=== PATIENT | male | born 1940 | race Caucasian/White ===

== ENCOUNTER → 2016-10-04 | Outpatient (REF) | payer MEDICARE ==
[~2016-10-04] MED LIST: /ADVA50050 IN; /LINE60TA OR; /PANT40TA OR; ADV250INH INH; ALBU83IN IN; ALDA25TA2 OR; ASPI1TAB PO; ASPI81TA45 OR; BUPR150T3 PO; CAPT12.5 OR; CAPTPOW PO; COLA100C PO; COLA100C2 OR; COMBAER6 INH; COMBVENT INH; DUONSOL IN; DUONSOL NEB; FERR325T3 PO; FOLI1TAB2 PO; HYDR-3713 PO; IPRASOL4 INH; LIPI20TA OR; LIPI20TA PO; LISI2.5T OR; LORT5TAB PO; MAGN500T2 OR; MIRA3350 PO; MOM30SS PO; MUCI600T34 PO; MULT1TAB18 PO; NICO14DI3 TD; NORCOTAB PO; OMEP20TA7 OR; PANT40TA2 PO; PERCOCET PO; PLAV75TA2 OR; PLAV75TA38 PO; POTA10CA PO; PRED10TA PO; PRED10TA2 OR; PRED20TA OR; PRED5TAB OR; RAMI5CA PO; SENO8.6T2 PO; TYLE325T5 PO; VICO5TAB OR; VITA100072 PO; VITA500055 PO; VITMTA PO; [UNRECOGNIZED DRUG - OTHER]; [UNRECOGNIZED DRUG - OTHER]; invanz IV; omnicef PO
[2016-10-04 16:07] LABS: VITAMIN B12 LEVEL 1254 PG/ML (247-911)
[2016-10-04 16:08] LABS: BASO # 0.2 K/mm3 (0.0-0.2); BASO % 1.5 % (0.0-1.0); EOS # 0.4 K/mm3 (0.0-0.50); EOS % 3.6 % (0.0-3.0); LARGE UNSTAINED CELL # 0.2 K/mm3 (0.0-0.4); LARGE UNSTAINED CELL % 1.8 % (0.0-4.0); LYMPH # 2.9 K/mm3 (1.5-4.5); MEAN CORPUSCULAR HEMOGLOBIN 27.1 pg (27.0-33.0); MEAN CORPUSCULAR HGB CONC 31.2 g/dl (32.0-36.5); MEAN CORPUSCULAR VOLUME 86.6 fl (80.0-96.0); MONO # 0.7 K/mm3 (0.0-0.8); MONO % 6.2 % (0.0-5.0); NEUTROPHILS # 7.1 K/mm3 (1.8-7.7); PLATELET COUNT, AUTOMATED 222 k/mm3 (150-450); RED CELL DISTRIBUTION WIDTH 16.2 % (11.5-14.5); WHITE BLOOD COUNT 11.2 K/mm3 (4.0-10.0)
[2016-10-04 16:16] LABS: ALBUMIN 3.5 GM/DL (3.2-5.2); ALBUMIN/GLOBULIN RATIO 0.78 (1.00-1.93); ALKALINE PHOSPHATASE 122 U/L (45-117); ALT/SGPT 21 U/L (12-78); ANION GAP 7 MEQ/L (8-16); AST/SGOT 9 U/L (15-37); BILIRUBIN,TOTAL 0.3 MG/DL (0.2-1.0); BLOOD UREA NITROGEN 20 MG/DL (7-18); CALCIUM LEVEL 9.5 MG/DL (8.8-10.2); CARBON DIOXIDE LEVEL 27 MEQ/L (21-32); CHLORIDE LEVEL 112 MEQ/L (98-107); FERRITIN 269 NG/ML (26-388); GLOMERULAR FILTRATION RATE > 60.0 (>42); GLUCOSE, FASTING 79 MG/DL (83-110); MAGNESIUM LEVEL 1.9 MG/DL (1.8-2.4); PERCENT SATURATION 23.4 % (19.7-37.4); POTASSIUM SERUM 4.6 MEQ/L (3.5-5.1); SODIUM LEVEL 146 MEQ/L (136-145); TOTAL IRON BINDING CAPACITY 252 UG/DL (250-450)
== END ==
LOC: M SFHCPLAZ 12:31
PROVIDERS: ATTEND Family Medicine
DX: D50.9 Iron deficiency anemia, unspecified (principal); N18.3 Chronic kidney disease, stage 3 (moderate); I12.9 Hypertensive chronic kidney disease with stage 1 through stage 4 chronic kidney disease, or unspecified chronic kidney disease; E55.9 Vitamin D deficiency, unspecified; E53.8 Deficiency of other specified B group vitamins
CPT/HCPCS: 36415; 80053; 82306; 82607; 82728; 83550; 83735; 83970; 85025; G0463

== ENCOUNTER → 2016-10-29 | Outpatient (REF) | payer MEDICARE ==
[2016-10-29 12:40] LABS: ALBUMIN 3.4 GM/DL (3.2-5.2); ALBUMIN/GLOBULIN RATIO 0.81 (1.00-1.93); ALKALINE PHOSPHATASE 144 U/L (45-117); ALT/SGPT 16 U/L (12-78); ANION GAP 10 MEQ/L (8-16); AST/SGOT 12 U/L (15-37); BILIRUBIN,TOTAL 0.2 MG/DL (0.2-1.0); BLOOD UREA NITROGEN 21 MG/DL (7-18); CALCIUM LEVEL 9.2 MG/DL (8.8-10.2); CARBON DIOXIDE LEVEL 29 MEQ/L (21-32); CHLORIDE LEVEL 104 MEQ/L (98-107); CHOLESTEROL LEVEL 144 MG/DL (<200); CREATININE FOR GFR 1.06 MG/DL (0.70-1.30); FERRITIN 188 NG/ML (26-388); FREE T4 0.81 NG/DL (0.76-1.46); GLOMERULAR FILTRATION RATE > 60.0 (>42); GLUCOSE, FASTING 72 MG/DL (83-110); MAGNESIUM LEVEL 1.9 MG/DL (1.8-2.4); PERCENT SATURATION 26.8 % (19.7-37.4); POTASSIUM SERUM 4.7 MEQ/L (3.5-5.1); SODIUM LEVEL 143 MEQ/L (136-145); TOTAL IRON BINDING CAPACITY 254 UG/DL (250-450); TOTAL PROTEIN 7.6 GM/DL (6.4-8.2); TRIGLYCERIDES LEVEL 258 MG/DL (<150)
[2016-10-29 13:11] LABS: BASO % 0.5 % (0.0-1.0); EOS # 0.4 K/mm3 (0.0-0.50); EOS % 4.1 % (0.0-3.0); LARGE UNSTAINED CELL # 0.2 K/mm3 (0.0-0.4); LARGE UNSTAINED CELL % 1.7 % (0.0-4.0); LYMPH # 3.1 K/mm3 (1.5-4.5); LYMPH % 30.2 % (24.0-44.0); MEAN CORPUSCULAR HEMOGLOBIN 27.2 pg (27.0-33.0); MEAN CORPUSCULAR HGB CONC 31.4 g/dl (32.0-36.5); MEAN CORPUSCULAR VOLUME 86.6 fl (80.0-96.0); MONO # 0.7 K/mm3 (0.0-0.8); MONO % 7.7 % (0.0-5.0); NEUTROPHILS # 5.4 K/mm3 (1.8-7.7); NEUTROPHILS % 55.8 % (36.0-66.0); PLATELET COUNT, AUTOMATED 192 k/mm3 (150-450); RED CELL DISTRIBUTION WIDTH 14.9 % (11.5-14.5); WHITE BLOOD COUNT 9.6 K/mm3 (4.0-10.0)
== END ==
LOC: M SFHCPLAZ 10:12
PROVIDERS: ATTEND Family Medicine
DX: D50.9 Iron deficiency anemia, unspecified (principal); N18.3 Chronic kidney disease, stage 3 (moderate); E78.2 Mixed hyperlipidemia
CPT/HCPCS: 36415; 80053; 80061; 82728; 83550; 83735; 84439; 84443; 85025; G0463

== ENCOUNTER → 2017-02-28 | Outpatient (REF) | payer MEDICARE ==
[~2017-02-28] MED LIST changes: +BREO1INH3 INH; +CEFD300CAP PO; -COLA100C PO; +COLA100C3 PO; +GUAI60TA PO; +IRON65TA PO; +MAGN1TAB25 PO; +POTA20TA6 PO; +PRED20TA PO; +STOO100C PO
[2017-02-28 16:46] LABS: BASO # 0.1 K/mm3 (0.0-0.2); BASO % 0.5 % (0.0-1.0); EOS # 0.2 K/mm3 (0.0-0.50); EOS % 2.1 % (0.0-3.0); LARGE UNSTAINED CELL # 0.1 K/mm3 (0.0-0.4); LARGE UNSTAINED CELL % 0.8 % (0.0-4.0); LYMPH # 1.3 K/mm3 (1.5-4.5); LYMPH % 9.9 % (24.0-44.0); MEAN CORPUSCULAR HEMOGLOBIN 29.1 pg (27.0-33.0); MEAN CORPUSCULAR HGB CONC 34.4 g/dl (32.0-36.5); MEAN CORPUSCULAR VOLUME 84.6 fl (80.0-96.0); MONO # 0.8 K/mm3 (0.0-0.8); MONO % 6.5 % (0.0-5.0); NEUTROPHILS # 9.9 K/mm3 (1.8-7.7); NEUTROPHILS % 80.2 % (36.0-66.0); PLATELET COUNT, AUTOMATED 239 k/mm3 (150-450); RED CELL DISTRIBUTION WIDTH 14.2 % (11.5-14.5); WHITE BLOOD COUNT 12.3 K/mm3 (4.0-10.0)
[2017-02-28 17:46] LABS: ALBUMIN 3.4 GM/DL (3.2-5.2); ALBUMIN/GLOBULIN RATIO 0.79 (1.00-1.93); ALKALINE PHOSPHATASE 127 U/L (45-117); ALT/SGPT 15 U/L (12-78); ANION GAP 11 MEQ/L (8-16); AST/SGOT 19 U/L (15-37); BILIRUBIN,TOTAL 0.5 MG/DL (0.2-1.0); BLOOD UREA NITROGEN 15 MG/DL (7-18); CALCIUM LEVEL 9.2 MG/DL (8.8-10.2); CARBON DIOXIDE LEVEL 26 MEQ/L (21-32); CHLORIDE LEVEL 86 MEQ/L (98-107); CREATININE FOR GFR 1.11 MG/DL (0.70-1.30); FERRITIN 348 NG/ML (26-388); GLOMERULAR FILTRATION RATE > 60.0 (>42); GLUCOSE, FASTING 83 MG/DL (83-110); MAGNESIUM LEVEL 1.8 MG/DL (1.8-2.4); PERCENT SATURATION 12.2 % (19.7-37.4); POTASSIUM SERUM 4.7 MEQ/L (3.5-5.1); SODIUM LEVEL 123 MEQ/L (136-145); TOTAL IRON BINDING CAPACITY 246 UG/DL (250-450); TOTAL PROTEIN 7.7 GM/DL (6.4-8.2)
== END ==
LOC: M SFHCPLAZ 13:10
PROVIDERS: ATTEND Family Medicine
DX: D50.9 Iron deficiency anemia, unspecified (principal); I50.20 Unspecified systolic (congestive) heart failure; E78.2 Mixed hyperlipidemia; Z79.82 Long term (current) use of aspirin; Z79.01 Long term (current) use of anticoagulants; Z79.899 Other long term (current) drug therapy

== ENCOUNTER 2017-03-01 15:08 | Inpatient (IN) | payer MEDICARE ==
[~2017-03-01] VITALS: Ht 165.1 cm; Wt 56.2 kg
[~2017-03-01 15:08] MED LIST changes: -BREO1INH3 INH; -CEFD300CAP PO; -GUAI60TA PO; -IRON65TA PO; -MAGN1TAB25 PO; -POTA20TA6 PO; -PRED20TA PO; -STOO100C PO
[2017-03-01 16:27] LABS: BASO % 0.5 % (0.0-1.0); EOS # 0.3 K/mm3 (0.0-0.50); EOS % 2.9 % (0.0-3.0); LARGE UNSTAINED CELL # 0.1 K/mm3 (0.0-0.4); LARGE UNSTAINED CELL % 1.1 % (0.0-4.0); LYMPH # 1.2 K/mm3 (1.5-4.5); LYMPH % 9.7 % (24.0-44.0); MEAN CORPUSCULAR HEMOGLOBIN 28.6 pg (27.0-33.0); MEAN CORPUSCULAR HGB CONC 34.7 g/dl (32.0-36.5); MEAN CORPUSCULAR VOLUME 82.6 fl (80.0-96.0); MONO # 0.7 K/mm3 (0.0-0.8); MONO % 6.4 % (0.0-5.0); NEUTROPHILS # 8.6 K/mm3 (1.8-7.7); NEUTROPHILS % 79.3 % (36.0-66.0); PLATELET COUNT, AUTOMATED 222 k/mm3 (150-450); WHITE BLOOD COUNT 10.9 K/mm3 (4.0-10.0)
[2017-03-01 16:51] LABS: ANION GAP 7 MEQ/L (8-16); BLOOD UREA NITROGEN 14 MG/DL (7-18); CALCIUM LEVEL 8.7 MG/DL (8.8-10.2); CARBON DIOXIDE LEVEL 25 MEQ/L (21-32); CHLORIDE LEVEL 87 MEQ/L (98-107); GLUCOSE, FASTING 93 MG/DL (83-110); POTASSIUM SERUM 4.7 MEQ/L (3.5-5.1); SODIUM LEVEL 119 MEQ/L (136-145)
[2017-03-01 17:13] LABS: CREATININE FOR GFR 0.88 MG/DL (0.70-1.30); GLOMERULAR FILTRATION RATE > 60.0 (>42)
[2017-03-01 17:44] LABS: FREE T4 1.46 NG/DL (0.76-1.46)
--- NOTE | 2017-03-01 18:18 | REP ---
Chest x-ray: Three views presented: History: Dyspnea and cough. Comparison chest x-ray 09/03/2016. Findings: EKG monitoring electrodes overlie the chest. There are patchy areas of bilateral interstitial and coarse fibrosis involving the left lower lobe, right lower lobe, right upper lobe. These are somewhat more prominent but not new when compared with the 09/03/2016 prior study. Findings are most compatible with a COPD and bilateral interstitial fibrosis. No definite new infiltrate. Impression: Interstitial fibrosis pattern bilaterally with patchy areas of slightly more prominent than on the prior study as noted above. No definite new infiltrate. COPD pattern. Signed by Sung Arteaga MD 03/04/2017 06:55 P
[2017-03-01] MEDS ORDERED: STOO100C PO (20:13)
[2017-03-01] MEDS ORDERED: BREO1INH3 INH (20:13)
[2017-03-01] MEDS ORDERED: IRON65TA PO (20:13)
[2017-03-01] MEDS ORDERED: MAGN1TAB25 PO (20:13)
[2017-03-01] MEDS ORDERED: POTA20TA6 PO (20:14)
--- NOTE | 2017-03-01 20:50 | REPUSA ---
CLINICAL HISTORY: COPD and hyponatremia. TECHNIQUE: Multiple axial CT images were obtained through the thorax without IV contrast material. COMPARISON: Comparison is made with a prior study dated 07/13/2016. COMMENTS: Severe upper lobe predominant centrilobular and paracentral emphysema is seen. There are increased i nterstitial lung markings with honeycombing at lung bases compatible with pulmonary fibrosis. Since the prior study, there is resolution of confluent markings in the superior segment of right lower lob e. There are some evidence confluent markings with areas of consolidation to the lingula. This is m ost compatible with pneumonia. However follow up is recommended to document resolution. There are no pleural effusions. There is no evidence of hilar or mediastinal lymphadenopathy. The h eart and great vessels are within normal limits. The visualized portions of the liver are of uniform attenuation without mass or defect. There is no intra or extrahepatic biliary ductal dilatation. The spleen is unremarkable. The visualized pancrea s is of normal contour and attenuation characteristics. There is no evidence of adrenal mass. The v isualized portions of the kidneys present no abnormalities. The bony structures are free of lytic or blastic lesions. Calcified gallstone is again seen. IMPRESSION: 1. Severe upper lobe predominant centrilobular and paracentral emphysema is seen. 2. There are increased interstitial lung markings with honeycombing at lung bases compatible with p ulmonary fibrosis. 3. Since the prior study, there is resolution of confluent markings in the superior segment of righ t lower lobe. 4. New confluent markings with areas of consolidation to the lingula. This is most compatible with pneumonia. However follow up is recommended to document resolution. 5. Calcified gallstone is again seen. Thank you for your kind referral of this patient. We appreciate the opportunity to participate in thi s patient's care.
[2017-03-01] MEDS ORDERED: AZITHROMYCIN INJ 500 MG, VIAL MATE ADAPTER 1 EACH in D5W 250 ML IV ONE (21:15)
[2017-03-01] MEDS ORDERED: cefTRIAXone SOD 2 GM in D5W MINI-BAG PLUS 50 ML IV ONE (21:15)
[2017-03-01 21:23] LABS: ALBUMIN 3.2 GM/DL (3.2-5.2); ALBUMIN/GLOBULIN RATIO 0.84 (1.00-1.93); ALKALINE PHOSPHATASE 118 U/L (45-117); ALT/SGPT 16 U/L (12-78); AST/SGOT 24 U/L (15-37); BILIRUBIN,DIRECT < 0.1 MG/DL (0.0-0.2); BILIRUBIN,TOTAL 0.5 MG/DL (0.2-1.0)
[2017-03-01] MEDS: ACETAMINOPHEN TAB 650MG DOSE (2X325MG) PO PRN (22:00)
[2017-03-01] MEDS: NS 1,000 ML IV SCH (22:00)
--- NOTE | 2017-03-01 22:10 | REPUSA ---
CT of the abdomen and pelvis without contrast Clinical statement: Pain. Technique: Multiple axial CT images were obtained from the base of the lungs to the floor of the pelv is utilizing 5 mm axial slices without administration of contrast. Coronal and sagittal reconstructio ns were also obtained. Comparison: 08/13/2016. Findings: Chest: The visualized lung bases demonstrate extensive chronic interstitial changes, most severe in t he left lung. Areas of bronchiectasis and honeycombing is noted in the left lower lung. No acute infi ltrates or effusions are seen. Abdomen: The kidneys are normal in size bilaterally. There is no evidence of hydronephrosis or nephro lithiasis. The liver, spleen, pancreas, and adrenal glands are unremarkable. The aorta demonstratesmo derate atherosclerosis, without evidence of aneurysm. There is a 1.8 cm stone within the gallbladder. No pericholecystic inflammatory changes are seen. There is no evidence of biliary ductal dilatation. There is no abdominal lymphadenopathy or ascites. Pelvis: The bowel is unremarkable, with no obstructive or inflammatory changes. The urinary bladder i s within normal limits. There is no pelvic lymphadenopathy or ascites. The other pelvic structures ap pear unremarkable. Bones: There are no suspicious osseous abnormalities seen. Moderate degenerative disc disease is note d at L5/S1, with a broad disc bulge. Impression: 1. No evidence of hydronephrosis or nephrolithiasis. 2. No obstructive or inflammatory bowel changes. 3. Severe chronic changes from pulmonary fibrosis seen in the lung bases bilaterally, worse on the le ft. No acute infiltrates. 4. Cholelithiasis without evidence of acute cholecystitis. 5. Moderate diffuse atherosclerosis of the abdominal aorta without evidence of aneurysm. 6. Moderate degenerative disc disease and disc bulge at L5/S1, causing moderate central canal stenosi s. This finding is stable.
[2017-03-01 22:56] LABS: ANION GAP 10 MEQ/L (8-16); BLOOD UREA NITROGEN 13 MG/DL (7-18); CALCIUM LEVEL 8.2 MG/DL (8.8-10.2); CARBON DIOXIDE LEVEL 24 MEQ/L (21-32); CHLORIDE LEVEL 86 MEQ/L (98-107); CREATININE FOR GFR 0.86 MG/DL (0.70-1.30); GLOMERULAR FILTRATION RATE > 60.0 (>42); GLUCOSE, FASTING 85 MG/DL (83-110); SODIUM LEVEL 120 MEQ/L (136-145)
[2017-03-01] MEDS: ATORVASTATIN 20 MG TAB PO SCH (23:49)
[2017-03-01] MEDS: POTASSIUM CHLORIDE 10 MEQ SR TABLET PO SCH (23:50)
[2017-03-02] VITALS (7 sets, daily range): BP systolic 127–165; BP diastolic 59–71
[2017-03-02] MEDS: methylPREDNISolone INJ 125 MG/2 ML VIAL (J2930) IV SCH ×4 (00:47→17:49)
--- NOTE | 2017-03-02 01:26 | HPEPDOC ---
General Date of Admission Mar 01, 2017 at 21:46 Primary Care Physician: Frederick Singh M.D. Attending Physician: Frederick Singh M.D. Chief Complaint The patient is a 76-year-old male admitted with a reason for visit of Abd Pain; Chronic Resp Failure W/Hypoxia. Source: Patient Exam Limitations: No limitations Timing/Duration: Day(s) Severity: Moderate Associated Symptoms: Shortness of breath, Other (abdominal pain) History of Present Illness 76-year-old male, history of COPD on home oxygen of 2 and half liters presented with shortness of breath and abdominal pain which is started since past 2 days. No nausea, vomiting, constipation, diarrhea, melena, hematemesis, hemoptysis, fever, chills Home Medications Scheduled (Iron) 325 Mg Tab, 325 MG PO BID, (Reported) Aspirin (Aspirin 81) 81 Mg Tab, 81 MG PO DAILY, (Reported) Atorvastatin Calcium (Lipitor) 20 Mg Tab, 20 MG PO QHS, (Reported) Clopidogrel Bisulfate (Plavix) 75 Mg Tab, 75 MG PO DAILY, (Reported) Docusate Sodium (Stool Softener) 100 Mg Cap, 100 MG PO BID, (Reported) Fluticasone/Vilanterol (Breo Ellipta 200-25 Mcg/INH) 1 Inh Inh, 1 PUFF INH DAILY , (Reported) Magnesium Oxide (Magnesium) 400 Mg Tab, 400 MG PO DAILY, (Reported) Pantoprazole Sodium (Pantoprazole Sodium) 40 Mg Tab, 40 MG PO DAILY, (Reported) Potassium Chloride (Potassium Chloride ER) 20 Meq Tab, 20 MEQ PO BID, (Reported) Scheduled PRN Albuterol/Ipratropium (Combivent Respimat 20-100 Mcg/Act) 1 Aer Aer, 2 PUFF INH QID PRN for SOB/WHEEZING, (Reported) Albuterol/Ipratropium (Ipratropium Vantage/Albut 0.5-2.5 (3) mg/3Ml) 1 Earnest Earnest, 1 EARNEST INH Q4H PRN for SOB/WHEEZING, (Reported) Allergies Coded Allergies: TAPE (Unverified Adverse Reaction, Unknown, PULLS SKIN OFF, 07/13/16) Past Medical History Medical History COPD Surgical History Hernia Family History Significant Family History: No pertinent family hx Social History * Smoker: less than 1 pack/day Alcohol: Denies Drugs: denies Recent Travel/Sick Contacts: Denies: Recent travel, Recent sick contacts Review of Symptoms Constitutional: Denies: Chills, Fever, Night Sweats Eyes: Denies: Pain, Vision change ENT: Denies: Head Aches, Ear Pain, Dysphagia Skin: Denies: Rash, Lesions, Breakdown Pulmonary: Reports: Dyspnea, Cough Cardiovascular: Denies: Chest Pain, Palpitations, Orthopnea, Paroxysmal Noc. Dyspnea, Lt Headedness Gastrointestinal: Reports: Abdominal Pain, Denies: Nausea, Vomiting, Diarrhea Genitourinary: Denies: Dysuria, Frequency, Incontinence, Retention Hematologic: Denies: Bruising, Bleeding Excessively Musculoskeletal: Denies: Neck Pain, Back Pain, Joint Pain, Muscle Pain, Spasms Neurological: Denies: Weakness, Numbness, Change in speech, Confusion Psych: Reports: Mood Normal, Denies: Depression, Memory Issues Physical Examination General Exam: Positive: Alert, No Acute Distress Eye Exam: Positive: PERRLA, Conjunctiva & lids normal, EOMI, Negative: Sclera icteric ENT Exam: Positive: Atraumatic, Mucous membr. moist/pink, Pharynx Normal Neck Exam: Positive: Supple, Negative: JVD, thyromegaly Chest Exam: Positive: Clear to auscultation, Normal air movement Heart Exam: Positive: Rate Normal, Regular Rhythm, Normal S1, Normal S2, Negative: Murmurs, Rubs Telemetry: Positive: No significant arrhythmia Abdomen Exam: Positive: Normal bowel sounds, Soft, Negative: Tenderness, Hepatospenomegaly Extremity Exam: Positive: Normal pulses, Negative: Clubbing, Cyanosis, Edema Skin Exam: Positive: Nl turgor and temperature, Negative: Breakdown, Lesion Neuro Exam: Positive: Normal Gait, Normal Speech, Cranial Nerves 3-12 NL, Reflexes 2+ Psych Exam: Positive: Mental status NL, Mood NL, Oriented x 3 Vital Signs Vital Signs Date Time Temp Pulse Resp B/P (MAP) Pulse Ox O2 Delivery O2 Flow Rate FiO2 03/02/17 00:01 57 20 126/61 (82) 96 Nasal Cannula 2.5 03/01/17 23:24 98.8 Laboratory Data Labs 24H Laboratory Tests 2 03/01/17 16:10: White Blood Count 10.9H, Red Blood Count 4.66, Hemoglobin 13.3L, Hematocrit 38.5L, Mean Corpuscular Volume 82.6, Mean Corpuscular Hemoglobin 28.6, Mean Corpuscular Hemoglobin Concent 34.7, Red Cell Distribution Width 14.0, Platelet Count 222, Neutrophils (%) (Auto) 79.3H, Lymphocytes (%) (Auto) 9.7L, Monocytes (%) (Auto) 6.4H, Eosinophils (%) (Auto) 2.9, Basophils (%) (Auto) 0.5, Neutrophils # (Auto) 8.6H, Lymphocytes # (Auto) 1.2L, Monocytes # (Auto) 0.7, Eosinophils # (Auto) 0.3, Basophils # (Auto) 0.0, Large Unclassified Cells % 1.1 , Large Unclassified Cells # 0.1, Anion Gap 7L, Glomerular Filtration Rate > 60.0, Blood Urea Nitrogen 14, Creatinine 0.88, Sodium Level 119*L, Potassium Level 4.7, Chloride Level 87L, Carbon Dioxide Level 25, Calcium Level 8.7L, Total Creatine Kinase 299, Aspartate Amino Transf (AST/SGOT) 24, Alanine Aminotransferase (ALT/SGPT) 16, Alkaline Phosphatase 118H, Total Bilirubin 0.5, Direct Bilirubin < 0.1, Creatine Kinase MB 5.6H, Creatine Kinase MB Relative Index 1.87, Troponin I < 0.02, Total Protein 7.0, Albumin 3.2, Albumin/Globulin Ratio 0.84L, Lipase 103, Thyroid Stimulating Hormone (TSH) 2.020, Free Thyroxine 1.46 03/01/17 17:41: Osmolality 245L 03/01/17 17:47: Urine Random Osmolality 677, Urine Random Creatinine 108.0, Urine Random Sodium 101 03/01/17 22:14: Anion Gap 10, Glomerular Filtration Rate > 60.0, Blood Urea Nitrogen 13, Creatinine 0.86, Sodium Level 120L, Potassium Level 4.0, Chloride Level 86L, Carbon Dioxide Level 24, Calcium Level 8.2L CBC/BMP Laboratory Tests 03/01/17 16:10 Red Blood Count 4.66, Mean Corpuscular Volume 82.6, Mean Corpuscular Hemoglobin 28.6, Mean Corpuscular Hemoglobin Concent 34.7, Red Cell Distribution Width 14.0 , Neutrophils (%) (Auto) 79.3 H, Lymphocytes (%) (Auto) 9.7 L, Monocytes (%) ( Auto) 6.4 H, Eosinophils (%) (Auto) 2.9, Basophils (%) (Auto) 0.5, Neutrophils # (Auto) 8.6 H, Lymphocytes # (Auto) 1.2 L, Monocytes # (Auto) 0.7, Eosinophils # (Auto) 0.3, Basophils # (Auto) 0.0, Calcium Level 8.7 L, Total Creatine Kinase 299 03/01/17 22:14 Calcium Level 8.2 L Microbiology Microbiology 03/01/17 Blood Culture, Received Pending 03/01/17 Blood Culture, Received Pending Assessment/Plan 76-year-old male, history of COPD on home oxygen of 2 and half liters presented with shortness of breath and abdominal pain Problems (1) COPD (chronic obstructive pulmonary disease) Status: Chronic Problem Text: They started oxygen, DuoNeb, Solu-Medrol IV. Patient has moderate pulmonary fibrosis (2) Abdominal pain Status: Acute Problem Text: Lipase is normal. LFT normal. CT scan of the abdomen showed cholelithiasis without any acute cholecystitis. Continue with pain control, IV fluids (3) Tobacco abuse Problem Text: Start a nicotine patch (4) Hyponatremia Status: Acute Problem Text: Check urine sodium, urine creatinine, sodium was 119. Start IV normal saline at 150 mL per hour. Check BMP every 12 hours Plan / VTE VTE Prophylaxis Ordered?: Yes Plan IVF: Initiate Diet: Continue Current Activity: Continue Current Anticipated Discharge: Home AVERY ELLIS MD Mar 02, 2017 01:26
[2017-03-02] MEDS: NS 1,000 ML IV SCH ×4 (05:32→20:37)
[2017-03-02 05:57] LABS: MEAN CORPUSCULAR HGB CONC 34.7 g/dl (32.0-36.5); MEAN CORPUSCULAR VOLUME 83.5 fl (80.0-96.0); RED CELL DISTRIBUTION WIDTH 14.1 % (11.5-14.5); WHITE BLOOD COUNT 11.9 K/mm3 (4.0-10.0)
[2017-03-02 06:12] LABS: ALBUMIN 2.9 GM/DL (3.2-5.2); ALBUMIN/GLOBULIN RATIO 0.64 (1.00-1.93); ALKALINE PHOSPHATASE 114 U/L (45-117); ALT/SGPT 16 U/L (12-78); ANION GAP 9 MEQ/L (8-16); AST/SGOT 21 U/L (15-37); BILIRUBIN,TOTAL 0.4 MG/DL (0.2-1.0); BLOOD UREA NITROGEN 12 MG/DL (7-18); CALCIUM LEVEL 8.2 MG/DL (8.8-10.2); CARBON DIOXIDE LEVEL 22 MEQ/L (21-32); CHLORIDE LEVEL 88 MEQ/L (98-107); CREATININE FOR GFR 0.87 MG/DL (0.70-1.30); GLOMERULAR FILTRATION RATE > 60.0 (>42); GLUCOSE, FASTING 90 MG/DL (83-110); POTASSIUM SERUM 4.6 MEQ/L (3.5-5.1); SODIUM LEVEL 119 MEQ/L (136-145); TOTAL PROTEIN 7.4 GM/DL (6.4-8.2)
[2017-03-02] MEDS: NICOTINE 14 MG/24 HR TRANSDERMAL TD SCH ×2 (08:46→08:55)
[2017-03-02] MEDS: PANTOPRAZOLE 40MG INJ (PROTONIX) (C9113) IV SCH (08:46)
[2017-03-02] MEDS: FERROUS SULFATE 325MG TAB PO SCH ×2 (08:47→20:39)
[2017-03-02] MEDS: POTASSIUM CHLORIDE 10 MEQ SR TABLET PO SCH (08:47)
[2017-03-02] MEDS: DOCUSATE SODIUM 100 MG CAP PO SCH ×2 (08:47→20:39)
[2017-03-02] MEDS: ASPIRIN 81 MG ENTERIC TAB PO SCH (08:47)
[2017-03-02] MEDS: CLOPIDOGREL 75 MG TAB PO SCH (08:47)
[2017-03-02 13:00] LABS: ANION GAP 7 MEQ/L (8-16); BLOOD UREA NITROGEN 13 MG/DL (7-18); CARBON DIOXIDE LEVEL 25 MEQ/L (21-32); CHLORIDE LEVEL 89 MEQ/L (98-107); CREATININE FOR GFR 0.96 MG/DL (0.70-1.30); GLOMERULAR FILTRATION RATE > 60.0 (>42); GLUCOSE, FASTING 107 MG/DL (83-110); SODIUM LEVEL 121 MEQ/L (136-145)
[2017-03-02 13:01] LABS: POTASSIUM SERUM 5.7 MEQ/L (3.5-5.1)
--- NOTE | 2017-03-02 15:32 | IPNPDOC ---
Subjective Date Seen The patient was seen on 03/02/17. Subjective Chief Complaint/HPI The patient is a 76-year-old male admitted with a reason for visit of Abd Pain; Chronic Resp Failure W/Hypoxia. Events since last encounter Patient states he came to the ED due to SOB. He reports LLQ abdominal pain that is mild; he is hungry and would like to try to eat. He denies any nausea or vomiting at home. Constitutional: Denies: Chills, Fever Pulmonary: Reports: Dyspnea (chronic and at baseline), Denies: Cough Cardiovascular: Denies: Chest Pain, Palpitations, Orthopnea Gastrointestinal: Reports: Abdominal Pain (LLQ pain), Constipation (last BM 2 days ago), Denies: Nausea, Vomiting, Diarrhea Genitourinary: Denies: Dysuria Musculoskeletal: Denies: Neck Pain, Back Pain Neurological: Denies: Weakness, Numbness, Confusion Psych: Reports: Mood Normal Objective Physical Examination General Exam: Positive: Alert, No Acute Distress Eye Exam: Positive: PERRLA, Conjunctiva & lids normal, EOMI, Negative: Sclera icteric ENT Exam: Positive: Atraumatic, Mucous membr. moist/pink, Pharynx Normal Neck Exam: Positive: Supple, Negative: JVD, thyromegaly Chest Exam: Positive: Clear to auscultation, Normal air movement, Negative: Rales, Rhonchi, Wheezing Heart Exam: Positive: Rate Normal, Regular Rhythm, Normal S1, Normal S2, Negative: Murmurs, Rubs Telemetry: Positive: No significant arrhythmia Abdomen Exam: Positive: Normal bowel sounds, Soft, Tenderness (mild tenderness to palpation in left lower quadrant), Negative: Hepatospenomegaly Extremity Exam: Positive: Normal pulses, Negative: Clubbing, Cyanosis, Edema Skin Exam: Positive: Nl turgor and temperature Neuro Exam: Positive: Normal Gait, Normal Speech, Cranial Nerves 3-12 NL, Reflexes 2+ Psych Exam: Positive: Mental status NL, Mood NL, Oriented x 3 Assessment /Plan Problems (1) Lingular pneumonia Problem Text: Patient has consolidation at lingula on chest CT that likely represents pneumonia; he states he presented to the ED with SOB. - He received ceftriaxone and azithromycin in the ED for CAP; continue these Q24H - WBCs were elevated upon admission and are increased today, likely due to solumedrol - Blood cultures are pending (2) COPD (chronic obstructive pulmonary disease) Status: Chronic Problem Text: Exacerbation is likely due to pneumonia. Baseline O2 is 2 L/min at home; he has an increased oxygen need here of 3 L/min - Continue oxygen, DuoNeb, Solu-Medrol IV. - Patient also has moderate pulmonary fibrosis (3) Hyponatremia Status: Acute Response to Treatment: Stable Problem Text: I am uncertain if is onset is acute or chronic; patient is not confused and is neurologically intact. Sodium was normal in 10/2016. 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 He does not appear to be on any medications that could cause SIADH. SIADH could occur with pneumonia. Thyroid tests were normal. Continue NS at 150 ml/hour. Check BMP Q4H. (4) Hyperkalemia Status: Acute Response to Treatment: Stable Problem Text: Potassium was high this afternoon at 5.7. He was receiving his home potassium supplement - this was discontinued and a repeat BMP was ordered for 16:00. He is currently being monitored on telemetry. (5) Abdominal pain Status: Acute Problem Text: Lipase and LFTs were normal upon admission. CT scan of the abdomen showed cholelithiasis without any acute cholecystitis. Patient has a history of recurrent SBOs, but abdominal CT is negative for obstruction. His pain is improved today and he is eager to eat - will trial clear liquid diet and advance as tolerated. (6) Tobacco abuse Problem Text: Continue nicotine patch (7) Atrial fibrillation Status: Chronic (8) CAD (coronary artery disease) Status: Chronic Response to Treatment: Stable (9) GERD (gastroesophageal reflux disease) Status: Chronic Response to Treatment: Stable (10) Dyslipidemia Status: Chronic Response to Treatment: Stable (11) Depression Status: Chronic Response to Treatment: Stable Plan/VTE VTE Prophylaxis Ordered?: Yes (SCD and Teds) Plan IVF: Initiate Diet: Advance Activity: Continue Current Anticipated Discharge: Home VS, I&O, 24H, Fishbone Vital Signs/I&O Vital Signs Date Time Temp Pulse Resp B/P (MAP) Pulse Ox O2 Delivery O2 Flow Rate FiO2 03/02/17 11:42 97.5 60 18 132/65 (87) 99 Nasal Cannula 3.0 I&O- Last 24 Hours up to 6 AM 03/02/17 06:00 Intake Total 365 ml Output Total 625 ml Balance -260 ml Laboratory Data 24H LABS Laboratory Tests 2 03/01/17 16:10: White Blood Count 10.9H, Red Blood Count 4.66, Hemoglobin 13.3L, Hematocrit 38.5L, Mean Corpuscular Volume 82.6, Mean Corpuscular Hemoglobin 28.6, Mean Corpuscular Hemoglobin Concent 34.7, Red Cell Distribution Width 14.0, Platelet Count 222, Neutrophils (%) (Auto) 79.3H, Lymphocytes (%) (Auto) 9.7L, Monocytes (%) (Auto) 6.4H, Eosinophils (%) (Auto) 2.9, Basophils (%) (Auto) 0.5, Neutrophils # (Auto) 8.6H, Lymphocytes # (Auto) 1.2L, Monocytes # (Auto) 0.7, Eosinophils # (Auto) 0.3, Basophils # (Auto) 0.0, Large Unclassified Cells % 1.1 , Large Unclassified Cells # 0.1, Anion Gap 7L, Glomerular Filtration Rate > 60.0, Blood Urea Nitrogen 14, Creatinine 0.88, Sodium Level 119*L, Potassium Level 4.7, Chloride Level 87L, Carbon Dioxide Level 25, Calcium Level 8.7L, Total Creatine Kinase 299, Aspartate Amino Transf (AST/SGOT) 24, Alanine Aminotransferase (ALT/SGPT) 16, Alkaline Phosphatase 118H, Total Bilirubin 0.5, Direct Bilirubin < 0.1, Creatine Kinase MB 5.6H, Creatine Kinase MB Relative Index 1.87, Troponin I < 0.02, Total Protein 7.0, Albumin 3.2, Albumin/Globulin Ratio 0.84L, Lipase 103, Thyroid Stimulating Hormone (TSH) 2.020, Free Thyroxine 1.46 03/01/17 17:41: Osmolality 245L 03/01/17 17:47: Urine Random Osmolality 677, Urine Random Creatinine 108.0, Urine Random Sodium 101 03/01/17 22:14: Anion Gap 10, Glomerular Filtration Rate > 60.0, Blood Urea Nitrogen 13, Creatinine 0.86, Sodium Level 120L, Potassium Level 4.0, Chloride Level 86L, Carbon Dioxide Level 24, Calcium Level 8.2L 03/02/17 05:29: Anion Gap 9, Glomerular Filtration Rate > 60.0, Blood Urea Nitrogen 12, Creatinine 0.87, Sodium Level 119*L, Potassium Level 4.6, Chloride Level 88L, Carbon Dioxide Level 22, Calcium Level 8.2L, Aspartate Amino Transf (AST/SGOT) 21, Alanine Aminotransferase (ALT/SGPT) 16, Alkaline Phosphatase 114, Total Bilirubin 0.4, Total Protein 7.4, Albumin 2.9L, Albumin/Globulin Ratio 0.64L 03/02/17 12:34: Anion Gap 7L, Glomerular Filtration Rate > 60.0, Blood Urea Nitrogen 13, Creatinine 0.96, Sodium Level 121L, Potassium Level 5.7H, Chloride Level 89L, Carbon Dioxide Level 25, Calcium Level 8.0L CBC/BMP Laboratory Tests 03/01/17 16:10 Red Blood Count 4.66, Mean Corpuscular Volume 82.6, Mean Corpuscular Hemoglobin 28.6, Mean Corpuscular Hemoglobin Concent 34.7, Red Cell Distribution Width 14.0 , Neutrophils (%) (Auto) 79.3 H, Lymphocytes (%) (Auto) 9.7 L, Monocytes (%) ( Auto) 6.4 H, Eosinophils (%) (Auto) 2.9, Basophils (%) (Auto) 0.5, Neutrophils # (Auto) 8.6 H, Lymphocytes # (Auto) 1.2 L, Monocytes # (Auto) 0.7, Eosinophils # (Auto) 0.3, Basophils # (Auto) 0.0, Calcium Level 8.7 L, Total Creatine Kinase 299 03/01/17 22:14 Calcium Level 8.2 L 03/02/17 05:29 Red Blood Count 4.65, Mean Corpuscular Volume 83.5, Mean Corpuscular Hemoglobin 29.0, Mean Corpuscular Hemoglobin Concent 34.7, Red Cell Distribution Width 14.1 , Calcium Level 8.2 L, Aspartate Amino Transf (AST/SGOT) 21, Alanine Aminotransferase (ALT/SGPT) 16, Alkaline Phosphatase 114, Total Bilirubin 0.4, Total Protein 7.4, Albumin 2.9 L 03/02/17 12:34 Calcium Level 8.0 L Microbiology Microbiology 03/01/17 Blood Culture, Received Pending 03/01/17 Blood Culture, Received Pending CATRACHITO CANO MD Mar 02, 2017 15:32
[2017-03-02 16:24] LABS: ANION GAP 9 MEQ/L (8-16); BLOOD UREA NITROGEN 14 MG/DL (7-18); CALCIUM LEVEL 7.6 MG/DL (8.8-10.2); CARBON DIOXIDE LEVEL 24 MEQ/L (21-32); CHLORIDE LEVEL 89 MEQ/L (98-107); CREATININE FOR GFR 0.89 MG/DL (0.70-1.30); GLOMERULAR FILTRATION RATE > 60.0 (>42); GLUCOSE, FASTING 150 MG/DL (83-110); POTASSIUM SERUM 4.5 MEQ/L (3.5-5.1); SODIUM LEVEL 122 MEQ/L (136-145)
[2017-03-02 20:32] LABS: ANION GAP 8 MEQ/L (8-16); BLOOD UREA NITROGEN 14 MG/DL (7-18); CALCIUM LEVEL 7.5 MG/DL (8.8-10.2); CARBON DIOXIDE LEVEL 24 MEQ/L (21-32); CHLORIDE LEVEL 91 MEQ/L (98-107); CREATININE FOR GFR 0.85 MG/DL (0.70-1.30); GLOMERULAR FILTRATION RATE > 60.0 (>42); GLUCOSE, FASTING 136 MG/DL (83-110); POTASSIUM SERUM 4.6 MEQ/L (3.5-5.1); SODIUM LEVEL 123 MEQ/L (136-145)
[2017-03-02] MEDS: AZITHROMYCIN INJ 500 MG, VIAL MATE ADAPTER 1 EACH in D5W 250 ML IV SCH (20:37)
[2017-03-02] MEDS: ATORVASTATIN 20 MG TAB PO SCH (20:39)
[2017-03-02] MEDS: cefTRIAXone SOD 2 GM in D5W MINI-BAG PLUS 50 ML IV SCH (23:19)
[2017-03-03] MEDS: methylPREDNISolone INJ 125 MG/2 ML VIAL (J2930) IV SCH ×3 (00:04→18:03)
--- NOTE | 2017-03-03 03:10 | REPUSA ---
CLINICAL HISTORY: Shortness of breath. COMMENTS: Comparison is made with a prior exam on 03/01/2017. Moderate emphysema. Moderate chronic bronchitis. Unchanged airspace opacities of the left mid lung zone adjacent to the hilum. Unchanged patchy bilateral basilar airspace infiltrates. The cardiac silhouette is within limits of normal. The mediastinum and pulmonary vessels appear anamaria l. The bony structures are unremarkable. IMPRESSION: Emphysema. Chronic bronchitis. Bilateral pulmonary infiltrates more prominent in the left midlung zone. Findings are unchanged.
[2017-03-03 05:02] VITALS: BP 138/66
[2017-03-03 05:51] LABS: MEAN CORPUSCULAR HEMOGLOBIN 29.1 pg (27.0-33.0); MEAN CORPUSCULAR HGB CONC 35.3 g/dl (32.0-36.5); MEAN CORPUSCULAR VOLUME 82.4 fl (80.0-96.0); RED CELL DISTRIBUTION WIDTH 13.9 % (11.5-14.5); WHITE BLOOD COUNT 11.8 K/mm3 (4.0-10.0)
[2017-03-03 06:07] LABS: ANION GAP 10 MEQ/L (8-16); BLOOD UREA NITROGEN 18 MG/DL (7-18); CALCIUM LEVEL 8.1 MG/DL (8.8-10.2); CARBON DIOXIDE LEVEL 23 MEQ/L (21-32); CHLORIDE LEVEL 91 MEQ/L (98-107); GLOMERULAR FILTRATION RATE > 60.0 (>42); GLUCOSE, FASTING 124 MG/DL (83-110); POTASSIUM SERUM 4.5 MEQ/L (3.5-5.1); SODIUM LEVEL 124 MEQ/L (136-145)
[2017-03-03 08:00] VITALS: BP 131/67
[2017-03-03] MEDS: NICOTINE 14 MG/24 HR TRANSDERMAL TD SCH (08:47)
[2017-03-03] MEDS: PANTOPRAZOLE 40MG INJ (PROTONIX) (C9113) IV SCH (08:52)
[2017-03-03] MEDS: DOCUSATE SODIUM 100 MG CAP PO SCH ×2 (08:52→21:35)
[2017-03-03] MEDS: FERROUS SULFATE 325MG TAB PO SCH ×2 (08:52→21:35)
[2017-03-03] MEDS: ASPIRIN 81 MG ENTERIC TAB PO SCH (08:52)
[2017-03-03] MEDS: CLOPIDOGREL 75 MG TAB PO SCH (08:52)
--- NOTE | 2017-03-03 09:01 | IPNPDOC ---
Subjective Date Seen The patient was seen on 03/03/17. Subjective Chief Complaint/HPI The patient is a 76-year-old male admitted with a reason for visit of Abd Pain; Chronic Resp Failure W/Hypoxia. Events since last encounter I received a call from patient's nurse overnight that he was having increased SOB. I stopped IVF and ordered a CXR, which was fairly unchanged from admission CXR. He states SOB is still present this morning - I noted that home breathing treatments were not ordered upon admission. Constitutional: Denies: Chills, Fever ENT: Denies: Head Aches Skin: Denies: Rash Pulmonary: Reports: Dyspnea, Cough (chronic) Cardiovascular: Denies: Chest Pain, Palpitations, Orthopnea Gastrointestinal: Reports: Abdominal Pain (mild LLQ), Denies: Nausea, Vomiting, Diarrhea, Constipation, Melena Genitourinary: Denies: Dysuria Neurological: Denies: Confusion Objective Physical Examination General Exam: Positive: Alert, No Acute Distress Eye Exam: Positive: Conjunctiva & lids normal, EOMI, Negative: Sclera icteric ENT Exam: Positive: Atraumatic, Mucous membr. moist/pink, Pharynx Normal Neck Exam: Positive: Supple, Negative: JVD, thyromegaly Chest Exam: Positive: Wheezing (Diffuse expiratory wheezing), Negative: Normal air movement (decreased air movement throughout), Rales, Rhonchi Heart Exam: Positive: Rate Normal, Regular Rhythm, Normal S1, Normal S2, Negative: Murmurs, Rubs Telemetry: Positive: No significant arrhythmia Abdomen Exam: Positive: Normal bowel sounds, Soft, Tenderness (mild tenderness to palpation in left lower quadrant), Negative: Hepatospenomegaly Extremity Exam: Positive: Normal pulses, Negative: Clubbing, Cyanosis, Edema Skin Exam: Positive: Nl turgor and temperature Neuro Exam: Positive: Normal Speech, Cranial Nerves 3-12 NL Psych Exam: Positive: Mental status NL, Mood NL, Oriented x 3 Assessment /Plan Problems (1) Lingular pneumonia Status: Acute Response to Treatment: Stable Problem Text: Patient has consolidation at lingula on chest CT that likely represents pneumonia - Continue ceftriaxone and azithromycin - D3 - WBCs were elevated upon admission and are increased today, likely due to solumedrol - Blood cultures show NGTD (2) COPD (chronic obstructive pulmonary disease) Status: Chronic Problem Text: Exacerbation is likely due to pneumonia. Baseline O2 is 2 L/min at home; he has an increased oxygen need here of 3 L/min - Continue oxygen - Duonebs Q6H, Q3H PRN - Solu-Medrol IV, 40 mg Q12H. - Patient also has moderate pulmonary fibrosis (3) Hyponatremia Status: Acute Response to Treatment: Stable Problem Text: Uncertain if is onset is acute or chronic; patient is not confused and is neurologically intact. Sodium was normal in 10/2016. 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 He does not appear to be on any medications that could cause SIADH. SIADH could occur with pneumonia. Thyroid tests were normal. - Fluid restriction of 1200 ml; monitor BMP Q6H today (4) Hyperkalemia Status: Resolved Response to Treatment: Stable Problem Text: Hold home potassium supplement; monitor BMP. (5) Abdominal pain Status: Acute Response to Treatment: Improving Problem Text: Lipase and LFTs were normal upon admission. CT scan of the abdomen showed cholelithiasis without any acute cholecystitis. - Patient has a history of recurrent SBOs, but abdominal CT is negative for obstruction, and he has been tolerating food without difficulty - Monitor clinically (6) Tobacco abuse Problem Text: Continue nicotine patch (7) Atrial fibrillation Status: Chronic Response to Treatment: Stable (8) CAD (coronary artery disease) Status: Chronic Response to Treatment: Stable (9) GERD (gastroesophageal reflux disease) Status: Chronic Response to Treatment: Stable (10) Dyslipidemia Status: Chronic Response to Treatment: Stable (11) Depression Status: Chronic Response to Treatment: Stable Plan/VTE VTE Prophylaxis Ordered?: Yes (SCD and Teds) Plan IVF: Initiate Diet: Advance Activity: Continue Current Anticipated Discharge: Home VS[facility] Vital Signs/I&O Vital Signs Date Time Temp Pulse Resp B/P (MAP) Pulse Ox O2 Delivery O2 Flow Rate FiO2 03/03/17 08:00 97.0 51 22 131/67 (88) 97 Nasal Cannula 3.0 I&O- Last 24 Hours up to 6 AM 03/03/17 05:59 Intake Total 3000 ml Output Total 1400 ml Balance 1600 ml Laboratory Data 24H LABS Laboratory Tests 2 03/02/17 12:34: Anion Gap 7L, Glomerular Filtration Rate > 60.0, Blood Urea Nitrogen 13, Creatinine 0.96, Sodium Level 121L, Potassium Level 5.7H, Chloride Level 89L, Carbon Dioxide Level 25, Calcium Level 8.0L 03/02/17 15:53: Anion Gap 9, Glomerular Filtration Rate > 60.0, Blood Urea Nitrogen 14, Creatinine 0.89, Sodium Level 122L, Potassium Level 4.5#, Chloride Level 89L, Carbon Dioxide Level 24, Calcium Level 7.6L 03/02/17 20:04: Anion Gap 8, Glomerular Filtration Rate > 60.0, Blood Urea Nitrogen 14, Creatinine 0.85, Sodium Level 123L, Potassium Level 4.6, Chloride Level 91L, Carbon Dioxide Level 24, Calcium Level 7.5L 03/03/17 05:21: Anion Gap 10, Glomerular Filtration Rate > 60.0, Blood Urea Nitrogen 18, Creatinine 0.70, Sodium Level 124L, Potassium Level 4.5, Chloride Level 91L, Carbon Dioxide Level 23, Calcium Level 8.1L CBC/BMP Laboratory Tests 03/02/17 12:34 Calcium Level 8.0 L 03/02/17 15:53 Calcium Level 7.6 L 03/02/17 20:04 Calcium Level 7.5 L 03/03/17 05:21 Calcium Level 8.1 L, Red Blood Count 3.84 L, Mean Corpuscular Volume 82.4, Mean Corpuscular Hemoglobin 29.1, Mean Corpuscular Hemoglobin Concent 35.3, Red Cell Distribution Width 13.9 Microbiology Microbiology 03/01/17 Blood Culture - Preliminary, Resulted No growth after 24 hours . All specim... 03/01/17 Blood Culture - Preliminary, Resulted No growth after 24 hours . All specim... CATRACHITO CANO MD Mar 03, 2017 09:01
[2017-03-03] MEDS: IPRATROPIUM 0.5MG/ALBUTEROL 2.5MG INH SOL UD 3ML (DUONEB)(J7620) NEB SCH ×3 (09:05→20:19)
[2017-03-03 12:00] VITALS: BP 120/56
[2017-03-03 12:27] LABS: ANION GAP 9 MEQ/L (8-16); BLOOD UREA NITROGEN 20 MG/DL (7-18); CARBON DIOXIDE LEVEL 24 MEQ/L (21-32); CHLORIDE LEVEL 89 MEQ/L (98-107); CREATININE FOR GFR 0.79 MG/DL (0.70-1.30); GLOMERULAR FILTRATION RATE > 60.0 (>42); GLUCOSE, FASTING 139 MG/DL (83-110); POTASSIUM SERUM 4.4 MEQ/L (3.5-5.1); SODIUM LEVEL 122 MEQ/L (136-145)
[2017-03-03 15:43] VITALS: BP 120/64
--- NOTE | 2017-03-03 19:13 | ECGEPIP ---
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
[2017-03-03 20:16] VITALS: BP 153/70
[2017-03-03] MEDS: ATORVASTATIN 20 MG TAB PO SCH (21:35)
[2017-03-03] MEDS: AZITHROMYCIN INJ 500 MG, VIAL MATE ADAPTER 1 EACH in D5W 250 ML IV SCH (21:36)
[2017-03-03] MEDS: cefTRIAXone SOD 2 GM in D5W MINI-BAG PLUS 50 ML IV SCH (22:55)
[2017-03-03 23:07] VITALS: BP 132/60
[2017-03-03] MEDS: IPRATROPIUM 0.5MG/ALBUTEROL 2.5MG INH SOL UD 3ML (DUONEB)(J7620) NEB PRN (23:40)
[2017-03-03] MEDS: ACETAMINOPHEN TAB 650MG DOSE (2X325MG) PO PRN (23:59)
[2017-03-04] MEDS: IPRATROPIUM 0.5MG/ALBUTEROL 2.5MG INH SOL UD 3ML (DUONEB)(J7620) NEB SCH ×4 (02:00→19:46)
[2017-03-04] MEDS: IPRATROPIUM 0.5MG/ALBUTEROL 2.5MG INH SOL UD 3ML (DUONEB)(J7620) NEB PRN ×3 (03:20→23:08)
[2017-03-04 04:55] VITALS: BP 139/67
[2017-03-04 05:33] LABS: MEAN CORPUSCULAR HEMOGLOBIN 28.7 pg (27.0-33.0); MEAN CORPUSCULAR HGB CONC 34.2 g/dl (32.0-36.5); MEAN CORPUSCULAR VOLUME 83.8 fl (80.0-96.0); RED CELL DISTRIBUTION WIDTH 13.8 % (11.5-14.5); WHITE BLOOD COUNT 17.8 K/mm3 (4.0-10.0)
[2017-03-04] MEDS: methylPREDNISolone INJ 125 MG/2 ML VIAL (J2930) IV SCH ×2 (05:45→17:26)
[2017-03-04 05:59] LABS: ANION GAP 9 MEQ/L (8-16); BLOOD UREA NITROGEN 24 MG/DL (7-18); CALCIUM LEVEL 8.2 MG/DL (8.8-10.2); CARBON DIOXIDE LEVEL 27 MEQ/L (21-32); CHLORIDE LEVEL 87 MEQ/L (98-107); CREATININE FOR GFR 0.83 MG/DL (0.70-1.30); GLOMERULAR FILTRATION RATE > 60.0 (>42); GLUCOSE, FASTING 129 MG/DL (83-110); POTASSIUM SERUM 4.1 MEQ/L (3.5-5.1); SODIUM LEVEL 123 MEQ/L (136-145)
[2017-03-04 08:00] VITALS: BP 157/72
[2017-03-04] MEDS: NICOTINE 14 MG/24 HR TRANSDERMAL TD SCH (09:00)
[2017-03-04] MEDS: FERROUS SULFATE 325MG TAB PO SCH ×2 (09:06→21:15)
[2017-03-04] MEDS: DOCUSATE SODIUM 100 MG CAP PO SCH ×2 (09:06→21:15)
[2017-03-04] MEDS: ASPIRIN 81 MG ENTERIC TAB PO SCH (09:06)
[2017-03-04] MEDS: CLOPIDOGREL 75 MG TAB PO SCH (09:06)
[2017-03-04] MEDS: PANTOPRAZOLE 40MG INJ (PROTONIX) (C9113) IV SCH (09:07)
--- NOTE | 2017-03-04 10:02 | IPNPDOC ---
Subjective Date Seen The patient was seen on 03/04/17. Subjective Chief Complaint/HPI The patient is a 76-year-old male admitted with a reason for visit of Abd Pain; Chronic Resp Failure W/Hypoxia. Events since last encounter States abdominal pain is near baseline. Tolerating po. Continues with cough and wheezing. Constitutional: Denies: Chills, Fever, Night Sweats Pulmonary: Denies: Dyspnea, Cough, Pleuritic Chest Pain, Other Symptoms Cardiovascular: Denies: Chest Pain, Palpitations, Orthopnea, Paroxysmal Noc. Dyspnea, Lt Headedness Gastrointestinal: Denies: Nausea, Vomiting, Abdominal Pain, Diarrhea, Constipation Genitourinary: Denies: Dysuria, Frequency, Incontinence, Retention Psych: Reports: Mood Normal, Denies: Depression, Memory Issues Objective Physical Examination General Exam: Positive: Alert, No Acute Distress Eye Exam: Positive: Conjunctiva & lids normal, EOMI, Negative: Sclera icteric ENT Exam: Positive: Atraumatic, Mucous membr. moist/pink, Pharynx Normal Neck Exam: Positive: Supple, Negative: JVD, thyromegaly Chest Exam: Positive: Wheezing (Diffuse expiratory wheezing), Negative: Normal air movement (decreased air movement throughout), Rales, Rhonchi Heart Exam: Positive: Rate Normal, Regular Rhythm, Normal S1, Normal S2, Negative: Murmurs, Rubs Telemetry: Positive: No significant arrhythmia Abdomen Exam: Positive: Normal bowel sounds, Soft, Negative: Tenderness, Hepatospenomegaly Extremity Exam: Positive: Normal pulses, Negative: Clubbing, Cyanosis, Edema Skin Exam: Positive: Nl turgor and temperature Neuro Exam: Positive: Normal Speech, Cranial Nerves 3-12 NL Psych Exam: Positive: Mental status NL, Mood NL, Oriented x 3 Assessment /Plan Problems (1) Lingular pneumonia Status: Acute Response to Treatment: Stable Problem Text: Contingency: if worsens, erta c vanco 03/04 WBC 17.8 (up from 03/03 11.8 despite total daily MP 160 to 80), + Mucinex/EZ -PAP (patient refusing chest PT) 03/04/17: Changed to po cefdinir/azithro 03/01/[address] lingular consolidation 07/2016 last SCX MRSA and K. pn (ESBL) 03/01/17 BCX - x 2 (2) COPD (chronic obstructive pulmonary disease) Status: Chronic Problem Text: Exacerbation is likely due to pneumonia. Baseline O2 is 2 L/min at home; he has an increased oxygen need here of 3 L/min (3) Hyponatremia Status: Acute Response to Treatment: Stable Problem Text: 03/04/2017: Today's level is 123 Patient Asymptomatic. Baseline 135-140s (10/2016 Na 143) Continue fluid restriction. 03/01/17 urine osm 677, urine Na 101-c/w SIADH-favor 2 COPD/PN (4) Hyperkalemia Status: Resolved Response to Treatment: Stable Problem Text: Hold home potassium supplement; monitor BMP. (5) Abdominal pain Status: Acute Response to Treatment: Improving Problem Text: Lipase and LFTs were normal upon admission. CT scan of the abdomen showed cholelithiasis without any acute cholecystitis. - Patient has a history of recurrent SBOs, but abdominal CT is negative for obstruction, and he has been tolerating food without difficulty - Monitor clinically (6) Tobacco abuse Problem Text: Continue nicotine patch (7) Atrial fibrillation Status: Chronic Response to Treatment: Stable (8) CAD (coronary artery disease) Status: Chronic Response to Treatment: Stable (9) GERD (gastroesophageal reflux disease) Status: Chronic Response to Treatment: Stable (10) Dyslipidemia Status: Chronic Response to Treatment: Stable (11) Depression Status: Chronic Response to Treatment: Stable Plan/VTE VTE Prophylaxis Ordered?: Yes (SCD and Teds) Plan IVF: Initiate Diet: Advance Activity: Continue Current Anticipated Discharge: Home VS, I&O, 24H, [facility] Vital Signs/I&O Vital Signs Date Time Temp Pulse Resp B/P (MAP) Pulse Ox O2 Delivery O2 Flow Rate FiO2 03/04/17 08:00 98.4 58 20 157/72 (100) 96 Nasal Cannula 3.0 I&O- Last 24 Hours up to 6 AM 03/04/17 06:00 Intake Total 240 ml Output Total 825 ml Balance -585 ml Laboratory Data 24H LABS Laboratory Tests 2 03/03/17 11:56: Anion Gap 9, Glomerular Filtration Rate > 60.0, Blood Urea Nitrogen 20H, Creatinine 0.79, Sodium Level 122L, Potassium Level 4.4, Chloride Level 89L, Carbon Dioxide Level 24, Calcium Level 8.0L 03/04/17 05:11: Anion Gap 9, Glomerular Filtration Rate > 60.0, Blood Urea Nitrogen 24H, Creatinine 0.83, Sodium Level 123L, Potassium Level 4.1, Chloride Level 87L, Carbon Dioxide Level 27, Calcium Level 8.2L CBC/BMP Laboratory Tests 03/03/17 11:56 Calcium Level 8.0 L 03/04/17 05:11 Calcium Level 8.2 L, Red Blood Count 3.94 L, Mean Corpuscular Volume 83.8, Mean Corpuscular Hemoglobin 28.7, Mean Corpuscular Hemoglobin Concent 34.2, Red Cell Distribution Width 13.8 Microbiology Microbiology 03/01/17 Blood Culture - Preliminary, Resulted No Growth after 48 hours. All Specime... 03/01/17 Blood Culture - Preliminary, Resulted No Growth after 48 hours. All Specime... Jannet Barrow Mar 04, 2017 10:02 Frederick Singh M.D. Mar 04, 2017 15:13
[2017-03-04] MEDS: CEFDINIR 300 MG CAP (OMNICEF) PO SCH ×2 (11:25→21:14)
[2017-03-04] MEDS: AZITHROMYCIN 250 MG TAB PO SCH (11:25)
[2017-03-04 12:00] VITALS: BP 151/66
[2017-03-04 16:00] VITALS: BP 147/67
[2017-03-04 20:00] VITALS: BP 176/71
[2017-03-04] MEDS: guaiFENesin ER 600 MG TAB PO SCH (21:15)
[2017-03-04] MEDS: ATORVASTATIN 20 MG TAB PO SCH (21:15)
[2017-03-04 23:59] VITALS: BP 159/71
[2017-03-05] MEDS: IPRATROPIUM 0.5MG/ALBUTEROL 2.5MG INH SOL UD 3ML (DUONEB)(J7620) NEB SCH ×4 (02:00→20:19)
[2017-03-05] MEDS: IPRATROPIUM 0.5MG/ALBUTEROL 2.5MG INH SOL UD 3ML (DUONEB)(J7620) NEB PRN ×3 (02:44→23:16)
[2017-03-05 03:43] LABS: MEAN CORPUSCULAR HEMOGLOBIN 28.6 pg (27.0-33.0); MEAN CORPUSCULAR HGB CONC 34.6 g/dl (32.0-36.5); MEAN CORPUSCULAR VOLUME 82.7 fl (80.0-96.0); RED CELL DISTRIBUTION WIDTH 13.8 % (11.5-14.5); WHITE BLOOD COUNT 13.5 K/mm3 (4.0-10.0)
[2017-03-05 04:00] VITALS: BP 120/59
[2017-03-05 04:19] LABS: ALBUMIN 2.7 GM/DL (3.2-5.2); ALBUMIN/GLOBULIN RATIO 0.77 (1.00-1.93); ALKALINE PHOSPHATASE 79 U/L (45-117); ALT/SGPT 16 U/L (12-78); ANION GAP 7 MEQ/L (8-16); AST/SGOT 15 U/L (15-37); BILIRUBIN,TOTAL 0.3 MG/DL (0.2-1.0); BLOOD UREA NITROGEN 24 MG/DL (7-18); CALCIUM LEVEL 8.2 MG/DL (8.8-10.2); CARBON DIOXIDE LEVEL 30 MEQ/L (21-32); CHLORIDE LEVEL 84 MEQ/L (98-107); CREATININE FOR GFR 0.84 MG/DL (0.70-1.30); GLOMERULAR FILTRATION RATE > 60.0 (>42); GLUCOSE, FASTING 127 MG/DL (83-110); POTASSIUM SERUM 4.5 MEQ/L (3.5-5.1); SODIUM LEVEL 121 MEQ/L (136-145); TOTAL PROTEIN 6.2 GM/DL (6.4-8.2)
[2017-03-05] MEDS: methylPREDNISolone INJ 125 MG/2 ML VIAL (J2930) IV SCH ×2 (05:32→17:51)
[2017-03-05 07:45] VITALS: BP 172/76
[2017-03-05] MEDS ORDERED: ISOVUE-370 76% 100ML VIAL (Q9967) As Ordered ONE (08:33)
[2017-03-05] MEDS: NICOTINE 14 MG/24 HR TRANSDERMAL TD SCH (09:00)
--- NOTE | 2017-03-05 09:14 | REP ---
CT Head without contrast HISTORY: SIADH COMPARISON: 08/15/2016 An area of decreased attenuation is present in the right thalamus. This represents an old lacunar infarction. Areas of decreased attenuation are present in the periventricular white matter. This represents small-vessel ischemic disease. There is no intraparenchymal hemorrhage, acute infarct, mass or midline shift. The ventricular system and cortical sulci are dilated consistent with mild volume loss. There is no extra cerebral collection. There is no fracture. Mucosal thickening is present in the left mastoid air cells. The visualized sinuses are clear. IMPRESSION: 1. 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 2. Small vessel ischemic disease. 3. Mild volume loss. Signed by Layton Bragg MD 03/05/2017 09:06 A
[2017-03-05] MEDS: PANTOPRAZOLE 40MG INJ (PROTONIX) (C9113) IV SCH (09:48)
[2017-03-05] MEDS: CLOPIDOGREL 75 MG TAB PO SCH (09:49)
[2017-03-05] MEDS: AZITHROMYCIN 250 MG TAB PO SCH (09:49)
[2017-03-05] MEDS: CEFDINIR 300 MG CAP (OMNICEF) PO SCH ×2 (09:49→20:23)
[2017-03-05] MEDS: guaiFENesin ER 600 MG TAB PO SCH ×2 (09:49→20:23)
[2017-03-05] MEDS: ASPIRIN 81 MG ENTERIC TAB PO SCH (09:49)
[2017-03-05] MEDS: FERROUS SULFATE 325MG TAB PO SCH ×2 (09:49→20:23)
[2017-03-05] MEDS: DOCUSATE SODIUM 100 MG CAP PO SCH ×2 (09:49→20:23)
--- NOTE | 2017-03-05 09:52 | REP ---
CT NECK WITH CONTRAST: HISTORY: SIADH. CONTRAST: Isovue 370, 75 mL. COMPARISON: 10/26/2005 The naso-, sushila-, and hypopharynx, larynx, and subglottic trachea are normal in appearance. The salivary and thyroid glands are normal. Small lymph nodes less than 1 cm in size are present in the internal jugular chains, posterior triangles, submandibular, and submental areas. Atherosclerotic calcification is present at the carotid bifurcations. Minimal degenerative change is present in the cervical spine. Bulla are present in the lung apices. The visualized sinuses are clear. IMPRESSION: There is no neck mass or adenopathy. Signed by Layton Bragg MD 03/05/2017 09:53 A
--- NOTE | 2017-03-05 09:52 | IPNPDOC ---
Subjective Date Seen The patient was seen on 03/05/17. Subjective Chief Complaint/HPI The patient is a 76-year-old male admitted with a reason for visit of Abd Pain; Chronic Resp Failure W/Hypoxia. Events since last encounter s/p CT head and neck this am: results pending. Patient denies c/o. refusing chest PT. Constitutional: Denies: Chills, Fever, Night Sweats Pulmonary: Reports: Dyspnea, Cough Cardiovascular: Denies: Chest Pain, Palpitations, Orthopnea, Paroxysmal Noc. Dyspnea, Lt Headedness Gastrointestinal: Denies: Nausea, Vomiting, Abdominal Pain, Diarrhea, Constipation Genitourinary: Denies: Dysuria, Frequency, Incontinence, Retention Neurological: Denies: Weakness, Numbness, Incoordination, Change in speech, Confusion, Seizures Psych: Reports: Mood Normal, Denies: Depression, Memory Issues Objective Physical Examination General Exam: Positive: Alert, No Acute Distress Eye Exam: Positive: Conjunctiva & lids normal, EOMI, Negative: Sclera icteric ENT Exam: Positive: Atraumatic, Mucous membr. moist/pink, Pharynx Normal Neck Exam: Positive: Supple, Negative: JVD, thyromegaly Chest Exam: Positive: Wheezing (Diffuse expiratory wheezing), Negative: Normal air movement (decreased air movement throughout), Rales, Rhonchi Heart Exam: Positive: Rate Normal, Regular Rhythm, Normal S1, Normal S2, Negative: Murmurs, Rubs Telemetry: Positive: No significant arrhythmia Abdomen Exam: Positive: Normal bowel sounds, Soft, Negative: Tenderness, Hepatospenomegaly Extremity Exam: Positive: Normal pulses, Negative: Clubbing, Cyanosis, Edema Skin Exam: Positive: Nl turgor and temperature Neuro Exam: Positive: Normal Speech, Cranial Nerves 3-12 NL Psych Exam: Positive: Mental status NL, Mood NL, Oriented x 3 Assessment /Plan Problems (1) Lingular pneumonia Status: Acute Response to Treatment: Stable Problem Text: cefdinir D2 Contingency: if worsens, oumar gonzalez 03/05/2017: encouraged to utilize chest PT. WBC improved at 13,000. 03/04 WBC 17.8 (up from 03/03 11.8 despite total daily MP 160 to 80), + Mucinex/EZ -PAP (patient refusing chest PT) 03/04/17: Changed to po cefdinir 03/01/[address] lingular consolidation 07/2016 last SCX MRSA and K. pn (ESBL) 03/01/17 BCX - x 2 03/05/17 SCX few G + cocci (2) COPD (chronic obstructive pulmonary disease) Status: Chronic Problem Text: Exacerbation is likely due to pneumonia. Baseline O2 is 2 L/min at home; he has an increased oxygen need here of 3 L/min (3) Hyponatremia Status: Acute Response to Treatment: Stable Problem Text: 03/05/17: Na+ level of 121 today. + tolvaptan 7.5 mg po q 24 hours c excellent diuresis, CT head/neck NAD (no SIADH source) 03/04/2017: Today's level is 123 Patient Asymptomatic. Baseline 135-140s (10/2016 Na 143) Continue fluid restriction. 03/01/17 urine osm 677, urine Na 101-c/w SIADH-favor 2 COPD/PN vs occult lung Ca ( obscured by PN) (4) Abdominal pain Status: Resolved Response to Treatment: Improving Problem Text: Lipase and LFTs were normal upon admission. CT scan of the abdomen showed cholelithiasis without any acute cholecystitis. - Patient has a history of recurrent SBOs, but abdominal CT is negative for obstruction, and he has been tolerating food without difficulty - Monitor clinically (5) Tobacco abuse Problem Text: Continue nicotine patch (6) Atrial fibrillation Status: Chronic Response to Treatment: Stable (7) CAD (coronary artery disease) Status: Chronic Response to Treatment: Stable Plan/VTE VTE Prophylaxis Ordered?: Yes (SCD and Teds) Plan IVF: Initiate Diet: Advance Activity: Continue Current Anticipated Discharge: Home VS, I&O, 24H, [facility] Vital Signs/I&O Vital Signs Date Time Temp Pulse Resp B/P (MAP) Pulse Ox O2 Delivery O2 Flow Rate FiO2 03/05/17 07:58 Nasal Cannula 3.0 03/05/17 07:45 98.2 62 22 172/76 (108) 98 I&O- Last 24 Hours up to 6 AM 03/05/17 06:00 Intake Total 800 ml Output Total 825 ml Balance -25 ml Laboratory Data 24H LABS Laboratory Tests 2 03/05/17 03:29: Anion Gap 7L, Glomerular Filtration Rate > 60.0, Blood Urea Nitrogen 24H, Creatinine 0.84, Sodium Level 121L, Potassium Level 4.5, Chloride Level 84L, Carbon Dioxide Level 30, Calcium Level 8.2L, Aspartate Amino Transf (AST/SGOT) 15, Alanine Aminotransferase (ALT/SGPT) 16, Alkaline Phosphatase 79, Total Bilirubin 0.3, Total Protein 6.2L, Albumin 2.7L, Albumin/Globulin Ratio 0.77L CBC/BMP Laboratory Tests 03/05/17 03:29 Red Blood Count 4.12 L, Mean Corpuscular Volume 82.7, Mean Corpuscular Hemoglobin 28.6, Mean Corpuscular Hemoglobin Concent 34.6, Red Cell Distribution Width 13.8, Calcium Level 8.2 L, Aspartate Amino Transf (AST/SGOT) 15, Alanine Aminotransferase (ALT/SGPT) 16, Alkaline Phosphatase 79, Total Bilirubin 0.3, Total Protein 6.2 L, Albumin 2.7 L Microbiology Microbiology 03/01/17 Blood Culture - Preliminary, Resulted No Growth after 72 hours. All specime... 03/01/17 Blood Culture - Preliminary, Resulted No Growth after 72 hours. All specime... Jannet Barrow Mar 05, 2017 09:52 Frederick Singh M.D. Mar 05, 2017 16:09
[2017-03-05 12:15] VITALS: BP 161/76
[2017-03-05] MEDS: TOLVAPTAN 7.5 MG HALF-TAB PO SCH (12:28)
[2017-03-05 14:01] LABS: OSMOLALITY URINE 667 MOSM/KG (500-800)
[2017-03-05 15:30] VITALS: BP 149/68
[2017-03-05 17:06] LABS: BLOOD UREA NITROGEN 22 MG/DL (7-18); CALCIUM LEVEL 8.8 MG/DL (8.8-10.2); CARBON DIOXIDE LEVEL 29 MEQ/L (21-32); CHLORIDE LEVEL 82 MEQ/L (98-107); CREATININE FOR GFR 0.85 MG/DL (0.70-1.30); GLOMERULAR FILTRATION RATE > 60.0 (>42); GLUCOSE, FASTING 131 MG/DL (83-110); PHOSPHORUS LEVEL 1.9 MG/DL (2.5-4.9)
[2017-03-05] MEDS ORDERED: SLF 3 ML SYR IV PRN (17:15)
[2017-03-05 17:16] LABS: ANION GAP 13 MEQ/L (8-16); POTASSIUM SERUM 4.4 MEQ/L (3.5-5.1); SODIUM LEVEL 124 MEQ/L (136-145)
[2017-03-05 20:00] VITALS: BP 188/80
[2017-03-05] MEDS: ATORVASTATIN 20 MG TAB PO SCH (20:23)
[2017-03-05] MEDS: SLF 3 ML SYR IV SCH (20:24)
[2017-03-05 23:59] VITALS: BP 141/66
[2017-03-06] MEDS: IPRATROPIUM 0.5MG/ALBUTEROL 2.5MG INH SOL UD 3ML (DUONEB)(J7620) NEB SCH ×4 (02:45→19:38)
[2017-03-06 04:00] VITALS: BP 172/73
[2017-03-06 05:23] LABS: MEAN CORPUSCULAR HEMOGLOBIN 29.3 pg (27.0-33.0); MEAN CORPUSCULAR HGB CONC 34.6 g/dl (32.0-36.5); MEAN CORPUSCULAR VOLUME 84.7 fl (80.0-96.0); WHITE BLOOD COUNT 15.9 K/mm3 (4.0-10.0)
[2017-03-06] MEDS: SLF 3 ML SYR IV SCH ×3 (05:34→21:26)
[2017-03-06] MEDS: methylPREDNISolone INJ 125 MG/2 ML VIAL (J2930) IV SCH (05:34)
[2017-03-06 05:40] LABS: ALBUMIN/GLOBULIN RATIO 0.77 (1.00-1.93); ALKALINE PHOSPHATASE 88 U/L (45-117); ALT/SGPT 20 U/L (12-78); ANION GAP 5 MEQ/L (8-16); AST/SGOT 17 U/L (15-37); BILIRUBIN,TOTAL 0.3 MG/DL (0.2-1.0); BLOOD UREA NITROGEN 19 MG/DL (7-18); CARBON DIOXIDE LEVEL 33 MEQ/L (21-32); CHLORIDE LEVEL 91 MEQ/L (98-107); CREATININE FOR GFR 0.81 MG/DL (0.70-1.30); GLOMERULAR FILTRATION RATE > 60.0 (>42); GLUCOSE, FASTING 125 MG/DL (83-110); POTASSIUM SERUM 4.3 MEQ/L (3.5-5.1); SODIUM LEVEL 129 MEQ/L (136-145); TOTAL PROTEIN 6.9 GM/DL (6.4-8.2)
[2017-03-06 08:00] VITALS: BP 144/73
--- NOTE | 2017-03-06 08:45 | IPNPDOC ---
Subjective Date Seen The patient was seen on 03/06/17. Subjective Chief Complaint/HPI The patient is a 76-year-old male admitted with a reason for visit of Abd Pain; Chronic Resp Failure W/Hypoxia. Events since last encounter Noting improvement in clearing mucous secretions with chest PT. Tolerating Tolvatan. Sodium improved to 129. Continues with 800 ml fluid restriction. Constitutional: Denies: Chills, Fever, Night Sweats Skin: Denies: Rash, Lesions, Breakdown Pulmonary: Reports: Dyspnea, Cough Cardiovascular: Denies: Chest Pain, Palpitations, Orthopnea, Paroxysmal Noc. Dyspnea, Edema, Lt Headedness, Other Symptoms Gastrointestinal: Denies: Nausea, Vomiting, Abdominal Pain, Diarrhea, Constipation, Melena, Hematochezia, Other Symptoms Psych: Reports: Mood Normal, Denies: Depression, Memory Issues Objective Physical Examination General Exam: Positive: Alert, No Acute Distress Eye Exam: Positive: Conjunctiva & lids normal, EOMI, Negative: Sclera icteric ENT Exam: Positive: Atraumatic, Mucous membr. moist/pink, Pharynx Normal Neck Exam: Positive: Supple, Negative: JVD, thyromegaly Chest Exam: Positive: Wheezing (Diffuse expiratory wheezing), Negative: Normal air movement (decreased air movement throughout), Rales, Rhonchi Heart Exam: Positive: Rate Normal, Regular Rhythm, Normal S1, Normal S2, Negative: Murmurs, Rubs Telemetry: Positive: No significant arrhythmia Abdomen Exam: Positive: Normal bowel sounds, Soft, Negative: Tenderness, Hepatospenomegaly Extremity Exam: Positive: Normal pulses, Negative: Clubbing, Cyanosis, Edema Skin Exam: Positive: Nl turgor and temperature Neuro Exam: Positive: Normal Speech, Cranial Nerves 3-12 NL Psych Exam: Positive: Mental status NL, Mood NL, Oriented x 3 Assessment /Plan Problems (1) Lingular pneumonia Status: Acute Response to Treatment: Stable Problem Text: cefdinir D3 Contingency: if worsens, erta c vanco 03/06/2017: Doing, well improvement in respiratory function. Change to po prednisone. 03/05/2017: encouraged to utilize chest PT. WBC improved at 13,000. 03/04 WBC 17.8 (up from 03/03 11.8 despite total daily MP 160 to 80), + Mucinex/EZ -PAP (patient refusing chest PT) 03/04/17: Changed to po cefdinir 03/01/[address] lingular consolidation 07/2016 last SCX MRSA and K. pn (ESBL) 03/01/17 BCX - x 2 03/05/17 SCX few G + cocci (2) COPD (chronic obstructive pulmonary disease) Status: Chronic Problem Text: Exacerbation is likely due to pneumonia. Baseline O2 is 2 L/min at home; he has an increased oxygen need here of 3 L/min (3) Hyponatremia Status: Acute Response to Treatment: Stable Problem Text: 03/05/2017: Na+ 129. Continue Tolvatan. Monitor levels. Continue 800 ml FR until pneumonia and SIADH clears. 03/05/17: Na+ level of 121 today. + tolvaptan 7.5 mg po q 24 hours c excellent diuresis, CT head/neck NAD (no SIADH source) 03/04/2017: Today's level is 123 Patient Asymptomatic. Baseline 135-140s (10/2016 Na 143) Continue fluid restriction. 03/01/17 urine osm 677, urine Na 101-c/w SIADH-favor 2 COPD/PN vs occult lung Ca ( obscured by PN) (4) Abdominal pain Status: Resolved Response to Treatment: Improving Problem Text: Lipase and LFTs were normal upon admission. CT scan of the abdomen showed cholelithiasis without any acute cholecystitis. - Patient has a history of recurrent SBOs, but abdominal CT is negative for obstruction, and he has been tolerating food without difficulty - Monitor clinically (5) Tobacco abuse Problem Text: Continue nicotine patch (6) Atrial fibrillation Status: Chronic Response to Treatment: Stable (7) CAD (coronary artery disease) Status: Chronic Response to Treatment: Stable Plan/VTE VTE Prophylaxis Ordered?: Yes (SCD and Teds) Plan IVF: Initiate Diet: Advance Activity: Continue Current Anticipated Discharge: Home VS, I&O, 24H, [facility] Vital Signs/I&O Vital Signs Date Time Temp Pulse Resp B/P (MAP) Pulse Ox O2 Delivery O2 Flow Rate FiO2 03/06/17 07:55 Nasal Cannula 3.0 03/06/17 04:00 98.4 69 18 172/73 (106) 97 I&O- Last 24 Hours up to 6 AM 03/06/17 06:00 Intake Total 320 ml Output Total 2575 ml Balance -2255 ml Laboratory Data 24H LABS Laboratory Tests 2 03/05/17 13:31: Urine Random Osmolality 667, Urine Random Sodium 126 03/05/17 16:09: Blood Urea Nitrogen 22H, Creatinine 0.85, Sodium Level 124L, Potassium Level 4.4 , Chloride Level 82L, Carbon Dioxide Level 29, Anion Gap 13, Glomerular Filtration Rate > 60.0, Calcium Level 8.8, Phosphorus Level 1.9L, Albumin 3.0L 03/06/17 04:58: Blood Urea Nitrogen 19H, Creatinine 0.81, Sodium Level 129L, Potassium Level 4.3 , Chloride Level 91L, Carbon Dioxide Level 33H, Anion Gap 5L, Glomerular Filtration Rate > 60.0, Calcium Level 9.0, Albumin 3.0L, Aspartate Amino Transf (AST/SGOT) 17, Alanine Aminotransferase (ALT/SGPT) 20, Alkaline Phosphatase 88, Total Bilirubin 0.3, Total Protein 6.9, Albumin/Globulin Ratio 0.77L CBC/BMP Laboratory Tests 03/05/17 16:09 Anion Gap 13 03/06/17 04:58 Red Blood Count 4.87, Mean Corpuscular Volume 84.7, Mean Corpuscular Hemoglobin 29.3, Mean Corpuscular Hemoglobin Concent 34.6, Red Cell Distribution Width 14.0 , Calcium Level 9.0, Aspartate Amino Transf (AST/SGOT) 17, Alanine Aminotransferase (ALT/SGPT) 20, Alkaline Phosphatase 88, Total Bilirubin 0.3, Total Protein 6.9, Albumin 3.0 L Microbiology Microbiology 03/01/17 Blood Culture - Preliminary, Resulted No Growth after 72 hours. All specime... 03/01/17 Blood Culture - Preliminary, Resulted No Growth after 72 hours. All specime... 03/05/17 Gram Stain - Final, Resulted 03/05/17 Sputum Culture, Resulted Pending Jannet Barrow [facility] Mar 06, 2017 08:45
[2017-03-06] MEDS: NICOTINE 14 MG/24 HR TRANSDERMAL TD SCH (09:00)
[2017-03-06] MEDS: PANTOPRAZOLE 40MG INJ (PROTONIX) (C9113) IV SCH (09:12)
[2017-03-06] MEDS: guaiFENesin ER 600 MG TAB PO SCH ×2 (09:12→21:26)
[2017-03-06] MEDS: DOCUSATE SODIUM 100 MG CAP PO SCH ×2 (09:12→21:26)
[2017-03-06] MEDS: CLOPIDOGREL 75 MG TAB PO SCH (09:13)
[2017-03-06] MEDS: CEFDINIR 300 MG CAP (OMNICEF) PO SCH ×2 (09:13→21:26)
[2017-03-06] MEDS: ASPIRIN 81 MG ENTERIC TAB PO SCH (09:13)
[2017-03-06] MEDS: FERROUS SULFATE 325MG TAB PO SCH ×2 (09:13→21:26)
[2017-03-06] MEDS: TOLVAPTAN 7.5 MG HALF-TAB PO SCH (09:13)
[2017-03-06] MEDS: predniSONE 20 MG TAB PO SCH (09:15)
[2017-03-06 12:00] VITALS: BP 135/63
[2017-03-06 16:00] VITALS: BP 152/64
[2017-03-06 16:41] LABS: CALCIUM LEVEL 9.5 MG/DL (8.8-10.2); CREATININE FOR GFR 1.27 MG/DL (0.70-1.30); POTASSIUM SERUM 4.4 MEQ/L (3.5-5.1)
[2017-03-06 19:59] VITALS: BP 135/76
[2017-03-06] MEDS: ATORVASTATIN 20 MG TAB PO SCH (21:26)
[2017-03-06 23:59] VITALS: BP 136/70
[2017-03-07] MEDS: IPRATROPIUM 0.5MG/ALBUTEROL 2.5MG INH SOL UD 3ML (DUONEB)(J7620) NEB SCH ×4 (01:57→19:58)
[2017-03-07 04:54] VITALS: BP 137/77
[2017-03-07] MEDS: SLF 3 ML SYR IV SCH ×3 (04:57→20:05)
[2017-03-07 04:59] LABS: MEAN CORPUSCULAR HEMOGLOBIN 29.5 pg (27.0-33.0); MEAN CORPUSCULAR HGB CONC 34.5 g/dl (32.0-36.5); MEAN CORPUSCULAR VOLUME 85.4 fl (80.0-96.0); RED CELL DISTRIBUTION WIDTH 14.1 % (11.5-14.5)
[2017-03-07 05:17] LABS: ALBUMIN 2.6 GM/DL (3.2-5.2); ALBUMIN/GLOBULIN RATIO 0.62 (1.00-1.93); ALKALINE PHOSPHATASE 82 U/L (45-117); ALT/SGPT 19 U/L (12-78); ANION GAP 6 MEQ/L (8-16); AST/SGOT 10 U/L (15-37); BILIRUBIN,TOTAL 0.3 MG/DL (0.2-1.0); BLOOD UREA NITROGEN 38 MG/DL (7-18); CARBON DIOXIDE LEVEL 32 MEQ/L (21-32); CHLORIDE LEVEL 99 MEQ/L (98-107); CREATININE FOR GFR 0.97 MG/DL (0.70-1.30); GLOMERULAR FILTRATION RATE > 60.0 (>42); GLUCOSE, FASTING 98 MG/DL (83-110); POTASSIUM SERUM 3.9 MEQ/L (3.5-5.1); SODIUM LEVEL 137 MEQ/L (136-145); TOTAL PROTEIN 6.8 GM/DL (6.4-8.2)
[2017-03-07 07:30] VITALS: BP 130/73
[2017-03-07] MEDS: TOLVAPTAN 7.5 MG HALF-TAB PO SCH (07:39)
[2017-03-07] MEDS: PANTOPRAZOLE 40MG INJ (PROTONIX) (C9113) IV SCH (08:04)
[2017-03-07] MEDS: predniSONE 20 MG TAB PO SCH (08:05)
[2017-03-07] MEDS: ASPIRIN 81 MG ENTERIC TAB PO SCH (08:05)
[2017-03-07] MEDS: guaiFENesin ER 600 MG TAB PO SCH ×2 (08:05→20:04)
[2017-03-07] MEDS: CEFDINIR 300 MG CAP (OMNICEF) PO SCH ×2 (08:05→20:03)
[2017-03-07] MEDS: NICOTINE 14 MG/24 HR TRANSDERMAL TD SCH (08:05)
[2017-03-07] MEDS: DOCUSATE SODIUM 100 MG CAP PO SCH ×2 (08:05→20:03)
[2017-03-07] MEDS: FERROUS SULFATE 325MG TAB PO SCH ×2 (08:05→20:04)
[2017-03-07] MEDS: CLOPIDOGREL 75 MG TAB PO SCH (08:05)
[2017-03-07 08:33] VITALS: O2SAT 94
--- NOTE | 2017-03-07 10:55 | IPNPDOC ---
Subjective Date Seen The patient was seen on 03/07/17. Subjective Chief Complaint/HPI The patient is a 76-year-old male admitted with a reason for visit of Abd Pain; Chronic Resp Failure W/Hypoxia. Events since last encounter Patient continues state improving in respiratory status. WBC elevated at 20,000 today. Afebrile. Participating in PT. Using chest PT. Tolerating po well. continues with 800 cc fluids restriction. Sodium improved at 137 Constitutional: Denies: Chills, Fever, Night Sweats ENT: Denies: Head Aches, Ear Pain, Dysphagia Skin: Denies: Rash, Lesions, Breakdown Pulmonary: Reports: Dyspnea, Cough Cardiovascular: Denies: Chest Pain, Palpitations, Orthopnea, Paroxysmal Noc. Dyspnea, Lt Headedness Genitourinary: Denies: Dysuria, Frequency, Incontinence, Retention Objective Physical Examination General Exam: Positive: Alert, No Acute Distress Eye Exam: Positive: Conjunctiva & lids normal, EOMI, Negative: Sclera icteric ENT Exam: Positive: Atraumatic, Mucous membr. moist/pink, Pharynx Normal Neck Exam: Positive: Supple, Negative: JVD, thyromegaly Chest Exam: Positive: Wheezing (Diffuse expiratory wheezing), Negative: Normal air movement (decreased air movement throughout), Rales, Rhonchi Heart Exam: Positive: Rate Normal, Regular Rhythm, Normal S1, Normal S2, Negative: Murmurs, Rubs Telemetry: Positive: No significant arrhythmia Abdomen Exam: Positive: Normal bowel sounds, Soft, Negative: Tenderness, Hepatospenomegaly Extremity Exam: Positive: Normal pulses, Negative: Clubbing, Cyanosis, Edema Skin Exam: Positive: Nl turgor and temperature Neuro Exam: Positive: Normal Speech, Cranial Nerves 3-12 NL Psych Exam: Positive: Mental status NL, Mood NL, Oriented x 3 Assessment /Plan Problems (1) Lingular pneumonia Status: Acute Response to Treatment: Stable Problem Text: cefdinir D4 Contingency: if worsens, t/c erta c vanco 03/07/2017: repeat CXR NAD, WBC elevated at 20,000-but improved CARMONA, afebrile 03/06/2017: Doing, well improvement in respiratory function. Change to po prednisone. 03/05/2017: encouraged to utilize chest PT. WBC improved at 13,000. 03/04 WBC 17.8 (up from 03/03 11.8 despite total daily MP 160 to 80), + Mucinex/EZ -PAP (patient refusing chest PT) 03/04/17: Changed to po cefdinir 03/01/[address] lingular consolidation 07/2016 last SCX MRSA and K. pn (ESBL) 03/01/17 BCX - x 2 03/05/17 SCX yeast (2) COPD (chronic obstructive pulmonary disease) Status: Chronic Problem Text: Exacerbation is likely due to pneumonia. Baseline O2 is 2 L/min at home; he has an increased oxygen need here of 3 L/min (3) Hyponatremia Status: Acute Response to Treatment: Stable Problem Text: 03/07/2017: 137 today. DC Tolvaptan. Continue 800 cc fluid restriction. 03/05/2017: Na+ 129. Continue Tolvaptan. Monitor levels. Continue 800 ml FR until pneumonia and SIADH clears. 03/05/17: Na+ level of 121 today. + tolvaptan 7.5 mg po q 24 hours c excellent diuresis, CT head/neck NAD (no SIADH source) 03/04/2017: Today's level is 123 Patient Asymptomatic. Baseline 135-140s (10/2016 Na 143) Continue fluid restriction. 03/01/17 urine osm 677, urine Na 101-c/w SIADH-favor 2 COPD/PN vs occult lung Ca ( obscured by PN) (4) Abdominal pain Status: Resolved Response to Treatment: Improving Problem Text: Lipase and LFTs were normal upon admission. CT scan of the abdomen showed cholelithiasis without any acute cholecystitis. - Patient has a history of recurrent SBOs, but abdominal CT is negative for obstruction, and he has been tolerating food without difficulty - Monitor clinically (5) Tobacco abuse Problem Text: Continue nicotine patch (6) Atrial fibrillation Status: Chronic Response to Treatment: Stable (7) CAD (coronary artery disease) Status: Chronic Response to Treatment: Stable Plan/VTE VTE Prophylaxis Ordered?: Yes (SCD and Teds) Plan IVF: Initiate Diet: Advance Activity: Continue Current Anticipated Discharge: Home Disposition 03/07/17 safe per PT-d/c 03/08 if WBC down and stable NA/dyspnea VS, I&O, 24H, Fishbone Vital Signs/I&O Vital Signs Date Time Temp Pulse Resp B/P (MAP) Pulse Ox O2 Delivery O2 Flow Rate FiO2 03/07/17 08:33 94 Nasal Cannula 3.0 03/07/17 08:33 85 03/07/17 07:30 98.6 24 130/73 (92) I&O- Last 24 Hours up to 6 AM 03/07/17 06:00 Intake Total 720 ml Output Total 1525 ml Balance -805 ml Laboratory Data 24H LABS Laboratory Tests 2 03/06/17 16:06: Anion Gap 7L, Glomerular Filtration Rate 59.0, Blood Urea Nitrogen 27H, Creatinine 1.27#, Sodium Level 134L, Potassium Level 4.4, Chloride Level 96L, Carbon Dioxide Level 31, Calcium Level 9.5 03/07/17 04:47: Anion Gap 6L, Glomerular Filtration Rate > 60.0, Blood Urea Nitrogen 38H, Creatinine 0.97, Sodium Level 137, Potassium Level 3.9, Chloride Level 99, Carbon Dioxide Level 32, Calcium Level 9.0, Aspartate Amino Transf (AST/SGOT) 10L, Alanine Aminotransferase (ALT/SGPT) 19, Alkaline Phosphatase 82, Total Bilirubin 0.3, Total Protein 6.8, Albumin 2.6L, Albumin/Globulin Ratio 0.62L CBC/BMP Laboratory Tests 03/06/17 16:06 Calcium Level 9.5 03/07/17 04:47 Calcium Level 9.0, Red Blood Count 5.18, Mean Corpuscular Volume 85.4, Mean Corpuscular Hemoglobin 29.5, Mean Corpuscular Hemoglobin Concent 34.5, Red Cell Distribution Width 14.1, Aspartate Amino Transf (AST/SGOT) 10 L, Alanine Aminotransferase (ALT/SGPT) 19, Alkaline Phosphatase 82, Total Bilirubin 0.3, Total Protein 6.8, Albumin 2.6 L Microbiology Microbiology 03/01/17 Blood Culture - Final, Complete NO GROWTH AFTER 5 DAYS 03/01/17 Blood Culture - Final, Complete NO GROWTH AFTER 5 DAYS 03/05/17 Gram Stain - Final, Resulted 03/05/17 Sputum Culture - Preliminary, Resulted Yeast Like Organism Jannet Barrow Mar 07, 2017 10:55 Frederick Singh M.D. Mar 07, 2017 17:12
--- NOTE | 2017-03-07 12:00 | REP ---
PA and lateral chest: Comparisons are 03/03/2016, 03/01/2017 and 09/03/2016. There is chronic diffuse interstitial coarsening compatible with chronic lung disease. There are focal zones of chronic parenchymal scarring in the right upper lobe and left lower lobe. These findings are all stable and unchanged. There are no acute infiltrates or effusions. There are no masses. The anna, mediastinum, and bony thorax are unchanged. Impression: There are no new or acute cardiopulmonary findings. There is chronic interstitial coarsening and chronic focal zones of parenchymal scarring as described. Signed by Evan Alas MD 03/07/2017 11:52 A
[2017-03-07 14:00] VITALS: BP 135/73
[2017-03-07 14:35] VITALS: O2SAT 94
[2017-03-07] MEDS: ATORVASTATIN 20 MG TAB PO SCH (20:04)
[2017-03-07 22:00] VITALS: BP 125/65
[2017-03-08] MEDS: IPRATROPIUM 0.5MG/ALBUTEROL 2.5MG INH SOL UD 3ML (DUONEB)(J7620) NEB SCH ×2 (01:53→08:54)
[2017-03-08] MEDS: SLF 3 ML SYR IV SCH (05:50)
[2017-03-08 06:00] VITALS: BP 127/66
[2017-03-08 06:53] LABS: MEAN CORPUSCULAR HEMOGLOBIN 29.1 pg (27.0-33.0); MEAN CORPUSCULAR HGB CONC 33.6 g/dl (32.0-36.5); MEAN CORPUSCULAR VOLUME 86.5 fl (80.0-96.0); RED CELL DISTRIBUTION WIDTH 13.9 % (11.5-14.5); WHITE BLOOD COUNT 22.2 K/mm3 (4.0-10.0)
[2017-03-08 07:12] LABS: ALBUMIN 2.5 GM/DL (3.2-5.2); ALBUMIN/GLOBULIN RATIO 0.63 (1.00-1.93); ALKALINE PHOSPHATASE 76 U/L (45-117); ALT/SGPT 18 U/L (12-78); ANION GAP 7 MEQ/L (8-16); AST/SGOT 15 U/L (15-37); BILIRUBIN,TOTAL 0.3 MG/DL (0.2-1.0); BLOOD UREA NITROGEN 36 MG/DL (7-18); CALCIUM LEVEL 8.4 MG/DL (8.8-10.2); CARBON DIOXIDE LEVEL 31 MEQ/L (21-32); CHLORIDE LEVEL 98 MEQ/L (98-107); CREATININE FOR GFR 0.92 MG/DL (0.70-1.30); GLOMERULAR FILTRATION RATE > 60.0 (>42); GLUCOSE, FASTING 91 MG/DL (83-110); POTASSIUM SERUM 3.9 MEQ/L (3.5-5.1); SODIUM LEVEL 136 MEQ/L (136-145); TOTAL PROTEIN 6.5 GM/DL (6.4-8.2)
[2017-03-08] MEDS: predniSONE 20 MG TAB PO SCH (07:54)
[2017-03-08] MEDS: FERROUS SULFATE 325MG TAB PO SCH (07:54)
[2017-03-08] MEDS: CEFDINIR 300 MG CAP (OMNICEF) PO SCH (07:54)
[2017-03-08] MEDS: CLOPIDOGREL 75 MG TAB PO SCH (07:54)
[2017-03-08] MEDS: guaiFENesin ER 600 MG TAB PO SCH (07:54)
[2017-03-08] MEDS: PANTOPRAZOLE 40MG INJ (PROTONIX) (C9113) IV SCH (07:54)
[2017-03-08] MEDS: DOCUSATE SODIUM 100 MG CAP PO SCH (07:54)
[2017-03-08] MEDS: NICOTINE 14 MG/24 HR TRANSDERMAL TD SCH (07:54)
[2017-03-08] MEDS: ASPIRIN 81 MG ENTERIC TAB PO SCH (07:54)
[2017-03-08] MEDS ORDERED: CEFD300CAP PO (09:44)
[2017-03-08] MEDS ORDERED: GUAI60TA PO (09:44)
[2017-03-08] MEDS ORDERED: PRED20TA PO (09:44)
--- NOTE | 2017-03-09 08:51 | DSES ---
DATE OF ADMISSION: 03/01/2017 DATE OF DISCHARGE: 03/08/2017 ATTENDING PHYSICIAN: Dr. Frederick Singh PRIMARY CARE PHYSICIAN: Dr. Frederick Singh HISTORY OF PRESENT ILLNESS (HPI): 76-year-old male who presented to the emergency room with complaints of shortness of breath, abdominal pain, which had started 2 days prior to presentation. Workup in the emergency department (ED) included chest x-ray, chest CT, which appears to be upper lobe, centrilobar, paracentral emphysema. Interstitial lung markings with honeycombing at lung bases compatible with pulmonary fibrosis. No markings of areas of consolidation in the lingula. Most compatible with pneumonia and calcified gallstone. CT of the pelvis proved gallstones without cholecystitis, and moderate diffuse atherosclerosis of the abdominal aorta without evidence of aneurysm. Patient was subsequently admitted to the family medicine service. HOSPITAL COURSE: Patient was placed on ceftriaxone and azithromycin for community-acquired pneumonia. White blood cell count was elevated upon admission and continued to increase. However, it did improve after weaning down on Solu-Medrol. Over the last 2 days, patient's white blood cell count did climb up to 20,000 and again today, 22,000 despite being on prednisone 40 mg which is a decrease from previous dosing. Patient did have some significant issues with hyponatremia on admission. Most likely secondary to his pneumonia. Initial sodium level on admission was 119. Patient subsequently improved over several days, but did need to have assistance of tolvaptan with significant improvement. He does remain on an 800 mL fluid restriction, which he will keep over the weekend until he follows up with his primary care physician. Repeat chest x-ray yesterday showed no change in his pneumonia. Patient had a bowel movement yesterday and denies any significant abdominal pain. On physical exam today, sodium level is 136. CBC shows a white blood cell count of 22,000 with a mild shift. Hemoglobin and hematocrit are stable at 14 and 42. REVIEW OF SYSTEMS: Patient states he feels that he is at baseline, is anticipating going home, and states he is agreeable to close followup. Denies chest pain, headache, blurry vision or dizziness. Does admit to chronic dyspnea and cough. Uses oxygen 2 liters nasal cannula continuously at home. HEENT: Neck is supple without lymphadenopathy or jugular venous distention (JVD). Cardiovascular: Heart rate and rhythm are regular. Pulmonary: Lungs are with occasional wheeze and a mild amount of rhonchi on the left. Abdomen is soft, positive bowel sounds times all four quadrants and no tenderness is appreciated. Bilateral lower extremities are without edema. Neurologic: Patient is alert and oriented. Psych: He is anxious to return home. Otherwise, conversation is appropriate and congruent. Patient maintains eye contact well. ASSESSMENT/DISCHARGE DIAGNOSES: 1. Lingular pneumonia. 2. Chronic obstructive pulmonary disease (COPD) exacerbation. 3. Abdominal pain. 4. Hyponatremia. Secondary diagnoses include: 1. Tobacco abuse. 2. Atrial fibrillation. 3. CAD. 4. Gastroesophageal reflux disease (GERD). 5. Dyslipidemia. 6. Depression. PLAN: Patient will be discharged home. Medications are as follows: - cefdinir 300 mg by mouth twice a day for five more days - Mucinex 600 mg tablets, two by mouth twice a day - prednisone 20 mg by mouth daily for 5 days - albuterol with ipratropium two puffs four times a day as needed, shortness of breath or wheezing - albuterol with ipratropium via nebulizer every 4 hours as needed for shortness of breath or wheezing - aspirin 81 mg daily - atorvastatin 20 mg by mouth nightly - Plavix 75 mg daily - Colace 100 mg by mouth twice a day - Breo Ellipta one puff daily - iron 325 mg by mouth twice a day - magnesium oxide 400 mg by mouth daily - pantoprazole sodium 40 mg by mouth daily - potassium chloride 20 mEq by mouth daily It was discussed with patient that if over the next 2 days prior to his followup if he develops chest pain, headache, blurred vision, dizziness, worsening shortness of breath, fever, abdominal pain or difficulty having bowel movement he is to return to the emergency department immediately. Patient and the two females at his bedside did express understanding and agreement with plan. Patient is discharged in stable and satisfactory condition with no further questions at time of discharge. LYNN
[2017-03-09] MEDS ORDERED: predniSONE 20 MG TAB PO SCH (09:00)
== END 2017-03-08 10:46 | disposition home or self-care (01) | DRG 190 ==
LOC: EDBD 15:08 → M ED 17:22 → M ED INP 21:46 → M PCU 03-02 00:13 → M MSPAV 03-07 13:34
PROVIDERS: ADMIT Internal Medicine; ATTEND Family Medicine
DX: J44.1 Chronic obstructive pulmonary disease with (acute) exacerbation (principal); J18.9 Pneumonia, unspecified organism; E22.2 Syndrome of inappropriate secretion of antidiuretic hormone; J96.11 Chronic respiratory failure with hypoxia; R10.9 Unspecified abdominal pain; I48.91 Unspecified atrial fibrillation; J44.0 Chronic obstructive pulmonary disease with (acute) lower respiratory infection; I25.10 Atherosclerotic heart disease of native coronary artery without angina pectoris; K21.9 Gastro-esophageal reflux disease without esophagitis; E78.5 Hyperlipidemia, unspecified; F32.9 Major depressive disorder, single episode, unspecified; Z79.82 Long term (current) use of aspirin; Z79.02 Long term (current) use of antithrombotics/antiplatelets; Z79.899 Other long term (current) drug therapy; Z99.81 Dependence on supplemental oxygen; Z91.048 Other nonmedicinal substance allergy status; F17.210 Nicotine dependence, cigarettes, uncomplicated

== ENCOUNTER → 2017-03-11 | Outpatient (REF) | payer MEDICARE ==
[~2017-03-11] MED LIST changes: +ASPI81TAEC PO; +BREO1INH3 INH; +CEFD300CAP PO; -COLA100C3 PO; +COLA100C5 PO; -FOLI1TAB2 PO; +FOLI1TAB4 PO; +GABA-279 PO; +HYOS125TA PO; +IRON65TA PO; +LORA1TAB12 PO; +MAGN1TAB25 PO; +MAPA325T3 PO; +METO1TAB87 PO; +MUCI600T31 PO; -MUCI600T34 PO; +MUCI600T37 PO; +PLAV1TAB2 PO; -PLAV75TA38 PO; +POTA20TA6 PO; -PRED10TA PO; +PRED10TA2 PO; +PRED20TA PO; -SENO8.6T2 PO; +SENO8.6T5 PO; +STOO100C PO; +TYLETAB14 PO
[2017-03-11 17:42] LABS: ANION GAP 8 MEQ/L (8-16); BLOOD UREA NITROGEN 34 MG/DL (7-18); CALCIUM LEVEL 8.8 MG/DL (8.8-10.2); CARBON DIOXIDE LEVEL 24 MEQ/L (21-32); CHLORIDE LEVEL 105 MEQ/L (98-107); CREATININE FOR GFR 1.23 MG/DL (0.70-1.30); GLOMERULAR FILTRATION RATE > 60.0 (>42); GLUCOSE, FASTING 99 MG/DL (83-110); POTASSIUM SERUM 4.7 MEQ/L (3.5-5.1); SODIUM LEVEL 137 MEQ/L (136-145)
[2017-03-11 18:44] LABS: ADD MANUAL DIFFER YES; MEAN CORPUSCULAR HEMOGLOBIN 28.9 pg (27.0-33.0); MEAN CORPUSCULAR VOLUME 87.7 fl (80.0-96.0); PLATELET COUNT, AUTOMATED 333 k/mm3 (150-450); RED CELL DISTRIBUTION WIDTH 14.2 % (11.5-14.5)
[2017-03-11 19:21] LABS: BANDS 3 % (< 11); BASOPHILS 1 % (0-4); EOSINOPHILS 5 % (0-5)
== END ==
LOC: M SFHCPLAZ 16:27
PROVIDERS: ATTEND Physician Assistant Medical
DX: J18.9 Pneumonia, unspecified organism (principal); E22.2 Syndrome of inappropriate secretion of antidiuretic hormone
CPT/HCPCS: 80048; 85025; G0463

== ENCOUNTER 2017-04-09 12:34 | Emergency (ER) | payer MEDICARE ==
[~2017-04-09] VITALS: Ht 162.6 cm; Wt 53.2 kg
[~2017-04-09 12:34] MED LIST changes: -ASPI81TAEC PO; -GABA-279 PO; -HYOS125TA PO; -LORA1TAB12 PO; -MAPA325T3 PO; -METO1TAB87 PO; -TYLETAB14 PO
[2017-04-09] MEDS ORDERED: ACETAMINOPH W/CODEINE #3 TAB UD PO ONE (14:15)
--- NOTE | 2017-04-09 15:17 | REP ---
LUMBAR SPINE, FIVE VIEWS: HISTORY: Bone tenderness. There is no acute fracture. There is an old compression fracture of the L1 vertebral body with minimal height loss. The intervertebral discs are decreased in height consistent with disc degeneration. Osteophytes are present on L 3-5. There is narrowing of the left L4-5 and L5-S1 facet joints. There are 2 mm of retrolisthesis of L5 on S1. IMPRESSION: Degenerative change, as described above. Signed by Layton Bragg MD 04/09/2017 03:21 P
--- NOTE | 2017-04-09 15:20 | REP ---
LEFT SHOULDER, THREE VIEWS: HISTORY: Bone tenderness. There is no acute fracture or dislocation. There is narrowing of the joint spaces. An osteophyte is present at the acromioclavicular joint. IMPRESSION: Degenerative change, as described above. Signed by Layton Bragg MD 04/09/2017 03:21 P
[2017-04-09] MEDS ORDERED: TYLETAB14 PO (15:47)
[2017-04-09 16:09] VITALS: BP 137/68
== END 2017-04-09 16:22 | disposition home or self-care (01) ==
LOC: EDBD 12:34 → M ED 12:34
DX: M54.5 Low back pain (principal); M19.012 Primary osteoarthritis, left shoulder; Z91.048 Other nonmedicinal substance allergy status; Z79.82 Long term (current) use of aspirin; Z79.899 Other long term (current) drug therapy

== ENCOUNTER 2017-04-24 02:37 | Inpatient (IN) | payer MEDICARE, MEDICAID ==
[~2017-04-24] VITALS: Ht 162.6 cm; Wt 50.6 kg
[~2017-04-24 02:37] MED LIST changes: +TYLETAB14 PO
[2017-04-24] MEDS ORDERED: dexameTHASONE 20 MG/5 ML VIAL (J1100) IV ONE (04:15)
[2017-04-24] MEDS: IPRATROPIUM 0.5MG/ALBUTEROL 2.5MG INH SOL UD 3ML (DUONEB)(J7620) NEB SCH ×6 (04:26→19:50)
[2017-04-24 04:27] VITALS: O2SAT 89
[2017-04-24 04:34] LABS: VENOUS BASE EXCESS -3.2 (-2.0-2.0); VENOUS O2 SATURATION 93.5 % (60.0-80.0); VENOUS PARTIAL PRESSURE CO2 37.5 mmHg (38.0-50.0); VENOUS PARTIAL PRESSURE O2 71.7 mmHg (30.0-50.0); VENOUS STANDARD HCO3 21.7 MEQ/L; VENOUS TOTAL CO2 22.6 MEQ/L (24.0-28.0)
[2017-04-24 04:42] LABS: BASO # 0.1 K/mm3 (0.0-0.2); BASO % 1.3 % (0.0-1.0); EOS # 0.4 K/mm3 (0.0-0.50); EOS % 4.5 % (0.0-3.0); LARGE UNSTAINED CELL # 0.2 K/mm3 (0.0-0.4); LARGE UNSTAINED CELL % 1.9 % (0.0-4.0); LYMPH # 2.1 K/mm3 (1.5-4.5); LYMPH % 19.6 % (24.0-44.0); MEAN CORPUSCULAR HGB CONC 32.5 g/dl (32.0-36.5); MEAN CORPUSCULAR VOLUME 86.1 fl (80.0-96.0); MONO # 0.7 K/mm3 (0.0-0.8); MONO % 6.9 % (0.0-5.0); NEUTROPHILS # 6.6 K/mm3 (1.8-7.7); NEUTROPHILS % 65.9 % (36.0-66.0); PLATELET COUNT, AUTOMATED 313 k/mm3 (150-450); RED CELL DISTRIBUTION WIDTH 13.6 % (11.5-14.5); WHITE BLOOD COUNT 9.9 K/mm3 (4.0-10.0)
[2017-04-24 04:51] LABS: CALCIUM LEVEL 9.3 MG/DL (8.8-10.2); CREATININE FOR GFR 1.38 MG/DL (0.70-1.30); GLOMERULAR FILTRATION RATE 53.6 (>42); POTASSIUM SERUM 4.5 MEQ/L (3.5-5.1)
[2017-04-24] MEDS ORDERED: VANCOMYCIN HCL 1,000 MG, VIAL MATE ADAPTER 1 EACH in D5W 250 ML IV ONE (05:00)
[2017-04-24] MEDS ORDERED: IMIPENEM/CILASTATIN 500 MG in D5W MINI-BAG PLUS 100 ML IV ONE (05:00)
[2017-04-24] MEDS ORDERED: ONDANSETRON 4MG/2ML VIAL (J2405) IV PRN (05:15)
--- NOTE | 2017-04-24 05:35 | PHACANCOPD ---
PHARMACY VANCOMYCIN DOSING Pt Demographics Demographics Patient Age:76 , Weight:49.000 , Gender: male Adjusted Body Weight Date: 04/24/17, Adjusted Body Weight: [49] Kg Events Past 24 Hours Events Past 24 Hours: NO: Dialysis, Diuretic Therapy, Change in CrCl, Fever, Elevation in WBC, Pending Diagnostics, Pending Procedures, Other Vancomycin Vancomycin Target Ranges: 15-20 mcg/ml Vancomycin Load Y/N: Yes Load Dose Date Time Vancomycin Load Dose: 1000MG Date: 04-24 Time: 0600 Vancomycin Dose Date: 04/24/17. Current Vancomycin Dose: [750MG Q24H] Intermittent Dosing?: No Labs Labs Item Value Date Time White Blood Count 9.9 K/mm3 04/24/17 0415 Creatinine 1.38 MG/DL H 04/24/17 0415 Vital Signs Label Value Date Time Patient Temperature 98.0 degrees F 04/24/17 0246 Temperature Source Temporal 04/24/17 0246 Micro Microbiology 04/24/17 Blood Culture, Received Pending Creatinine Clearance Date:04/24/17. Creatinine Clearance: [40]. Pending Labs Trough 08-04 @0800 Assessment and Plan Maintaining Current Dose?: Yes Reason for dose change: No Dose Change Pharmacist Note Pharmacist Note Date: 04/24/17. Pharmacist note:Dosed at 750mg q24h with a trough ordered for 08- 04 @0600. Will continue to monitor and make adjustments as needed. KAYLYNN CHAVIRA PHARMACY Apr 24, 2017 05:35
[2017-04-24] MEDS ORDERED: POTA10CA PO (05:40)
[2017-04-24] MEDS ORDERED: ASPI81TAEC PO (05:40)
[2017-04-24] MEDS ORDERED: ATORVASTATIN 20 MG TAB PO STA (05:43)
[2017-04-24 06:10] VITALS: BP 129/74
--- NOTE | 2017-04-24 06:21 | HPE ---
DATE OF ADMISSION: 04/24/2017 PRIMARY CARE PROVIDER: Dr. Singh CODE STATUS: Full code. CHIEF COMPLAINT: Increased shortness of breath. HISTORY OF PRESENT ILLNESS: 76-year-old gentleman who presented to the emergency department. He had been treated and released for similar symptoms in March. He stated that he has had increasing shortness of breath for the last few days with increasing productive sputum which he describes as yellow. No hemoptysis. He has had subjective fevers and chills, but no rigors and decreased appetite. He has had to increase his oxygen use at home. He does have a history of chronic obstructive pulmonary disease (COPD) with being oxygen dependent and typically uses 2 liters at home, but has noticed that he has required upwards of 3 liters. He presented to the emergency department. He was evaluated by the emergency room (ER) physician this evening and found to have a new left upper lobe infiltrate compared to his previous x-ray during his hospitalization last month and likely healthcare associated pneumonia associated with his acute on chronic hypoxia this evening. He has already received a dose of Decadron as well as DuoNeb and has begun imipenem/cilastatin along with IV vancomycin. Blood cultures are pending at this time. The hospitalist was called for further hospitalization. He does have a previous sputum culture from 04/04/2017 that was positive for Pseudomonas. PAST MEDICAL HISTORY: 1. COPD with oxygen dependence. 2. Hyperlipidemia. 3. Iron deficiency anemia. 4. Chronic kidney disease (CKD) stage III. 5. Anxiety 6. Hypertension. 7. History of systolic congestive heart failure. 8. Tobacco use, which he states he is trying to decrease. 9. Prior history of atrial fibrillation. 10. Gastroesophageal reflux disease (GERD). 11. Chronic constipation 12. Vitamin D deficiency. PAST SURGICAL HISTORY: Hernia repair. FAMILY HISTORY: Noncontributory. SOCIAL HISTORY: He smokes less than a pack a day. States he is actually down to six cigarettes a day and is trying to discontinue (DC) tobacco use. Denies alcohol use. No drug use. No recent travel. No sick contacts. ALLERGIES: TAPE. CURRENT MEDICATION LIST (includes): - home oxygen at 2 liters per minute - Combivent one inhalation four times daily - DuoNebs as needed six times daily as needed - budesonide 0.5 mg inhaled twice a day - BROVANA 15 mcg inhaler twice a day - Vitamin B12 1000 mcg orally daily - Lipitor 20 mg daily - vitamin D3 5000 units daily - aspirin 81 mg daily - Plavix 75 mg daily - Colace 100 mg twice a day - ferrous sulfate 325 mg twice a day - pantoprazole 40 mg daily - potassium chloride 20 mEq daily - magnesium oxide 400 mg daily REVIEW OF SYSTEMS: Constitutional: He has had subjective fevers, chills. No rigors. His appetite has been about the same. HEENT: Denies headache, lightheaded, dizziness, blurry vision, double vision or tinnitus. Pulmonary: He has had increasing shortness of breath, dyspnea on exertion, productive sputum, cough with increased wheeze and tightness in his chest. Cardiovascular: Positive history of congestive heart failure, but he denies any chest pain or palpitations. No lower extremity edema. No orthopnea. Gastrointestinal (GI): No nausea, vomiting, diarrhea. Bowel movements are regular. He denies any hematochezia or melena. Genitourinary (): No dysuria, frequency or hematuria. Musculoskeletal: Generalized weakness, but no focal issues. No bone loss or joint pain, swelling or erythema. Neurologic: He denies any paresthesias or paralysis. Endocrine: Negative for diabetes. Negative for thyroid disorder. Lymphatics: No lumps, bumps, swelling in the neck, axilla or groin. Denies any weight loss. Hematology: Negative for bleeding or bruising disorder. Oncology: No history of cancer. Psychiatric: Positive for anxiety disorder. Denies depression. No suicidal ideation. No audiovisual hallucinations. 10-point review of systems completed, pertinent positives are listed. PHYSICAL EXAMINATION: Temperature is 98, pulse 76 and regular, respiratory rate is 20, blood pressure (BP) 146/79, SPO2 is 89% on 3 liters. General: The patient appears to be in no acute distress. He is alert and oriented, pleasant talk to. HEENT: Head is traumatic, normocephalic. Eyes: Pupils equal and reactive to light and accommodation (PEGGY). Throat clear. Lungs: He does have wheeze throughout all lung [place], notably with some occasional rhonchi noted on the left lung field. Heart: Regular rate and rhythm. Abdomen: Soft. Extremities: No edema. No calf tenderness. LABORATORY DATA: White count is 9.9, hemoglobin 14.5 and platelets 313,000. Sodium 144, potassium 4.5, chloride 108, bicarb 24, anion gap 12, BUN 39, creatinine 1.38 up from 0.92, glucose is 68, lactic acid 1.3. Blood cultures pending at this time as well as sputum culture. Chest x-ray with scarring noted of the right upper lobe with left upper lobe infiltrate noted with no specific consolidation. This is a change from his previous chest x-ray done on 03/07/2017. IMPRESSION: Mr. Greenberg is a pleasant 76-year-old gentleman who unfortunately has what appears to be oxygen dependent COPD and presents with acute on chronic hypoxia and infiltrate noted on chest x-ray and will need to be admitted overnight. Started on IV antibiotics as well as DuoNebs. Will start him on some steroids as well. Tomorrow morning, he will be evaluated by his primary team. PROBLEM LIST: 1. Acute on chronic respiratory failure with hypoxia, likely secondary to healthcare associated pneumonia. 2. Oxygen dependent obstructive lung disease. 3. Hyperlipidemia. 4. History of iron-deficiency anemia. 5. Chronic constipation. 6. CKD stage III with elevated creatinine. I will reevaluate this in the morning. 7. Anxiety disorder. 8. Hypertension. 9. History of congestive heart failure with systolic dysfunction. He appears to be compensated currently. 10. Tobacco use for which we will encourage smoking cessation and counseling provided. 11. B12 deficiency. 12. Vitamin D deficiency. 13. Prior history of coronary artery disease, no complaint of chest pain. 14. 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 15. Prior history of atrial fibrillation. He currently appears to be sinus. 16. Gastroesophageal reflux disease. PLAN: The patient will be admitted to med-surgical. Will continue with IV antibiotics to cover for healthcare associated pneumonia, Solu-Medrol, DuoNebs. Sputum and blood cultures are pending at this time. Will continue on his other home medications as well. Deep vein thrombosis (DVT) prophylaxis. He will be encouraged to ambulate. He currently is on aspirin 81 mg daily as well Plavix 75 mg daily as well. Physical therapy will be ordered for an evaluation. Will need to see if he ambulates well to be safe for home discharge within the next 24-48 hours. DISPOSITION: As outlined above. Anticipate home discharge between 24-48 hours.
[2017-04-24] MEDS: HEPARIN SOD (PORCINE) 5000 UNITS/ML VIAL SC SCH ×3 (07:06→20:53)
[2017-04-24] MEDS: BUDESONIDE 0.5 MG/2 ML INHALATION SUSPENSION INH SCH ×2 (07:46→19:50)
--- NOTE | 2017-04-24 09:10 | REP ---
CHEST, TWO VIEWS: HISTORY: Dyspnea. COMPARISON: 03/07/2017. The lungs are hyperinflated. An increase in interstitial markings is present in the lungs consistent with chronic interstitial fibrosis. Increased density is present in the left upper lobe and lingula consistent with an infiltrate. The heart is normal in size. The pulmonary vasculature is normal in appearance. The bony structure is intact. IMPRESSION: 1. Chronic interstitial fibrosis. 2. Left upper lobe and lingular infiltrates. Signed by Layton Bragg MD 04/24/2017 09:21 A
[2017-04-24] MEDS: methylPREDNISolone INJ 125 MG/2 ML VIAL (J2930) IV SCH ×2 (09:36→20:52)
[2017-04-24] MEDS: POTASSIUM CHLORIDE 10 MEQ SR TABLET PO SCH (09:38)
[2017-04-24] MEDS: ASPIRIN 81 MG ENTERIC TAB PO SCH (09:38)
[2017-04-24] MEDS: CYANOCOBALAMIN 500 MCG TAB PO SCH (09:38)
[2017-04-24] MEDS: DOCUSATE SODIUM 100 MG CAP PO SCH ×2 (09:38→20:53)
[2017-04-24] MEDS: CLOPIDOGREL 75 MG TAB PO SCH (09:38)
[2017-04-24] MEDS: ACETAMINOPHEN TAB 650MG DOSE (2X325MG) PO PRN (09:40)
[2017-04-24] MEDS: PANTOPRAZOLE 40MG TAB (PROTONIX) PO SCH (09:40)
[2017-04-24] MEDS: FERROUS SULFATE 325MG TAB PO SCH ×2 (09:40→20:53)
[2017-04-24] MEDS: MAGNESIUM OXIDE 400 MG TAB (MAG-OX) PO SCH (09:43)
[2017-04-24] MEDS ORDERED: IMIPENEM/CILASTATIN 250 MG in D5W MINI-BAG PLUS 100 ML IV SCH (12:00)
[2017-04-24 14:00] VITALS: BP 126/64
[2017-04-24] MEDS ORDERED: LevoFLOXacin IV 750 MG in APPROPRIATE DILUENT 1 EA IV SCH (15:00)
--- NOTE | 2017-04-24 15:16 | IPNPDOC ---
Subjective Date Seen The patient was seen on 04/24/17. Subjective Chief Complaint/HPI The patient is a 76-year-old male admitted with a reason for visit of Acute On Chronic Respiratory Failure With Hypoxia. Events since last encounter Patient seen this morning; he states he still feels SOB and is not at his baseline. Constitutional: Denies: Chills, Fever ENT: Denies: Head Aches Skin: Denies: Rash Pulmonary: Reports: Dyspnea, Cough (dry) Cardiovascular: Denies: Chest Pain, Palpitations Gastrointestinal: Denies: Nausea, Vomiting, Abdominal Pain Genitourinary: Denies: Dysuria Neurological: Denies: Weakness, Numbness Objective Physical Examination General Exam: Positive: Alert, Cooperative, No Acute Distress ENT Exam: Positive: Atraumatic, Mucous membr. moist/pink Chest Exam: Positive: Rhonchi (diffuse), Diminished (throughout) Heart Exam: Positive: Rate Normal, Regular Rhythm, Normal S1, Normal S2 Abdomen Exam: Positive: Soft, Negative: Tenderness Skin Exam: Positive: Nl turgor and temperature, Negative: Rash Neuro Exam: Positive: Normal Speech, Cranial Nerves 3-12 NL Psych Exam: Positive: Mental status NL, Mood NL, Oriented x 3 Assessment /Plan Problems (1) Left upper lobe pneumonia Status: Acute Response to Treatment: Stable Problem Text: HCAP with recent hospitalization in February for similar symptoms. Sputum culture in February was positive for pseudomonas. - Stop imipenem; start cefepime and levaquin (both renally dosed) for HCAP coverage; continue vancomycin for now. If he does well overnight, I suspect antibiotics can be rapidly de-escalated. - Continue solumedrol and duonebs. (2) Acute on chronic respiratory failure with hypoxia Problem Text: Increased O2 need upon admission, likely due to HCAP - see above (3) COPD (chronic obstructive pulmonary disease) Status: Chronic (4) Oxygen dependent Status: Chronic Problem Text: On 2 L/min at home (5) CKD (chronic kidney disease) stage 3, GFR 30-59 ml/min Status: Chronic Response to Treatment: Worse Problem Text: Kidney function slightly worse today; will encourage good PO hydration. I am hesitant to start IVF given his history of systolic CHF - recheck BMP in the morning and he may need gentle hydration if kidney function continues to worsen. (6) Systolic CHF Status: Chronic Response to Treatment: Stable Problem Text: No evidence of volume overload at present. Plan/VTE VTE Prophylaxis Ordered?: No (encourage ambulation) [facility]O Vital Signs Date Time Temp Pulse Resp B/P (MAP) Pulse Ox O2 Delivery O2 Flow Rate FiO2 04/24/17 06:20 Nasal Cannula 3.0 04/24/17 06:10 98.3 77 22 129/74 (92) 93 04/24/17 03:01 92 Laboratory Data 24H LABS Laboratory Tests 2 04/24/17 04:15: White Blood Count 9.9, Red Blood Count 5.20, Hemoglobin 14.5, Hematocrit 44.8, Mean Corpuscular Volume 86.1, Mean Corpuscular Hemoglobin 28.0, Mean Corpuscular Hemoglobin Concent 32.5, Red Cell Distribution Width 13.6, Platelet Count 313, Neutrophils (%) (Auto) 65.9, Lymphocytes (%) (Auto) 19.6L, Monocytes (%) (Auto) 6.9H, Eosinophils (%) (Auto) 4.5H, Basophils (%) (Auto) 1.3H, Neutrophils # (Auto) 6.6, Lymphocytes # (Auto) 2.1, Monocytes # (Auto) 0.7, Eosinophils # (Auto) 0.4, Basophils # (Auto) 0.1, Large Unclassified Cells % 1.9 , Large Unclassified Cells # 0.2, Blood Gas Bicarbonate Standard 21.7, Venous Blood pH 7.375, Venous Blood Partial Pressure CO2 37.5L, Venous Blood Partial Pressure O2 71.7H, Venous Blood Total Carbon Dioxide 22.6L, Venous Blood HCO3 21.4L, Venous Blood Oxygen Saturation 93.5H, Venous Blood Base Excess -3.2L, Anion Gap 12, Glomerular Filtration Rate 53.6, Lactic Acid Level 1.3, Blood Urea Nitrogen 39H, Creatinine 1.38H, Sodium Level 144, Potassium Level 4.5, Chloride Level 108H, Carbon Dioxide Level 24, Calcium Level 9.3 CBC/BMP Laboratory Tests 04/24/17 04:15 Red Blood Count 5.20, Mean Corpuscular Volume 86.1, Mean Corpuscular Hemoglobin 28.0, Mean Corpuscular Hemoglobin Concent 32.5, Red Cell Distribution Width 13.6 , Neutrophils (%) (Auto) 65.9, Lymphocytes (%) (Auto) 19.6 L, Monocytes (%) ( Auto) 6.9 H, Eosinophils (%) (Auto) 4.5 H, Basophils (%) (Auto) 1.3 H, Neutrophils # (Auto) 6.6, Lymphocytes # (Auto) 2.1, Monocytes # (Auto) 0.7, Eosinophils # (Auto) 0.4, Basophils # (Auto) 0.1, Calcium Level 9.3 Microbiology Microbiology 04/24/17 Blood Culture, Received Pending CATRACHITO CANO MD Apr 24, 2017 15:16
[2017-04-24] MEDS ORDERED: CEFEPIME HCL 2 GM in D5W MINI-BAG PLUS 50 ML IV SCH (17:00)
[2017-04-24] MEDS: diphenhydrAMINE 50 MG CAP PO PRN (18:48)
[2017-04-24 22:00] VITALS: BP 108/60
[2017-04-25 01:34] VITALS: BP 121/63
[2017-04-25 06:00] VITALS: BP 123/63
[2017-04-25] MEDS: HEPARIN SOD (PORCINE) 5000 UNITS/ML VIAL SC SCH ×3 (06:14→20:51)
[2017-04-25 06:39] LABS: MEAN CORPUSCULAR HEMOGLOBIN 28.2 pg (27.0-33.0); MEAN CORPUSCULAR HGB CONC 33.7 g/dl (32.0-36.5); MEAN CORPUSCULAR VOLUME 83.7 fl (80.0-96.0); RED CELL DISTRIBUTION WIDTH 13.4 % (11.5-14.5); WHITE BLOOD COUNT 10.8 K/mm3 (4.0-10.0)
[2017-04-25 06:50] LABS: ANION GAP 9 MEQ/L (8-16); BLOOD UREA NITROGEN 34 MG/DL (7-18); CALCIUM LEVEL 9.4 MG/DL (8.8-10.2); CARBON DIOXIDE LEVEL 25 MEQ/L (21-32); CHLORIDE LEVEL 107 MEQ/L (98-107); CREATININE FOR GFR 1.19 MG/DL (0.70-1.30); GLOMERULAR FILTRATION RATE > 60.0 (>42); GLUCOSE, FASTING 126 MG/DL (83-110); POTASSIUM SERUM 4.1 MEQ/L (3.5-5.1); SODIUM LEVEL 141 MEQ/L (136-145)
[2017-04-25] MEDS: IPRATROPIUM 0.5MG/ALBUTEROL 2.5MG INH SOL UD 3ML (DUONEB)(J7620) NEB SCH ×2 (08:01→15:08)
[2017-04-25] MEDS: BUDESONIDE 0.5 MG/2 ML INHALATION SUSPENSION INH SCH ×2 (08:01→20:26)
[2017-04-25] MEDS: CLOPIDOGREL 75 MG TAB PO SCH (10:04)
[2017-04-25] MEDS: POTASSIUM CHLORIDE 10 MEQ SR TABLET PO SCH (10:04)
[2017-04-25] MEDS: MAGNESIUM OXIDE 400 MG TAB (MAG-OX) PO SCH (10:04)
[2017-04-25] MEDS: FERROUS SULFATE 325MG TAB PO SCH ×2 (10:05→20:51)
[2017-04-25] MEDS: ASPIRIN 81 MG ENTERIC TAB PO SCH (10:05)
[2017-04-25] MEDS: DOCUSATE SODIUM 100 MG CAP PO SCH ×3 (10:05→21:00)
[2017-04-25] MEDS: CYANOCOBALAMIN 500 MCG TAB PO SCH (10:05)
[2017-04-25] MEDS: VANCOMYCIN HCL 750 MG, VIAL MATE ADAPTER 1 EACH in D5W 250 ML IV SCH (10:06)
[2017-04-25] MEDS: methylPREDNISolone INJ 125 MG/2 ML VIAL (J2930) IV SCH ×2 (10:06→20:50)
[2017-04-25] MEDS: PANTOPRAZOLE 40MG TAB (PROTONIX) PO SCH (10:06)
--- NOTE | 2017-04-25 11:54 | IPNPDOC ---
Subjective Date Seen The patient was seen on 04/25/17. Subjective Chief Complaint/HPI The patient is a 76-year-old male admitted with a reason for visit of Acute On Chronic Respiratory Failure With Hypoxia. Events since last encounter Pt states that his breathing is slightly better this morning. He is coughing a lot. He is getting up and out of bed, although he fell to his knees yesterday coming back from the bathroom, and isn't really sure why. Nursing reported that he was not wearing his O2 when he got up. General: Denies: Fatigue Constitutional: Denies: Chills, Fever Eyes: Denies: Pain, Vision change Pulmonary: Reports: Dyspnea, Cough Cardiovascular: Denies: Chest Pain, Palpitations Gastrointestinal: Denies: Nausea, Vomiting, Diarrhea Neurological: Reports: Weakness Psych: Reports: Mood Normal Objective Physical Examination General Exam: Positive: Alert, Cooperative, No Acute Distress ENT Exam: Positive: Atraumatic, Mucous membr. moist/pink Chest Exam: Positive: Rhonchi (diffuse), Diminished (throughout) Heart Exam: Positive: Rate Normal, Regular Rhythm, Normal S1, Normal S2 Abdomen Exam: Positive: Soft, Negative: Tenderness Skin Exam: Positive: Nl turgor and temperature, Negative: Rash Neuro Exam: Positive: Normal Speech, Cranial Nerves 3-12 NL Psych Exam: Positive: Mental status NL, Mood NL, Oriented x 3 Assessment /Plan Problems (1) Left upper lobe pneumonia Status: Acute Response to Treatment: Stable Problem Text: D2 vanco 04/25 He was started on Cefepine and Levaquin these were administered back to back yesterday and he developed a slight rash and itching which resolved with benadryl. He has been on Vanco only since then, as there were held. Given SCX results, CCR, recheck CT chest 04/24 HCAP with recent hospitalization in February for similar symptoms. Sputum culture in February was positive for pseudomonas. - Stop imipenem; start cefepime and levaquin (both renally dosed) for HCAP coverage; continue vancomycin for now. If he does well overnight, I suspect antibiotics can be rapidly de-escalated. - Continue solumedrol and duonebs. 04/24 SCX moderate S. aureus 03/05/17 SCX few P. aeruginosa 03/01/17 CT chest: Severe upper lobe predominant centrilobular and paracentral emphysema is seen. 2. There are increased interstitial lung markings with honeycombing at lung bases compatible with pulmonary fibrosis. 3. Since the prior study, there is resolution of confluent markings in the superior segment of right lower lobe. 4. New confluent markings with areas of consolidation to the lingula. This is most compatible with pneumonia. However follow up is recommended to document resolution. 5. Calcified gallstone is again seen. (2) Acute on chronic respiratory failure with hypoxia Problem Text: Increased O2 need upon admission, likely due to HCAP - see above (3) COPD (chronic obstructive pulmonary disease) Status: Chronic (4) Oxygen dependent Status: Chronic Problem Text: On 2 L/min at home (5) CKD (chronic kidney disease) stage 3, GFR 30-59 ml/min Status: Chronic Response to Treatment: Worse Problem Text: 04/25 improved to 1.2 (1.4) baseline cr 0.9 (6) Systolic CHF Status: Chronic Response to Treatment: Stable Problem Text: No evidence of volume overload at present. not not diuretic rx baseline Plan/VTE VTE Prophylaxis Ordered?: No (encourage ambulation) VS, I&O, 24H, Fishbone Vital Signs/I&O Vital Signs Date Time Temp Pulse Resp B/P (MAP) Pulse Ox O2 Delivery O2 Flow Rate FiO2 04/25/17 06:00 97.6 72 18 123/63 (83) 95 Nasal Cannula 2.0 04/24/17 03:01 92 I&O- Last 24 Hours up to 6 AM 04/25/17 06:00 Intake Total 1320 ml Output Total 450 ml Balance 870 ml Laboratory Data 24H LABS Laboratory Tests 2 04/25/17 06:06: Anion Gap 9, Glomerular Filtration Rate > 60.0, Blood Urea Nitrogen 34H, Creatinine 1.19, Sodium Level 141, Potassium Level 4.1, Chloride Level 107, Carbon Dioxide Level 25, Calcium Level 9.4 CBC/BMP Laboratory Tests 04/25/17 06:06 Calcium Level 9.4 04/25/17 06:07 Red Blood Count 4.59, Mean Corpuscular Volume 83.7, Mean Corpuscular Hemoglobin 28.2, Mean Corpuscular Hemoglobin Concent 33.7, Red Cell Distribution Width 13.4 Microbiology Microbiology 04/24/17 Blood Culture - Preliminary, Resulted No growth after 24 hours . All specim... 04/24/17 Gram Stain - Final, Resulted 04/24/17 Sputum Culture - Preliminary, Resulted Staphylococcus Aureus ALCON BARTON PA-C Apr 25, 2017 11:53 Frederick Singh M.D. Apr 25, 2017 16:09
[2017-04-25 14:00] VITALS: BP 109/57
[2017-04-25] MEDS: IPRATROPIUM 0.5MG/ALBUTEROL 2.5MG INH SOL UD 3ML (DUONEB)(J7620) NEB PRN (20:27)
[2017-04-25 22:00] VITALS: BP 118/80
[2017-04-26] MEDS: IPRATROPIUM 0.5MG/ALBUTEROL 2.5MG INH SOL UD 3ML (DUONEB)(J7620) NEB PRN (05:25)
[2017-04-26] MEDS: HEPARIN SOD (PORCINE) 5000 UNITS/ML VIAL SC SCH ×3 (05:47→21:55)
[2017-04-26 06:00] VITALS: BP 121/58
[2017-04-26] MEDS: IPRATROPIUM 0.5MG/ALBUTEROL 2.5MG INH SOL UD 3ML (DUONEB)(J7620) NEB SCH ×4 (07:11→23:40)
[2017-04-26] MEDS: BUDESONIDE 0.5 MG/2 ML INHALATION SUSPENSION INH SCH ×2 (07:11→19:35)
[2017-04-26] MEDS ORDERED: ISOVUE-370 76% 100ML VIAL (Q9967) As Ordered ONE (08:04)
[2017-04-26 08:30] LABS: MEAN CORPUSCULAR VOLUME 84.9 fl (80.0-96.0); RED CELL DISTRIBUTION WIDTH 13.7 % (11.5-14.5); WHITE BLOOD COUNT 13.6 K/mm3 (4.0-10.0)
[2017-04-26 09:00] LABS: ANION GAP 10 MEQ/L (8-16); BLOOD UREA NITROGEN 30 MG/DL (7-18); CALCIUM LEVEL 9.6 MG/DL (8.8-10.2); CARBON DIOXIDE LEVEL 26 MEQ/L (21-32); CHLORIDE LEVEL 107 MEQ/L (98-107); CREATININE FOR GFR 1.13 MG/DL (0.70-1.30); GLOMERULAR FILTRATION RATE > 60.0 (>42); GLUCOSE, FASTING 113 MG/DL (83-110); POTASSIUM SERUM 4.3 MEQ/L (3.5-5.1); SODIUM LEVEL 143 MEQ/L (136-145)
[2017-04-26] MEDS: DOCUSATE SODIUM 100 MG CAP PO SCH ×3 (09:00→21:55)
[2017-04-26] MEDS: FERROUS SULFATE 325MG TAB PO SCH ×2 (09:38→21:55)
[2017-04-26] MEDS: CLOPIDOGREL 75 MG TAB PO SCH (09:38)
[2017-04-26] MEDS: POTASSIUM CHLORIDE 10 MEQ SR TABLET PO SCH (09:38)
[2017-04-26] MEDS: VANCOMYCIN HCL 750 MG, VIAL MATE ADAPTER 1 EACH in D5W 250 ML IV SCH (09:38)
[2017-04-26] MEDS: CYANOCOBALAMIN 500 MCG TAB PO SCH (09:39)
[2017-04-26] MEDS: MAGNESIUM OXIDE 400 MG TAB (MAG-OX) PO SCH (09:39)
[2017-04-26] MEDS: methylPREDNISolone INJ 125 MG/2 ML VIAL (J2930) IV SCH ×2 (09:39→21:55)
[2017-04-26] MEDS: PANTOPRAZOLE 40MG TAB (PROTONIX) PO SCH (09:39)
[2017-04-26] MEDS: ASPIRIN 81 MG ENTERIC TAB PO SCH (09:39)
--- NOTE | 2017-04-26 09:46 | REP ---
CT CHEST WITH CONTRAST: 04/26/2017 COMPARISON: Noncontrast CT 03/01/2017, chest x-ray 04/24/2017. CLINICAL HISTORY: Known lingular and left upper lobe pneumonia. FINDINGS: Helical scanning through the chest after bolus of 75 mL Isovue 370 with coronal and sagittal reconstructions provided. Lung [place] are hyperinflated. There is underlying interstitial fibrosis and emphysematous change. Honeycombing of the right upper lobe posteriorly and bullous emphysematous changes in the right apex and upper lobe are noted. Since previous CT, extensive consolidation in the right upper lobe and lingula are noted. There is also evidence for confluent adenopathy in the mediastinum with large nodes now measuring 2.1 cm, precarinal 1.8 cm AP window, prevascular space nodes up to 1.7 cm. Circumferential adenopathy extending around the left hilum and occluding the left upper lobe bronchus making this a postobstructive pneumonia. Pulmonary arteries are opacified, however. There is subcarinal adenopathy up to 2.1 cm. Right paratracheal nodes up to 1.5 cm with no axillary or supraclavicular nodes. Heart not enlarged. No pericardial thickening or effusion. The aorta is without aneurysm or dissection. The central pulmonary arteries are without filling defects. Lobar arteries are without filling defects. There is underlying fibrotic change and new nodular infiltrates or multiple lower lobe deep sulcal parenchymal nodules and pleural nodules in the left lower lobe with small left effusion also new. The underlying fibrosis is again seen. Superior endplate compression deformity of L1, inferior endplate deformity of L2 is noted; unchanged at L1, new at L2 compared to the previous CT. In the upper abdomen, there is a densely calcified laminated gallstone as before. Spleen is without mass or enlargement. Some hypodense lesion peripherally in the right lobe of the liver about 16 mm on image 119. There are other subtle hypodensities in the liver that do not appear to be vascular and not suspicious for metastatic disease in the liver. Adrenal glands are normal. Upper poles kidneys intact. Pancreas unremarkable. Stomach and visible bowel loops intact. IMPRESSION: 1. Extensive hilar adenopathy with large nodes up to 2.1 cm subcarinal and precarinal region with 18 mm AP window nodes. Other large nodes prevascular space, right paratracheal region and all of these suspicious for malignancy. Some nodes surround the left upper lobe bronchus have occluded since the previous study. Extensive consolidation in the left upper lobe and lingula are related to post obstructive pneumonia. Small effusion and new multiple pleural based and parenchymal nodular densities or nodular infiltrates in the left lower lobe, suspicious for malignancy. 2. Chronic fibrotic changes and honeycombing in the posterior right upper lobe and anterior right upper lobe paramediastinal region stable. 3. No cardiomegaly, pericardial thickening or effusion. 4. Suspected liver metastatic lesions inferiorly in the right hepatic lobe. Signed by Rebel Newton MD 04/26/2017 10:13 P
--- NOTE | 2017-04-26 10:18 | IPNPDOC ---
Subjective Date Seen The patient was seen on 04/26/17. Subjective Chief Complaint/HPI The patient is a 76-year-old male admitted with a reason for visit of Acute On Chronic Respiratory Failure With Hypoxia. Events since last encounter Pt reports some improvement in his resp status this morning. Less cough. Just returned from CT. General: Denies: Fatigue Constitutional: Denies: Chills, Fever ENT: Denies: Head Aches Pulmonary: Reports: Dyspnea, Cough Cardiovascular: Denies: Chest Pain, Palpitations Gastrointestinal: Denies: Nausea, Vomiting Neurological: Reports: Weakness Psych: Reports: Mood Normal Objective Physical Examination General Exam: Positive: Alert, Cooperative, No Acute Distress ENT Exam: Positive: Atraumatic, Mucous membr. moist/pink Chest Exam: Positive: Rhonchi (diffuse), Diminished (throughout) Heart Exam: Positive: Rate Normal, Regular Rhythm, Normal S1, Normal S2 Abdomen Exam: Positive: Soft, Negative: Tenderness Skin Exam: Positive: Nl turgor and temperature, Negative: Rash Neuro Exam: Positive: Normal Speech, Cranial Nerves 3-12 NL Psych Exam: Positive: Mental status NL, Mood NL, Oriented x 3 Assessment /Plan Problems (1) Left upper lobe pneumonia Status: Acute Response to Treatment: Stable Problem Text: D3 vanco 04/26 given ? liver mets-check liver US, WBC 13.6 (10.8), add levofloxacin given h /o Pseudomonas and 04/24 SCX c K. pneumonia (if develops rash, change to meropenem ) 04/25 He was started on Cefepine and Levaquin these were administered back to back yesterday and he developed a slight rash and itching which resolved with benadryl. He has been on Vanco only since then, as there were held. Given SCX results, CCR, recheck CT chest 04/24 HCAP with recent hospitalization in February for similar symptoms. Sputum culture in February was positive for pseudomonas. - Stop imipenem; start cefepime and levaquin (both renally dosed) for HCAP coverage; continue vancomycin for now. If he does well overnight, I suspect antibiotics can be rapidly de-escalated. - Continue solumedrol and duonebs. 04/24 SCX moderate MRSA/few K. pneumoniae 03/05/17 SCX few P. aeruginosa 04/25 CT chest: 1. Extensive hilar adenopathy with large nodes up to 2.1 cm subcarinal and precarinal region with 18 mm AP window nodes. Other large nodes prevascular space, right paratracheal region and all of these suspicious for malignancy. Some nodes surround the left upper lobe bronchus have occluded since the previous study. Extensive consolidation in the left upper lobe and lingula are related to post obstructive pneumonia. Small effusion and new multiple pleural based and parenchymal nodular densities or nodular infiltrates in the left lower lobe, suspicious for malignancy. 2. Chronic fibrotic changes and honeycombing in the posterior right upper lobe and anterior right upper lobe paramediastinal region stable. 3. No cardiomegaly, pericardial thickening or effusion. 4. Suspected liver metastatic lesions inferiorly in the right hepatic lobe. Unreviewed 03/01/17 CT chest: Severe upper lobe predominant centrilobular and paracentral emphysema is seen. 2. There are increased interstitial lung markings with honeycombing at lung bases compatible with pulmonary fibrosis. 3. Since the prior study, there is resolution of confluent markings in the superior segment of right lower lobe. 4. New confluent markings with areas of consolidation to the lingula. This is most compatible with pneumonia. However follow up is recommended to document resolution. 5. Calcified gallstone is again seen. (2) Acute on chronic respiratory failure with hypoxia Problem Text: Increased O2 need upon admission, likely due to HCAP - see above (3) COPD (chronic obstructive pulmonary disease) Status: Chronic (4) Oxygen dependent Status: Chronic Problem Text: On 2 L/min at home (5) CKD (chronic kidney disease) stage 3, GFR 30-59 ml/min Status: Chronic Response to Treatment: Worse Problem Text: 04/25 improved to 1.2 (1.4) baseline cr 0.9 (6) Systolic CHF Status: Chronic Response to Treatment: Stable Problem Text: No evidence of volume overload at present. not not diuretic rx baseline Plan/VTE VTE Prophylaxis Ordered?: No (encourage ambulation) VS, I&O, 24H, Fishbone Vital Signs/I&O Vital Signs Date Time Temp Pulse Resp B/P (MAP) Pulse Ox O2 Delivery O2 Flow Rate FiO2 04/26/17 06:00 97.7 68 20 121/58 (79) 94 Nasal Cannula 3.0 04/24/17 03:01 92 I&O- Last 24 Hours up to 6 AM 04/26/17 06:00 Intake Total 1380 ml Output Total 750 ml Balance 630 ml Laboratory Data 24H LABS Laboratory Tests 2 04/26/17 08:06: Anion Gap 10, Glomerular Filtration Rate > 60.0, Blood Urea Nitrogen 30H, Creatinine 1.13, Sodium Level 143, Potassium Level 4.3, Chloride Level 107, Carbon Dioxide Level 26, Calcium Level 9.6, Vancomycin Level Trough 7.0L CBC/BMP Laboratory Tests 04/26/17 08:06 Red Blood Count 4.70, Mean Corpuscular Volume 84.9, Mean Corpuscular Hemoglobin 28.0, Mean Corpuscular Hemoglobin Concent 33.0, Red Cell Distribution Width 13.7 , Calcium Level 9.6 Microbiology Microbiology 04/24/17 Blood Culture - Preliminary, Resulted No Growth after 48 hours. All Specime... 04/24/17 Gram Stain - Final, Complete 04/24/17 Sputum Culture - Final, Complete Staph.aureus Methicillin Resis Klebsiella Pneumoniae ALCON BARTON PA-C Apr 26, 2017 10:18 Frederick Singh M.D. Apr 26, 2017 15:51
--- NOTE | 2017-04-26 13:55 | PHACANCOPD ---
PHARMACY VANCOMYCIN DOSING Pt Demographics Demographics Patient Age:76 , Weight:50.700 , Gender: male Adjusted Body Weight Date: 04/24/17, Adjusted Body Weight: [49] Kg Events Past 24 Hours Events Past 24 Hours: NO: Dialysis, Diuretic Therapy, Change in CrCl, Fever, Elevation in WBC, Pending Diagnostics, Pending Procedures, Other Vancomycin Vancomycin Target Ranges: 15-20 mcg/ml Vancomycin Load Y/N: Yes Load Dose Date Time Vancomycin Load Dose: 1000MG Date: 04-24 Time: 0600 Vancomycin Dose Date: 04/26/17. Current Vancomycin Dose: [CHG TO VANCO 1GM IV Q24H@19] Date: 04/24/17. Current Vancomycin Dose: [750MG Q24H] Intermittent Dosing?: No Labs Labs Vital Signs Label Value Date Time Patient Temperature 97.7 degrees F 04/26/17 0600 Temperature Source Temporal 04/26/17 0600 Item Value Date Time White Blood Count 10.8 K/mm3 H 04/25/17 0607 White Blood Count 13.6 K/mm3 H 04/26/17 0806 Vancomycin Level Trough 7.0 UG/ML L 04/26/17 0806 Creatinine 1.13 MG/DL 04/26/17 0806 Micro Microbiology 04/24/17 Blood Culture - Preliminary, Resulted No Growth after 48 hours. All Specime... 04/24/17 Gram Stain - Final, Complete 04/24/17 Sputum Culture - Final, Complete Staph.aureus Methicillin Resis Klebsiella Pneumoniae Creatinine Clearance Date:04/24/17. Creatinine Clearance: [40]. Pending Labs Trough 08-04 @0800 Assessment and Plan Maintaining Current Dose?: No Reason for dose change: Trough too low Pharmacist Note Pharmacist Note 04/26: Patient's trough came back at 7 today. His goal trough his between 15 and 20 therefore he was increased to 1 gram of Vancomycin Q24H starting at 1900 tonight, 10 hours after his morning dose. He is clinically improving per his doctor. His sputum did grow MRSA. We will continue to monitor and make adjustments as necessary. Date: 04/24/17. Pharmacist note:Dosed at 750mg q24h with a trough ordered for 08- 04 @0600. Will continue to monitor and make adjustments as needed. [facility] Apr 26, 2017 13:55
[2017-04-26 14:00] VITALS: BP 128/63
[2017-04-26] MEDS ORDERED: LevoFLOXacin IV 750 MG in APPROPRIATE DILUENT 1 EA IV SCH (17:00)
[2017-04-26] MEDS: VANCOMYCIN HCL 1,000 MG, VIAL MATE ADAPTER 1 EACH in D5W 250 ML IV SCH (19:05)
[2017-04-26 22:00] VITALS: BP 118/60
[2017-04-27] MEDS: HEPARIN SOD (PORCINE) 5000 UNITS/ML VIAL SC SCH ×3 (05:16→21:43)
[2017-04-27 06:00] VITALS: BP 142/71
[2017-04-27 06:23] LABS: MEAN CORPUSCULAR HEMOGLOBIN 28.5 pg (27.0-33.0); MEAN CORPUSCULAR HGB CONC 33.2 g/dl (32.0-36.5); MEAN CORPUSCULAR VOLUME 85.7 fl (80.0-96.0); RED CELL DISTRIBUTION WIDTH 13.7 % (11.5-14.5); WHITE BLOOD COUNT 11.6 K/mm3 (4.0-10.0)
[2017-04-27 06:37] LABS: ANION GAP 13 MEQ/L (8-16); BLOOD UREA NITROGEN 27 MG/DL (7-18); CARBON DIOXIDE LEVEL 23 MEQ/L (21-32); CHLORIDE LEVEL 104 MEQ/L (98-107); CREATININE FOR GFR 0.96 MG/DL (0.70-1.30); GLOMERULAR FILTRATION RATE > 60.0 (>42); GLUCOSE, FASTING 132 MG/DL (83-110); POTASSIUM SERUM 4.5 MEQ/L (3.5-5.1); SODIUM LEVEL 140 MEQ/L (136-145)
[2017-04-27] MEDS: BUDESONIDE 0.5 MG/2 ML INHALATION SUSPENSION INH SCH ×2 (07:23→19:39)
[2017-04-27] MEDS: IPRATROPIUM 0.5MG/ALBUTEROL 2.5MG INH SOL UD 3ML (DUONEB)(J7620) NEB SCH ×3 (07:23→19:42)
--- NOTE | 2017-04-27 09:37 | REP ---
RIGHT UPPER QUADRANT ULTRASOUND: 04/26/2017. Comparison CT chest 04/26/2017, CT abdomen and pelvis 03/01/2017. Clinical history: Today's chest CT suggested metastatic lesions in the liver. Findings: Sonographic evaluation of the right upper quadrant shows the liver heterogeneous in echotexture. There are multiple hypoechoic nodules. In the left lobe 1.2 x 1.2 x 1.1 cm and at least two in the right lobe, the largest 2.4 x 1.7 x 1.7 cm and the smaller 9 mm hypoechoic nodule. These are solid appearing and highly suspicious for metastatic disease. There is no adjacent ascites. The gallbladder is partially contracted with an appearance of multiple stones, the largest 18.8 mm with shadowing. Gallbladder wall is slightly thickened. Common duct is 1.8 mm without dilatation. There is no intrahepatic biliary dilatation. Pancreas is limited to visualization of the portion of the head. Remainder of the pancreas is not seen due to extensive gas shadowing. That portion of the head of the pancreas and right kidney were without acute finding. Impression: 1. Multiple hypoechoic lesions in the liver with the largest 2.4 x 1.7 cm in the right lobe and one in the left lobe 1.2 cm. Another in the right lobe is 9 mm. The background echogenicity is heterogeneous throughout the liver. Findings most suspicious for hepatic metastases. 2. Large calcified gallstone and a partially contracted gallbladder. 3. No intrahepatic biliary dilatation in the common duct 1.8 mm and grossly normal. Signed by Rebel Newton MD 04/27/2017 07:47 P
[2017-04-27] MEDS: DOCUSATE SODIUM 100 MG CAP PO SCH ×2 (10:15→21:43)
[2017-04-27] MEDS: methylPREDNISolone INJ 125 MG/2 ML VIAL (J2930) IV SCH ×2 (10:15→21:42)
[2017-04-27] MEDS: CLOPIDOGREL 75 MG TAB PO SCH (10:15)
[2017-04-27] MEDS: POTASSIUM CHLORIDE 10 MEQ SR TABLET PO SCH (10:16)
[2017-04-27] MEDS: CYANOCOBALAMIN 500 MCG TAB PO SCH (10:16)
[2017-04-27] MEDS: PANTOPRAZOLE 40MG TAB (PROTONIX) PO SCH (10:16)
[2017-04-27] MEDS: FERROUS SULFATE 325MG TAB PO SCH ×2 (10:17→21:43)
[2017-04-27] MEDS: ASPIRIN 81 MG ENTERIC TAB PO SCH (10:17)
[2017-04-27] MEDS: MAGNESIUM OXIDE 400 MG TAB (MAG-OX) PO SCH (10:17)
[2017-04-27 14:00] VITALS: BP 161/64
[2017-04-27] MEDS: VANCOMYCIN HCL 1,000 MG, VIAL MATE ADAPTER 1 EACH in D5W 250 ML IV SCH (19:03)
--- NOTE | 2017-04-27 20:30 | IPNPDOC ---
Subjective Date Seen The patient was seen on 04/27/17. Subjective Chief Complaint/HPI The patient is a 76-year-old male admitted with a reason for visit of Acute On Chronic Respiratory Failure With Hypoxia. Events since last encounter Patient states breathing is better today Constitutional: Denies: Chills, Fever ENT: Denies: Head Aches Skin: Denies: Rash Pulmonary: Reports: Cough, Denies: Dyspnea Cardiovascular: Denies: Chest Pain, Palpitations, Orthopnea, Lt Headedness Gastrointestinal: Denies: Nausea, Vomiting, Abdominal Pain, Diarrhea Genitourinary: Denies: Dysuria Psych: Reports: Mood Normal Objective Physical Examination General Exam: Positive: Alert, Cooperative, No Acute Distress ENT Exam: Positive: Atraumatic, Mucous membr. moist/pink Chest Exam: Positive: Rhonchi (diffuse expiratory), Diminished (throughout) Heart Exam: Positive: Rate Normal, Regular Rhythm, Normal S1, Normal S2 Abdomen Exam: Positive: Soft, Negative: Tenderness Skin Exam: Positive: Nl turgor and temperature, Negative: Rash Neuro Exam: Positive: Normal Speech, Cranial Nerves 3-12 NL Psych Exam: Positive: Mental status NL, Mood NL, Oriented x 3 Assessment /Plan Problems (1) Left upper lobe pneumonia Status: Acute Response to Treatment: Stable Problem Text: D4 vanco, D2 levofloxacin 04/26 given ? liver mets-check liver US, WBC 13.6 (10.8), add levofloxacin given h /o Pseudomonas and / SCX c K. pneumonia (if develops rash, change to meropenem ) 04/24 HCAP with recent hospitalization in February for similar symptoms. Sputum culture in February was positive for pseudomonas. 8/2 SCX moderate MRSA/few K. pneumoniae 03/05/17 SCX few P. aeruginosa 04/25 CT chest: 1. Extensive hilar adenopathy with large nodes up to 2.1 cm subcarinal and precarinal region with 18 mm AP window nodes. Other large nodes prevascular space, right paratracheal region and all of these suspicious for malignancy. Some nodes surround the left upper lobe bronchus have occluded since the previous study. Extensive consolidation in the left upper lobe and lingula are related to post obstructive pneumonia. Small effusion and new multiple pleural based and parenchymal nodular densities or nodular infiltrates in the left lower lobe, suspicious for malignancy. 2. Chronic fibrotic changes and honeycombing in the posterior right upper lobe and anterior right upper lobe paramediastinal region stable. 3. No cardiomegaly, pericardial thickening or effusion. 4. Suspected liver metastatic lesions inferiorly in the right hepatic lobe. Unreviewed 03/01/17 CT chest: Severe upper lobe predominant centrilobular and paracentral emphysema is seen. 2. There are increased interstitial lung markings with honeycombing at lung bases compatible with pulmonary fibrosis. 3. Since the prior study, there is resolution of confluent markings in the superior segment of right lower lobe. 4. New confluent markings with areas of consolidation to the lingula. This is most compatible with pneumonia. However follow up is recommended to document resolution. 5. Calcified gallstone is again seen. (2) Acute on chronic respiratory failure with hypoxia Problem Text: Increased O2 need upon admission, likely due to HCAP - see above (3) COPD (chronic obstructive pulmonary disease) Status: Chronic Problem Text: Solumedrol titrated to 60 mg Q12H; will continue to titrate - Continue Duonebs (4) Liver metastases Status: Acute Problem Text: Liver ultrasound c/w metastases; lung is the most likely primary. Consider liver biopsy prior to discharge. (5) Oxygen dependent Status: Chronic Problem Text: On 2 L/min at home (6) CKD (chronic kidney disease) stage 3, GFR 30-59 ml/min Status: Chronic Response to Treatment: Worse Problem Text: 04/25 improved to 1.2 (1.4) baseline cr 0.9 (7) Systolic CHF Status: Chronic Response to Treatment: Stable Problem Text: No evidence of volume overload at present. not not diuretic rx baseline Plan/VTE VTE Prophylaxis Ordered?: No (encourage ambulation, SCDs and Teds) VS, I&O, 24H, Fishbone Vital Signs/I&O Vital Signs Date Time Temp Pulse Resp B/P (MAP) Pulse Ox O2 Delivery O2 Flow Rate FiO2 04/27/17 14:00 98.4 68 20 161/64 (96) 98 Nasal Cannula 2.0 04/24/17 03:01 92 I&O- Last 24 Hours up to 6 AM 04/27/17 05:59 Intake Total 600 ml Output Total 1250 ml Balance -650 ml Laboratory Data 24H LABS Laboratory Tests 2 04/27/17 05:59: Anion Gap 13, Glomerular Filtration Rate > 60.0, Blood Urea Nitrogen 27H, Creatinine 0.96, Sodium Level 140, Potassium Level 4.5, Chloride Level 104, Carbon Dioxide Level 23, Calcium Level 9.0 CBC/BMP Laboratory Tests 04/27/17 05:59 Red Blood Count 4.66, Mean Corpuscular Volume 85.7, Mean Corpuscular Hemoglobin 28.5, Mean Corpuscular Hemoglobin Concent 33.2, Red Cell Distribution Width 13.7 , Calcium Level 9.0 Microbiology Microbiology 04/24/17 Blood Culture - Preliminary, Resulted No Growth after 72 hours. All specime... 04/24/17 Gram Stain - Final, Complete 04/24/17 Sputum Culture - Final, Complete Staph.aureus Methicillin Resis Klebsiella Pneumoniae CATRACHITO CANO MD Apr 27, 2017 20:30
[2017-04-27 22:00] VITALS: BP 124/67
[2017-04-28] MEDS: HEPARIN SOD (PORCINE) 5000 UNITS/ML VIAL SC SCH ×3 (05:44→21:15)
[2017-04-28 06:00] VITALS: BP 119/62
[2017-04-28 06:14] LABS: MEAN CORPUSCULAR HEMOGLOBIN 28.2 pg (27.0-33.0); MEAN CORPUSCULAR HGB CONC 32.9 g/dl (32.0-36.5); MEAN CORPUSCULAR VOLUME 85.8 fl (80.0-96.0); RED CELL DISTRIBUTION WIDTH 13.8 % (11.5-14.5)
[2017-04-28 06:32] LABS: ANION GAP 8 MEQ/L (8-16); BLOOD UREA NITROGEN 28 MG/DL (7-18); CALCIUM LEVEL 9.1 MG/DL (8.8-10.2); CARBON DIOXIDE LEVEL 27 MEQ/L (21-32); CHLORIDE LEVEL 104 MEQ/L (98-107); CREATININE FOR GFR 0.92 MG/DL (0.70-1.30); GLOMERULAR FILTRATION RATE > 60.0 (>42); GLUCOSE, FASTING 124 MG/DL (83-110); POTASSIUM SERUM 4.6 MEQ/L (3.5-5.1); SODIUM LEVEL 139 MEQ/L (136-145)
[2017-04-28] MEDS: BUDESONIDE 0.5 MG/2 ML INHALATION SUSPENSION INH SCH ×2 (07:10→19:48)
[2017-04-28] MEDS: IPRATROPIUM 0.5MG/ALBUTEROL 2.5MG INH SOL UD 3ML (DUONEB)(J7620) NEB SCH ×3 (07:10→19:48)
[2017-04-28] MEDS: FERROUS SULFATE 325MG TAB PO SCH ×2 (09:17→21:13)
[2017-04-28] MEDS: ASPIRIN 81 MG ENTERIC TAB PO SCH (09:17)
[2017-04-28] MEDS: PANTOPRAZOLE 40MG TAB (PROTONIX) PO SCH (09:17)
[2017-04-28] MEDS: CYANOCOBALAMIN 500 MCG TAB PO SCH (09:17)
[2017-04-28] MEDS: POTASSIUM CHLORIDE 10 MEQ SR TABLET PO SCH (09:17)
[2017-04-28] MEDS: CLOPIDOGREL 75 MG TAB PO SCH (09:17)
[2017-04-28] MEDS: MAGNESIUM OXIDE 400 MG TAB (MAG-OX) PO SCH (09:17)
[2017-04-28] MEDS: DOCUSATE SODIUM 100 MG CAP PO SCH ×2 (09:17→21:13)
[2017-04-28] MEDS: methylPREDNISolone INJ 125 MG/2 ML VIAL (J2930) IV SCH ×2 (09:18→21:14)
[2017-04-28] MEDS: LevoFLOXacin 750 MG TABLET PO SCH (13:54)
[2017-04-28 14:00] VITALS: BP 128/72
--- NOTE | 2017-04-28 16:11 | IPNPDOC ---
Subjective Date Seen The patient was seen on 04/28/17. Subjective Chief Complaint/HPI The patient is a 76-year-old male admitted with a reason for visit of Acute On Chronic Respiratory Failure With Hypoxia. Events since last encounter Patient states breathing is better today but cough is a bit worse Constitutional: Denies: Chills, Fever Skin: Denies: Rash Pulmonary: Reports: Cough, Denies: Dyspnea Cardiovascular: Denies: Chest Pain, Palpitations Gastrointestinal: Denies: Nausea, Vomiting, Abdominal Pain, Diarrhea, Constipation Objective Physical Examination General Exam: Positive: Alert, Cooperative, No Acute Distress ENT Exam: Positive: Atraumatic, Mucous membr. moist/pink Chest Exam: Positive: Rhonchi (diffuse expiratory), Diminished (throughout) Heart Exam: Positive: Rate Normal, Regular Rhythm, Normal S1, Normal S2 Abdomen Exam: Positive: Soft, Negative: Tenderness Skin Exam: Positive: Nl turgor and temperature, Negative: Rash Neuro Exam: Positive: Normal Speech, Cranial Nerves 3-12 NL Psych Exam: Positive: Mental status NL, Mood NL, Oriented x 3 Assessment /Plan Problems (1) Left upper lobe pneumonia Status: Acute Response to Treatment: Stable Problem Text: D5 vanco, D2 levofloxacin 04/26 given ? liver mets-check liver US, WBC 13.6 (10.8), add levofloxacin given h /o Pseudomonas and 04/24 SCX c K. pneumonia (if develops rash, change to meropenem ) 04/24 HCAP with recent hospitalization in February for similar symptoms. Sputum culture in February was positive for pseudomonas. 8/2 SCX moderate MRSA/few K. pneumoniae 03/05/17 SCX few P. aeruginosa 04/25 CT chest: 1. Extensive hilar adenopathy with large nodes up to 2.1 cm subcarinal and precarinal region with 18 mm AP window nodes. Other large nodes prevascular space, right paratracheal region and all of these suspicious for malignancy. Some nodes surround the left upper lobe bronchus have occluded since the previous study. Extensive consolidation in the left upper lobe and lingula are related to post obstructive pneumonia. Small effusion and new multiple pleural based and parenchymal nodular densities or nodular infiltrates in the left lower lobe, suspicious for malignancy. 2. Chronic fibrotic changes and honeycombing in the posterior right upper lobe and anterior right upper lobe paramediastinal region stable. 3. No cardiomegaly, pericardial thickening or effusion. 4. Suspected liver metastatic lesions inferiorly in the right hepatic lobe. Unreviewed 03/01/17 CT chest: Severe upper lobe predominant centrilobular and paracentral emphysema is seen. 2. There are increased interstitial lung markings with honeycombing at lung bases compatible with pulmonary fibrosis. 3. Since the prior study, there is resolution of confluent markings in the superior segment of right lower lobe. 4. New confluent markings with areas of consolidation to the lingula. This is most compatible with pneumonia. However follow up is recommended to document resolution. 5. Calcified gallstone is again seen. (2) Acute on chronic respiratory failure with hypoxia Problem Text: Increased O2 need upon admission, likely due to HCAP - see above (3) COPD (chronic obstructive pulmonary disease) Status: Chronic Problem Text: Solumedrol titrated to 60 mg Q12H on 04/27; will continue at this dose due to worsened cough - Continue Duonebs (4) Liver metastases Status: Acute Problem Text: Liver ultrasound c/w metastases; lung is the most likely primary. Consider liver biopsy prior to discharge. (5) Oxygen dependent Status: Chronic Problem Text: On 2 L/min at home (6) CKD (chronic kidney disease) stage 3, GFR 30-59 ml/min Status: Chronic Response to Treatment: Worse Problem Text: 04/25 improved to 1.2 (1.4) baseline cr 0.9 (7) Systolic CHF Status: Chronic Response to Treatment: Stable Problem Text: No evidence of volume overload at present. not not diuretic rx baseline Plan/VTE VTE Prophylaxis Ordered?: No (encourage ambulation, SCDs and Teds) VS, I&O, 24H, Fishbone Vital Signs/I&O Vital Signs Date Time Temp Pulse Resp B/P (MAP) Pulse Ox O2 Delivery O2 Flow Rate FiO2 04/28/17 06:00 97.4 70 20 119/62 (81) 93 Nasal Cannula 2.0 04/24/17 03:01 92 I&O- Last 24 Hours up to 6 AM 04/28/17 06:00 Intake Total 1930 ml Output Total 1601 ml Balance 329 ml Laboratory Data 24H LABS Laboratory Tests 2 04/28/17 05:47: Anion Gap 8, Glomerular Filtration Rate > 60.0, Blood Urea Nitrogen 28H, Creatinine 0.92, Sodium Level 139, Potassium Level 4.6, Chloride Level 104, Carbon Dioxide Level 27, Calcium Level 9.1 CBC/BMP Laboratory Tests 04/28/17 05:47 Red Blood Count 4.72, Mean Corpuscular Volume 85.8, Mean Corpuscular Hemoglobin 28.2, Mean Corpuscular Hemoglobin Concent 32.9, Red Cell Distribution Width 13.8 , Calcium Level 9.1 Microbiology Microbiology 04/24/17 Blood Culture - Preliminary, Resulted 04/24/17 Gram Stain - Final, Complete 04/24/17 Sputum Culture - Final, Complete Staph.aureus Methicillin Resis Klebsiella Pneumoniae CATRACHITO CANO MD Apr 28, 2017 16:11
--- NOTE | 2017-04-28 19:06 | PHACANCOPD ---
PHARMACY VANCOMYCIN DOSING Pt Demographics Demographics Patient Age:76 , Weight:51.600 , Gender: male Adjusted Body Weight Date: 04/24/17, Adjusted Body Weight: [49] Kg Events Past 24 Hours Events Past 24 Hours: NO: Dialysis, Diuretic Therapy, Change in CrCl, Fever, Elevation in WBC, Pending Diagnostics, Pending Procedures, Other Vancomycin Vancomycin Target Ranges: 15-20 mcg/ml Vancomycin Load Y/N: Yes Load Dose Date Time Vancomycin Load Dose: 1000MG Date: 04-24 Time: 0600 Vancomycin Dose Date: 04/28/17. Current Vancomycin Dose: 1000MG Q18H Intermittent Dosing?: No Labs Labs Item Value Date Time White Blood Count 11.0 K/mm3 H 04/28/17 0547 Creatinine 0.92 MG/DL 04/28/17 0547 Blood Urea Nitrogen 28 MG/DL H 04/28/17 0547 Vancomycin Level Trough 10.6 UG/ML 04/28/17 1811 Vital Signs Label Value Date Time Patient Temperature 98.0 degrees F 04/28/17 1400 Temperature Source Temporal 04/28/17 1400 Micro Microbiology 04/24/17 Blood Culture - Preliminary, Resulted 04/24/17 Gram Stain - Final, Complete 04/24/17 Sputum Culture - Final, Complete Staph.aureus Methicillin Resis Klebsiella Pneumoniae Creatinine Clearance Date:04/28/17. Creatinine Clearance: [59]. Pending Labs Trough 08-04 @0800 Assessment and Plan Maintaining Current Dose?: No Reason for dose change: Trough too low Pharmacist Note Pharmacist Note Date: 04/24/17. Pharmacist note:Trough of 10.6 is below target range. Dose increased to 1000mg q18h with a trough ordered for 08- @0700. Will continue to monitor and make adjustments as needed. KAYLYNN CHAVIRA PHARMACY Apr 28, 2017 19:06
[2017-04-28] MEDS: VANCOMYCIN HCL 1,000 MG, VIAL MATE ADAPTER 1 EACH in D5W 250 ML IV SCH (21:13)
[2017-04-28 22:00] VITALS: BP 128/87
[2017-04-28] MEDS: IPRATROPIUM 0.5MG/ALBUTEROL 2.5MG INH SOL UD 3ML (DUONEB)(J7620) NEB PRN (23:42)
[2017-04-29] MEDS: IPRATROPIUM 0.5MG/ALBUTEROL 2.5MG INH SOL UD 3ML (DUONEB)(J7620) NEB PRN ×3 (01:24→19:53)
[2017-04-29 06:00] VITALS: BP 135/78
[2017-04-29] MEDS: HEPARIN SOD (PORCINE) 5000 UNITS/ML VIAL SC SCH ×3 (06:00→21:01)
[2017-04-29 06:15] LABS: ANION GAP 9 MEQ/L (8-16); BLOOD UREA NITROGEN 30 MG/DL (7-18); CALCIUM LEVEL 8.8 MG/DL (8.8-10.2); CARBON DIOXIDE LEVEL 26 MEQ/L (21-32); CHLORIDE LEVEL 103 MEQ/L (98-107); CREATININE FOR GFR 0.85 MG/DL (0.70-1.30); GLOMERULAR FILTRATION RATE > 60.0 (>42); GLUCOSE, FASTING 108 MG/DL (83-110); POTASSIUM SERUM 4.8 MEQ/L (3.5-5.1); SODIUM LEVEL 138 MEQ/L (136-145)
[2017-04-29 06:16] LABS: MEAN CORPUSCULAR HEMOGLOBIN 28.6 pg (27.0-33.0); MEAN CORPUSCULAR HGB CONC 33.5 g/dl (32.0-36.5); MEAN CORPUSCULAR VOLUME 85.2 fl (80.0-96.0); RED CELL DISTRIBUTION WIDTH 13.8 % (11.5-14.5); WHITE BLOOD COUNT 13.9 K/mm3 (4.0-10.0)
[2017-04-29] MEDS: IPRATROPIUM 0.5MG/ALBUTEROL 2.5MG INH SOL UD 3ML (DUONEB)(J7620) NEB SCH ×3 (07:12→23:22)
[2017-04-29] MEDS: BUDESONIDE 0.5 MG/2 ML INHALATION SUSPENSION INH SCH ×2 (07:12→19:53)
[2017-04-29] MEDS: ASPIRIN 81 MG ENTERIC TAB PO SCH (09:50)
[2017-04-29] MEDS: CLOPIDOGREL 75 MG TAB PO SCH (09:50)
[2017-04-29] MEDS: CYANOCOBALAMIN 500 MCG TAB PO SCH (09:58)
[2017-04-29] MEDS: PANTOPRAZOLE 40MG TAB (PROTONIX) PO SCH (09:58)
[2017-04-29] MEDS: DOCUSATE SODIUM 100 MG CAP PO SCH ×2 (09:58→21:00)
[2017-04-29] MEDS: MAGNESIUM OXIDE 400 MG TAB (MAG-OX) PO SCH (09:58)
[2017-04-29] MEDS: FERROUS SULFATE 325MG TAB PO SCH ×2 (09:58→21:02)
[2017-04-29] MEDS: POTASSIUM CHLORIDE 10 MEQ SR TABLET PO SCH (09:58)
[2017-04-29] MEDS: methylPREDNISolone INJ 125 MG/2 ML VIAL (J2930) IV SCH ×2 (09:58→21:02)
--- NOTE | 2017-04-29 11:14 | IPNPDOC ---
Subjective Date Seen The patient was seen on 04/29/17. Subjective Chief Complaint/HPI The patient is a 76-year-old male admitted with a reason for visit of Acute On Chronic Respiratory Failure With Hypoxia. Events since last encounter Pt still with SOB. Denies CP, Abd pain. Constitutional: Denies: Chills, Fever Pulmonary: Reports: Dyspnea Cardiovascular: Denies: Chest Pain Gastrointestinal: Denies: Abdominal Pain Objective Physical Examination General Exam: Positive: Alert, Cooperative, No Acute Distress ENT Exam: Positive: Atraumatic, Mucous membr. moist/pink Chest Exam: Positive: Rhonchi (diffuse expiratory), Diminished (throughout) Heart Exam: Positive: Rate Normal, Regular Rhythm, Normal S1, Normal S2 Abdomen Exam: Positive: Soft, Negative: Tenderness Skin Exam: Positive: Nl turgor and temperature, Negative: Rash Neuro Exam: Positive: Normal Speech, Cranial Nerves 3-12 NL Psych Exam: Positive: Mental status NL, Mood NL, Oriented x 3 Assessment /Plan Problems (1) Left upper lobe pneumonia Status: Acute Response to Treatment: Stable Problem Text: 04/29 - Vanco D6, Levaquin D3. WBC up today to 13.9. Pt is on Solumedrol. D5 vanco, D2 levofloxacin / given ? liver mets-check liver US, WBC 13.6 (10.8), add levofloxacin given h /o Pseudomonas and /2 SCX c K. pneumonia (if develops rash, change to meropenem ) 8/2 HCAP with recent hospitalization in February for similar symptoms. Sputum culture in February was positive for pseudomonas. 8/2 SCX moderate MRSA/few K. pneumoniae 03/05/17 SCX few P. aeruginosa / CT chest: 1. Extensive hilar adenopathy with large nodes up to 2.1 cm subcarinal and precarinal region with 18 mm AP window nodes. Other large nodes prevascular space, right paratracheal region and all of these suspicious for malignancy. Some nodes surround the left upper lobe bronchus have occluded since the previous study. Extensive consolidation in the left upper lobe and lingula are related to post obstructive pneumonia. Small effusion and new multiple pleural based and parenchymal nodular densities or nodular infiltrates in the left lower lobe, suspicious for malignancy. 2. Chronic fibrotic changes and honeycombing in the posterior right upper lobe and anterior right upper lobe paramediastinal region stable. 3. No cardiomegaly, pericardial thickening or effusion. 4. Suspected liver metastatic lesions inferiorly in the right hepatic lobe. Unreviewed 03/01/17 CT chest: Severe upper lobe predominant centrilobular and paracentral emphysema is seen. 2. There are increased interstitial lung markings with honeycombing at lung bases compatible with pulmonary fibrosis. 3. Since the prior study, there is resolution of confluent markings in the superior segment of right lower lobe. 4. New confluent markings with areas of consolidation to the lingula. This is most compatible with pneumonia. However follow up is recommended to document resolution. 5. Calcified gallstone is again seen. (2) Liver metastases Status: Acute Problem Text: 04/29 - Will order liver bx Liver ultrasound c/w metastases; lung is the most likely primary. Consider liver biopsy prior to discharge. (3) Acute on chronic respiratory failure with hypoxia Problem Text: Increased O2 need upon admission, likely due to HCAP - see above (4) COPD (chronic obstructive pulmonary disease) Status: Chronic Problem Text: Solumedrol titrated to 60 mg Q12H on 04/27; will continue at this dose due to worsened cough - Continue Duonebs (5) Oxygen dependent Status: Chronic Problem Text: On 2 L/min at home (6) CKD (chronic kidney disease) stage 3, GFR 30-59 ml/min Status: Chronic Response to Treatment: Worse Problem Text: 04/25 improved to 1.2 (1.4) baseline cr 0.9 (7) Systolic CHF Status: Chronic Response to Treatment: Stable Problem Text: No evidence of volume overload at present. not not diuretic rx baseline Plan/VTE VTE Prophylaxis Ordered?: No (encourage ambulation, SCDs and Teds) VS, I&O, 24H, Fishbone Vital Signs/I&O Vital Signs Date Time Temp Pulse Resp B/P (MAP) Pulse Ox O2 Delivery O2 Flow Rate FiO2 04/29/17 06:00 97.8 88 20 135/78 (97) 97 Nasal Cannula 2.0 04/24/17 03:01 92 I&O- Last 24 Hours up to 6 AM 04/29/17 06:00 Intake Total 2130 ml Output Total 1650 ml Balance 480 ml Laboratory Data 24H LABS Laboratory Tests 2 04/28/17 18:11: Vancomycin Level Trough 10.6 04/29/17 05:38: Anion Gap 9, Glomerular Filtration Rate > 60.0, Blood Urea Nitrogen 30H, Creatinine 0.85, Sodium Level 138, Potassium Level 4.8, Chloride Level 103, Carbon Dioxide Level 26, Calcium Level 8.8 CBC/BMP Laboratory Tests 04/29/17 05:38 Red Blood Count 4.80, Mean Corpuscular Volume 85.2, Mean Corpuscular Hemoglobin 28.6, Mean Corpuscular Hemoglobin Concent 33.5, Red Cell Distribution Width 13.8 , Calcium Level 8.8 Microbiology Microbiology 04/24/17 Blood Culture - Preliminary, Resulted 04/24/17 Gram Stain - Final, Complete 04/24/17 Sputum Culture - Final, Complete Staph.aureus Methicillin Resis Klebsiella Pneumoniae Pelon Winters RPA-C Apr 29, 2017 11:14
[2017-04-29 12:36] LABS: INR 0.94
[2017-04-29 14:00] VITALS: BP 148/70
[2017-04-29] MEDS: VANCOMYCIN HCL 1,000 MG, VIAL MATE ADAPTER 1 EACH in D5W 250 ML IV SCH (14:37)
[2017-04-29 22:00] VITALS: BP 133/72
[2017-04-30] MEDS: IPRATROPIUM 0.5MG/ALBUTEROL 2.5MG INH SOL UD 3ML (DUONEB)(J7620) NEB PRN ×2 (02:01→20:19)
[2017-04-30] MEDS: HEPARIN SOD (PORCINE) 5000 UNITS/ML VIAL SC SCH ×3 (05:14→21:02)
[2017-04-30] MEDS: LevoFLOXacin 750 MG TABLET PO SCH (05:14)
[2017-04-30 06:00] VITALS: BP 135/78
[2017-04-30] MEDS ORDERED: CALCIUM CARBONATE 500 MG CHEW U/D PO ONE (06:30)
[2017-04-30 06:34] LABS: MEAN CORPUSCULAR HEMOGLOBIN 28.4 pg (27.0-33.0); MEAN CORPUSCULAR HGB CONC 33.2 g/dl (32.0-36.5); MEAN CORPUSCULAR VOLUME 85.7 fl (80.0-96.0); RED CELL DISTRIBUTION WIDTH 13.7 % (11.5-14.5); WHITE BLOOD COUNT 15.8 K/mm3 (4.0-10.0)
[2017-04-30 06:47] LABS: ANION GAP 8 MEQ/L (8-16); BLOOD UREA NITROGEN 29 MG/DL (7-18); CARBON DIOXIDE LEVEL 28 MEQ/L (21-32); CHLORIDE LEVEL 98 MEQ/L (98-107); GLOMERULAR FILTRATION RATE > 60.0 (>42); GLUCOSE, FASTING 122 MG/DL (83-110); POTASSIUM SERUM 4.2 MEQ/L (3.5-5.1); SODIUM LEVEL 134 MEQ/L (136-145)
[2017-04-30] MEDS: BUDESONIDE 0.5 MG/2 ML INHALATION SUSPENSION INH SCH ×2 (07:39→20:18)
[2017-04-30] MEDS: IPRATROPIUM 0.5MG/ALBUTEROL 2.5MG INH SOL UD 3ML (DUONEB)(J7620) NEB SCH ×3 (07:39→23:45)
[2017-04-30] MEDS: VANCOMYCIN HCL 1,000 MG, VIAL MATE ADAPTER 1 EACH in D5W 250 ML IV SCH (08:34)
[2017-04-30] MEDS: CYANOCOBALAMIN 500 MCG TAB PO SCH (08:35)
[2017-04-30] MEDS: methylPREDNISolone INJ 125 MG/2 ML VIAL (J2930) IV SCH ×2 (08:35→21:01)
[2017-04-30] MEDS: DOCUSATE SODIUM 100 MG CAP PO SCH ×2 (08:35→21:00)
[2017-04-30] MEDS: POTASSIUM CHLORIDE 10 MEQ SR TABLET PO SCH (08:35)
[2017-04-30] MEDS: FERROUS SULFATE 325MG TAB PO SCH ×2 (08:35→21:00)
[2017-04-30] MEDS: PANTOPRAZOLE 40MG TAB (PROTONIX) PO SCH (08:35)
[2017-04-30] MEDS: ASPIRIN 81 MG ENTERIC TAB PO SCH (08:35)
[2017-04-30] MEDS: MAGNESIUM OXIDE 400 MG TAB (MAG-OX) PO SCH (08:36)
--- NOTE | 2017-04-30 13:54 | REP ---
CHEST, TWO VIEWS: HISTORY: Wheezing. The right lung is hyperinflated. An increase in interstitial markings is present in the lungs consistent with chronic interstitial fibrosis. Increased density is present in the left upper lobe and lingula consistent with an infiltrate that is decreased compared to the previous study. The heart is normal in size. The pulmonary vasculature is normal in appearance. The bony structure is intact. IMPRESSION: 1. Chronic interstitial fibrosis. 2. Left upper lobe and lingular infiltrates decreased compared to the previous study. Signed by Layton Bragg MD 04/30/2017 02:08 P
[2017-04-30 14:00] VITALS: BP 135/77
--- NOTE | 2017-04-30 14:52 | PHACANCOPD ---
PHARMACY VANCOMYCIN DOSING Pt Demographics Demographics Patient Age:76 , Weight:51.200 , Gender: male Adjusted Body Weight Date: 04/24/17, Adjusted Body Weight: [49] Kg Vancomycin Vancomycin Target Ranges: 15-20 mcg/ml Vancomycin Load Y/N: Yes Load Dose Date Time Vancomycin Load Dose: 1000MG Date: 04-24 Time: 0600 Vancomycin Dose Date: 04/28/17. Current Vancomycin Dose: 1000MG Q18H Intermittent Dosing?: No Labs Labs Item Value Date Time White Blood Count 11.0 K/mm3 H 04/28/17 0547 White Blood Count 13.9 K/mm3 H 04/29/17 0538 White Blood Count 15.8 K/mm3 H 04/30/17 0600 Creatinine 0.92 MG/DL 04/28/17 0547 Creatinine 0.85 MG/DL 04/29/17 0538 Creatinine 0.90 MG/DL 04/30/17 0600 Vancomycin Level Trough 10.6 UG/ML 04/28/17 1811 Vancomycin Level Trough 13.9 UG/ML 04/30/17 0731 Micro Microbiology 04/24/17 Blood Culture - Preliminary, Resulted 04/24/17 Gram Stain - Final, Complete 04/24/17 Sputum Culture - Final, Complete Staph.aureus Methicillin Resis Klebsiella Pneumoniae Creatinine Clearance Date:04/28/17. Creatinine Clearance: [59]. Pending Labs Trough 08-04 @0800 Assessment and Plan Maintaining Current Dose?: No Reason for dose change: No Dose Change Pharmacist Note Pharmacist Note Date: 04/30/17. Pharmacist note:trough returned @ 13.9. Continue current therapy and monitor renal function. Date: 04/24/17. Pharmacist note:Trough of 10.6 is below target range. Dose increased to 1000mg q18h with a trough ordered for 08-08 @0700. Will continue to monitor and make adjustments as needed. SHANNEN AVALOS PHARMACY Apr 30, 2017 14:52
[2017-04-30] MEDS ORDERED: CALCIUM CARBONATE 500 MG CHEW U/D PO PRN (21:00)
[2017-04-30] MEDS: ACETAMINOPHEN TAB 650MG DOSE (2X325MG) PO PRN (21:01)
[2017-04-30 22:00] VITALS: BP 143/71
--- NOTE | 2017-05-01 00:24 | IPNPDOC ---
Subjective Date Seen The patient was seen on 04/30/17. Subjective Chief Complaint/HPI The patient is a 76-year-old male admitted with a reason for visit of Acute On Chronic Respiratory Failure With Hypoxia. Events since last encounter States feeling well today, but overall poorly last night He has trouble explaining what wasn't feeling well, though. General: Reports: Fatigue, Denies: Chills, Night Sweats ENT: Denies: Head Aches Pulmonary: Reports: Cough, Denies: Dyspnea Cardiovascular: Reports: Chest Pain Gastrointestinal: Reports: Abdominal Pain, Denies: Nausea, Vomiting Hematologic: Reports: Bruising Objective Physical Examination General Exam: Positive: Alert, Cooperative, No Acute Distress ENT Exam: Positive: Atraumatic, Mucous membr. moist/pink Chest Exam: Positive: Diminished (throughout) Heart Exam: Positive: Rate Normal, Regular Rhythm, Normal S1, Normal S2 Abdomen Exam: Positive: Soft, Negative: Tenderness Skin Exam: Positive: Nl turgor and temperature, Negative: Rash Neuro Exam: Positive: Normal Speech, Cranial Nerves 3-12 NL Psych Exam: Positive: Mental status NL, Mood NL, Oriented x 3 Assessment /Plan Problems (1) Left upper lobe pneumonia Status: Acute Response to Treatment: Stable Problem Text: 04/29 - Vanco D6, Levaquin D3. WBC up today to 13.9. Pt is on Solumedrol. D5 vanco, D2 levofloxacin 04/26 given ? liver mets-check liver US, WBC 13.6 (10.8), add levofloxacin given h /o Pseudomonas and 04/24 SCX c K. pneumonia (if develops rash, change to meropenem ) / HCAP with recent hospitalization in February for similar symptoms. Sputum culture in February was positive for pseudomonas. 8/2 SCX moderate MRSA/few K. pneumoniae 03/05/17 SCX few P. aeruginosa 04/25 CT chest: 1. Extensive hilar adenopathy with large nodes up to 2.1 cm subcarinal and precarinal region with 18 mm AP window nodes. Other large nodes prevascular space, right paratracheal region and all of these suspicious for malignancy. Some nodes surround the left upper lobe bronchus have occluded since the previous study. Extensive consolidation in the left upper lobe and lingula are related to post obstructive pneumonia. Small effusion and new multiple pleural based and parenchymal nodular densities or nodular infiltrates in the left lower lobe, suspicious for malignancy. 2. Chronic fibrotic changes and honeycombing in the posterior right upper lobe and anterior right upper lobe paramediastinal region stable. 3. No cardiomegaly, pericardial thickening or effusion. 4. Suspected liver metastatic lesions inferiorly in the right hepatic lobe. Unreviewed 03/01/17 CT chest: Severe upper lobe predominant centrilobular and paracentral emphysema is seen. 2. There are increased interstitial lung markings with honeycombing at lung bases compatible with pulmonary fibrosis. 3. Since the prior study, there is resolution of confluent markings in the superior segment of right lower lobe. 4. New confluent markings with areas of consolidation to the lingula. This is most compatible with pneumonia. However follow up is recommended to document resolution. 5. Calcified gallstone is again seen. (2) Liver metastases Status: Acute Problem Text: 04/30 -- We are trying to get a liver biopsy scheduled prior to discharge. He wished to discuss cancer treatment and I was clear with him that although imaging is very suggestive of cancer, we needed at least biopsy and perhaps other procedures to determine the diagnosis of stage. She will follow up with Dr. Singh, and perhaps Hem/Onc, as an outpatient. 04/29 - Will order liver bx Liver ultrasound c/w metastases; lung is the most likely primary. Consider liver biopsy prior to discharge.I was (3) Acute on chronic respiratory failure with hypoxia Problem Text: Increased O2 need upon admission, likely due to HCAP - see above (4) COPD (chronic obstructive pulmonary disease) Status: Chronic Problem Text: Solumedrol titrated to 60 mg Q12H on 04/27; will continue at this dose due to worsened cough - Continue Duonebs (5) Oxygen dependent Status: Chronic Problem Text: On 2 L/min at home (6) CKD (chronic kidney disease) stage 3, GFR 30-59 ml/min Status: Chronic Response to Treatment: Worse Problem Text: 04/25 improved to 1.2 (1.4) baseline cr 0.9 (7) Systolic CHF Status: Chronic Response to Treatment: Stable Problem Text: No evidence of volume overload at present. not not diuretic rx baseline Plan/VTE VTE Prophylaxis Ordered?: No (encourage ambulation, SCDs and Teds) VS, I&O, 24H, Fishbone Vital Signs/I&O Vital Signs Date Time Temp Pulse Resp B/P (MAP) Pulse Ox O2 Delivery O2 Flow Rate FiO2 04/30/17 14:00 97.6 91 20 135/77 (96) 93 Nasal Cannula 2.0 I&O- Last 24 Hours up to 6 AM 05/01/17 06:00 Intake Total 340 ml Output Total 825 ml Balance -485 ml Laboratory Data 24H LABS Laboratory Tests 2 04/30/17 06:00: Anion Gap 8, Glomerular Filtration Rate > 60.0, Blood Urea Nitrogen 29H, Creatinine 0.90, Sodium Level 134L, Potassium Level 4.2, Chloride Level 98, Carbon Dioxide Level 28, Calcium Level 9.0 04/30/17 07:31: Vancomycin Level Trough 13.9 CBC/BMP Laboratory Tests 04/30/17 06:00 Red Blood Count 5.00, Mean Corpuscular Volume 85.7, Mean Corpuscular Hemoglobin 28.4, Mean Corpuscular Hemoglobin Concent 33.2, Red Cell Distribution Width 13.7 , Calcium Level 9.0 Microbiology Microbiology 04/24/17 Blood Culture - Preliminary, Resulted 04/24/17 Gram Stain - Final, Complete 04/24/17 Sputum Culture - Final, Complete Staph.aureus Methicillin Resis Klebsiella Pneumoniae JET ZALDIVAR DO May 01, 2017 00:23
[2017-05-01] MEDS: IPRATROPIUM 0.5MG/ALBUTEROL 2.5MG INH SOL UD 3ML (DUONEB)(J7620) NEB PRN ×3 (01:06→19:41)
[2017-05-01] MEDS: ACETAMINOPHEN TAB 650MG DOSE (2X325MG) PO PRN (01:35)
[2017-05-01] MEDS: VANCOMYCIN HCL 1,000 MG, VIAL MATE ADAPTER 1 EACH in D5W 250 ML IV SCH ×2 (01:48→20:11)
[2017-05-01] MEDS: HEPARIN SOD (PORCINE) 5000 UNITS/ML VIAL SC SCH ×3 (05:40→22:26)
[2017-05-01 06:47] LABS: MEAN CORPUSCULAR HEMOGLOBIN 28.6 pg (27.0-33.0); MEAN CORPUSCULAR HGB CONC 33.4 g/dl (32.0-36.5); MEAN CORPUSCULAR VOLUME 85.6 fl (80.0-96.0); RED CELL DISTRIBUTION WIDTH 13.7 % (11.5-14.5); WHITE BLOOD COUNT 18.9 K/mm3 (4.0-10.0)
[2017-05-01 07:04] LABS: ANION GAP 10 MEQ/L (8-16); BLOOD UREA NITROGEN 30 MG/DL (7-18); CALCIUM LEVEL 8.8 MG/DL (8.8-10.2); CARBON DIOXIDE LEVEL 26 MEQ/L (21-32); CHLORIDE LEVEL 97 MEQ/L (98-107); CREATININE FOR GFR 0.81 MG/DL (0.70-1.30); GLOMERULAR FILTRATION RATE > 60.0 (>42); GLUCOSE, FASTING 103 MG/DL (83-110); POTASSIUM SERUM 4.7 MEQ/L (3.5-5.1); SODIUM LEVEL 133 MEQ/L (136-145)
[2017-05-01] MEDS: IPRATROPIUM 0.5MG/ALBUTEROL 2.5MG INH SOL UD 3ML (DUONEB)(J7620) NEB SCH ×3 (07:32→23:12)
[2017-05-01] MEDS: BUDESONIDE 0.5 MG/2 ML INHALATION SUSPENSION INH SCH ×2 (07:32→19:41)
[2017-05-01] MEDS: POTASSIUM CHLORIDE 10 MEQ SR TABLET PO SCH (09:07)
[2017-05-01] MEDS: methylPREDNISolone INJ 125 MG/2 ML VIAL (J2930) IV SCH (09:07)
[2017-05-01] MEDS: CYANOCOBALAMIN 500 MCG TAB PO SCH (09:07)
[2017-05-01] MEDS: DOCUSATE SODIUM 100 MG CAP PO SCH ×2 (09:07→20:12)
[2017-05-01] MEDS: MAGNESIUM OXIDE 400 MG TAB (MAG-OX) PO SCH (09:08)
[2017-05-01] MEDS: PANTOPRAZOLE 40MG TAB (PROTONIX) PO SCH (09:08)
[2017-05-01] MEDS: ASPIRIN 81 MG ENTERIC TAB PO SCH (09:08)
[2017-05-01] MEDS: FERROUS SULFATE 325MG TAB PO SCH ×2 (09:08→20:12)
[2017-05-01 14:00] VITALS: BP 127/68
[2017-05-01 22:00] VITALS: BP 139/67
--- NOTE | 2017-05-01 22:10 | ECGEPIP ---
Stationary ECG Study [facility] Test Date: 2017-04-30 Pat Name: CAMILO SEN Department: 4Pav Room: [place] [address] Gender: M Svp Marketing: LIONEL : 1940 Requested By: Sal Najera Order Number: [id number] Reading MD: Mark Joya Measurements Intervals [place] Rate: 97 P: 72 MS: 115 QRS: 68 QRSD: 114 T: -1 QT: 318 QTc: 405 Interpretive Statements SINUS RHYTHM WITH SHORT MS INTERVAL WITH OCCASIONAL SUPRAVENTRICULAR PREMATURE COMPLEXES PROBABLE INFERIOR MYOCARDIAL INFARCTION, PROBABLY OLD COMPARED TO THE LAST TRACING ON 03/01/2017 AT 16:24:57, HEART RATE IS NOW SLOWER OTHERWISE NO SIGNIFICANT CHANGES Electronically Signed On 05-01-2017 22:10:21 EDT by Mark Joya
--- NOTE | 2017-05-01 23:55 | IPNPDOC ---
Subjective Date Seen The patient was seen on 05/01/17. Subjective Chief Complaint/HPI The patient is a 76-year-old male admitted with a reason for visit of Acute On Chronic Respiratory Failure With Hypoxia. Events since last encounter Patient was wheezing today, and stated that his breathing was bad, but stated that he wasn't going to have a breathing treatment for another 3 hours. He was resistant to the idea of having another breathing treatment before then. Constitutional: Denies: Chills, Fever Skin: Denies: Rash Pulmonary: Reports: Dyspnea, Cough Cardiovascular: Denies: Chest Pain Gastrointestinal: Denies: Nausea, Vomiting, Diarrhea, Constipation Objective Physical Examination General Exam: Positive: Alert, Cooperative, No Acute Distress ENT Exam: Positive: Atraumatic, Mucous membr. moist/pink Chest Exam: Positive: Wheezing, Diminished Heart Exam: Positive: Rate Normal, Regular Rhythm, Normal S1, Normal S2 Abdomen Exam: Positive: Soft Skin Exam: Positive: Nl turgor and temperature Neuro Exam: Positive: Normal Speech, Cranial Nerves 3-12 NL Psych Exam: Positive: Mental status NL, Mood NL, Oriented x 3 Assessment /Plan Problems (1) Left upper lobe pneumonia Status: Acute Response to Treatment: Stable Problem Text: 05/01 -- finished a week of levaquin and vancomycin. DCed antibiotics. WBCs increasing, though patient is on Solumedrol. Decreased steroids. No change in oxygen needs, and CXR yesterday improved. 04/26 given ? liver mets-check liver US, WBC 13.6 (10.8), add levofloxacin given h /o Pseudomonas and 04/24 SCX c K. pneumonia (if develops rash, change to meropenem ) 8 HCAP with recent hospitalization in February for similar symptoms. Sputum culture in February was positive for pseudomonas. 8/2 SCX moderate MRSA/few K. pneumoniae 03/05/17 SCX few P. aeruginosa 04/25 CT chest: 1. Extensive hilar adenopathy with large nodes up to 2.1 cm subcarinal and precarinal region with 18 mm AP window nodes. Other large nodes prevascular space, right paratracheal region and all of these suspicious for malignancy. Some nodes surround the left upper lobe bronchus have occluded since the previous study. Extensive consolidation in the left upper lobe and lingula are related to post obstructive pneumonia. Small effusion and new multiple pleural based and parenchymal nodular densities or nodular infiltrates in the left lower lobe, suspicious for malignancy. 2. Chronic fibrotic changes and honeycombing in the posterior right upper lobe and anterior right upper lobe paramediastinal region stable. 3. No cardiomegaly, pericardial thickening or effusion. 4. Suspected liver metastatic lesions inferiorly in the right hepatic lobe. Unreviewed 03/01/17 CT chest: Severe upper lobe predominant centrilobular and paracentral emphysema is seen. 2. There are increased interstitial lung markings with honeycombing at lung bases compatible with pulmonary fibrosis. 3. Since the prior study, there is resolution of confluent markings in the superior segment of right lower lobe. 4. New confluent markings with areas of consolidation to the lingula. This is most compatible with pneumonia. However follow up is recommended to document resolution. 5. Calcified gallstone is again seen. (2) Liver metastases Status: Acute Problem Text: 04/30 -- We are trying to get a liver biopsy scheduled prior to discharge. He wished to discuss cancer treatment and I was clear with him that although imaging is very suggestive of cancer, we needed at least biopsy and perhaps other procedures to determine the diagnosis and stage. He will follow up with Dr. Singh, and perhaps Heme/Onc, as an outpatient. 04/29 - Will order liver bx Liver ultrasound c/w metastases; lung is the most likely primary. Consider liver biopsy prior to discharge. (3) Acute on chronic respiratory failure with hypoxia Problem Text: Increased O2 need upon admission, likely due to HCAP - see above (4) COPD (chronic obstructive pulmonary disease) Status: Chronic Problem Text: 05/01 -- decreased steroids today. Discussed at length the importance of taking a breathing treatment on a prn basis. I am still not sure that he understood. Discussed with nursing. Solumedrol titrated to 60 mg Q12H on 04/27; will continue at this dose due to worsened cough - Continue Duonebs (5) Oxygen dependent Status: Chronic Problem Text: On 2 L/min at home (6) CKD (chronic kidney disease) stage 3, GFR 30-59 ml/min Status: Chronic Response to Treatment: Improving Problem Text: 05/01 will continue to monitor 04/25 improved to 1.2 (1.4) baseline cr 0.9 (7) Systolic CHF Status: Chronic Response to Treatment: Stable Problem Text: No evidence of volume overload at present. not not diuretic rx baseline Plan/VTE VTE Prophylaxis Ordered?: No (encourage ambulation, SCDs and Teds) VS, I&O, 24H, Fishbone Vital Signs/I&O Vital Signs Date Time Temp Pulse Resp B/P (MAP) Pulse Ox O2 Delivery O2 Flow Rate FiO2 05/01/17 14:00 97.7 76 18 127/68 (87) 91 Nasal Cannula 2.0 I&O- Last 24 Hours up to 6 AM 05/01/17 05:59 Intake Total 680 ml Output Total 1225 ml Balance -545 ml Laboratory Data 24H LABS Laboratory Tests 2 05/01/17 06:21: Anion Gap 10, Glomerular Filtration Rate > 60.0, Blood Urea Nitrogen 30H, Creatinine 0.81, Sodium Level 133L, Potassium Level 4.7, Chloride Level 97L, Carbon Dioxide Level 26, Calcium Level 8.8 CBC/BMP Laboratory Tests 05/01/17 06:21 Red Blood Count 4.98, Mean Corpuscular Volume 85.6, Mean Corpuscular Hemoglobin 28.6, Mean Corpuscular Hemoglobin Concent 33.4, Red Cell Distribution Width 13.7 , Calcium Level 8.8 Microbiology Microbiology 04/24/17 Blood Culture - Final, Complete Propionibacterium Acnes 04/24/17 Gram Stain - Final, Complete 04/24/17 Sputum Culture - Final, Complete Staph.aureus Methicillin Resis Klebsiella Pneumoniae JET ZALDIVAR DO May 01, 2017 23:54
[2017-05-02] MEDS: HEPARIN SOD (PORCINE) 5000 UNITS/ML VIAL SC SCH ×4 (05:24→21:47)
[2017-05-02 06:00] VITALS: BP 125/63
[2017-05-02] MEDS: IPRATROPIUM 0.5MG/ALBUTEROL 2.5MG INH SOL UD 3ML (DUONEB)(J7620) NEB SCH ×3 (08:00→20:00)
[2017-05-02] MEDS: BUDESONIDE 0.5 MG/2 ML INHALATION SUSPENSION INH SCH ×2 (09:00→21:05)
[2017-05-02] MEDS: predniSONE 20 MG TAB PO SCH (11:04)
[2017-05-02] MEDS: FERROUS SULFATE 325MG TAB PO SCH ×2 (11:04→20:24)
[2017-05-02] MEDS: MAGNESIUM OXIDE 400 MG TAB (MAG-OX) PO SCH (11:04)
[2017-05-02] MEDS: CYANOCOBALAMIN 500 MCG TAB PO SCH (11:04)
[2017-05-02] MEDS: DOCUSATE SODIUM 100 MG CAP PO SCH ×2 (11:04→20:24)
[2017-05-02] MEDS: PANTOPRAZOLE 40MG TAB (PROTONIX) PO SCH (11:04)
[2017-05-02] MEDS: POTASSIUM CHLORIDE 10 MEQ SR TABLET PO SCH (11:05)
[2017-05-02] MEDS: ASPIRIN 81 MG ENTERIC TAB PO SCH (11:05)
[2017-05-02] MEDS: LevoFLOXacin 750 MG TABLET PO SCH (13:32)
[2017-05-02] MEDS: VANCOMYCIN HCL 1,000 MG, VIAL MATE ADAPTER 1 EACH in D5W 250 ML IV SCH (13:32)
[2017-05-02 14:00] VITALS: BP 122/72
[2017-05-02 22:00] VITALS: BP 102/68
[2017-05-02] MEDS: SYMBICORT 160/4.5MCG INHALER 6GM INH SCH (23:55)
[2017-05-03] VITALS (7 sets, daily range): BP systolic 109–129; BP diastolic 60–71
[2017-05-03] MEDS: ACETAMINOPHEN TAB 650MG DOSE (2X325MG) PO PRN (01:02)
--- NOTE | 2017-05-03 01:25 | IPNPDOC ---
Subjective Date Seen The patient was seen on 05/02/17. Subjective Chief Complaint/HPI The patient is a 76-year-old male admitted with a reason for visit of Acute On Chronic Respiratory Failure With Hypoxia. Events since last encounter Feels poorly today, very fatigued. States he has been using his breathing treatments, but still SOB. Nursing will follow up on whether radiology can do his liver biopsy tomorrow, or if it will wait until Saturday. Constitutional: Reports: Malaise, Fatigue, Denies: Chills, Fever Skin: Denies: Rash Pulmonary: Reports: Dyspnea, Cough (nonproductive) Cardiovascular: Denies: Chest Pain, Palpitations Gastrointestinal: Denies: Nausea, Vomiting, Diarrhea, Constipation Hematologic: Denies: Bruising, Bleeding Excessively Objective Physical Examination General Exam: Positive: Alert, Cooperative, No Acute Distress ENT Exam: Positive: Atraumatic, Mucous membr. moist/pink Chest Exam: Positive: Wheezing, Diminished Heart Exam: Positive: Rate Normal, Regular Rhythm, Normal S1, Normal S2 Abdomen Exam: Positive: Normal bowel sounds, Soft Extremity Exam: Negative: Edema Skin Exam: Positive: Nl turgor and temperature Neuro Exam: Positive: Normal Speech, Cranial Nerves 3-12 NL Psych Exam: Positive: Mental status NL, Mood NL, Oriented x 3 Assessment /Plan Problems (1) Left upper lobe pneumonia Status: Acute Response to Treatment: Stable Problem Text: 05/02 -- restarted antibiotics, and discussed with pulm. (Pulm consult placed.) Maintaining current prednisone dosing, after discussion with Dr. Jon. Worsening leukocytosis secondary to infection or steroids. 05/01 -- finished a week of levaquin and vancomycin. DCed antibiotics. WBCs increasing, though patient is on Solumedrol. Decreased steroids. No change in oxygen needs, and CXR yesterday improved. 04/26 given ? liver mets-check liver US, WBC 13.6 (10.8), add levofloxacin given h /o Pseudomonas and /2 SCX c K. pneumonia (if develops rash, change to meropenem ) 8/2 HCAP with recent hospitalization in February for similar symptoms. Sputum culture in February was positive for pseudomonas. 8/2 SCX moderate MRSA/few K. pneumoniae 03/05/17 SCX few P. aeruginosa 04/25 CT chest: 1. Extensive hilar adenopathy with large nodes up to 2.1 cm subcarinal and precarinal region with 18 mm AP window nodes. Other large nodes prevascular space, right paratracheal region and all of these suspicious for malignancy. Some nodes surround the left upper lobe bronchus have occluded since the previous study. Extensive consolidation in the left upper lobe and lingula are related to post obstructive pneumonia. Small effusion and new multiple pleural based and parenchymal nodular densities or nodular infiltrates in the left lower lobe, suspicious for malignancy. 2. Chronic fibrotic changes and honeycombing in the posterior right upper lobe and anterior right upper lobe paramediastinal region stable. 3. No cardiomegaly, pericardial thickening or effusion. 4. Suspected liver metastatic lesions inferiorly in the right hepatic lobe. Unreviewed 03/01/17 CT chest: Severe upper lobe predominant centrilobular and paracentral emphysema is seen. 2. There are increased interstitial lung markings with honeycombing at lung bases compatible with pulmonary fibrosis. 3. Since the prior study, there is resolution of confluent markings in the superior segment of right lower lobe. 4. New confluent markings with areas of consolidation to the lingula. This is most compatible with pneumonia. However follow up is recommended to document resolution. 5. Calcified gallstone is again seen. (2) Liver metastases Status: Acute Problem Text: 05/02 -- plan liver biopsy tomorrow (5 days off of Plavix.) 04/30 -- We are trying to get a liver biopsy scheduled prior to discharge. He wished to discuss cancer treatment and I was clear with him that although imaging is very suggestive of cancer, we needed at least biopsy and perhaps other procedures to determine the diagnosis and stage. He will follow up with Dr. Singh, and perhaps Heme/Onc, as an outpatient. 04/29 - Will order liver bx Liver ultrasound c/w metastases; lung is the most likely primary. Consider liver biopsy prior to discharge. (3) Acute on chronic respiratory failure with hypoxia Problem Text: Increased O2 need upon admission, likely due to HCAP - see above (4) COPD (chronic obstructive pulmonary disease) Status: Chronic Problem Text: 05/01 -- decreased steroids today. Discussed at length the importance of taking a breathing treatment on a prn basis. I am still not sure that he understood. Discussed with nursing. Solumedrol titrated to 60 mg Q12H on 8/5; will continue at this dose due to worsened cough - Continue Duonebs (5) Oxygen dependent Status: Chronic Problem Text: On 2 L/min at home (6) CKD (chronic kidney disease) stage 3, GFR 30-59 ml/min Status: Chronic Response to Treatment: Improving Problem Text: 05/01 will continue to monitor 04/25 improved to 1.2 (1.4) baseline cr 0.9 (7) Systolic CHF Status: Chronic Response to Treatment: Stable Problem Text: No evidence of volume overload at present. not not diuretic rx baseline Plan/VTE VTE Prophylaxis Ordered?: No (encourage ambulation, SCDs and Teds) VS, I&O, 24H, Fishbone Vital Signs/I&O Vital Signs Date Time Temp Pulse Resp B/P (MAP) Pulse Ox O2 Delivery O2 Flow Rate FiO2 05/02/17 17:27 Nasal Cannula 2.0 05/02/17 14:00 96.6 85 24 122/72 (89) 96 I&O- Last 24 Hours up to 6 AM 05/03/17 06:00 Intake Total 480 ml Output Total 700 ml Balance -220 ml Laboratory Data Microbiology Microbiology 05/02/17 Blood Culture, Received Pending 05/02/17 Blood Culture - Preliminary, Resulted No growth after 24 hours . All specim... 04/24/17 Blood Culture - Final, Complete Propionibacterium Acnes 04/24/17 Gram Stain - Final, Complete 04/24/17 Sputum Culture - Final, Complete Staph.aureus Methicillin Resis Klebsiella Pneumoniae JET ZALDIVAR DO May 03, 2017 01:25
--- NOTE | 2017-05-03 02:45 | CR ---
DATE OF CONSULTATION: 05/02/2017 Mr. Baker is a 76-year-old gentleman who presented to the emergency department (ED) for increased shortness of breath for the past few days with increased cough productive of sputum of yellow color. Denies hemoptysis. Had subjective fevers and chills without rigors. He is on 2 liters of oxygen at home. He has a history of chronic obstructive pulmonary disease (COPD), but noticed that he has been "needing" more oxygen recently. In the ED, he was found to have a new left upper lobe infiltrate on x-ray. Patient was found to have findings suggestive of lung cancer with metastases ( METS) to the liver and he is awaiting a liver biopsy Saturday or Saturday. He states that overall he is feeling slightly improved, but he is still not at his baseline. Admits to chronic dry cough. Denies current fever, chills, nausea, vomiting, chest pain, shortness of breath, palpitations, wheezing, edema, paresthesia, hemoptysis. Good appetite. Sputum cultures positive for MRSA (moderate) and Klebsiella (few). PAST MEDICAL HISTORY: 1. COPD with oxygen dependence. 2. Hyperlipidemia. 3. Iron deficiency anemia. 4. Chronic kidney disease (CKD) stage III. 5. Anxiety. 6. Hypertension. 7. History of systolic congestive heart failure (CHF). 8. Tobacco use. 9. History of atrial fibrillation. 10. Gastroesophageal reflux disease (GERD). 11. Vitamin D deficiency. PAST SURGICAL HISTORY: Hernia repair. FAMILY HISTORY: Noncontributory to current symptoms. SOCIAL HISTORY: Denies drinking and illicit drugs. Admits to smoking about 10 cigarettes a day for the past 60 years. No recent travel. No sick contact. ALLERGIES: No known drug allergies. HOME MEDICATIONS: Include: - oxygen 2 liters - Combivent - DuoNebs - budesonide - Brovana - vitamin B12 - Lipitor 20 mg - vitamin D3 5000 units daily - aspirin 81 mg daily - Plavix 75 mg daily - Colace 100 mg twice a day - ferrous sulfate 325 mg twice a day - pantoprazole 40 mg daily - potassium chloride 20 daily - magnesium oxide 400 mg daily REVIEW OF SYSTEMS: Per HPI. Remainder of ROS negative. PHYSICAL EXAMINATION: VITAL SIGNS: Temperature 96.9, heart rate 88, respiratory rate 30, blood pressure 125/63, pulse oximetry 96% on 2 liters nasal cannula. GENERAL: Alert and oriented times three in no acute distress resting comfortably in bed. HEENT: Atraumatic, normocephalic. Pupils equal and reactive to light and accommodation. Trachea midline. Nasal septum midline. No conjunctivitis, rhinorrhea or oral exudates. LUNGS: Symmetric excursion. Bilateral wheezing diffusely, more audible on right than left. Rhonchi in right lower lobe. No crackles. Increased AP diameter. Normal percussion. Expiratory phase longer than inspiratory. Not using accessory muscles. HEART: Normal S1, S2 with regular rate and rhythm. No murmurs appreciated. No clubbing, cyanosis, edema. ABDOMEN: Soft, nontender, nondistended. Positive bowel sounds. No hepatosplenomegaly or masses EXTREMITIES: No edema. No calf tenderness. Negative Homans sign. +2 bilateral pulses. NEUROLOGICAL: No tremor. Cranial nerves II-XII intact. PSYCHIATRIC: Normal affect. Normal tone. LYMPHATICS: No lymphadenopathy. SKIN: Warm, pink, dry. LABORATORY DATA: No labs drawn today. Previous labs indicate an increasing white count from 13.9 on 04/29/2017 to 15.8 on 04/30/2017 to 18.9 on 05/01/2017. Sputum samples were positive for methicillin-resistant Staphylococcus aureus (MRSA) (moderate) and Klebsiella pneumoniae (few) on 04/24. Current blood cultures are pending. Chest x-ray depicted chronic interstitial fibrosis and left upper lobe infiltrates on 04/24. Chest CT with contrast on 04/26 showed bilateral hilar adenopathy, mediastinal lymphadenopathy and left upper lobe consolidation. There are multiple nodular densities in the left lower lobe. There are chronic fibrotic changes and honeycombing in the posterior right upper lobe and anterior right upper lobe paramediastinal region. There is a suspected liver metastatic lesion inferiorly in the right hepatic lobe. Liver ultrasound on 04/26 was also suspicious for hepatic metastases. Chest x-ray on 04/30 showed interstitial fibrosis and infiltrate decreased compared to previous studies. ASSESSMENT AND PLAN: 1. Abnormal chest x-ray with multiple abnormalities. The differential for the left upper lobe findings suggest a postobstructive process; pneumonia versus atelectasis. Agree with Vancomycin and Levaquin for the immediate future but consider switch to oral if possible, such as Bactrim for possible methicillin-resistant Staphylococcus aureus (MRSA). As to the other abnormalities, they suggest a metastatic lung cancer; await liver biopsy results. 2. COPD. Recommend weaning off prednisone over the next couple of days. Start long-acting LAMA and start inhaled corticosteroid / LABA combination medication. 3. Cough likely secondary to postobstructive process+/- chronic obstructive pulmonary disease (COPD); however, patient had recently been forced to quit smoking upon admission to hospital and due to abrupt cessation of smoking, bronchorrhea is also contributory. 4. Acute on chronic respiratory failure with hypoxia. 5. Gastrointestinal (GI) prophylaxis. Continue Protonix 40 mg. 6. Deep venous thrombosis (DVT) prophylaxis. Continue heparin 5000 units. ADDENDUM: I, Dr. Roe Lei, independently performed a history and physical examination and agree with the above documentation. I discussed the assessment and recommendations with the resident and agree with the documentation. LYNN
--- NOTE | 2017-05-03 07:49 | IPNPDOC ---
Subjective Date Seen The patient was seen on 05/03/17. Subjective Chief Complaint/HPI The patient is a 76-year-old male admitted with a reason for visit of Acute On Chronic Respiratory Failure With Hypoxia. Events since last encounter Denies c/o. Plan is for liver bx with IR today. States breathing much improved. Constitutional: Denies: Chills, Fever, Night Sweats Skin: Denies: Rash, Lesions, Breakdown Pulmonary: Reports: Dyspnea, Cough Cardiovascular: Denies: Chest Pain, Palpitations, Orthopnea, Paroxysmal Noc. Dyspnea, Lt Headedness Gastrointestinal: Denies: Nausea, Vomiting, Abdominal Pain, Diarrhea, Constipation Genitourinary: Denies: Dysuria, Frequency, Incontinence, Retention Psych: Reports: Mood Normal, Denies: Depression, Memory Issues Objective Physical Examination General Exam: Positive: Alert, Cooperative, No Acute Distress ENT Exam: Positive: Atraumatic, Mucous membr. moist/pink Chest Exam: Positive: Wheezing, Diminished Heart Exam: Positive: Rate Normal, Regular Rhythm, Normal S1, Normal S2 Abdomen Exam: Positive: Normal bowel sounds, Soft Extremity Exam: Negative: Edema Skin Exam: Positive: Nl turgor and temperature Neuro Exam: Positive: Normal Speech, Cranial Nerves 3-12 NL Psych Exam: Positive: Mental status NL, Mood NL, Oriented x 3 Assessment /Plan Problems (1) Left upper lobe pneumonia Status: Acute Response to Treatment: Stable Problem Text: 05/03/17: Levaquin 750 mg po q 48 hrs. s/p Pulm consult. 05/02 -- restarted antibiotics, and discussed with pulm. (Pulm consult placed.) Maintaining current prednisone dosing, after discussion with Dr. Jon. Worsening leukocytosis secondary to infection or steroids. 05/01 -- finished a week of levaquin and vancomycin. DCed antibiotics. WBCs increasing, though patient is on Solumedrol. Decreased steroids. No change in oxygen needs, and CXR yesterday improved. 04/26 given ? liver mets-check liver US, WBC 13.6 (10.8), add levofloxacin given h /o Pseudomonas and 04/24 SCX c K. pneumonia (if develops rash, change to meropenem ) 04/24 HCAP with recent hospitalization in February for similar symptoms. Sputum culture in February was positive for pseudomonas. / SCX moderate MRSA/few K. pneumoniae 03/05/17 SCX few P. aeruginosa 04/25 CT chest: 1. Extensive hilar adenopathy with large nodes up to 2.1 cm subcarinal and precarinal region with 18 mm AP window nodes. Other large nodes prevascular space, right paratracheal region and all of these suspicious for malignancy. Some nodes surround the left upper lobe bronchus have occluded since the previous study. Extensive consolidation in the left upper lobe and lingula are related to post obstructive pneumonia. Small effusion and new multiple pleural based and parenchymal nodular densities or nodular infiltrates in the left lower lobe, suspicious for malignancy. 2. Chronic fibrotic changes and honeycombing in the posterior right upper lobe and anterior right upper lobe paramediastinal region stable. 3. No cardiomegaly, pericardial thickening or effusion. 4. Suspected liver metastatic lesions inferiorly in the right hepatic lobe. Unreviewed 03/01/17 CT chest: Severe upper lobe predominant centrilobular and paracentral emphysema is seen. 2. There are increased interstitial lung markings with honeycombing at lung bases compatible with pulmonary fibrosis. 3. Since the prior study, there is resolution of confluent markings in the superior segment of right lower lobe. 4. New confluent markings with areas of consolidation to the lingula. This is most compatible with pneumonia. However follow up is recommended to document resolution. 5. Calcified gallstone is again seen. (2) Liver metastases Status: Acute Problem Text: 05/03/17: liver bx today in IR. 05/02 -- plan liver biopsy tomorrow (5 days off of Plavix.) 04/30 -- We are trying to get a liver biopsy scheduled prior to discharge. He wished to discuss cancer treatment and I was clear with him that although imaging is very suggestive of cancer, we needed at least biopsy and perhaps other procedures to determine the diagnosis and stage. He will follow up with Dr. Singh, and perhaps Heme/Onc, as an outpatient. 04/29 - Will order liver bx Liver ultrasound c/w metastases; lung is the most likely primary. Consider liver biopsy prior to discharge. (3) Acute on chronic respiratory failure with hypoxia Problem Text: 05/03/17: patient feels breathing is back to baseline. Increased O2 need upon admission, likely due to HCAP - see above (4) COPD (chronic obstructive pulmonary disease) Status: Chronic Problem Text: 05/01 -- decreased steroids today. Discussed at length the importance of taking a breathing treatment on a prn basis. I am still not sure that he understood. Discussed with nursing. Solumedrol titrated to 60 mg Q12H on 04/27; will continue at this dose due to worsened cough - Continue Duonebs (5) Oxygen dependent Status: Chronic Problem Text: On 2 L/min at home (6) CKD (chronic kidney disease) stage 3, GFR 30-59 ml/min Status: Chronic Response to Treatment: Improving Problem Text: 05/01 will continue to monitor 04/25 improved to 1.2 (1.4) baseline cr 0.9 (7) Systolic CHF Status: Chronic Response to Treatment: Stable Problem Text: No evidence of volume overload at present. not not diuretic rx baseline Plan/VTE VTE Prophylaxis Ordered?: No (encourage ambulation, SCDs and Teds) VS, I&O, 24H, Fishbone Vital Signs/I&O Vital Signs Date Time Temp Pulse Resp B/P (MAP) Pulse Ox O2 Delivery O2 Flow Rate FiO2 05/03/17 01:00 98.7 89 26 121/69 (86) 95 Nasal Cannula 2.0 I&O- Last 24 Hours up to 6 AM 05/03/17 06:00 Intake Total 720 ml Output Total 900 ml Balance -180 ml Laboratory Data Microbiology Microbiology 05/02/17 Blood Culture - Preliminary, Resulted No growth after 24 hours . All specim... 05/02/17 Blood Culture - Preliminary, Resulted No growth after 24 hours . All specim... 04/24/17 Blood Culture - Final, Complete Propionibacterium Acnes 04/24/17 Gram Stain - Final, Complete 04/24/17 Sputum Culture - Final, Complete Staph.aureus Methicillin Resis Klebsiella Pneumoniae Jannet Barrow [employer] May 03, 2017 07:49
[2017-05-03] MEDS: BUDESONIDE 0.5 MG/2 ML INHALATION SUSPENSION INH SCH ×2 (08:00→19:45)
[2017-05-03] MEDS: predniSONE 20 MG TAB PO SCH (08:30)
[2017-05-03] MEDS: PANTOPRAZOLE 40MG TAB (PROTONIX) PO SCH (08:30)
[2017-05-03] MEDS: POTASSIUM CHLORIDE 10 MEQ SR TABLET PO SCH (08:30)
[2017-05-03] MEDS: VANCOMYCIN HCL 1,000 MG, VIAL MATE ADAPTER 1 EACH in D5W 250 ML IV SCH (08:36)
[2017-05-03] MEDS: SYMBICORT 160/4.5MCG INHALER 6GM INH SCH ×2 (08:53→19:44)
[2017-05-03] MEDS: IPRATROPIUM 0.5MG/ALBUTEROL 2.5MG INH SOL UD 3ML (DUONEB)(J7620) NEB SCH ×4 (08:54→19:45)
[2017-05-03] MEDS: MAGNESIUM OXIDE 400 MG TAB (MAG-OX) PO SCH (09:00)
[2017-05-03] MEDS: FERROUS SULFATE 325MG TAB PO SCH ×2 (09:00→21:18)
[2017-05-03] MEDS: CYANOCOBALAMIN 500 MCG TAB PO SCH (09:00)
[2017-05-03] MEDS: DOCUSATE SODIUM 100 MG CAP PO SCH ×2 (09:00→21:18)
[2017-05-03] MEDS: ASPIRIN 81 MG ENTERIC TAB PO SCH (09:00)
--- NOTE | 2017-05-03 10:19 | PHACANCOPD ---
PHARMACY VANCOMYCIN DOSING Pt Demographics Demographics Patient Age:76 , Weight:50.300 , Gender: male Adjusted Body Weight Date: 04/24/17, Adjusted Body Weight: [49] Kg Vancomycin Vancomycin Target Ranges: 15-20 mcg/ml Vancomycin Load Y/N: Yes Load Dose Date Time Vancomycin Load Dose: 1000MG Date: 04-24 Time: 0600 Vancomycin Dose Date: 04/28/17. Current Vancomycin Dose: 1000MG Q18H Intermittent Dosing?: No Labs Micro Microbiology 05/02/17 Blood Culture - Preliminary, Resulted No growth after 24 hours . All specim... 05/02/17 Blood Culture - Preliminary, Resulted No growth after 24 hours . All specim... 04/24/17 Blood Culture - Final, Complete Propionibacterium Acnes 04/24/17 Gram Stain - Final, Complete 04/24/17 Sputum Culture - Final, Complete Staph.aureus Methicillin Resis Klebsiella Pneumoniae Creatinine Clearance Date:04/28/17. Creatinine Clearance: [59]. Pending Labs Trough 08-04 @0800 Assessment and Plan Maintaining Current Dose?: Yes Reason for dose change: No Dose Change Pharmacist Note Pharmacist Note 05/03/17: Vancomycin restarted due to worsening leukocytosis. I will schedule a follow-up vancomycin trough to be drawn tomorrow, 05/04/17 @1999. Plan is for the patient to continue on IV vancomycin for another 7 days per pulmonary. We will continue to monitor and adjust dose if needed. Date: 04/30/17. Pharmacist note:trough returned @ 13.9. Continue current therapy and monitor renal function. Date: 04/24/17. Pharmacist note:Trough of 10.6 is below target range. Dose increased to 1000mg q18h with a trough ordered for 08-08 @0700. Will continue to monitor and make adjustments as needed. MARTHA WU PHARMACY May 03, 2017 10:19
[2017-05-03] MEDS ORDERED: LIDOCAINE 1% MDV 20ML VIAL As Ordered ONE (10:44)
[2017-05-03 13:20] LABS: MEAN CORPUSCULAR HEMOGLOBIN 28.7 pg (27.0-33.0); MEAN CORPUSCULAR VOLUME 84.5 fl (80.0-96.0); WHITE BLOOD COUNT 20.7 K/mm3 (4.0-10.0)
[2017-05-03] MEDS: TIOTROPIUM INHALER/CAPSULE (SPIRIVA) INH SCH (13:22)
[2017-05-03] MEDS: HEPARIN SOD (PORCINE) 5000 UNITS/ML VIAL SC SCH ×2 (14:00→21:19)
[2017-05-03 14:01] LABS: ALBUMIN 2.5 GM/DL (3.2-5.2); ALBUMIN/GLOBULIN RATIO 0.74 (1.00-1.93); ALKALINE PHOSPHATASE 102 U/L (45-117); ALT/SGPT 73 U/L (12-78); ANION GAP 10 MEQ/L (8-16); AST/SGOT 49 U/L (15-37); BILIRUBIN,TOTAL 0.4 MG/DL (0.2-1.0); BLOOD UREA NITROGEN 24 MG/DL (7-18); CALCIUM LEVEL 8.8 MG/DL (8.8-10.2); CARBON DIOXIDE LEVEL 25 MEQ/L (21-32); CHLORIDE LEVEL 91 MEQ/L (98-107); CREATININE FOR GFR 0.71 MG/DL (0.70-1.30); GLOMERULAR FILTRATION RATE > 60.0 (>42); GLUCOSE, FASTING 101 MG/DL (83-110); SODIUM LEVEL 126 MEQ/L (136-145); TOTAL PROTEIN 5.9 GM/DL (6.4-8.2)
--- NOTE | 2017-05-03 17:28 | REP ---
Ultrasound guided liver biopsy The procedure was performed under the direct supervision of Dr. Newman. The graft the patient has a history of multiple hypoechoic lesions in the liver seen on a previous ultrasound dated 04/26/2017. The risks and benefits of the procedure were explained to the patient and informed consent was obtained. The lesion in the left lobe of the liver was localized using ultrasound guidance. The skin was prepped and draped in a sterile fashion. 1% lidocaine was used as a local anesthetic. Using ultrasound guidance a 19/20 gauge coaxial needle biopsy system was inserted and advanced into the lesion. In five core biopsy samples were obtained and sent to lab. The patient tolerated the procedure well and there were no immediate complications. Reviewed by MERCEDEZ Delgado 05/03/2017 05:00 PSigned by Evan Newman MD 05/03/2017 05:18 P
[2017-05-03 19:38] LABS: ANION GAP 8 MEQ/L (8-16); BLOOD UREA NITROGEN 31 MG/DL (7-18); CALCIUM LEVEL 8.8 MG/DL (8.8-10.2); CARBON DIOXIDE LEVEL 27 MEQ/L (21-32); CHLORIDE LEVEL 90 MEQ/L (98-107); GLOMERULAR FILTRATION RATE > 60.0 (>42); GLUCOSE, FASTING 158 MG/DL (83-110); POTASSIUM SERUM 4.6 MEQ/L (3.5-5.1); SODIUM LEVEL 125 MEQ/L (136-145)
[2017-05-03] MEDS: ALBUTEROL SULFATE 2.5 MG/0.5 ML INH NEB SOLN NEB PRN (23:26)
[2017-05-04] MEDS: VANCOMYCIN HCL 1,000 MG, VIAL MATE ADAPTER 1 EACH in D5W 250 ML IV SCH ×2 (02:01→20:04)
[2017-05-04] MEDS: ALBUTEROL SULFATE 2.5 MG/0.5 ML INH NEB SOLN NEB PRN ×2 (03:07→23:59)
[2017-05-04 03:11] LABS: OSMOLALITY URINE 754 MOSM/KG (500-800)
[2017-05-04] MEDS: HEPARIN SOD (PORCINE) 5000 UNITS/ML VIAL SC SCH ×3 (05:10→21:00)
[2017-05-04 05:45] LABS: MEAN CORPUSCULAR HEMOGLOBIN 28.4 pg (27.0-33.0); MEAN CORPUSCULAR HGB CONC 33.9 g/dl (32.0-36.5); MEAN CORPUSCULAR VOLUME 83.8 fl (80.0-96.0); WHITE BLOOD COUNT 21.4 K/mm3 (4.0-10.0)
[2017-05-04 06:00] VITALS: BP 143/67
[2017-05-04 06:11] LABS: ALBUMIN 2.3 GM/DL (3.2-5.2); ALBUMIN/GLOBULIN RATIO 0.59 (1.00-1.93); ALKALINE PHOSPHATASE 97 U/L (45-117); ALT/SGPT 65 U/L (12-78); ANION GAP 10 MEQ/L (8-16); AST/SGOT 45 U/L (15-37); BILIRUBIN,TOTAL 0.3 MG/DL (0.2-1.0); BLOOD UREA NITROGEN 30 MG/DL (7-18); CALCIUM LEVEL 8.7 MG/DL (8.8-10.2); CARBON DIOXIDE LEVEL 25 MEQ/L (21-32); CHLORIDE LEVEL 90 MEQ/L (98-107); CREATININE FOR GFR 0.76 MG/DL (0.70-1.30); GLOMERULAR FILTRATION RATE > 60.0 (>42); GLUCOSE, FASTING 82 MG/DL (83-110); POTASSIUM SERUM 4.9 MEQ/L (3.5-5.1); SODIUM LEVEL 125 MEQ/L (136-145); TOTAL PROTEIN 6.2 GM/DL (6.4-8.2)
[2017-05-04] MEDS: TIOTROPIUM INHALER/CAPSULE (SPIRIVA) INH SCH (07:30)
[2017-05-04] MEDS: IPRATROPIUM 0.5MG/ALBUTEROL 2.5MG INH SOL UD 3ML (DUONEB)(J7620) NEB SCH ×4 (07:30→19:16)
[2017-05-04] MEDS: SYMBICORT 160/4.5MCG INHALER 6GM INH SCH ×2 (07:30→19:15)
[2017-05-04] MEDS: BUDESONIDE 0.5 MG/2 ML INHALATION SUSPENSION INH SCH ×2 (07:31→19:16)
[2017-05-04 09:12] VITALS: BP 110/60
[2017-05-04] MEDS: LevoFLOXacin 750 MG TABLET PO SCH (09:35)
[2017-05-04] MEDS: ASPIRIN 81 MG ENTERIC TAB PO SCH (09:35)
[2017-05-04] MEDS: DOCUSATE SODIUM 100 MG CAP PO SCH ×2 (09:36→20:55)
[2017-05-04] MEDS: predniSONE 20 MG TAB PO SCH (09:37)
[2017-05-04] MEDS: FERROUS SULFATE 325MG TAB PO SCH ×2 (09:38→20:55)
[2017-05-04] MEDS: MAGNESIUM OXIDE 400 MG TAB (MAG-OX) PO SCH (09:38)
[2017-05-04] MEDS: PANTOPRAZOLE 40MG TAB (PROTONIX) PO SCH (09:38)
[2017-05-04] MEDS: CYANOCOBALAMIN 500 MCG TAB PO SCH (09:40)
[2017-05-04] MEDS: POTASSIUM CHLORIDE 10 MEQ SR TABLET PO SCH (09:41)
--- NOTE | 2017-05-04 13:11 | IPNPDOC ---
Subjective Date Seen The patient was seen on 05/04/17. Subjective Chief Complaint/HPI The patient is a 76-year-old male admitted with a reason for visit of Acute On Chronic Respiratory Failure With Hypoxia. Events since last encounter Patient continues to have shortness of breath. Coughing up sputum. Denies fevers or chills. He is concerned about his upcoming pathology results. However , states that if he has confirmed lung cancer, he wishes to pursue full treatment. Constitutional: Denies: Chills, Fever Skin: Denies: Rash Pulmonary: Reports: Cough, Denies: Dyspnea Cardiovascular: Denies: Chest Pain Gastrointestinal: Denies: Nausea Other systems 10 pt ROS otherwise negative Objective Physical Examination General Exam: Positive: Alert, Cooperative, No Acute Distress ENT Exam: Positive: Atraumatic, Mucous membr. moist/pink Chest Exam: Positive: Wheezing, Diminished Heart Exam: Positive: Rate Normal, Regular Rhythm, Normal S1, Normal S2 Abdomen Exam: Positive: Normal bowel sounds, Soft Extremity Exam: Negative: Edema Skin Exam: Positive: Nl turgor and temperature Neuro Exam: Positive: Normal Speech Psych Exam: Positive: Mental status NL, Mood NL, Oriented x 3 Assessment /Plan Problems (1) Left upper lobe pneumonia Status: Acute Response to Treatment: Stable Problem Text: 05/04/17: Levaquin 750 mg po q 48 hrs. s/p Pulm consult and bx. Added Q4H duonebs and acapella 05/03/17: Levaquin 750 mg po q 48 hrs. s/p Pulm consult. 05/02 -- restarted antibiotics, and discussed with pulm. (Pulm consult placed.) Maintaining current prednisone dosing, after discussion with Dr. Jon. Worsening leukocytosis secondary to infection or steroids. 05/01 -- finished a week of levaquin and vancomycin. DCed antibiotics. WBCs increasing, though patient is on Solumedrol. Decreased steroids. No change in oxygen needs, and CXR yesterday improved. 04/26 given ? liver mets-check liver US, WBC 13.6 (10.8), add levofloxacin given h /o Pseudomonas and 04/24 SCX c K. pneumonia (if develops rash, change to meropenem ) 04/24 HCAP with recent hospitalization in February for similar symptoms. Sputum culture in February was positive for pseudomonas. 04/24 SCX moderate MRSA/few K. pneumoniae 03/05/17 SCX few P. aeruginosa 04/25 CT chest: 1. Extensive hilar adenopathy with large nodes up to 2.1 cm subcarinal and precarinal region with 18 mm AP window nodes. Other large nodes prevascular space, right paratracheal region and all of these suspicious for malignancy. Some nodes surround the left upper lobe bronchus have occluded since the previous study. Extensive consolidation in the left upper lobe and lingula are related to post obstructive pneumonia. Small effusion and new multiple pleural based and parenchymal nodular densities or nodular infiltrates in the left lower lobe, suspicious for malignancy. 2. Chronic fibrotic changes and honeycombing in the posterior right upper lobe and anterior right upper lobe paramediastinal region stable. 3. No cardiomegaly, pericardial thickening or effusion. 4. Suspected liver metastatic lesions inferiorly in the right hepatic lobe. Unreviewed 03/01/17 CT chest: Severe upper lobe predominant centrilobular and paracentral emphysema is seen. 2. There are increased interstitial lung markings with honeycombing at lung bases compatible with pulmonary fibrosis. 3. Since the prior study, there is resolution of confluent markings in the superior segment of right lower lobe. 4. New confluent markings with areas of consolidation to the lingula. This is most compatible with pneumonia. However follow up is recommended to document resolution. 5. Calcified gallstone is again seen. (2) Liver metastases Status: Acute Problem Text: 05/04/17: s/p liver bx. Discussed that he likely has metastatic lung CA. Pt indicates he wishes to pursue all available options if this is confirmed. 05/03/17: liver bx today in IR. 05/02 -- plan liver biopsy tomorrow (5 days off of Plavix.) 04/30 -- We are trying to get a liver biopsy scheduled prior to discharge. He wished to discuss cancer treatment and I was clear with him that although imaging is very suggestive of cancer, we needed at least biopsy and perhaps other procedures to determine the diagnosis and stage. He will follow up with Dr. Singh, and perhaps Heme/Onc, as an outpatient. 04/29 - Will order liver bx Liver ultrasound c/w metastases; lung is the most likely primary. Consider liver biopsy prior to discharge. (3) Acute on chronic respiratory failure with hypoxia Problem Text: 05/04/17: patient feels breathing is back to baseline. Increased O2 need upon admission, likely due to HCAP - see above (4) COPD (chronic obstructive pulmonary disease) Status: Chronic Problem Text: 05/04: now on pred 40 mg daily. Cont to have SOB. Q4H nebs ordered (5) Oxygen dependent Status: Chronic Problem Text: On 2 L/min at home (6) CKD (chronic kidney disease) stage 3, GFR 30-59 ml/min Status: Chronic Response to Treatment: Improving Problem Text: Stable (7) Systolic CHF Status: Chronic Response to Treatment: Stable Problem Text: No evidence of volume overload at present. not not diuretic rx baseline Plan/VTE VTE Prophylaxis Ordered?: Yes (Heparin) VS, I&O, 24H, Fishbone Vital Signs/I&O Vital Signs Date Time Temp Pulse Resp B/P (MAP) Pulse Ox O2 Delivery O2 Flow Rate FiO2 05/04/17 11:30 Nasal Cannula 2.0 05/04/17 10:55 95 05/04/17 09:12 97.9 66 26 110/60 (77) I&O- Last 24 Hours up to 6 AM 05/04/17 05:59 Intake Total 660 ml Output Total 900 ml Balance -240 ml Laboratory Data 24H LABS Laboratory Tests 2 05/03/17 19:02: Anion Gap 8, Glomerular Filtration Rate > 60.0, Blood Urea Nitrogen 31H, Creatinine 0.90, Sodium Level 125L, Potassium Level 4.6, Chloride Level 90L, Carbon Dioxide Level 27, Calcium Level 8.8 05/04/17 02:41: Urine Random Osmolality 754, Urine Random Sodium 95, Urine Random Chloride 110 05/04/17 05:36: Anion Gap 10, Glomerular Filtration Rate > 60.0, Blood Urea Nitrogen 30H, Creatinine 0.76, Sodium Level 125L, Potassium Level 4.9, Chloride Level 90L, Carbon Dioxide Level 25, Calcium Level 8.7L, Aspartate Amino Transf (AST/SGOT) 45H, Alanine Aminotransferase (ALT/SGPT) 65, Alkaline Phosphatase 97, Total Bilirubin 0.3, Total Protein 6.2L, Albumin 2.3L, Albumin/Globulin Ratio 0.59L CBC/BMP Laboratory Tests 05/03/17 19:02 Calcium Level 8.8 05/04/17 05:36 Calcium Level 8.7 L, Red Blood Count 5.04, Mean Corpuscular Volume 83.8, Mean Corpuscular Hemoglobin 28.4, Mean Corpuscular Hemoglobin Concent 33.9, Red Cell Distribution Width 14.0, Aspartate Amino Transf (AST/SGOT) 45 H, Alanine Aminotransferase (ALT/SGPT) 65, Alkaline Phosphatase 97, Total Bilirubin 0.3, Total Protein 6.2 L, Albumin 2.3 L Microbiology Microbiology 05/02/17 Blood Culture - Preliminary, Resulted No Growth after 48 hours. All Specime... 05/02/17 Blood Culture - Preliminary, Resulted No Growth after 48 hours. All Specime... 04/24/17 Blood Culture - Final, Complete Propionibacterium Acnes 04/24/17 Gram Stain - Final, Complete 04/24/17 Sputum Culture - Final, Complete Staph.aureus Methicillin Resis Klebsiella Pneumoniae LULU HI MD May 04, 2017 13:11
[2017-05-04 14:00] VITALS: BP 129/62
[2017-05-04 14:30] VITALS: BP 109/65
[2017-05-04] MEDS: GABAPENTIN 100 MG CAP PO SCH ×2 (16:42→20:55)
[2017-05-04 22:00] VITALS: BP 140/82
[2017-05-05] MEDS: ACETAMINOPHEN TAB 650MG DOSE (2X325MG) PO PRN (03:53)
[2017-05-05] MEDS: HEPARIN SOD (PORCINE) 5000 UNITS/ML VIAL SC SCH ×3 (05:29→21:05)
[2017-05-05 05:56] LABS: MEAN CORPUSCULAR HEMOGLOBIN 28.7 pg (27.0-33.0); MEAN CORPUSCULAR HGB CONC 34.8 g/dl (32.0-36.5); MEAN CORPUSCULAR VOLUME 82.3 fl (80.0-96.0); RED CELL DISTRIBUTION WIDTH 13.6 % (11.5-14.5); WHITE BLOOD COUNT 18.8 K/mm3 (4.0-10.0)
[2017-05-05 06:00] VITALS: BP 109/68
[2017-05-05 06:11] LABS: ALBUMIN 2.2 GM/DL (3.2-5.2); ALBUMIN/GLOBULIN RATIO 0.61 (1.00-1.93); ALKALINE PHOSPHATASE 86 U/L (45-117); ALT/SGPT 48 U/L (12-78); ANION GAP 10 MEQ/L (8-16); AST/SGOT 37 U/L (15-37); BILIRUBIN,TOTAL 0.4 MG/DL (0.2-1.0); BLOOD UREA NITROGEN 27 MG/DL (7-18); CALCIUM LEVEL 8.9 MG/DL (8.8-10.2); CARBON DIOXIDE LEVEL 25 MEQ/L (21-32); CHLORIDE LEVEL 89 MEQ/L (98-107); GLOMERULAR FILTRATION RATE > 60.0 (>42); GLUCOSE, FASTING 92 MG/DL (83-110); POTASSIUM SERUM 4.6 MEQ/L (3.5-5.1); SODIUM LEVEL 124 MEQ/L (136-145); TOTAL PROTEIN 5.8 GM/DL (6.4-8.2)
[2017-05-05] MEDS: IPRATROPIUM 0.5MG/ALBUTEROL 2.5MG INH SOL UD 3ML (DUONEB)(J7620) NEB SCH ×4 (07:21→20:00)
[2017-05-05] MEDS: TIOTROPIUM INHALER/CAPSULE (SPIRIVA) INH SCH (07:22)
[2017-05-05] MEDS: SYMBICORT 160/4.5MCG INHALER 6GM INH SCH ×2 (07:22→19:37)
[2017-05-05] MEDS: BUDESONIDE 0.5 MG/2 ML INHALATION SUSPENSION INH SCH ×2 (07:27→20:00)
[2017-05-05] MEDS: POTASSIUM CHLORIDE 10 MEQ SR TABLET PO SCH (08:39)
[2017-05-05] MEDS: FERROUS SULFATE 325MG TAB PO SCH ×2 (08:40→20:51)
[2017-05-05] MEDS: ASPIRIN 81 MG ENTERIC TAB PO SCH (08:40)
[2017-05-05] MEDS: PANTOPRAZOLE 40MG TAB (PROTONIX) PO SCH (08:40)
[2017-05-05] MEDS: MAGNESIUM OXIDE 400 MG TAB (MAG-OX) PO SCH (08:40)
[2017-05-05] MEDS: DOCUSATE SODIUM 100 MG CAP PO SCH ×2 (08:40→20:51)
[2017-05-05] MEDS: predniSONE 20 MG TAB PO SCH (08:40)
[2017-05-05] MEDS: GABAPENTIN 100 MG CAP PO SCH ×3 (08:40→20:52)
[2017-05-05] MEDS: CYANOCOBALAMIN 500 MCG TAB PO SCH (08:40)
--- NOTE | 2017-05-05 11:57 | IPNPDOC ---
Subjective Date Seen The patient was seen on 05/05/17. Subjective Chief Complaint/HPI The patient is a 76-year-old male admitted with a reason for visit of Acute On Chronic Respiratory Failure With Hypoxia. Events since last encounter Pt states that he is breathing better today. Not feeling as short of breath. Denies any fever, chills, or sweats. Constitutional: Denies: Chills, Fever, Malaise Pulmonary: Reports: Cough, Denies: Dyspnea, Pleuritic Chest Pain Cardiovascular: Denies: Chest Pain, Palpitations Gastrointestinal: Denies: Nausea, Vomiting Other systems 10-pt ROS otherwise negative Objective Physical Examination General Exam: Positive: Alert, Cooperative, No Acute Distress ENT Exam: Positive: Atraumatic, Mucous membr. moist/pink Chest Exam: Positive: Wheezing, Diminished Heart Exam: Positive: Rate Normal, Regular Rhythm, Normal S1, Normal S2 Abdomen Exam: Positive: Normal bowel sounds, Soft Extremity Exam: Negative: Edema Skin Exam: Positive: Nl turgor and temperature Neuro Exam: Positive: Normal Speech Psych Exam: Positive: Mental status NL, Mood NL, Oriented x 3 Assessment /Plan Problems (1) Left upper lobe pneumonia Status: Acute Response to Treatment: Stable Problem Text: 05/06: vanc/levaquin day 5. MRSA and Klebsiella PNA on cx. Cont to have elevated white count, which may be secondary to neoplastic syndrome. - consider d/c with home health abx 05/05/17: Levaquin 750 mg po q 48 hrs and vancomycin for tx of kleb PNA and MRSA on sputum cx. s/p Pulm consult and bx. Cont to have elevated white count despite tx, which may be secondary to neoplastic syndrome. Cx and sensitivities indicate current regiment should be effective. Prev Bcx with propionibacteria acnes likely skin contaminate and repeat cx negative. - cont vanc/levaquin 05/04/17: Levaquin 750 mg po q 48 hrs and vancomycin for tx of kleb PNA and MRSA on sputum cx. s/p Pulm consult and bx. -Added Q4H duonebs and acapella 05/03/17: Levaquin 750 mg po q 48 hrs. s/p Pulm consult. 05/02 -- restarted antibiotics, and discussed with pulm. (Pulm consult placed.) Maintaining current prednisone dosing, after discussion with Dr. Jon. Worsening leukocytosis secondary to infection or steroids. 05/01 -- finished a week of levaquin and vancomycin. DCed antibiotics. WBCs increasing, though patient is on Solumedrol. Decreased steroids. No change in oxygen needs, and CXR yesterday improved. 04/26 given ? liver mets-check liver US, WBC 13.6 (10.8), add levofloxacin given h /o Pseudomonas and 04/24 SCX c K. pneumonia (if develops rash, change to meropenem ) 04/24 HCAP with recent hospitalization in February for similar symptoms. Sputum culture in February was positive for pseudomonas. 04/24 SCX moderate MRSA/few K. pneumoniae 03/05/17 SCX few P. aeruginosa 04/25 CT chest: 1. Extensive hilar adenopathy with large nodes up to 2.1 cm subcarinal and precarinal region with 18 mm AP window nodes. Other large nodes prevascular space, right paratracheal region and all of these suspicious for malignancy. Some nodes surround the left upper lobe bronchus have occluded since the previous study. Extensive consolidation in the left upper lobe and lingula are related to post obstructive pneumonia. Small effusion and new multiple pleural based and parenchymal nodular densities or nodular infiltrates in the left lower lobe, suspicious for malignancy. 2. Chronic fibrotic changes and honeycombing in the posterior right upper lobe and anterior right upper lobe paramediastinal region stable. 3. No cardiomegaly, pericardial thickening or effusion. 4. Suspected liver metastatic lesions inferiorly in the right hepatic lobe. Unreviewed 03/01/17 CT chest: Severe upper lobe predominant centrilobular and paracentral emphysema is seen. 2. There are increased interstitial lung markings with honeycombing at lung bases compatible with pulmonary fibrosis. 3. Since the prior study, there is resolution of confluent markings in the superior segment of right lower lobe. 4. New confluent markings with areas of consolidation to the lingula. This is most compatible with pneumonia. However follow up is recommended to document resolution. 5. Calcified gallstone is again seen. 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 Sodium prev stable, now dropping. - start NS at 50 mls/hr (3) Liver metastases Status: Acute Problem Text: 05/04/17: s/p liver bx. Discussed that he likely has metastatic lung CA. Pt indicates he wishes to pursue all available options if this is confirmed. Path still pending. 05/04/17: s/p liver bx. Discussed that he likely has metastatic lung CA. Pt indicates he wishes to pursue all available options if this is confirmed. 05/03/17: liver bx today in IR. 05/02 -- plan liver biopsy tomorrow (5 days off of Plavix.) 04/30 -- We are trying to get a liver biopsy scheduled prior to discharge. He wished to discuss cancer treatment and I was clear with him that although imaging is very suggestive of cancer, we needed at least biopsy and perhaps other procedures to determine the diagnosis and stage. He will follow up with Dr. Singh, and perhaps Heme/Onc, as an outpatient. 04/29 - Will order liver bx Liver ultrasound c/w metastases; lung is the most likely primary. Consider liver biopsy prior to discharge. (4) Acute on chronic respiratory failure with hypoxia Problem Text: 05/05/17: Stable, chronic SOB, likely metastatic lung CA 05/04/17: patient feels breathing is back to baseline. Increased O2 need upon admission, likely due to HCAP - see above (5) COPD (chronic obstructive pulmonary disease) Status: Chronic Problem Text: 05/04: now on pred 40 mg daily. Cont to have SOB. Q4H nebs ordered (6) Oxygen dependent Status: Chronic Problem Text: On 2 L/min at home (7) CKD (chronic kidney disease) stage 3, GFR 30-59 ml/min Status: Chronic Response to Treatment: Improving Problem Text: Stable (8) Systolic CHF Status: Chronic Response to Treatment: Stable Problem Text: No evidence of volume overload at present. not not diuretic rx baseline Plan/VTE VTE Prophylaxis Ordered?: Yes (Heparin) Disposition Cont IV abx for MRSA PNA VS, I&O, 24H, Fishbone Vital Signs/I&O Vital Signs Date Time Temp Pulse Resp B/P (MAP) Pulse Ox O2 Delivery O2 Flow Rate FiO2 05/05/17 11:11 Nasal Cannula 2.0 05/05/17 06:00 97.2 74 20 109/68 (82) 95 I&O- Last 24 Hours up to 6 AM 05/05/17 06:00 Intake Total 600 ml Output Total 1090 ml Balance -490 ml Laboratory Data 24H LABS Laboratory Tests 2 05/04/17 19:07: Vancomycin Level Trough 14.4 05/05/17 05:26: Anion Gap 10, Glomerular Filtration Rate > 60.0, Blood Urea Nitrogen 27H, Creatinine 0.70, Sodium Level 124L, Potassium Level 4.6, Chloride Level 89L, Carbon Dioxide Level 25, Calcium Level 8.9, Aspartate Amino Transf (AST/SGOT) 37 , Alanine Aminotransferase (ALT/SGPT) 48, Alkaline Phosphatase 86, Total Bilirubin 0.4, Total Protein 5.8L, Albumin 2.2L, Albumin/Globulin Ratio 0.61L CBC/BMP Laboratory Tests 05/05/17 05:26 Red Blood Count 4.74, Mean Corpuscular Volume 82.3, Mean Corpuscular Hemoglobin 28.7, Mean Corpuscular Hemoglobin Concent 34.8, Red Cell Distribution Width 13.6 , Calcium Level 8.9, Aspartate Amino Transf (AST/SGOT) 37, Alanine Aminotransferase (ALT/SGPT) 48, Alkaline Phosphatase 86, Total Bilirubin 0.4, Total Protein 5.8 L, Albumin 2.2 L Microbiology Microbiology 05/02/17 Blood Culture - Preliminary, Resulted No Growth after 72 hours. All specime... 05/02/17 Blood Culture - Preliminary, Resulted No Growth after 72 hours. All specime... LULU HI MD May 05, 2017 11:57
[2017-05-05] MEDS: NS 1,000 ML IV SCH (12:00)
[2017-05-05 14:00] VITALS: BP 134/64
[2017-05-05] MEDS: VANCOMYCIN HCL 1,000 MG, VIAL MATE ADAPTER 1 EACH in D5W 250 ML IV SCH (14:21)
[2017-05-05 22:00] VITALS: BP 123/64
[2017-05-06] MEDS: ALBUTEROL SULFATE 2.5 MG/0.5 ML INH NEB SOLN NEB PRN ×2 (01:21→18:14)
[2017-05-06] MEDS: diphenhydrAMINE 50 MG CAP PO PRN (03:59)
[2017-05-06] MEDS: HEPARIN SOD (PORCINE) 5000 UNITS/ML VIAL SC SCH ×3 (05:27→22:26)
[2017-05-06 06:00] VITALS: BP 131/73
[2017-05-06 06:37] LABS: MEAN CORPUSCULAR HEMOGLOBIN 28.7 pg (27.0-33.0); MEAN CORPUSCULAR HGB CONC 34.4 g/dl (32.0-36.5); MEAN CORPUSCULAR VOLUME 83.3 fl (80.0-96.0); RED CELL DISTRIBUTION WIDTH 13.7 % (11.5-14.5); WHITE BLOOD COUNT 21.2 K/mm3 (4.0-10.0)
[2017-05-06 06:54] LABS: ALBUMIN 2.1 GM/DL (3.2-5.2); ALBUMIN/GLOBULIN RATIO 0.55 (1.00-1.93); ALKALINE PHOSPHATASE 81 U/L (45-117); ALT/SGPT 37 U/L (12-78); ANION GAP 9 MEQ/L (8-16); AST/SGOT 36 U/L (15-37); BILIRUBIN,TOTAL 0.3 MG/DL (0.2-1.0); BLOOD UREA NITROGEN 21 MG/DL (7-18); CALCIUM LEVEL 8.3 MG/DL (8.8-10.2); CARBON DIOXIDE LEVEL 26 MEQ/L (21-32); CHLORIDE LEVEL 91 MEQ/L (98-107); CREATININE FOR GFR 0.75 MG/DL (0.70-1.30); GLOMERULAR FILTRATION RATE > 60.0 (>42); GLUCOSE, FASTING 75 MG/DL (83-110); POTASSIUM SERUM 4.6 MEQ/L (3.5-5.1); SODIUM LEVEL 126 MEQ/L (136-145); TOTAL PROTEIN 5.9 GM/DL (6.4-8.2)
--- NOTE | 2017-05-06 07:24 | IPNPDOC ---
Subjective Date Seen The patient was seen on 05/06/17. Subjective Chief Complaint/HPI The patient is a 76-year-old male admitted with a reason for visit of Acute On Chronic Respiratory Failure With Hypoxia. Events since last encounter Denies c/o. Not safe for DC home per PT. S/p bx of liver mets 3 days ago. pathology pending. Constitutional: Denies: Chills, Fever, Night Sweats Pulmonary: Reports: Dyspnea, Cough Cardiovascular: Denies: Chest Pain, Palpitations, Orthopnea, Paroxysmal Noc. Dyspnea, Lt Headedness Gastrointestinal: Denies: Nausea, Vomiting, Abdominal Pain, Diarrhea, Constipation Genitourinary: Denies: Dysuria, Frequency, Incontinence, Retention Objective Physical Examination General Exam: Positive: Alert, Cooperative, No Acute Distress ENT Exam: Positive: Atraumatic, Mucous membr. moist/pink Chest Exam: Positive: Rhonchi, Wheezing, Diminished Heart Exam: Positive: Rate Normal, Regular Rhythm, Normal S1, Normal S2 Abdomen Exam: Positive: Normal bowel sounds, Soft Extremity Exam: Negative: Edema Skin Exam: Positive: Nl turgor and temperature Neuro Exam: Positive: Normal Speech Psych Exam: Positive: Mental status NL, Mood NL, Oriented x 3 Assessment /Plan Problems (1) Left upper lobe pneumonia Status: Acute Response to Treatment: Stable Problem Text: 05/07/17: will ad don CPT today to assist clearing secretions. WBC remains elevated at 21,000. 05/06: vanc/levaquin day 5. MRSA and Klebsiella PNA on cx. Cont to have elevated white count, which may be secondary to neoplastic syndrome. - consider d/c with home health abx 05/05/17: Levaquin 750 mg po q 48 hrs and vancomycin for tx of kleb PNA and MRSA on sputum cx. s/p Pulm consult and bx. Cont to have elevated white count despite tx, which may be secondary to neoplastic syndrome. Cx and sensitivities indicate current regiment should be effective. Prev Bcx with propionibacteria acnes likely skin contaminate and repeat cx negative. - cont vanc/levaquin 05/04/17: Levaquin 750 mg po q 48 hrs and vancomycin for tx of kleb PNA and MRSA on sputum cx. s/p Pulm consult and bx. -Added Q4H duonebs and acapella 05/03/17: Levaquin 750 mg po q 48 hrs. s/p Pulm consult. 05/02 -- restarted antibiotics, and discussed with pulm. (Pulm consult placed.) Maintaining current prednisone dosing, after discussion with Dr. Jon. Worsening leukocytosis secondary to infection or steroids. 05/01 -- finished a week of levaquin and vancomycin. DCed antibiotics. WBCs increasing, though patient is on Solumedrol. Decreased steroids. No change in oxygen needs, and CXR yesterday improved. 04/26 given ? liver mets-check liver US, WBC 13.6 (10.8), add levofloxacin given h /o Pseudomonas and 04/24 SCX c K. pneumonia (if develops rash, change to meropenem ) 04/24 HCAP with recent hospitalization in February for similar symptoms. Sputum culture in February was positive for pseudomonas. 04/24 SCX moderate MRSA/few K. pneumoniae 03/05/17 SCX few P. aeruginosa 04/25 CT chest: 1. Extensive hilar adenopathy with large nodes up to 2.1 cm subcarinal and precarinal region with 18 mm AP window nodes. Other large nodes prevascular space, right paratracheal region and all of these suspicious for malignancy. Some nodes surround the left upper lobe bronchus have occluded since the previous study. Extensive consolidation in the left upper lobe and lingula are related to post obstructive pneumonia. Small effusion and new multiple pleural based and parenchymal nodular densities or nodular infiltrates in the left lower lobe, suspicious for malignancy. 2. Chronic fibrotic changes and honeycombing in the posterior right upper lobe and anterior right upper lobe paramediastinal region stable. 3. No cardiomegaly, pericardial thickening or effusion. 4. Suspected liver metastatic lesions inferiorly in the right hepatic lobe. Unreviewed 03/01/17 CT chest: Severe upper lobe predominant centrilobular and paracentral emphysema is seen. 2. There are increased interstitial lung markings with honeycombing at lung bases compatible with pulmonary fibrosis. 3. Since the prior study, there is resolution of confluent markings in the superior segment of right lower lobe. 4. New confluent markings with areas of consolidation to the lingula. This is most compatible with pneumonia. However follow up is recommended to document resolution. 5. Calcified gallstone is again seen. (2) Hyponatremia syndrome Status: Acute Problem Text: 05/06/17: 126 today. 1200 ml fluid restriction. NS @ 50 ml per hour started yesterday. monitor. 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 Sodium prev stable, now dropping. - start NS at 50 mls/hr (3) Liver metastases Status: Acute Problem Text: 05/04/17: s/p liver bx. Discussed that he likely has metastatic lung CA. Pt indicates he wishes to pursue all available options if this is confirmed. Path still pending. 05/04/17: s/p liver bx. Discussed that he likely has metastatic lung CA. Pt indicates he wishes to pursue all available options if this is confirmed. 05/03/17: liver bx today in IR. 05/02 -- plan liver biopsy tomorrow (5 days off of Plavix.) 04/30 -- We are trying to get a liver biopsy scheduled prior to discharge. He wished to discuss cancer treatment and I was clear with him that although imaging is very suggestive of cancer, we needed at least biopsy and perhaps other procedures to determine the diagnosis and stage. He will follow up with Dr. Singh, and perhaps Heme/Onc, as an outpatient. 04/29 - Will order liver bx Liver ultrasound c/w metastases; lung is the most likely primary. Consider liver biopsy prior to discharge. (4) Acute on chronic respiratory failure with hypoxia Problem Text: 05/05/17: Stable, chronic SOB, likely metastatic lung CA 05/04/17: patient feels breathing is back to baseline. Increased O2 need upon admission, likely due to HCAP - see above (5) COPD (chronic obstructive pulmonary disease) Status: Chronic Problem Text: 05/04: now on pred 40 mg daily. Cont to have SOB. Q4H nebs ordered (6) Oxygen dependent Status: Chronic Problem Text: On 2 L/min at home (7) CKD (chronic kidney disease) stage 3, GFR 30-59 ml/min Status: Chronic Response to Treatment: Improving Problem Text: Stable (8) Systolic CHF Status: Chronic Response to Treatment: Stable Problem Text: No evidence of volume overload at present. not not diuretic rx baseline Plan/VTE VTE Prophylaxis Ordered?: Yes (Heparin) VS, I&O, 24H, Fishbone Vital Signs/I&O Vital Signs Date Time Temp Pulse Resp B/P (MAP) Pulse Ox O2 Delivery O2 Flow Rate FiO2 8/14/17 06:00 97.1 68 20 131/73 (92) 95 Nasal Cannula 2.0 I&O- Last 24 Hours up to 6 AM 05/06/17 06:00 Intake Total 1975 ml Output Total 1100 ml Balance 875 ml Laboratory Data 24H LABS Laboratory Tests 2 05/06/17 05:50: Anion Gap 9, Glomerular Filtration Rate > 60.0, Blood Urea Nitrogen 21H, Creatinine 0.75, Sodium Level 126L, Potassium Level 4.6, Chloride Level 91L, Carbon Dioxide Level 26, Calcium Level 8.3L, Aspartate Amino Transf (AST/SGOT) 36, Alanine Aminotransferase (ALT/SGPT) 37, Alkaline Phosphatase 81, Total Bilirubin 0.3, Total Protein 5.9L, Albumin 2.1L, Albumin/Globulin Ratio 0.55L CBC/BMP Laboratory Tests 05/06/17 05:50 Red Blood Count 4.58, Mean Corpuscular Volume 83.3, Mean Corpuscular Hemoglobin 28.7, Mean Corpuscular Hemoglobin Concent 34.4, Red Cell Distribution Width 13.7 , Calcium Level 8.3 L, Aspartate Amino Transf (AST/SGOT) 36, Alanine Aminotransferase (ALT/SGPT) 37, Alkaline Phosphatase 81, Total Bilirubin 0.3, Total Protein 5.9 L, Albumin 2.1 L Microbiology Microbiology 05/02/17 Blood Culture - Preliminary, Resulted No Growth after 72 hours. All specime... 05/02/17 Blood Culture - Preliminary, Resulted No Growth after 72 hours. All specime... Attending Note Attending Note FNA negative pathology. Will need to re-attempt liver biopsy if patient is willing. Jannet Barrow May 06, 2017 07:24 Shan Gonzalez MD May 06, 2017 15:43
[2017-05-06] MEDS: IPRATROPIUM 0.5MG/ALBUTEROL 2.5MG INH SOL UD 3ML (DUONEB)(J7620) NEB SCH ×4 (08:00→20:58)
[2017-05-06] MEDS: NS 1,000 ML IV SCH (08:00)
[2017-05-06] MEDS: ASPIRIN 81 MG ENTERIC TAB PO SCH (08:25)
[2017-05-06] MEDS: VANCOMYCIN HCL 1,000 MG, VIAL MATE ADAPTER 1 EACH in D5W 250 ML IV SCH (08:25)
[2017-05-06] MEDS: LevoFLOXacin 750 MG TABLET PO SCH (08:26)
[2017-05-06] MEDS: CYANOCOBALAMIN 500 MCG TAB PO SCH (08:26)
[2017-05-06] MEDS: MAGNESIUM OXIDE 400 MG TAB (MAG-OX) PO SCH (08:26)
[2017-05-06] MEDS: PANTOPRAZOLE 40MG TAB (PROTONIX) PO SCH (08:26)
[2017-05-06] MEDS: predniSONE 20 MG TAB PO SCH (08:26)
[2017-05-06] MEDS: FERROUS SULFATE 325MG TAB PO SCH ×2 (08:26→20:06)
[2017-05-06] MEDS: POTASSIUM CHLORIDE 10 MEQ SR TABLET PO SCH (08:26)
[2017-05-06] MEDS: DOCUSATE SODIUM 100 MG CAP PO SCH ×2 (08:26→20:07)
[2017-05-06] MEDS: GABAPENTIN 100 MG CAP PO SCH ×3 (08:26→20:07)
[2017-05-06] MEDS: TIOTROPIUM INHALER/CAPSULE (SPIRIVA) INH SCH (08:35)
[2017-05-06] MEDS: BUDESONIDE 0.5 MG/2 ML INHALATION SUSPENSION INH SCH ×2 (08:35→20:56)
[2017-05-06] MEDS: SYMBICORT 160/4.5MCG INHALER 6GM INH SCH ×2 (08:35→20:56)
[2017-05-06 14:00] VITALS: BP 115/56
[2017-05-06 22:00] VITALS: BP 126/80
[2017-05-07] MEDS: SYMBICORT 160/4.5MCG INHALER 6GM INH SCH ×2 (00:45→07:41)
[2017-05-07] MEDS: VANCOMYCIN HCL 1,000 MG, VIAL MATE ADAPTER 1 EACH in D5W 250 ML IV SCH (01:57)
[2017-05-07] MEDS: HEPARIN SOD (PORCINE) 5000 UNITS/ML VIAL SC SCH ×3 (05:08→20:34)
[2017-05-07 05:09] VITALS: BP 125/68
[2017-05-07] MEDS: ALBUTEROL SULFATE 2.5 MG/0.5 ML INH NEB SOLN NEB PRN ×3 (05:20→15:02)
[2017-05-07 06:00] VITALS: BP 116/64
[2017-05-07] MEDS: NS 1,000 ML IV SCH (06:17)
[2017-05-07 06:38] LABS: MEAN CORPUSCULAR HEMOGLOBIN 28.7 pg (27.0-33.0); MEAN CORPUSCULAR HGB CONC 33.9 g/dl (32.0-36.5); MEAN CORPUSCULAR VOLUME 84.7 fl (80.0-96.0); PLATELET COUNT, AUTOMATED 250 k/mm3 (150-450); RED CELL DISTRIBUTION WIDTH 14.1 % (11.5-14.5)
[2017-05-07 07:05] LABS: ALBUMIN/GLOBULIN RATIO 0.51 (1.00-1.93); ALKALINE PHOSPHATASE 73 U/L (45-117); ALT/SGPT 29 U/L (12-78); ANION GAP 10 MEQ/L (8-16); AST/SGOT 38 U/L (15-37); BILIRUBIN,TOTAL 0.5 MG/DL (0.2-1.0); BLOOD UREA NITROGEN 16 MG/DL (7-18); CARBON DIOXIDE LEVEL 25 MEQ/L (21-32); CHLORIDE LEVEL 88 MEQ/L (98-107); CREATININE FOR GFR 0.61 MG/DL (0.70-1.30); GLOMERULAR FILTRATION RATE > 60.0 (>42); GLUCOSE, FASTING 79 MG/DL (83-110); POTASSIUM SERUM 4.4 MEQ/L (3.5-5.1); SODIUM LEVEL 123 MEQ/L (136-145); TOTAL PROTEIN 5.9 GM/DL (6.4-8.2)
[2017-05-07] MEDS: TIOTROPIUM INHALER/CAPSULE (SPIRIVA) INH SCH (07:41)
[2017-05-07] MEDS: BUDESONIDE 0.5 MG/2 ML INHALATION SUSPENSION INH SCH ×2 (07:41→20:25)
[2017-05-07] MEDS: IPRATROPIUM 0.5MG/ALBUTEROL 2.5MG INH SOL UD 3ML (DUONEB)(J7620) NEB SCH ×4 (07:43→20:25)
[2017-05-07] MEDS ORDERED: methylPREDNISolone INJ 125 MG/2 ML VIAL (J2930) IV ONE (09:00)
[2017-05-07] MEDS ORDERED: FUROSEMIDE 40 MG/4 ML VIAL (J1940) IV ONE (09:00)
[2017-05-07 09:04] LABS: BANDS 3 % (< 11); EOSINOPHILS 1 % (0-5)
--- NOTE | 2017-05-07 09:05 | IPNPDOC ---
Subjective Date Seen The patient was seen on 05/07/17. Subjective Chief Complaint/HPI The patient is a 76-year-old male admitted with a reason for visit of Acute On Chronic Respiratory Failure With Hypoxia. Events since last encounter Worsening SOB with rhonchi this am. Afebrile. Constitutional: Denies: Fever Pulmonary: Reports: Dyspnea, Cough Cardiovascular: Denies: Chest Pain, Palpitations, Orthopnea, Paroxysmal Noc. Dyspnea, Lt Headedness Gastrointestinal: Denies: Nausea, Vomiting, Abdominal Pain, Diarrhea, Constipation Genitourinary: Denies: Dysuria, Frequency, Incontinence, Retention Psych: Reports: Mood Normal, Denies: Depression, Memory Issues Objective Physical Examination General Exam: Positive: Alert, Cooperative, Moderate Distress ENT Exam: Positive: Atraumatic, Mucous membr. moist/pink Chest Exam: Positive: Rhonchi, Wheezing, Diminished Heart Exam: Positive: Rate Normal, Regular Rhythm, Normal S1, Normal S2 Abdomen Exam: Positive: Normal bowel sounds, Soft Extremity Exam: Negative: Edema Skin Exam: Positive: Nl turgor and temperature Neuro Exam: Positive: Normal Speech Psych Exam: Positive: Mental status NL, Mood NL, Oriented x 3 Assessment /Plan Problems (1) Left upper lobe pneumonia Status: Acute Response to Treatment: Stable Problem Text: 05/07/17: STAT portable CXR, ABG, suction for secretions. Solumedrol 125 mg IV x 1. Patient verbalizes he does not wish to be intubated. Agreeable to CPR. Will notify Pulmonology. Diuretic 40mg IV lasix also ordered. Also has completed 2 weeks of Levaquin and Vanco. will stop. 05/06: vanc/levaquin day 5. MRSA and Klebsiella PNA on cx. Cont to have elevated white count, which may be secondary to neoplastic syndrome. - consider d/c with home health abx 05/05/17: Levaquin 750 mg po q 48 hrs and vancomycin for tx of kleb PNA and MRSA on sputum cx. s/p Pulm consult and bx. Cont to have elevated white count despite tx, which may be secondary to neoplastic syndrome. Cx and sensitivities indicate current regiment should be effective. Prev Bcx with propionibacteria acnes likely skin contaminate and repeat cx negative. - cont vanc/levaquin 05/04/17: Levaquin 750 mg po q 48 hrs and vancomycin for tx of kleb PNA and MRSA on sputum cx. s/p Pulm consult and bx. -Added Q4H duonebs and acapella 05/03/17: Levaquin 750 mg po q 48 hrs. s/p Pulm consult. 05/02 -- restarted antibiotics, and discussed with pulm. (Pulm consult placed.) Maintaining current prednisone dosing, after discussion with Dr. Jon. Worsening leukocytosis secondary to infection or steroids. 05/01 -- finished a week of levaquin and vancomycin. DCed antibiotics. WBCs increasing, though patient is on Solumedrol. Decreased steroids. No change in oxygen needs, and CXR yesterday improved. 04/26 given ? liver mets-check liver US, WBC 13.6 (10.8), add levofloxacin given h /o Pseudomonas and 04/24 SCX c K. pneumonia (if develops rash, change to meropenem ) 04/24 HCAP with recent hospitalization in February for similar symptoms. Sputum culture in February was positive for pseudomonas. 04/24 SCX moderate MRSA/few K. pneumoniae 03/05/17 SCX few P. aeruginosa 04/25 CT chest: 1. Extensive hilar adenopathy with large nodes up to 2.1 cm subcarinal and precarinal region with 18 mm AP window nodes. Other large nodes prevascular space, right paratracheal region and all of these suspicious for malignancy. Some nodes surround the left upper lobe bronchus have occluded since the previous study. Extensive consolidation in the left upper lobe and lingula are related to post obstructive pneumonia. Small effusion and new multiple pleural based and parenchymal nodular densities or nodular infiltrates in the left lower lobe, suspicious for malignancy. 2. Chronic fibrotic changes and honeycombing in the posterior right upper lobe and anterior right upper lobe paramediastinal region stable. 3. No cardiomegaly, pericardial thickening or effusion. 4. Suspected liver metastatic lesions inferiorly in the right hepatic lobe. Unreviewed 03/01/17 CT chest: Severe upper lobe predominant centrilobular and paracentral emphysema is seen. 2. There are increased interstitial lung markings with honeycombing at lung bases compatible with pulmonary fibrosis. 3. Since the prior study, there is resolution of confluent markings in the superior segment of right lower lobe. 4. New confluent markings with areas of consolidation to the lingula. This is most compatible with pneumonia. However follow up is recommended to document resolution. 5. Calcified gallstone is again seen. (2) Hyponatremia syndrome Status: Acute Problem Text: 05/07/17 Na down to 123. suspect fluid expansion associated with CHF will stop IV fluids start diuretic Rx. 05/06/17: 126 today. 1200 ml fluid restriction. NS @ 50 ml per hour started yesterday. monitor. 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 Sodium prev stable, now dropping. - start NS at 50 mls/hr (3) Liver metastases Status: Acute Problem Text: 05/07/17: will need repeat attempt since 1st Bx only returned normal liver parenchyma. Will need to wait until tomorrow due to today's respiratory crisis. 05/04/17: s/p liver bx. Discussed that he likely has metastatic lung CA. Pt indicates he wishes to pursue all available options if this is confirmed. Path still pending. 05/04/17: s/p liver bx. Discussed that he likely has metastatic lung CA. Pt indicates he wishes to pursue all available options if this is confirmed. 05/03/17: liver bx today in IR. 05/02 -- plan liver biopsy tomorrow (5 days off of Plavix.) 04/30 -- We are trying to get a liver biopsy scheduled prior to discharge. He wished to discuss cancer treatment and I was clear with him that although imaging is very suggestive of cancer, we needed at least biopsy and perhaps other procedures to determine the diagnosis and stage. He will follow up with Dr. Singh, and perhaps Heme/Onc, as an outpatient. 04/29 - Will order liver bx Liver ultrasound c/w metastases; lung is the most likely primary. Consider liver biopsy prior to discharge. (4) Acute on chronic respiratory failure with hypoxia Problem Text: 05/05/17: Stable, chronic SOB, likely metastatic lung CA 05/04/17: patient feels breathing is back to baseline. Increased O2 need upon admission, likely due to HCAP - see above (5) COPD (chronic obstructive pulmonary disease) Status: Chronic Problem Text: 05/04: now on pred 40 mg daily. Cont to have SOB. Q4H nebs ordered (6) Oxygen dependent Status: Chronic Problem Text: On 2 L/min at home (7) CKD (chronic kidney disease) stage 3, GFR 30-59 ml/min Status: Chronic Response to Treatment: Improving Problem Text: Stable (8) Systolic CHF Status: Chronic Response to Treatment: Stable Problem Text: Fluid overload suspected today. Iv diuretic ordered and he has improved this afternoon compared to status late morning. not not diuretic rx baseline Plan/VTE VTE Prophylaxis Ordered?: Yes (Heparin) VS, I&O, 24H, Fishbone Vital Signs/I&O Vital Signs Date Time Temp Pulse Resp B/P (MAP) Pulse Ox O2 Delivery O2 Flow Rate FiO2 05/07/17 06:00 97.8 71 22 116/64 (81) 93 Nasal Cannula 3.0 I&O- Last 24 Hours up to 6 AM 05/07/17 06:00 Intake Total 2455 ml Output Total 1100 ml Balance 1355 ml Laboratory Data 24H LABS Laboratory Tests 2 05/07/17 06:15: Anion Gap 10, Glomerular Filtration Rate > 60.0, Blood Urea Nitrogen 16, Creatinine 0.61L, Sodium Level 123L, Potassium Level 4.4, Chloride Level 88L, Carbon Dioxide Level 25, Calcium Level 8.0L, Aspartate Amino Transf (AST/SGOT) 38H, Alanine Aminotransferase (ALT/SGPT) 29, Alkaline Phosphatase 73, Total Bilirubin 0.5#, Total Protein 5.9L, Albumin 2.0L, Albumin/Globulin Ratio 0.51L CBC/BMP Laboratory Tests 05/07/17 06:15 Red Blood Count 4.63, Mean Corpuscular Volume 84.7, Mean Corpuscular Hemoglobin 28.7, Mean Corpuscular Hemoglobin Concent 33.9, Red Cell Distribution Width 14.1 , Calcium Level 8.0 L, Aspartate Amino Transf (AST/SGOT) 38 H, Alanine Aminotransferase (ALT/SGPT) 29, Alkaline Phosphatase 73, Total Bilirubin 0.5 #, Total Protein 5.9 L, Albumin 2.0 L Microbiology Microbiology 05/02/17 Blood Culture - Final, Complete NO GROWTH AFTER 5 DAYS 05/02/17 Blood Culture - Final, Complete NO GROWTH AFTER 5 DAYS 05/06/17 Gram Stain, Received Pending 05/06/17 Sputum Culture, Received Pending Attending Note Attending Note compared to morning he is significantly improved. moved to pcu for closer monitoring of respiratory/fluid status. Jannet BarrowP May 07, 2017 09:05 Shan Gonzalez MD May 07, 2017 14:24
[2017-05-07 09:28] LABS: ABG BASE EXCESS 2.5 (-2.0-2.0); ABG HCO3 25.9 MEQ/L (22.0-26.0); ABG PARTIAL PRESSURE CO2 36.3 mmHg (35.0-45.0); ABG PARTIAL PRESSURE O2 60.9 mmHg (75.0-100.0); ABG STANDARD HCO3 26.6 MEQ/L (22.0-26.0); ABG TOTAL CO2 27.1 MEQ/L (23.0-31.0); ABG pH (ARTERIAL) 7.472 UNITS (7.350-7.450)
[2017-05-07] MEDS: DOCUSATE SODIUM 100 MG CAP PO SCH ×2 (09:34→20:34)
[2017-05-07] MEDS: MAGNESIUM OXIDE 400 MG TAB (MAG-OX) PO SCH (09:34)
[2017-05-07] MEDS: POTASSIUM CHLORIDE 10 MEQ SR TABLET PO SCH (09:34)
[2017-05-07] MEDS: CYANOCOBALAMIN 500 MCG TAB PO SCH (09:34)
[2017-05-07] MEDS: PANTOPRAZOLE 40MG TAB (PROTONIX) PO SCH (09:34)
[2017-05-07] MEDS: ASPIRIN 81 MG ENTERIC TAB PO SCH (09:35)
[2017-05-07] MEDS: FERROUS SULFATE 325MG TAB PO SCH ×2 (09:35→20:34)
[2017-05-07] MEDS: GABAPENTIN 100 MG CAP PO SCH ×3 (09:35→20:34)
--- NOTE | 2017-05-07 09:50 | REP ---
PORTABLE CHEST: AP portable view of the chest is performed and compared to prior study of 04/30/2017. There is diffuse left lung infiltrate which has worsened since the prior study. There are underlying chronic interstitial changes in the right lung with some new mild patchy infiltrate in the right lung base. The heart size was not well evaluated. Left heart border is obscured. There is calcification of the thoracic aorta. IMPRESSION: Increased infiltrate diffusely in the left lung. Mild right basilar infiltrate. Signed by Evan Newman MD 05/07/2017 12:38 P
[2017-05-07] MEDS: predniSONE 20 MG TAB PO SCH (10:02)
[2017-05-07 12:45] VITALS: BP 119/94
[2017-05-07 13:41] LABS: DIFF SLIDE NUMBER 29
[2017-05-07 14:09] LABS: ANION GAP 11 MEQ/L (8-16); BLOOD UREA NITROGEN 16 MG/DL (7-18); CALCIUM LEVEL 9.1 MG/DL (8.8-10.2); CARBON DIOXIDE LEVEL 26 MEQ/L (21-32); CHLORIDE LEVEL 86 MEQ/L (98-107); CREATININE FOR GFR 0.74 MG/DL (0.70-1.30); GLOMERULAR FILTRATION RATE > 60.0 (>42); GLUCOSE, FASTING 111 MG/DL (83-110); POTASSIUM SERUM 4.5 MEQ/L (3.5-5.1); SODIUM LEVEL 123 MEQ/L (136-145)
[2017-05-07 16:00] VITALS: BP 100/55
[2017-05-07] MEDS: FUROSEMIDE 40 MG/4 ML VIAL (J1940) IV SCH (16:21)
[2017-05-07 18:14] LABS: ANION GAP 9 MEQ/L (8-16); BLOOD UREA NITROGEN 19 MG/DL (7-18); CALCIUM LEVEL 8.9 MG/DL (8.8-10.2); CARBON DIOXIDE LEVEL 29 MEQ/L (21-32); CHLORIDE LEVEL 86 MEQ/L (98-107); CREATININE FOR GFR 1.05 MG/DL (0.70-1.30); GLOMERULAR FILTRATION RATE > 60.0 (>42); GLUCOSE, FASTING 158 MG/DL (83-110); POTASSIUM SERUM 4.4 MEQ/L (3.5-5.1); SODIUM LEVEL 124 MEQ/L (136-145)
[2017-05-07 20:08] VITALS: BP 106/63
[2017-05-08] VITALS (10 sets, daily range): BP systolic 106–119; BP diastolic 55–70
[2017-05-08 00:50] LABS: ANION GAP 8 MEQ/L (8-16); BLOOD UREA NITROGEN 27 MG/DL (7-18); CARBON DIOXIDE LEVEL 29 MEQ/L (21-32); CHLORIDE LEVEL 88 MEQ/L (98-107); CREATININE FOR GFR 0.92 MG/DL (0.70-1.30); GLOMERULAR FILTRATION RATE > 60.0 (>42); GLUCOSE, FASTING 133 MG/DL (83-110); POTASSIUM SERUM 4.1 MEQ/L (3.5-5.1); SODIUM LEVEL 125 MEQ/L (136-145)
[2017-05-08] MEDS: ACETAMINOPHEN TAB 650MG DOSE (2X325MG) PO PRN ×2 (02:48→21:59)
[2017-05-08 05:51] LABS: MEAN CORPUSCULAR HEMOGLOBIN 28.6 pg (27.0-33.0); MEAN CORPUSCULAR HGB CONC 34.7 g/dl (32.0-36.5); MEAN CORPUSCULAR VOLUME 82.4 fl (80.0-96.0); RED CELL DISTRIBUTION WIDTH 13.7 % (11.5-14.5); WHITE BLOOD COUNT 24.3 K/mm3 (4.0-10.0)
[2017-05-08 06:13] LABS: ALBUMIN 1.8 GM/DL (3.2-5.2); ALBUMIN/GLOBULIN RATIO 0.43 (1.00-1.93); ALKALINE PHOSPHATASE 76 U/L (45-117); ALT/SGPT 26 U/L (12-78); ANION GAP 11 MEQ/L (8-16); AST/SGOT 31 U/L (15-37); BILIRUBIN,TOTAL 0.4 MG/DL (0.2-1.0); BLOOD UREA NITROGEN 29 MG/DL (7-18); CALCIUM LEVEL 8.6 MG/DL (8.8-10.2); CARBON DIOXIDE LEVEL 26 MEQ/L (21-32); CHLORIDE LEVEL 90 MEQ/L (98-107); CREATININE FOR GFR 0.79 MG/DL (0.70-1.30); GLOMERULAR FILTRATION RATE > 60.0 (>42); GLUCOSE, FASTING 103 MG/DL (83-110); POTASSIUM SERUM 4.2 MEQ/L (3.5-5.1); SODIUM LEVEL 127 MEQ/L (136-145)
[2017-05-08] MEDS: IPRATROPIUM 0.5MG/ALBUTEROL 2.5MG INH SOL UD 3ML (DUONEB)(J7620) NEB SCH ×4 (07:15→19:54)
[2017-05-08] MEDS: TIOTROPIUM INHALER/CAPSULE (SPIRIVA) INH SCH (07:15)
[2017-05-08] MEDS: BUDESONIDE 0.5 MG/2 ML INHALATION SUSPENSION INH SCH (07:16)
[2017-05-08] MEDS: SYMBICORT 160/4.5MCG INHALER 6GM INH SCH ×2 (07:16→22:22)
[2017-05-08] MEDS ORDERED: SLF 3 ML SYR IV PRN (09:30)
[2017-05-08] MEDS: DOCUSATE SODIUM 100 MG CAP PO SCH ×2 (09:50→21:58)
[2017-05-08] MEDS: MAGNESIUM OXIDE 400 MG TAB (MAG-OX) PO SCH (09:51)
[2017-05-08] MEDS: predniSONE 20 MG TAB PO SCH (09:51)
[2017-05-08] MEDS: FERROUS SULFATE 325MG TAB PO SCH ×2 (09:51→21:58)
[2017-05-08] MEDS: POTASSIUM CHLORIDE 10 MEQ SR TABLET PO SCH (09:53)
[2017-05-08] MEDS: GABAPENTIN 100 MG CAP PO SCH ×3 (09:54→21:58)
[2017-05-08] MEDS: PANTOPRAZOLE 40MG TAB (PROTONIX) PO SCH (09:55)
[2017-05-08] MEDS: FUROSEMIDE 40 MG/4 ML VIAL (J1940) IV SCH (09:55)
[2017-05-08] MEDS: CYANOCOBALAMIN 500 MCG TAB PO SCH (09:55)
--- NOTE | 2017-05-08 11:14 | IPNPDOC ---
Subjective Date Seen The patient was seen on 05/08/17. Subjective Chief Complaint/HPI The patient is a 76-year-old male admitted with a reason for visit of Acute On Chronic Respiratory Failure With Hypoxia. Events since last encounter Improvement in respiratory symptoms since yesterday. Plan is for repeat liver bx today. General: Reports: Fatigue Constitutional: Reports: Weakness, Fatigue, Denies: Chills, Fever, Night Sweats ENT: Denies: Head Aches, Ear Pain, Dysphagia Pulmonary: Reports: Dyspnea, Denies: Cough Cardiovascular: Denies: Chest Pain, Palpitations, Orthopnea, Paroxysmal Noc. Dyspnea, Lt Headedness Gastrointestinal: Denies: Nausea, Vomiting, Abdominal Pain, Diarrhea, Constipation Neurological: Reports: Weakness Psych: Reports: Mood Normal, Denies: Depression, Memory Issues Objective Physical Examination General Exam: Positive: Alert, Cooperative, Moderate Distress ENT Exam: Positive: Atraumatic, Mucous membr. moist/pink Chest Exam: Positive: Rhonchi (LEFT lung), Wheezing, Diminished Heart Exam: Positive: Rate Normal, Regular Rhythm, Normal S1, Normal S2 Abdomen Exam: Positive: Normal bowel sounds, Soft Extremity Exam: Negative: Edema Skin Exam: Positive: Nl turgor and temperature Neuro Exam: Positive: Normal Speech Psych Exam: Positive: Mental status NL, Mood NL, Oriented x 3 Assessment /Plan Problems (1) Left upper lobe pneumonia Status: Acute Response to Treatment: Stable Problem Text: 05/08/17: progressing pneumonia. breathing treatments adjusted by pulmonology, Dr. Morrissey. Augmentin started by Dr. Morrissey. BNP was normal. Will reduce diuretics. Sodium better. 05/07/17: STAT portable CXR, ABG, suction for secretions. Solumedrol 125 mg IV x 1. Patient verbalizes he does not wish to be intubated. Agreeable to CPR. Will notify Pulmonology. Diuretic 40mg IV lasix also ordered. Also has completed 2 weeks of Levaquin and Vanco. will stop. 05/06: vanc/levaquin day 5. MRSA and Klebsiella PNA on cx. Cont to have elevated white count, which may be secondary to neoplastic syndrome. - consider d/c with home health abx 05/05/17: Levaquin 750 mg po q 48 hrs and vancomycin for tx of kleb PNA and MRSA on sputum cx. s/p Pulm consult and bx. Cont to have elevated white count despite tx, which may be secondary to neoplastic syndrome. Cx and sensitivities indicate current regiment should be effective. Prev Bcx with propionibacteria acnes likely skin contaminate and repeat cx negative. - cont vanc/levaquin 05/04/17: Levaquin 750 mg po q 48 hrs and vancomycin for tx of kleb PNA and MRSA on sputum cx. s/p Pulm consult and bx. -Added Q4H duonebs and acapella 05/03/17: Levaquin 750 mg po q 48 hrs. s/p Pulm consult. 05/02 -- restarted antibiotics, and discussed with pulm. (Pulm consult placed.) Maintaining current prednisone dosing, after discussion with Dr. Jon. Worsening leukocytosis secondary to infection or steroids. 05/01 -- finished a week of levaquin and vancomycin. DCed antibiotics. WBCs increasing, though patient is on Solumedrol. Decreased steroids. No change in oxygen needs, and CXR yesterday improved. 04/26 given ? liver mets-check liver US, WBC 13.6 (10.8), add levofloxacin given h /o Pseudomonas and 04/24 SCX c K. pneumonia (if develops rash, change to meropenem ) 04/24 HCAP with recent hospitalization in February for similar symptoms. Sputum culture in February was positive for pseudomonas. 04/24 SCX moderate MRSA/few K. pneumoniae 03/05/17 SCX few P. aeruginosa 04/25 CT chest: 1. Extensive hilar adenopathy with large nodes up to 2.1 cm subcarinal and precarinal region with 18 mm AP window nodes. Other large nodes prevascular space, right paratracheal region and all of these suspicious for malignancy. Some nodes surround the left upper lobe bronchus have occluded since the previous study. Extensive consolidation in the left upper lobe and lingula are related to post obstructive pneumonia. Small effusion and new multiple pleural based and parenchymal nodular densities or nodular infiltrates in the left lower lobe, suspicious for malignancy. 2. Chronic fibrotic changes and honeycombing in the posterior right upper lobe and anterior right upper lobe paramediastinal region stable. 3. No cardiomegaly, pericardial thickening or effusion. 4. Suspected liver metastatic lesions inferiorly in the right hepatic lobe. Unreviewed 03/01/17 CT chest: Severe upper lobe predominant centrilobular and paracentral emphysema is seen. 2. There are increased interstitial lung markings with honeycombing at lung bases compatible with pulmonary fibrosis. 3. Since the prior study, there is resolution of confluent markings in the superior segment of right lower lobe. 4. New confluent markings with areas of consolidation to the lingula. This is most compatible with pneumonia. However follow up is recommended to document resolution. 5. Calcified gallstone is again seen. (2) Hyponatremia syndrome Status: Acute Problem Text: 05/08/17: improved at 127 today. Monitor. 05/07/17 Na down to 123. suspect fluid expansion associated with CHF will stop IV fluids start diuretic Rx. 05/06/17: 126 today. 1200 ml fluid restriction. NS @ 50 ml per hour started yesterday. monitor. 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 Sodium prev stable, now dropping. - start NS at 50 mls/hr (3) Liver metastases Status: Acute Problem Text: 05/08/17: repeat bx today 05/07/17: will need repeat attempt since 1st Bx only returned normal liver parenchyma. Will need to wait until tomorrow due to today's respiratory crisis. 05/04/17: s/p liver bx. Discussed that he likely has metastatic lung CA. Pt indicates he wishes to pursue all available options if this is confirmed. Path still pending. 05/04/17: s/p liver bx. Discussed that he likely has metastatic lung CA. Pt indicates he wishes to pursue all available options if this is confirmed. 05/03/17: liver bx today in IR. 05/02 -- plan liver biopsy tomorrow (5 days off of Plavix.) 04/30 -- We are trying to get a liver biopsy scheduled prior to discharge. He wished to discuss cancer treatment and I was clear with him that although imaging is very suggestive of cancer, we needed at least biopsy and perhaps other procedures to determine the diagnosis and stage. He will follow up with Dr. Singh, and perhaps Heme/Onc, as an outpatient. 04/29 - Will order liver bx Liver ultrasound c/w metastases; lung is the most likely primary. Consider liver biopsy prior to discharge. (4) Acute on chronic respiratory failure with hypoxia Problem Text: 05/05/17: Stable, chronic SOB, likely metastatic lung CA 8/12/17: patient feels breathing is back to baseline. Increased O2 need upon admission, likely due to HCAP - see above (5) COPD (chronic obstructive pulmonary disease) Status: Chronic Problem Text: 05/04: now on pred 40 mg daily. Cont to have SOB. Q4H nebs ordered (6) Oxygen dependent Status: Chronic Problem Text: On 2 L/min at home (7) CKD (chronic kidney disease) stage 3, GFR 30-59 ml/min Status: Chronic Response to Treatment: Improving Problem Text: Stable (8) Systolic CHF Status: Chronic Response to Treatment: Stable Problem Text: 05/08/17. BNP negative, so will reduce diuretic intensity. 05/07/17: Fluid overload suspected today. Iv diuretic ordered and he has improved this afternoon compared to status late morning. not not diuretic rx baseline Plan/VTE VTE Prophylaxis Ordered?: Yes (Heparin) VS, I&O, 24H, Fishbone Vital Signs/I&O Vital Signs Date Time Temp Pulse Resp B/P (MAP) Pulse Ox O2 Delivery O2 Flow Rate FiO2 05/08/17 08:16 89 Nasal Cannula 6.0 05/08/17 08:00 97.5 84 19 107/59 (75) I&O- Last 24 Hours up to 6 AM 05/08/17 06:00 Intake Total 330 ml Output Total 1475 ml Balance -1145 ml Laboratory Data 24H LABS Laboratory Tests 2 05/07/17 12:18: Anion Gap 11, Glomerular Filtration Rate > 60.0, Blood Urea Nitrogen 16, Creatinine 0.74, Sodium Level 123L, Potassium Level 4.5, Chloride Level 86L, Carbon Dioxide Level 26, Calcium Level 9.1 05/07/17 14:22: B-Type Natriuretic Peptide 89.6 05/07/17 17:42: Anion Gap 9, Glomerular Filtration Rate > 60.0, Blood Urea Nitrogen 19H, Creatinine 1.05, Sodium Level 124L, Potassium Level 4.4, Chloride Level 86L, Carbon Dioxide Level 29, Calcium Level 8.9 05/08/17 00:24: Anion Gap 8, Glomerular Filtration Rate > 60.0, Blood Urea Nitrogen 27H, Creatinine 0.92, Sodium Level 125L, Potassium Level 4.1, Chloride Level 88L, Carbon Dioxide Level 29, Calcium Level 9.0 05/08/17 05:28: Anion Gap 11, Glomerular Filtration Rate > 60.0, Blood Urea Nitrogen 29H, Creatinine 0.79, Sodium Level 127L, Potassium Level 4.2, Chloride Level 90L, Carbon Dioxide Level 26, Calcium Level 8.6L, Aspartate Amino Transf (AST/SGOT) 31, Alanine Aminotransferase (ALT/SGPT) 26, Alkaline Phosphatase 76, Total Bilirubin 0.4, Total Protein 6.0L, Albumin 1.8L, Albumin/Globulin Ratio 0.43L CBC/BMP Laboratory Tests 05/07/17 12:18 Calcium Level 9.1 05/07/17 17:42 Calcium Level 8.9 05/08/17 00:24 Calcium Level 9.0 05/08/17 05:28 Calcium Level 8.6 L, Red Blood Count 4.58, Mean Corpuscular Volume 82.4, Mean Corpuscular Hemoglobin 28.6, Mean Corpuscular Hemoglobin Concent 34.7, Red Cell Distribution Width 13.7, Aspartate Amino Transf (AST/SGOT) 31, Alanine Aminotransferase (ALT/SGPT) 26, Alkaline Phosphatase 76, Total Bilirubin 0.4, Total Protein 6.0 L, Albumin 1.8 L Microbiology Microbiology 05/02/17 Blood Culture - Final, Complete NO GROWTH AFTER 5 DAYS 05/02/17 Blood Culture - Final, Complete NO GROWTH AFTER 5 DAYS 05/06/17 Gram Stain - Final, Resulted 05/06/17 Sputum Culture, Resulted Pending Jannet Barrow May 08, 2017 11:14 Shan Gonzalez MD May 08, 2017 14:20
[2017-05-08] MEDS ORDERED: LIDOCAINE 1% MDV 20ML VIAL As Ordered ONE (13:01)
[2017-05-08 13:13] LABS: ANION GAP 11 MEQ/L (8-16); BLOOD UREA NITROGEN 28 MG/DL (7-18); CALCIUM LEVEL 9.2 MG/DL (8.8-10.2); CARBON DIOXIDE LEVEL 27 MEQ/L (21-32); CHLORIDE LEVEL 90 MEQ/L (98-107); CREATININE FOR GFR 0.76 MG/DL (0.70-1.30); GLOMERULAR FILTRATION RATE > 60.0 (>42); GLUCOSE, FASTING 99 MG/DL (83-110); POTASSIUM SERUM 4.5 MEQ/L (3.5-5.1); SODIUM LEVEL 128 MEQ/L (136-145)
[2017-05-08] MEDS: SLF 3 ML SYR IV SCH ×2 (14:00→21:58)
[2017-05-08] MEDS: HEPARIN SOD (PORCINE) 5000 UNITS/ML VIAL SC SCH ×2 (14:20→21:58)
[2017-05-08] MEDS: AUGMENTIN 875 MG TAB PO SCH ×2 (14:20→21:57)
[2017-05-08] MEDS: ASPIRIN 81 MG ENTERIC TAB PO SCH (14:20)
--- NOTE | 2017-05-08 15:40 | REP ---
ULTRASOUND GUIDED LIVER BIOPSY: The procedure was performed by MERCEDEZ Willard under the direct supervision of Dr. Newman. The procedure along with its risks, benefits, and complications were discussed with the patient prior to the procedure. Informed consent was obtained both verbally and written. This was a repeat liver biopsy. The patient was identified in the ultrasound suite and placed in a supine position. Using real-time sonography, the lesion of interest was identified. An appropriate site was chosen. The area was marked, prepped and draped in the usual sterile fashion. A procedural "time-out" was performed to ensure that the correct patient, site and procedure were being performed. 13 mL of 1% Xylocaine were used for local anesthesia. A 20-gauge Temno biopsy device was advanced to the target area. A total of four biopsy specimens were obtained. Ultrasound imaging was obtained during the procedure to document needle placement for each pass. Specimens were placed in formalin and sent to the lab for evaluation. Results pending. Following the procedure the wound was cleansed and compressed. Followup ultrasonography showed no active hemorrhage or bleeding. The patient tolerated the procedure well and was discharged back to the floor. Reviewed by MERCEDEZ Serna 05/08/2017 03:47 PEdited and Signed by Evan Newman MD 05/08/2017 05:03 P
[2017-05-08 19:09] LABS: ANION GAP 13 MEQ/L (8-16); BLOOD UREA NITROGEN 32 MG/DL (7-18); CALCIUM LEVEL 8.9 MG/DL (8.8-10.2); CARBON DIOXIDE LEVEL 25 MEQ/L (21-32); CHLORIDE LEVEL 93 MEQ/L (98-107); CREATININE FOR GFR 1.19 MG/DL (0.70-1.30); GLUCOSE, FASTING 200 MG/DL (83-110); POTASSIUM SERUM 4.6 MEQ/L (3.5-5.1); SODIUM LEVEL 131 MEQ/L (136-145)
[2017-05-08 19:11] LABS: GLOMERULAR FILTRATION RATE > 60.0 (>42)
[2017-05-09] VITALS (7 sets, daily range): BP systolic 107–137; BP diastolic 55–74
[2017-05-09] MEDS: ALBUTEROL SULFATE 2.5 MG/0.5 ML INH NEB SOLN NEB PRN (00:02)
[2017-05-09] MEDS: ACETAMINOPHEN TAB 650MG DOSE (2X325MG) PO PRN (04:24)
[2017-05-09] MEDS: HEPARIN SOD (PORCINE) 5000 UNITS/ML VIAL SC SCH ×3 (05:59→22:20)
[2017-05-09] MEDS: SLF 3 ML SYR IV SCH ×3 (05:59→22:20)
[2017-05-09 06:11] LABS: MEAN CORPUSCULAR HEMOGLOBIN 28.8 pg (27.0-33.0); MEAN CORPUSCULAR HGB CONC 34.6 g/dl (32.0-36.5); MEAN CORPUSCULAR VOLUME 83.2 fl (80.0-96.0); RED CELL DISTRIBUTION WIDTH 14.1 % (11.5-14.5); WHITE BLOOD COUNT 20.7 K/mm3 (4.0-10.0)
[2017-05-09 06:19] LABS: ALBUMIN 1.7 GM/DL (3.2-5.2); ALBUMIN/GLOBULIN RATIO 0.38 (1.00-1.93); ALKALINE PHOSPHATASE 76 U/L (45-117); ALT/SGPT 31 U/L (12-78); ANION GAP 9 MEQ/L (8-16); AST/SGOT 37 U/L (15-37); BILIRUBIN,TOTAL 0.4 MG/DL (0.2-1.0); BLOOD UREA NITROGEN 28 MG/DL (7-18); CALCIUM LEVEL 8.8 MG/DL (8.8-10.2); CARBON DIOXIDE LEVEL 27 MEQ/L (21-32); CHLORIDE LEVEL 95 MEQ/L (98-107); CREATININE FOR GFR 0.79 MG/DL (0.70-1.30); GLOMERULAR FILTRATION RATE > 60.0 (>42); GLUCOSE, FASTING 111 MG/DL (83-110); POTASSIUM SERUM 4.4 MEQ/L (3.5-5.1); SODIUM LEVEL 131 MEQ/L (136-145); TOTAL PROTEIN 6.2 GM/DL (6.4-8.2)
[2017-05-09] MEDS: NORCO, ANEXSIA 5/325MG TABLET (HYDROcodone/ACETAMINOPHEN) PO PRN ×2 (06:52→15:38)
[2017-05-09] MEDS: SYMBICORT 160/4.5MCG INHALER 6GM INH SCH ×2 (07:35→21:00)
[2017-05-09] MEDS: IPRATROPIUM 0.5MG/ALBUTEROL 2.5MG INH SOL UD 3ML (DUONEB)(J7620) NEB SCH ×4 (07:35→20:01)
[2017-05-09] MEDS: TIOTROPIUM INHALER/CAPSULE (SPIRIVA) INH SCH (07:35)
[2017-05-09] MEDS: BUDESONIDE 0.5 MG/2 ML INHALATION SUSPENSION INH SCH ×2 (07:36→20:01)
[2017-05-09] MEDS: FUROSEMIDE 40 MG TAB PO SCH (08:17)
[2017-05-09] MEDS: PANTOPRAZOLE 40MG TAB (PROTONIX) PO SCH (08:17)
[2017-05-09] MEDS: GABAPENTIN 100 MG CAP PO SCH ×3 (08:17→22:20)
[2017-05-09] MEDS: MAGNESIUM OXIDE 400 MG TAB (MAG-OX) PO SCH (08:17)
[2017-05-09] MEDS: AUGMENTIN 875 MG TAB PO SCH ×2 (08:17→22:20)
[2017-05-09] MEDS: FERROUS SULFATE 325MG TAB PO SCH ×2 (08:18→22:20)
[2017-05-09] MEDS: DOCUSATE SODIUM 100 MG CAP PO SCH ×2 (08:18→22:20)
[2017-05-09] MEDS: POTASSIUM CHLORIDE 10 MEQ SR TABLET PO SCH (08:18)
[2017-05-09] MEDS: ASPIRIN 81 MG ENTERIC TAB PO SCH (08:18)
[2017-05-09] MEDS: predniSONE 20 MG TAB PO SCH (08:18)
[2017-05-09] MEDS: CYANOCOBALAMIN 500 MCG TAB PO SCH (08:18)
--- NOTE | 2017-05-09 11:30 | IPNPDOC ---
Subjective Date Seen The patient was seen on 05/09/17. Subjective Chief Complaint/HPI The patient is a 76-year-old male admitted with a reason for visit of Acute On Chronic Respiratory Failure With Hypoxia. Events since last encounter Continues to improve in breathing symptoms. Repeat liver lesion bx completed yesterday 05/08/17 Constitutional: Denies: Chills, Fever, Night Sweats ENT: Denies: Head Aches, Ear Pain, Dysphagia Skin: Denies: Rash, Lesions, Breakdown Pulmonary: Reports: Dyspnea, Cough Cardiovascular: Denies: Chest Pain, Palpitations Objective Physical Examination General Exam: Positive: Alert, Cooperative, Moderate Distress ENT Exam: Positive: Atraumatic, Mucous membr. moist/pink Chest Exam: Positive: Rhonchi (Left lung), Wheezing, Diminished Heart Exam: Positive: Rate Normal, Regular Rhythm, Normal S1, Normal S2 Abdomen Exam: Positive: Normal bowel sounds, Soft Extremity Exam: Negative: Edema Skin Exam: Positive: Nl turgor and temperature Neuro Exam: Positive: Normal Speech Psych Exam: Positive: Mental status NL, Mood NL, Oriented x 3 Assessment /Plan Problems (1) Left upper lobe pneumonia Status: Acute Response to Treatment: Stable Problem Text: 05/09/17 : no change 05/08/17: progressing pneumonia. breathing treatments adjusted by pulmonology, Dr. Morrissey. Augmentin started by Dr. Morrissey. BNP was normal. Will reduce diuretics. Sodium better. 05/07/17: STAT portable CXR, ABG, suction for secretions. Solumedrol 125 mg IV x 1. Patient verbalizes he does not wish to be intubated. Agreeable to CPR. Will notify Pulmonology. Diuretic 40mg IV lasix also ordered. Also has completed 2 weeks of Levaquin and Vanco. will stop. 05/06: vanc/levaquin day 5. MRSA and Klebsiella PNA on cx. Cont to have elevated white count, which may be secondary to neoplastic syndrome. - consider d/c with home health abx 05/05/17: Levaquin 750 mg po q 48 hrs and vancomycin for tx of kleb PNA and MRSA on sputum cx. s/p Pulm consult and bx. Cont to have elevated white count despite tx, which may be secondary to neoplastic syndrome. Cx and sensitivities indicate current regiment should be effective. Prev Bcx with propionibacteria acnes likely skin contaminate and repeat cx negative. - cont vanc/levaquin 05/04/17: Levaquin 750 mg po q 48 hrs and vancomycin for tx of kleb PNA and MRSA on sputum cx. s/p Pulm consult and bx. -Added Q4H duonebs and acapella 05/03/17: Levaquin 750 mg po q 48 hrs. s/p Pulm consult. 05/02 -- restarted antibiotics, and discussed with pulm. (Pulm consult placed.) Maintaining current prednisone dosing, after discussion with Dr. Jon. Worsening leukocytosis secondary to infection or steroids. 05/01 -- finished a week of levaquin and vancomycin. DCed antibiotics. WBCs increasing, though patient is on Solumedrol. Decreased steroids. No change in oxygen needs, and CXR yesterday improved. 04/26 given ? liver mets-check liver US, WBC 13.6 (10.8), add levofloxacin given h /o Pseudomonas and 04/24 SCX c K. pneumonia (if develops rash, change to meropenem ) 04/24 HCAP with recent hospitalization in February for similar symptoms. Sputum culture in February was positive for pseudomonas. 04/24 SCX moderate MRSA/few K. pneumoniae 03/05/17 SCX few P. aeruginosa 04/25 CT chest: 1. Extensive hilar adenopathy with large nodes up to 2.1 cm subcarinal and precarinal region with 18 mm AP window nodes. Other large nodes prevascular space, right paratracheal region and all of these suspicious for malignancy. Some nodes surround the left upper lobe bronchus have occluded since the previous study. Extensive consolidation in the left upper lobe and lingula are related to post obstructive pneumonia. Small effusion and new multiple pleural based and parenchymal nodular densities or nodular infiltrates in the left lower lobe, suspicious for malignancy. 2. Chronic fibrotic changes and honeycombing in the posterior right upper lobe and anterior right upper lobe paramediastinal region stable. 3. No cardiomegaly, pericardial thickening or effusion. 4. Suspected liver metastatic lesions inferiorly in the right hepatic lobe. Unreviewed 03/01/17 CT chest: Severe upper lobe predominant centrilobular and paracentral emphysema is seen. 2. There are increased interstitial lung markings with honeycombing at lung bases compatible with pulmonary fibrosis. 3. Since the prior study, there is resolution of confluent markings in the superior segment of right lower lobe. 4. New confluent markings with areas of consolidation to the lingula. This is most compatible with pneumonia. However follow up is recommended to document resolution. 5. Calcified gallstone is again seen. (2) Hyponatremia syndrome Status: Acute Problem Text: : NA 131 05/08/17: improved at 127 today. Monitor. 05/07/17 Na down to 123. suspect fluid expansion associated with CHF will stop IV fluids start diuretic Rx. 05/06/17: 126 today. 1200 ml fluid restriction. NS @ 50 ml per hour started yesterday. monitor. 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 Sodium prev stable, now dropping. - start NS at 50 mls/hr (3) Liver metastases Status: Acute Problem Text: 05/08/17: repeat bx today 05/07/17: will need repeat attempt since 1st Bx only returned normal liver parenchyma. Will need to wait until tomorrow due to today's respiratory crisis. 05/04/17: s/p liver bx. Discussed that he likely has metastatic lung CA. Pt indicates he wishes to pursue all available options if this is confirmed. Path still pending. 05/04/17: s/p liver bx. Discussed that he likely has metastatic lung CA. Pt indicates he wishes to pursue all available options if this is confirmed. 05/03/17: liver bx today in IR. 05/02 -- plan liver biopsy tomorrow (5 days off of Plavix.) 04/30 -- We are trying to get a liver biopsy scheduled prior to discharge. He wished to discuss cancer treatment and I was clear with him that although imaging is very suggestive of cancer, we needed at least biopsy and perhaps other procedures to determine the diagnosis and stage. He will follow up with Dr. Singh, and perhaps Heme/Onc, as an outpatient. 04/29 - Will order liver bx Liver ultrasound c/w metastases; lung is the most likely primary. Consider liver biopsy prior to discharge. (4) Acute on chronic respiratory failure with hypoxia Problem Text: 05/05/17: Stable, chronic SOB, likely metastatic lung CA 05/04/17: patient feels breathing is back to baseline. Increased O2 need upon admission, likely due to HCAP - see above (5) COPD (chronic obstructive pulmonary disease) Status: Chronic Problem Text: 05/04: now on pred 40 mg daily. Cont to have SOB. Q4H nebs ordered (6) Oxygen dependent Status: Chronic Problem Text: On 2 L/min at home (7) CKD (chronic kidney disease) stage 3, GFR 30-59 ml/min Status: Chronic Response to Treatment: Improving Problem Text: Stable (8) Systolic CHF Status: Chronic Response to Treatment: Stable Problem Text: 05/08/17. BNP negative, so will reduce diuretic intensity. 05/07/17: Fluid overload suspected today. Iv diuretic ordered and he has improved this afternoon compared to status late morning. not not diuretic rx baseline Plan/VTE VTE Prophylaxis Ordered?: Yes (Heparin) VS, I&O, 24H, Fishbone Vital Signs/I&O Vital Signs Date Time Temp Pulse Resp B/P (MAP) Pulse Ox O2 Delivery O2 Flow Rate FiO2 05/09/17 08:10 Nasal Cannula 6.0 05/09/17 08:00 97.3 73 19 137/59 (85) 91 I&O- Last 24 Hours up to 6 AM 05/09/17 06:00 Intake Total 360 ml Output Total 625 ml Balance -265 ml Laboratory Data 24H LABS Laboratory Tests 2 05/08/17 12:14: Anion Gap 11, Glomerular Filtration Rate > 60.0, Blood Urea Nitrogen 28H, Creatinine 0.76, Sodium Level 128L, Potassium Level 4.5, Chloride Level 90L, Carbon Dioxide Level 27, Calcium Level 9.2 05/08/17 18:31: Anion Gap 13, Glomerular Filtration Rate > 60.0, Blood Urea Nitrogen 32H, Creatinine 1.19#, Sodium Level 131L, Potassium Level 4.6, Chloride Level 93L, Carbon Dioxide Level 25, Calcium Level 8.9 05/09/17 05:29: Anion Gap 9, Glomerular Filtration Rate > 60.0, Blood Urea Nitrogen 28H, Creatinine 0.79, Sodium Level 131L, Potassium Level 4.4, Chloride Level 95L, Carbon Dioxide Level 27, Calcium Level 8.8, Aspartate Amino Transf (AST/SGOT) 37 , Alanine Aminotransferase (ALT/SGPT) 31, Alkaline Phosphatase 76, Total Bilirubin 0.4, Total Protein 6.2L, Albumin 1.7L, Magnesium Level 2.0, Albumin/ Globulin Ratio 0.38L CBC/BMP Laboratory Tests 05/08/17 12:14 Calcium Level 9.2 05/08/17 18:31 Calcium Level 8.9 05/09/17 05:29 Calcium Level 8.8, Red Blood Count 4.43, Mean Corpuscular Volume 83.2, Mean Corpuscular Hemoglobin 28.8, Mean Corpuscular Hemoglobin Concent 34.6, Red Cell Distribution Width 14.1, Aspartate Amino Transf (AST/SGOT) 37, Alanine Aminotransferase (ALT/SGPT) 31, Alkaline Phosphatase 76, Total Bilirubin 0.4, Total Protein 6.2 L, Albumin 1.7 L Microbiology Microbiology 05/02/17 Blood Culture - Final, Complete NO GROWTH AFTER 5 DAYS 05/02/17 Blood Culture - Final, Complete NO GROWTH AFTER 5 DAYS 05/06/17 Gram Stain - Final, Complete 05/06/17 Sputum Culture - Final, Complete Staph.aureus Methicillin Resis Yeast Like Organism Jannet BarrowP May 09, 2017 11:30
[2017-05-10 04:00] VITALS: BP 120/61
[2017-05-10] MEDS: SLF 3 ML SYR IV SCH ×3 (05:30→20:10)
[2017-05-10] MEDS: HEPARIN SOD (PORCINE) 5000 UNITS/ML VIAL SC SCH ×3 (05:30→21:40)
[2017-05-10 06:24] LABS: MEAN CORPUSCULAR HEMOGLOBIN 28.9 pg (27.0-33.0); MEAN CORPUSCULAR VOLUME 84.8 fl (80.0-96.0); WHITE BLOOD COUNT 21.5 K/mm3 (4.0-10.0)
[2017-05-10 06:39] LABS: ALBUMIN 1.6 GM/DL (3.2-5.2); ALBUMIN/GLOBULIN RATIO 0.32 (1.00-1.93); ALKALINE PHOSPHATASE 98 U/L (45-117); ALT/SGPT 32 U/L (12-78); ANION GAP 9 MEQ/L (8-16); AST/SGOT 41 U/L (15-37); BILIRUBIN,TOTAL 0.3 MG/DL (0.2-1.0); BLOOD UREA NITROGEN 24 MG/DL (7-18); CALCIUM LEVEL 8.4 MG/DL (8.8-10.2); CARBON DIOXIDE LEVEL 27 MEQ/L (21-32); CHLORIDE LEVEL 97 MEQ/L (98-107); CREATININE FOR GFR 0.74 MG/DL (0.70-1.30); GLOMERULAR FILTRATION RATE > 60.0 (>42); GLUCOSE, FASTING 80 MG/DL (83-110); MAGNESIUM LEVEL 1.9 MG/DL (1.8-2.4); POTASSIUM SERUM 4.7 MEQ/L (3.5-5.1); SODIUM LEVEL 133 MEQ/L (136-145); TOTAL PROTEIN 6.6 GM/DL (6.4-8.2)
[2017-05-10 08:00] VITALS: BP 129/64
[2017-05-10] MEDS: BUDESONIDE 0.5 MG/2 ML INHALATION SUSPENSION INH SCH ×2 (08:00→19:40)
[2017-05-10] MEDS: IPRATROPIUM 0.5MG/ALBUTEROL 2.5MG INH SOL UD 3ML (DUONEB)(J7620) NEB SCH ×4 (08:00→19:40)
[2017-05-10] MEDS: SYMBICORT 160/4.5MCG INHALER 6GM INH SCH ×2 (08:02→19:40)
[2017-05-10] MEDS: TIOTROPIUM INHALER/CAPSULE (SPIRIVA) INH SCH (08:02)
[2017-05-10] MEDS: DOCUSATE SODIUM 100 MG CAP PO SCH ×2 (08:26→20:09)
[2017-05-10] MEDS: FUROSEMIDE 40 MG TAB PO SCH (08:26)
[2017-05-10] MEDS: MAGNESIUM OXIDE 400 MG TAB (MAG-OX) PO SCH (08:26)
[2017-05-10] MEDS: predniSONE 20 MG TAB PO SCH (08:26)
[2017-05-10] MEDS: FERROUS SULFATE 325MG TAB PO SCH ×2 (08:26→20:09)
[2017-05-10] MEDS: AUGMENTIN 875 MG TAB PO SCH ×2 (08:26→20:09)
[2017-05-10] MEDS: ASPIRIN 81 MG ENTERIC TAB PO SCH (08:26)
[2017-05-10] MEDS: GABAPENTIN 100 MG CAP PO SCH ×3 (08:27→20:09)
[2017-05-10] MEDS: POTASSIUM CHLORIDE 10 MEQ SR TABLET PO SCH (08:27)
[2017-05-10] MEDS: CYANOCOBALAMIN 500 MCG TAB PO SCH (08:27)
[2017-05-10] MEDS: PANTOPRAZOLE 40MG TAB (PROTONIX) PO SCH (08:27)
--- NOTE | 2017-05-10 09:11 | IPNPDOC ---
Subjective Date Seen The patient was seen on 05/10/17. Subjective Chief Complaint/HPI The patient is a 76-year-old male admitted with a reason for visit of Acute On Chronic Respiratory Failure With Hypoxia. Events since last encounter patient feels he is at baseline despite 6LNC oxygen. 16 beats of V tach overnight Constitutional: Reports: Weakness, Fatigue, Weight Loss, Denies: Chills, Fever, Night Sweats Pulmonary: Reports: Dyspnea, Cough Cardiovascular: Denies: Chest Pain, Palpitations, Orthopnea, Paroxysmal Noc. Dyspnea, Lt Headedness Gastrointestinal: Denies: Nausea, Vomiting, Abdominal Pain, Diarrhea, Constipation Genitourinary: Denies: Dysuria, Frequency, Incontinence, Retention Objective Physical Examination General Exam: Positive: Alert, Cooperative, Moderate Distress ENT Exam: Positive: Atraumatic, Mucous membr. 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 discussed prognosis and medical co -morbidities. patient requests oncology evaluation. Will initiate. spoke with Dr. Todd, will evaluate patient and discuss options including palliative care. Discussion held with Matthew Quesada, patient's grandson and caregiver. Matthew is aware of dx and poor prognosis including concern over co-morbidities and ability to tolerate chemotx. [facility] will review with case management, oncology and patient. (2) Left upper lobe pneumonia Status: Acute Response to Treatment: Stable Problem Text: 05/09/17 : no change 05/08/17: progressing pneumonia. breathing treatments adjusted by pulmonology, Dr. Morrissey. Augmentin started by Dr. Morrissey. BNP was normal. Will reduce diuretics. Sodium better. 05/07/17: STAT portable CXR, ABG, suction for secretions. Solumedrol 125 mg IV x 1. Patient verbalizes he does not wish to be intubated. Agreeable to CPR. Will notify Pulmonology. Diuretic 40mg IV lasix also ordered. Also has completed 2 weeks of Levaquin and Vanco. will stop. 05/06: vanc/levaquin day 5. MRSA and Klebsiella PNA on cx. Cont to have elevated white count, which may be secondary to neoplastic syndrome. - consider d/c with home health abx 05/05/17: Levaquin 750 mg po q 48 hrs and vancomycin for tx of kleb PNA and MRSA on sputum cx. s/p Pulm consult and bx. Cont to have elevated white count despite tx, which may be secondary to neoplastic syndrome. Cx and sensitivities indicate current regiment should be effective. Prev Bcx with propionibacteria acnes likely skin contaminate and repeat cx negative. - cont vanc/levaquin 05/04/17: Levaquin 750 mg po q 48 hrs and vancomycin for tx of kleb PNA and MRSA on sputum cx. s/p Pulm consult and bx. -Added Q4H duonebs and acapella 05/03/17: Levaquin 750 mg po q 48 hrs. s/p Pulm consult. 05/02 -- restarted antibiotics, and discussed with pulm. (Pulm consult placed.) Maintaining current prednisone dosing, after discussion with Dr. Jon. Worsening leukocytosis secondary to infection or steroids. 05/01 -- finished a week of levaquin and vancomycin. DCed antibiotics. WBCs increasing, though patient is on Solumedrol. Decreased steroids. No change in oxygen needs, and CXR yesterday improved. 04/26 given ? liver mets-check liver US, WBC 13.6 (10.8), add levofloxacin given h /o Pseudomonas and 04/24 SCX c K. pneumonia (if develops rash, change to meropenem ) 04/24 HCAP with recent hospitalization in February for similar symptoms. Sputum culture in February was positive for pseudomonas. 04/24 SCX moderate MRSA/few K. pneumoniae 03/05/17 SCX few P. aeruginosa 04/25 CT chest: 1. Extensive hilar adenopathy with large nodes up to 2.1 cm subcarinal and precarinal region with 18 mm AP window nodes. Other large nodes prevascular space, right paratracheal region and all of these suspicious for malignancy. Some nodes surround the left upper lobe bronchus have occluded since the previous study. Extensive consolidation in the left upper lobe and lingula are related to post obstructive pneumonia. Small effusion and new multiple pleural based and parenchymal nodular densities or nodular infiltrates in the left lower lobe, suspicious for malignancy. 2. Chronic fibrotic changes and honeycombing in the posterior right upper lobe and anterior right upper lobe paramediastinal region stable. 3. No cardiomegaly, pericardial thickening or effusion. 4. Suspected liver metastatic lesions inferiorly in the right hepatic lobe. Unreviewed 03/01/17 CT chest: Severe upper lobe predominant centrilobular and paracentral emphysema is seen. 2. There are increased interstitial lung markings with honeycombing at lung bases compatible with pulmonary fibrosis. 3. Since the prior study, there is resolution of confluent markings in the superior segment of right lower lobe. 4. New confluent markings with areas of consolidation to the lingula. This is most compatible with pneumonia. However follow up is recommended to document resolution. 5. Calcified gallstone is again seen. (3) Hyponatremia syndrome Status: Acute Problem Text: 12/08/17: Na improving slowly, now at 133 : NA 131 05/08/17: improved at 127 today. Monitor. 05/07/17 Na down to 123. suspect fluid expansion associated with CHF will stop IV fluids start diuretic Rx. 05/06/17: 126 today. 1200 ml fluid restriction. NS @ 50 ml per hour started yesterday. monitor. 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 Sodium prev stable, now dropping. - start NS at 50 mls/hr (4) Liver metastases Status: Acute Problem Text: 05/08/17: repeat bx today 05/07/17: will need repeat attempt since 1st Bx only returned normal liver parenchyma. Will need to wait until tomorrow due to today's respiratory crisis. 05/04/17: s/p liver bx. Discussed that he likely has metastatic lung CA. Pt indicates he wishes to pursue all available options if this is confirmed. Path still pending. 05/04/17: s/p liver bx. Discussed that he likely has metastatic lung CA. Pt indicates he wishes to pursue all available options if this is confirmed. 05/03/17: liver bx today in IR. 05/02 -- plan liver biopsy tomorrow (5 days off of Plavix.) 04/30 -- We are trying to get a liver biopsy scheduled prior to discharge. He wished to discuss cancer treatment and I was clear with him that although imaging is very suggestive of cancer, we needed at least biopsy and perhaps other procedures to determine the diagnosis and stage. He will follow up with Dr. Singh, and perhaps Heme/Onc, as an outpatient. 04/29 - Will order liver bx Liver ultrasound c/w metastases; lung is the most likely primary. Consider liver biopsy prior to discharge. (5) Acute on chronic respiratory failure with hypoxia Problem Text: 05/05/17: Stable, chronic SOB, likely metastatic lung CA 05/04/17: patient feels breathing is back to baseline. Increased O2 need upon admission, likely due to HCAP - see above (6) COPD (chronic obstructive pulmonary disease) Status: Chronic Problem Text: 05/04: now on pred 40 mg daily. Cont to have SOB. Q4H nebs ordered (7) Oxygen dependent Status: Chronic Problem Text: On 2 L/min at home (8) CKD (chronic kidney disease) stage 3, GFR 30-59 ml/min Status: Chronic Response to Treatment: Improving Problem Text: Stable (9) Systolic CHF Status: Chronic Response to Treatment: Stable Problem Text: 05/08/17. BNP negative, so will reduce diuretic intensity. 05/07/17: Fluid overload suspected today. Iv diuretic ordered and he has improved this afternoon compared to status late morning. not not diuretic rx baseline (10) Non-sustained ventricular tachycardia Status: Acute Response to Treatment: Uncontrolled Problem Specific Plan: Monitor Clinically Problem Text: will start low dose metoprolol 12.5 mg po bid Plan/VTE VTE Prophylaxis Ordered?: Yes (Heparin) VS, I&O, 24H, Fishbone Vital Signs/I&O Vital Signs Date Time Temp Pulse Resp B/P (MAP) Pulse Ox O2 Delivery O2 Flow Rate FiO2 05/10/17 08:03 Nasal Cannula 6.0 05/10/17 08:00 98.8 93 19 129/64 (85) 92 I&O- Last 24 Hours up to 6 AM 05/10/17 06:00 Intake Total 1060 ml Output Total 825 ml Balance 235 ml Laboratory Data 24H LABS Laboratory Tests 2 05/10/17 05:19: Anion Gap 9, Glomerular Filtration Rate > 60.0, Blood Urea Nitrogen 24H, Creatinine 0.74, Sodium Level 133L, Potassium Level 4.7, Chloride Level 97L, Carbon Dioxide Level 27, Calcium Level 8.4L, Aspartate Amino Transf (AST/SGOT) 41H, Alanine Aminotransferase (ALT/SGPT) 32, Alkaline Phosphatase 98, Total Bilirubin 0.3, Total Protein 6.6, Albumin 1.6L, Magnesium Level 1.9, Albumin/ Globulin Ratio 0.32L CBC/BMP Laboratory Tests 05/10/17 05:19 Red Blood Count 4.55, Mean Corpuscular Volume 84.8, Mean Corpuscular Hemoglobin 28.9, Mean Corpuscular Hemoglobin Concent 34.0, Red Cell Distribution Width 14.0 , Calcium Level 8.4 L, Aspartate Amino Transf (AST/SGOT) 41 H, Alanine Aminotransferase (ALT/SGPT) 32, Alkaline Phosphatase 98, Total Bilirubin 0.3, Total Protein 6.6, Albumin 1.6 L Microbiology Microbiology 05/02/17 Blood Culture - Final, Complete NO GROWTH AFTER 5 DAYS 05/02/17 Blood Culture - Final, Complete NO GROWTH AFTER 5 DAYS 05/06/17 Gram Stain - Final, Complete 05/06/17 Sputum Culture - Final, Complete Staph.aureus Methicillin Resis Yeast Like Organism Jannet Barrow May 10, 2017 09:11 Shan Gonzalez MD May 10, 2017 12:37
[2017-05-10 12:00] VITALS: BP 108/75
[2017-05-10] MEDS: METOPROLOL TART 12.5 MG PER 1/2 TAB PO SCH ×2 (14:01→20:09)
[2017-05-10 16:00] VITALS: BP 95/54
[2017-05-10 19:32] VITALS: BP 115/51
[2017-05-10] MEDS: NORCO, ANEXSIA 5/325MG TABLET (HYDROcodone/ACETAMINOPHEN) PO PRN (21:40)
[2017-05-10 23:59] VITALS: BP 102/53
[2017-05-11] MEDS: ALBUTEROL SULFATE 2.5 MG/0.5 ML INH NEB SOLN NEB PRN (00:25)
[2017-05-11 04:45] VITALS: BP 135/81
[2017-05-11] MEDS: SLF 3 ML SYR IV SCH ×3 (05:21→21:31)
[2017-05-11] MEDS: HEPARIN SOD (PORCINE) 5000 UNITS/ML VIAL SC SCH ×3 (05:21→21:30)
[2017-05-11 05:37] LABS: BASO # 0.1 K/mm3 (0.0-0.2); BASO % 0.4 % (0.0-1.0); EOS # 0.1 K/mm3 (0.0-0.50); EOS % 0.5 % (0.0-3.0); LARGE UNSTAINED CELL # 0.2 K/mm3 (0.0-0.4); LARGE UNSTAINED CELL % 1.1 % (0.0-4.0); LYMPH # 1.4 K/mm3 (1.5-4.5); MEAN CORPUSCULAR HEMOGLOBIN 28.6 pg (27.0-33.0); MEAN CORPUSCULAR HGB CONC 34.1 g/dl (32.0-36.5); MEAN CORPUSCULAR VOLUME 84.1 fl (80.0-96.0); MONO # 0.5 K/mm3 (0.0-0.8); MONO % 3.1 % (0.0-5.0); NEUTROPHILS # 14.7 K/mm3 (1.8-7.7); NEUTROPHILS % 86.9 % (36.0-66.0); PLATELET COUNT, AUTOMATED 218 k/mm3 (150-450); RED CELL DISTRIBUTION WIDTH 13.9 % (11.5-14.5); WHITE BLOOD COUNT 16.9 K/mm3 (4.0-10.0)
[2017-05-11 05:48] LABS: ALBUMIN 1.5 GM/DL (3.2-5.2); ALKALINE PHOSPHATASE 98 U/L (45-117); ALT/SGPT 39 U/L (12-78); ANION GAP 9 MEQ/L (8-16); AST/SGOT 40 U/L (15-37); BILIRUBIN,TOTAL 0.2 MG/DL (0.2-1.0); BLOOD UREA NITROGEN 36 MG/DL (7-18); CALCIUM LEVEL 9.1 MG/DL (8.8-10.2); CARBON DIOXIDE LEVEL 30 MEQ/L (21-32); CHLORIDE LEVEL 96 MEQ/L (98-107); CREATININE FOR GFR 0.81 MG/DL (0.70-1.30); GLOMERULAR FILTRATION RATE > 60.0 (>42); GLUCOSE, FASTING 117 MG/DL (83-110); POTASSIUM SERUM 4.5 MEQ/L (3.5-5.1); SODIUM LEVEL 135 MEQ/L (136-145); TOTAL PROTEIN 6.5 GM/DL (6.4-8.2)
[2017-05-11] MEDS: BUDESONIDE 0.5 MG/2 ML INHALATION SUSPENSION INH SCH ×2 (07:10→20:00)
[2017-05-11] MEDS: TIOTROPIUM INHALER/CAPSULE (SPIRIVA) INH SCH (07:11)
[2017-05-11] MEDS: IPRATROPIUM 0.5MG/ALBUTEROL 2.5MG INH SOL UD 3ML (DUONEB)(J7620) NEB SCH ×4 (07:11→21:53)
[2017-05-11] MEDS: SYMBICORT 160/4.5MCG INHALER 6GM INH SCH ×2 (07:12→21:53)
[2017-05-11 08:00] VITALS: BP 103/58
[2017-05-11] MEDS: predniSONE 20 MG TAB PO SCH (08:47)
[2017-05-11] MEDS: ASPIRIN 81 MG ENTERIC TAB PO SCH (08:47)
[2017-05-11] MEDS: METOPROLOL TART 12.5 MG PER 1/2 TAB PO SCH ×2 (08:48→21:31)
[2017-05-11] MEDS: FUROSEMIDE 40 MG TAB PO SCH (08:49)
[2017-05-11] MEDS: POTASSIUM CHLORIDE 10 MEQ SR TABLET PO SCH (08:49)
[2017-05-11] MEDS: CYANOCOBALAMIN 500 MCG TAB PO SCH (08:49)
[2017-05-11] MEDS: PANTOPRAZOLE 40MG TAB (PROTONIX) PO SCH (08:49)
[2017-05-11] MEDS: GABAPENTIN 100 MG CAP PO SCH ×3 (08:50→21:30)
[2017-05-11] MEDS: FERROUS SULFATE 325MG TAB PO SCH (08:50)
[2017-05-11] MEDS: AUGMENTIN 875 MG TAB PO SCH ×2 (08:50→21:30)
[2017-05-11] MEDS: DOCUSATE SODIUM 100 MG CAP PO SCH ×2 (08:50→21:30)
[2017-05-11] MEDS: MAGNESIUM OXIDE 400 MG TAB (MAG-OX) PO SCH (08:50)
[2017-05-11 11:54] VITALS: BP 97/57
[2017-05-11 16:00] VITALS: BP 105/58
[2017-05-11 20:00] VITALS: BP 128/65
[2017-05-11 23:59] VITALS: BP_SYST 120; BP_SYST 128; BP_DIAS 62; BP_DIAS 75
[2017-05-12] MEDS: SLF 3 ML SYR IV SCH (04:10)
[2017-05-12 04:37] VITALS: BP 107/61
[2017-05-12 05:53] LABS: ADD MANUAL DIFFER YES; MEAN CORPUSCULAR HEMOGLOBIN 28.7 pg (27.0-33.0); MEAN CORPUSCULAR HGB CONC 33.6 g/dl (32.0-36.5); MEAN CORPUSCULAR VOLUME 85.3 fl (80.0-96.0); PLATELET COUNT, AUTOMATED 209 k/mm3 (150-450); RED CELL DISTRIBUTION WIDTH 14.3 % (11.5-14.5); WHITE BLOOD COUNT 15.7 K/mm3 (4.0-10.0)
[2017-05-12 06:07] LABS: ALBUMIN 1.6 GM/DL (3.2-5.2); ALBUMIN/GLOBULIN RATIO 0.31 (1.00-1.93); ALKALINE PHOSPHATASE 108 U/L (45-117); ALT/SGPT 118 U/L (12-78); ANION GAP 7 MEQ/L (8-16); AST/SGOT 79 U/L (15-37); BILIRUBIN,TOTAL 0.2 MG/DL (0.2-1.0); BLOOD UREA NITROGEN 38 MG/DL (7-18); CALCIUM LEVEL 9.4 MG/DL (8.8-10.2); CARBON DIOXIDE LEVEL 30 MEQ/L (21-32); CHLORIDE LEVEL 99 MEQ/L (98-107); CREATININE FOR GFR 0.83 MG/DL (0.70-1.30); GLOMERULAR FILTRATION RATE > 60.0 (>42); GLUCOSE, FASTING 105 MG/DL (83-110); MAGNESIUM LEVEL 2.1 MG/DL (1.8-2.4); POTASSIUM SERUM 4.4 MEQ/L (3.5-5.1); SODIUM LEVEL 136 MEQ/L (136-145); TOTAL PROTEIN 6.7 GM/DL (6.4-8.2)
[2017-05-12 06:35] LABS: BANDS 1 % (< 11)
[2017-05-12] MEDS: IPRATROPIUM 0.5MG/ALBUTEROL 2.5MG INH SOL UD 3ML (DUONEB)(J7620) NEB SCH ×4 (07:12→20:00)
[2017-05-12] MEDS: SYMBICORT 160/4.5MCG INHALER 6GM INH SCH ×2 (07:12→20:28)
[2017-05-12] MEDS: TIOTROPIUM INHALER/CAPSULE (SPIRIVA) INH SCH (07:12)
[2017-05-12] MEDS: BUDESONIDE 0.5 MG/2 ML INHALATION SUSPENSION INH SCH ×2 (07:14→20:00)
[2017-05-12 08:00] VITALS: BP 94/54
[2017-05-12] MEDS: METOPROLOL TART 12.5 MG PER 1/2 TAB PO SCH ×2 (09:00→21:12)
[2017-05-12] MEDS: PANTOPRAZOLE 40MG TAB (PROTONIX) PO SCH (09:33)
[2017-05-12] MEDS: GABAPENTIN 100 MG CAP PO SCH ×3 (09:33→21:12)
[2017-05-12] MEDS: AUGMENTIN 875 MG TAB PO SCH ×2 (09:33→21:12)
[2017-05-12] MEDS: ASPIRIN 81 MG ENTERIC TAB PO SCH (09:33)
[2017-05-12] MEDS: predniSONE 20 MG TAB PO SCH (09:34)
[2017-05-12] MEDS: DOCUSATE SODIUM 100 MG CAP PO SCH ×2 (09:34→21:12)
[2017-05-12 11:31] VITALS: BP 103/63
[2017-05-12 15:49] VITALS: BP 111/64
[2017-05-12 16:30] VITALS: BP 114/73
[2017-05-12] MEDS: HEPARIN SOD (PORCINE) 5000 UNITS/ML VIAL SQ SCH (18:25)
--- NOTE | 2017-05-12 20:51 | CR ---
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 Mr. Baker at baseline has a 60 pack-year smoking history. Over the last 2 months he has been admitted to the hospital or visited the ER for shortness of breath. He has a history of COPD, oxygen dependent 2 liters at home, increasing requirement recently. He lives in a third floor apartment. His grandson Matthew helps him much at home with going up and down stairs, in fact carries him, and with ADLs. On 04/24/2017, he presented to the emergency room with new complaint of shortness of breath. A new left upper lobe infiltrate was seen versus prior hospitalization. He was started on antibiotics for likely healthcare-acquired pneumonia. During this admission, chest CT showed baseline interstitial fibrosis and emphysema, new confluent adenopathy involving the mediastinum, largest node 2 cm, 1.8 cm AP window node, prevascular nodes up to 1.7 cm, circumferential adenopathy around the left hilum occluding the left upper bronchus leading to post obstructive pneumonia, bulky subcarinal adenopathy right paratracheal nodes. There was no axillary or supraclavicular adenopathy. Hypodense lesions were peripherally seen in the liver and liver ultrasound revealed multiple hypoechoic lesions, largest 2.4 cm, involving the right and left lobe. Ultrasound guided biopsy 05/03/2017, was benign, but clinical suspicion was sufficiently high that a repeat biopsy was performed 05/08/2017, showing metastatic high-grade neuroendocrine carcinoma TTF-1 positive, CD56 positive, Napsin negative, suggestive of a pulmonary primary. During this hospitalization, Mr. Baker has remained on antibiotics. He is on fluid restriction for hyponatremia, sodium on admission normal, 123 on 05/07/2017, improving now at 133. PAST MEDICAL HISTORY: Oxygen dependent COPD, hyperlipidemia, iron deficiency anemia, stage III CKD, anxiety, hypertension, systolic congestive heart failure, constipation, vitamin D deficiency, atrial fibrillation in the past. SURGICAL HISTORY: Not elicited. CURRENT MEDICATIONS: Were reviewed and include: Metoprolol, furosemide, hydrocodone, acetaminophen, amoxicillin clavulanate, gabapentin, tiotropium, budesonide, albuterol, prednisone, calcium carbonate, docusate, diphenhydramine, cyanocobalamin, aspirin, magnesium oxide, ondansetron. PHYSICAL EXAMINATION: Mostly deferred. Temperature 96.7, blood pressure 95/54, heart rate 74, respiratory rate 21, pulse oximetry 94, oxygen flow rate 6 liters on nasal cannula. The patient was lying in bed reclining. Speaks in brief, short sentences using accessory muscles but not in distress, converses and chokes. Very pleasant to talk to. Cachexia present with temporal wasting. IMPRESSION: Mr. 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 He has underlying oxygen-dependent COPD, currently on 6 liters oxygen. At home his ECOG Performance Status appears to have been somewhere between 2-3. His life expectancy is short without treatment and could be on the order of weeks to, at the outside 2 months possibly 3, but more likely on the order of weeks to 1-2 months. His performance status is so poor, he is unlikely to tolerate chemotherapy. Brief review of the labs show on CBC metamyelocytes and myelocytes suggestive of bone marrow strain possibly due to marrow involvement with tumor though he is not anemic or thrombocytopenic. I spoke with Mr. Baker at length about his very poor prognosis, about the likely harm systemic chemotherapy would do. I recommended hospice care. I recommended he talk to his family, his grandson Matthew is apparently an important support person. I gave him my cell number so that Matthew could call me. Mr. Baker expressed the desire to be at home if he is on hospice care and I advised this may or may not be possible depending on level of support. He called his daughter during my visit with him. She did not answer and he left a message. I welcome their calls if they would like information about his diagnosis and prognosis. He noticeably latched onto the outer limits of life expectancy, as is understandable, but I did try to redirect him to the overall very poor prognosis and likely very short life expectancy he has. I strongly recommend against systemic treatment with chemotherapy. One consideration, which I did not address with him at the time, is, for progressive obstructive respiratory symptoms considering radiation, but with extensive liver metastases, hyponatremia and essentially bed bound status, this may or may not be of help. He may need inpatient hospice care and/or residence hospice care. He did not look like this idea at all. RECOMMENDATIONS: Mostly outlined above. There is no role for systemic chemotherapy in this patient with ECOG Performance Status 3-4 with very advanced neuroendocrine / small cell lung carcinoma involving liver and extensive bulky lung involvement and possible bone marrow involvement. I strongly recommend hospice care. I addressed, but we did not conclude, a discussion of advanced directives. I carefully recommended Mr. Baker consider the likelihood that if he were put on a respirator he would be unable to come off, forcing his family into a decision about discontinuing respirator support. I gave the patient my phone number so that family members could contact me for any information they wish. I encouraged him to contact and invite his family to come soon to see him. Thank you for this consult. LYNN
[2017-05-12 21:55] VITALS: BP 104/58
[2017-05-12] MEDS: ALBUTEROL SULFATE 2.5 MG/0.5 ML INH NEB SOLN NEB PRN (22:02)
[2017-05-13] MEDS: HEPARIN SOD (PORCINE) 5000 UNITS/ML VIAL SQ SCH ×2 (05:28→17:55)
[2017-05-13 06:00] VITALS: BP 114/64
[2017-05-13 06:40] LABS: ADD MANUAL DIFFER YES; MEAN CORPUSCULAR HEMOGLOBIN 29.2 pg (27.0-33.0); MEAN CORPUSCULAR HGB CONC 34.2 g/dl (32.0-36.5); MEAN CORPUSCULAR VOLUME 85.4 fl (80.0-96.0); PLATELET COUNT, AUTOMATED 226 k/mm3 (150-450); RED CELL DISTRIBUTION WIDTH 13.9 % (11.5-14.5); WHITE BLOOD COUNT 16.9 K/mm3 (4.0-10.0)
[2017-05-13 06:53] LABS: ALBUMIN 1.7 GM/DL (3.2-5.2); ALBUMIN/GLOBULIN RATIO 0.33 (1.00-1.93); ALKALINE PHOSPHATASE 127 U/L (45-117); ALT/SGPT 170 U/L (12-78); ANION GAP 10 MEQ/L (8-16); AST/SGOT 78 U/L (15-37); BILIRUBIN,TOTAL 0.2 MG/DL (0.2-1.0); BLOOD UREA NITROGEN 36 MG/DL (7-18); CALCIUM LEVEL 8.9 MG/DL (8.8-10.2); CARBON DIOXIDE LEVEL 29 MEQ/L (21-32); CHLORIDE LEVEL 102 MEQ/L (98-107); CREATININE FOR GFR 0.95 MG/DL (0.70-1.30); GLOMERULAR FILTRATION RATE > 60.0 (>42); GLUCOSE, FASTING 96 MG/DL (83-110); POTASSIUM SERUM 4.4 MEQ/L (3.5-5.1); SODIUM LEVEL 141 MEQ/L (136-145); TOTAL PROTEIN 6.9 GM/DL (6.4-8.2)
[2017-05-13 07:12] LABS: BANDS 1 % (< 11); EOSINOPHILS 1 % (0-5)
--- NOTE | 2017-05-13 07:45 | IPNPDOC ---
Subjective Date Seen The patient was seen on 05/13/17. Subjective Chief Complaint/HPI The patient is a 76-year-old male admitted with a reason for visit of Acute On Chronic Respiratory Failure With Hypoxia. 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 S/p oncology consult. oncology outlined poor prognosis and recommendations against chemotx. patient has opted for hospice. DNR/DNI signed. Patient wishing to go home with family. I t is unclear if family is willing to take patient home. General: Reports: Fatigue Constitutional: Reports: Weakness, Fatigue, Weight Loss, Lethargy, Denies: Chills, Fever, Malaise, Night Sweats, Other ENT: Denies: Head Aches, Ear Pain, Dysphagia Skin: Denies: Rash, Lesions, Breakdown Pulmonary: Reports: Dyspnea, Cough Cardiovascular: Reports: Paroxysmal Noc. Dyspnea, Denies: Chest Pain, Palpitations, Orthopnea, Lt Headedness Psych: Denies: Thoughts of Self Harm Objective Physical Examination General Exam: Positive: Alert, Cooperative, Moderate Distress ENT Exam: Positive: Atraumatic, Mucous membr. moist/pink Chest Exam: Positive: Wheezing, Diminished Heart Exam: Positive: Rate Normal, Regular Rhythm, Normal S1, Normal S2 Abdomen Exam: Positive: Normal bowel sounds, Soft Extremity Exam: Negative: Edema Skin Exam: Positive: Nl turgor and temperature Neuro Exam: Positive: Normal Speech Psych Exam: Positive: Mental status NL, Mood NL, Oriented x 3 Assessment /Plan Problems (1) Metastatic carcinoma to liver Problem Specific Plan: Consult Specialist Problem Text: 05/13/17: hospice consult placed. Discussed home with family vs hospice home. D/w PFS-hospice house is currently not available-recommended to make [facility], PFS would attempt [facility] coverage for possible SNF placement-which was done-all meds continued x Augmentin dc Results reviewed with patient. discussed prognosis and medical co-morbidities. patient requests oncology evaluation. Will initiate. spoke with Dr. Todd, will evaluate patient and discuss options including palliative care. Discussion held with Matthew Quesada, patient's grandson and caregiver. Matthew is aware of dx and poor prognosis including concern over co-morbidities and ability to tolerate chemotx. Matthew hudson will review with case management, oncology and patient. (2) Left upper lobe pneumonia Status: Acute Response to Treatment: Stable Problem Text: 05/06/17 SCX moderate MRSA 05/08/17: progressing pneumonia. breathing treatments adjusted by pulmonology, Dr. Morrissey. Augmentin started by Dr. Morrissey. BNP was normal. Will reduce diuretics. Sodium better. 05/07/17: STAT portable CXR, ABG, suction for secretions. Solumedrol 125 mg IV x 1. Patient verbalizes he does not wish to be intubated. Agreeable to CPR. Will notify Pulmonology. Diuretic 40mg IV lasix also ordered. Also has completed 2 weeks of Levaquin and Vanco. will stop. 05/06: vanc/levaquin day 5. MRSA and Klebsiella PNA on cx. Cont to have elevated white count, which may be secondary to neoplastic syndrome. - consider d/c with home health abx 05/05/17: Levaquin 750 mg po q 48 hrs and vancomycin for tx of kleb PNA and MRSA on sputum cx. s/p Pulm consult and bx. Cont to have elevated white count despite tx, which may be secondary to neoplastic syndrome. Cx and sensitivities indicate current regiment should be effective. Prev Bcx with propionibacteria acnes likely skin contaminate and repeat cx negative. - cont vanc/levaquin 05/04/17: Levaquin 750 mg po q 48 hrs and vancomycin for tx of kleb PNA and MRSA on sputum cx. s/p Pulm consult and bx. -Added Q4H duonebs and acapella 05/03/17: Levaquin 750 mg po q 48 hrs. s/p Pulm consult. 05/02 -- restarted antibiotics, and discussed with pulm. (Pulm consult placed.) Maintaining current prednisone dosing, after discussion with Dr. Jon. Worsening leukocytosis secondary to infection or steroids. 05/01 -- finished a week of levaquin and vancomycin. DCed antibiotics. WBCs increasing, though patient is on Solumedrol. Decreased steroids. No change in oxygen needs, and CXR yesterday improved. 04/26 given ? liver mets-check liver US, WBC 13.6 (10.8), add levofloxacin given h /o Pseudomonas and 04/24 SCX c K. pneumonia (if develops rash, change to meropenem ) 04/24 HCAP with recent hospitalization in February for similar symptoms. Sputum culture in February was positive for pseudomonas. 8 SCX moderate MRSA/few K. pneumoniae 03/05/17 SCX few P. aeruginosa 04/25 CT chest: 1. Extensive hilar adenopathy with large nodes up to 2.1 cm subcarinal and precarinal region with 18 mm AP window nodes. Other large nodes prevascular space, right paratracheal region and all of these suspicious for malignancy. Some nodes surround the left upper lobe bronchus have occluded since the previous study. Extensive consolidation in the left upper lobe and lingula are related to post obstructive pneumonia. Small effusion and new multiple pleural based and parenchymal nodular densities or nodular infiltrates in the left lower lobe, suspicious for malignancy. 2. Chronic fibrotic changes and honeycombing in the posterior right upper lobe and anterior right upper lobe paramediastinal region stable. 3. No cardiomegaly, pericardial thickening or effusion. 4. Suspected liver metastatic lesions inferiorly in the right hepatic lobe. Unreviewed 03/01/17 CT chest: Severe upper lobe predominant centrilobular and paracentral emphysema is seen. 2. There are increased interstitial lung markings with honeycombing at lung bases compatible with pulmonary fibrosis. 3. Since the prior study, there is resolution of confluent markings in the superior segment of right lower lobe. 4. New confluent markings with areas of consolidation to the lingula. This is most compatible with pneumonia. However follow up is recommended to document resolution. 5. Calcified gallstone is again seen. (3) Acute on chronic respiratory failure with hypoxia Problem Text: 05/05/17: Stable, chronic SOB, likely metastatic lung CA 05/04/17: patient feels breathing is back to baseline. Increased O2 need upon admission, likely due to HCAP - see above (4) COPD (chronic obstructive pulmonary disease) Status: Chronic Problem Text: 05/04: now on pred 40 mg daily. Cont to have SOB. Q4H nebs ordered (5) Oxygen dependent Status: Chronic Problem Text: On 2 L/min at home (6) CKD (chronic kidney disease) stage 3, GFR 30-59 ml/min Status: Chronic Response to Treatment: Improving Problem Text: Stable (7) Systolic CHF Status: Chronic Response to Treatment: Stable Problem Text: 05/08/17. BNP negative, so will reduce diuretic intensity. 05/07/17: Fluid overload suspected today. Iv diuretic ordered and he has improved this afternoon compared to status late morning. not not diuretic rx baseline (8) Non-sustained ventricular tachycardia Status: Acute Response to Treatment: Uncontrolled Problem Specific Plan: Monitor Clinically Problem Text: will start low dose metoprolol 12.5 mg po bid (9) Hyponatremia syndrome Status: Resolved Problem Text: 05/13/17: 141. 05/10/17: Na improving slowly, now at 133 05/09/: NA 131 05/08/17: improved at 127 today. Monitor. 05/07/17 Na down to 123. suspect fluid expansion associated with CHF will stop IV fluids start diuretic Rx. 05/06/17: 126 today. 1200 ml fluid restriction. NS @ 50 ml per hour started yesterday. monitor. 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 Sodium prev stable, now dropping. - start NS at 50 mls/hr Plan/VTE VTE Prophylaxis Ordered?: Yes (Heparin) VS, I&O, 24H, Fishbone Vital Signs/I&O Vital Signs Date Time Temp Pulse Resp B/P (MAP) Pulse Ox O2 Delivery O2 Flow Rate FiO2 05/13/17 06:00 97.6 86 18 114/64 (81) 93 Nasal Cannula 6.0 I&O- Last 24 Hours up to 6 AM 05/13/17 05:59 Intake Total 1080 ml Output Total 725 ml Balance 355 ml Laboratory Data 24H LABS Laboratory Tests 2 05/13/17 06:12: Neutrophils 81H, Band Neutrophils 1, Lymphocytes (Manual) 9L, Monocytes (Manual ) 5, Eosinophils (Manual) 1, Metamyelocytes 2H, Myelocytes 1H, Platelet Estimate NORMAL, Red Blood Cell Morphology NORMAL, Anion Gap 10, Glomerular Filtration Rate > 60.0, Blood Urea Nitrogen 36H, Creatinine 0.95, Sodium Level 141, Potassium Level 4.4, Chloride Level 102, Carbon Dioxide Level 29, Calcium Level 8.9, Aspartate Amino Transf (AST/SGOT) 78H, Alanine Aminotransferase (ALT/ SGPT) 170H, Alkaline Phosphatase 127H, Total Bilirubin 0.2, Total Protein 6.9, Albumin 1.7L, Magnesium Level 2.0, Albumin/Globulin Ratio 0.33L CBC/BMP Laboratory Tests 05/13/17 06:12 Red Blood Count 4.64, Mean Corpuscular Volume 85.4, Mean Corpuscular Hemoglobin 29.2, Mean Corpuscular Hemoglobin Concent 34.2, Red Cell Distribution Width 13.9 , Calcium Level 8.9, Aspartate Amino Transf (AST/SGOT) 78 H, Alanine Aminotransferase (ALT/SGPT) 170 H, Alkaline Phosphatase 127 H, Total Bilirubin 0.2, Total Protein 6.9, Albumin 1.7 L Microbiology Microbiology 05/06/17 Gram Stain - Final, Complete 05/06/17 Sputum Culture - Final, Complete Staph.aureus Methicillin Resis Yeast Like Organism Jannet Barrow May 13, 2017 07:45 Frederick Singh M.D. May 13, 2017 17:10
[2017-05-13] MEDS: TIOTROPIUM INHALER/CAPSULE (SPIRIVA) INH SCH (07:50)
[2017-05-13] MEDS: SYMBICORT 160/4.5MCG INHALER 6GM INH SCH ×2 (07:51→20:27)
[2017-05-13] MEDS: BUDESONIDE 0.5 MG/2 ML INHALATION SUSPENSION INH SCH ×2 (07:55→20:00)
[2017-05-13] MEDS: IPRATROPIUM 0.5MG/ALBUTEROL 2.5MG INH SOL UD 3ML (DUONEB)(J7620) NEB SCH ×4 (07:55→20:00)
[2017-05-13 08:45] VITALS: BP 116/64
[2017-05-13] MEDS: GABAPENTIN 100 MG CAP PO SCH ×3 (08:48→20:24)
[2017-05-13] MEDS: METOPROLOL TART 12.5 MG PER 1/2 TAB PO SCH ×2 (08:48→20:25)
[2017-05-13] MEDS: PANTOPRAZOLE 40MG TAB (PROTONIX) PO SCH (08:48)
[2017-05-13] MEDS: predniSONE 20 MG TAB PO SCH (08:48)
[2017-05-13] MEDS: ASPIRIN 81 MG ENTERIC TAB PO SCH (08:48)
[2017-05-13] MEDS: DOCUSATE SODIUM 100 MG CAP PO SCH ×2 (08:48→20:24)
[2017-05-13] MEDS: AUGMENTIN 875 MG TAB PO SCH ×2 (08:48→20:24)
--- NOTE | 2017-05-13 11:33 | IPN ---
DATE: 05/11/2017 The patient is seen today on rounds. Dr. Gonzalez had signed him out to me this morning. He has been treated for pneumonia, felt not to have any heart failure despite worsening of the infiltrates. He underwent a liver biopsy that showed metastatic lung cancer. Dr. Todd spoke with him last night and indicated to him that under the circumstances she could not recommend any treatment. He is ready to go home and have palliative care and hospice. Today, his son and [id number] are present and we also went through advanced directives with him. His current medications include: - metoprolol - furosemide - Vicodin - Augmentin - Neurontin - Spiriva - Symbicort - DuoNebs - albuterol - prednisone - TUMS - docusate - Benadryl - vitamin B12 - aspirin - iron - pantoprazole - potassium - magnesium - budesonide - subcu heparin - as needed Tylenol - as needed Zofran On examination, his temperature is 97.4, blood pressure is 105/58, pulse 74 and regular, respirations 22. He requires 6 liters of nasal oxygen to keep his saturations up. He is bearded, chronically, ill appearing white male. He instantly recognized me from prior rounding encounters and previous hospitalizations and remembered that I was the doctor of one of his friends. He is wearing nasal oxygen. There is no neck masses, tenderness or adenopathy. No carotid bruits. He has rhonchi in most lung [place]ilton particularly lower left. Heart has regular rhythm. There is no murmur, click or gallop. Abdomen is soft , nontender without any masses or organomegaly. Bowel sounds are active. There is no edema. No tremor. Lip Cutter are symmetric. Today's labs include white count of 16,900, hemoglobin was 12.9, hematocrit 37.9. Chemistries showed a BUN of 36, creatinine of 0.81, glucose 117. Sodium 135, potassium 4.5, AST is 40, albumin is 1.5. He has been growing Methicillin-resistant staphylococcus aureus (MRSA) and a yeastlike organism out of his sputum. Blood cultures were negative. Earlier this month he had some methicillin-resistant staph aureus and Klebsiella. ASSESSMENT: 1. Pneumonia. 2. Lung cancer. 3. Metastatic disease to the liver. 4. Azotemia. 5. Chronic respiratory failure with hypoxia. 6. Chronic obstructive pulmonary disease (COPD). 7. Congestive heart failure (CHF). 8. History of ventricular tachycardia. PLAN: Patient is well aware of his prognosis which he has been given to him with anything from a few days to a few months. He wants to go home and be able to there. Unfortunately he lives alone in his apartment. He does have a friend or relative who does help him out a lot but they do not live with him. His son and [id number] who were present today also do not live with him and they indicate that his current living arrangement perhaps is not in the safest building in the world. Plan at this time is to go home with hospice. The question is whether they will be able to come on board if he has no [id number] primary care md and is in need of high doses of oxygen to keep his saturations up. I do not think that these were things that were on Dr. Cruz's mind when she spoke to him yesterday. We will try to fill hospice in on these details and perhaps even have them come in to see him to address these before he leaves the facility. He insists, however, that he does not want to in the hospital. So we sat down with the patient and his son and [id number]. He has requested DO NOT RESUSCITATE and filled out a Medical orders for life sustaining treatment (MOLST) form so he is not going to be resuscitated. Not going to be intubated. He is going to have comfort care. He is not going to have tube feedings or IVs. Antibiotics will be administered for comfort. He signed this and was witnessed by his son and [id number]. Hopefully he will have a successful discharge but people who have chronic lung disease I think have more anxieties and may not fare as well as we would like on the outside. This remains to be seen. LYNN
[2017-05-13 14:00] VITALS: BP 129/67
[2017-05-13] MEDS ORDERED: MORPHINE 10MG/0.5ML ORAL CONCENTRATE SOLUTION U/D SL PRN (17:15)
[2017-05-13] MEDS ORDERED: SCOPOLAMINE 1.5 MG TRANSDERMAL TD PRN (17:15)
[2017-05-13] MEDS ORDERED: LORazepam 2 MG/ML VIAL (J2060) IV PRN (17:15)
[2017-05-13] MEDS ORDERED: LORazepam 1 MG TAB PO PRN (18:30)
[2017-05-14] MEDS: ALBUTEROL SULFATE 2.5 MG/0.5 ML INH NEB SOLN NEB PRN (00:14)
[2017-05-14] MEDS: ACETAMINOPHEN TAB 650MG DOSE (2X325MG) PO PRN (01:27)
[2017-05-14] MEDS: HEPARIN SOD (PORCINE) 5000 UNITS/ML VIAL SQ SCH ×2 (06:01→18:02)
--- NOTE | 2017-05-14 06:47 | IPN ---
DATE:05/12/2017 SUBJECTIVE: The patient is seen today on rounds on the progressive care unit (PCU). Yesterday we had a discussion regarding advanced directives in light of his diagnosis of metastatic lung cancer to the liver. He elected DO NOT RESUSCITATE (DNR) and comfort measures and is hoping to go home with hospice in the near future. He says his appetite is good. Breathing is good as long as he is using his nebulizers and oxygen. He is not feeling particularly anxious. He is not having any back pain or any leg pain, not having any abdominal pain or chest pain. MEDICATIONS: He is getting subcutaneous heparin, metoprolol, [place]. He is finishing a course of Augmentin. He is on gabapentin, Spiriva, Symbicort, DuoNeb, as needed albuterol, 40 mg of prednisone, TUMS, docusate, Benadryl, aspirin, pantoprazole, Pulmicort. As needed Tylenol and Zofran. OBJECTIVE: VITAL SIGNS: On examination, temperature is 97.5, blood pressure 103/63, pulse 86, respirations 16, O2 saturation 92% on six liters per minute. GENERAL: He is awake, alert, oriented, is not in any distress. He is chronically ill. He is bearded. He is wearing his nasal oxygen. LUNGS: He has rhonchi throughout all lung hamilton, mostly in the left lower lobe, however. CARDIAC: Heart has regular rhythm without any murmur, click or gallop, although sounds are distant. ABDOMEN: Soft and nontender without any masses or organomegaly. EXTREMITIES: Tie Tape Machine Operator are symmetric. There is no edema. LABORATORY DATA: He had labs today which showed a hemoglobin of 13.1, WBC 15,700, 81 segmented neutrophils, seven lymphocytes, 5% myelocytes and metamyelocytes. ASSESSMENT: 1. Pneumonia, seems slowly resolving. 2. Lung cancer with hilar adenopathy and there is mediastinal adenopathy. 3. Metastatic disease to the liver. 4. Chronic lung disease with hypoxic respiratory failure. 5. History of hyponatremia, better. PLAN: At this point, since he is now DNR and getting, for the most part, comfort measures and being prepared to go home with hospice, we can take him off telemetry and send him to a regular floor. He is agreeable to this. We facilitated the transfer. He did have oxygen before at home. He thinks that his oxygen at home goes up to six liters. This will be need to be clarified. He does have help at home but the help does not live in. This may or may now create some barriers to hospice care for him. LYNN
[2017-05-14] MEDS: BUDESONIDE 0.5 MG/2 ML INHALATION SUSPENSION INH SCH ×2 (07:20→20:00)
[2017-05-14] MEDS: TIOTROPIUM INHALER/CAPSULE (SPIRIVA) INH SCH (07:20)
[2017-05-14] MEDS: IPRATROPIUM 0.5MG/ALBUTEROL 2.5MG INH SOL UD 3ML (DUONEB)(J7620) NEB SCH ×5 (07:21→20:00)
[2017-05-14] MEDS: SYMBICORT 160/4.5MCG INHALER 6GM INH SCH ×2 (07:21→21:02)
[2017-05-14 08:06] VITALS: BP 117/58
[2017-05-14] MEDS: AUGMENTIN 875 MG TAB PO SCH ×2 (08:17→21:59)
[2017-05-14] MEDS: GABAPENTIN 100 MG CAP PO SCH ×3 (08:17→21:58)
[2017-05-14] MEDS: METOPROLOL TART 12.5 MG PER 1/2 TAB PO SCH ×2 (08:17→21:00)
[2017-05-14] MEDS: PANTOPRAZOLE 40MG TAB (PROTONIX) PO SCH (08:17)
[2017-05-14] MEDS: ASPIRIN 81 MG ENTERIC TAB PO SCH (08:18)
[2017-05-14] MEDS: DOCUSATE SODIUM 100 MG CAP PO SCH ×2 (08:18→21:58)
[2017-05-14] MEDS: predniSONE 20 MG TAB PO SCH (08:18)
--- NOTE | 2017-05-14 17:00 | IPNPDOC ---
Subjective Date Seen The patient was seen on 05/14/17. Subjective Chief Complaint/HPI The patient is a 76-year-old male admitted with a reason for visit of Acute On Chronic Respiratory Failure With Hypoxia. Events since last encounter Hefeels generally well today. His breathing varies - nebs help when he feels SOB Constitutional: Denies: Chills, Fever Pulmonary: Reports: Dyspnea, Cough Cardiovascular: Denies: Chest Pain, Palpitations, Orthopnea Gastrointestinal: Denies: Nausea, Vomiting, Abdominal Pain, Diarrhea, Constipation Objective Physical Examination General Exam: Positive: Alert, No Acute Distress Chest Exam: Positive: Diminished Heart Exam: Positive: Rate Normal, Regular Rhythm, Normal S1, Normal S2 Abdomen Exam: Positive: Normal bowel sounds, Soft Extremity Exam: Negative: Edema Neuro Exam: Positive: Normal Speech Psych Exam: Positive: Oriented x 3 Assessment /Plan Problems (1) Metastatic carcinoma to liver Problem Specific Plan: Consult Specialist Problem Text: 05/14 - Patient is [facility] awaiting placement. NO beds available in hospice house comfortable at this time 05/13/17: hospice consult placed. Discussed home with family vs hospice home. D/ w PFS-hospice house is currently not available-recommended to make [facility], PFS would attempt HOME coverage for possible SNF placement-which was done-all meds continued x Augmentin dc Results reviewed with patient. discussed prognosis and medical co-morbidities. patient requests oncology evaluation. Will initiate. spoke with Dr. Todd, will evaluate patient and discuss options including palliative care. Discussion held with Matthew Quesada, patient's grandson and caregiver. Matthew is aware of dx and poor prognosis including concern over co-morbidities and ability to tolerate chemotx. [facility] will review with case management, oncology and patient. (2) Left upper lobe pneumonia Status: Acute Response to Treatment: Stable Problem Text: 05/06/17 SCX moderate MRSA 05/08/17: progressing pneumonia. breathing treatments adjusted by pulmonology, Dr. Morrissey. Augmentin started by Dr. Morrissey. BNP was normal. Will reduce diuretics. Sodium better. 05/07/17: STAT portable CXR, ABG, suction for secretions. Solumedrol 125 mg IV x 1. Patient verbalizes he does not wish to be intubated. Agreeable to CPR. Will notify Pulmonology. Diuretic 40mg IV lasix also ordered. Also has completed 2 weeks of Levaquin and Vanco. will stop. 05/06: vanc/levaquin day 5. MRSA and Klebsiella PNA on cx. Cont to have elevated white count, which may be secondary to neoplastic syndrome. - consider d/c with home health abx 05/05/17: Levaquin 750 mg po q 48 hrs and vancomycin for tx of kleb PNA and MRSA on sputum cx. s/p Pulm consult and bx. Cont to have elevated white count despite tx, which may be secondary to neoplastic syndrome. Cx and sensitivities indicate current regiment should be effective. Prev Bcx with propionibacteria acnes likely skin contaminate and repeat cx negative. - cont vanc/levaquin 05/04/17: Levaquin 750 mg po q 48 hrs and vancomycin for tx of kleb PNA and MRSA on sputum cx. s/p Pulm consult and bx. -Added Q4H duonebs and acapella 05/03/17: Levaquin 750 mg po q 48 hrs. s/p Pulm consult. 05/02 -- restarted antibiotics, and discussed with pulm. (Pulm consult placed.) Maintaining current prednisone dosing, after discussion with Dr. Jon. Worsening leukocytosis secondary to infection or steroids. 05/01 -- finished a week of levaquin and vancomycin. DCed antibiotics. WBCs increasing, though patient is on Solumedrol. Decreased steroids. No change in oxygen needs, and CXR yesterday improved. 04/26 given ? liver mets-check liver US, WBC 13.6 (10.8), add levofloxacin given h /o Pseudomonas and 04/24 SCX c K. pneumonia (if develops rash, change to meropenem ) 04/24 HCAP with recent hospitalization in February for similar symptoms. Sputum culture in February was positive for pseudomonas. 04/24 SCX moderate MRSA/few K. pneumoniae 03/05/17 SCX few P. aeruginosa 04/25 CT chest: 1. Extensive hilar adenopathy with large nodes up to 2.1 cm subcarinal and precarinal region with 18 mm AP window nodes. Other large nodes prevascular space, right paratracheal region and all of these suspicious for malignancy. Some nodes surround the left upper lobe bronchus have occluded since the previous study. Extensive consolidation in the left upper lobe and lingula are related to post obstructive pneumonia. Small effusion and new multiple pleural based and parenchymal nodular densities or nodular infiltrates in the left lower lobe, suspicious for malignancy. 2. Chronic fibrotic changes and honeycombing in the posterior right upper lobe and anterior right upper lobe paramediastinal region stable. 3. No cardiomegaly, pericardial thickening or effusion. 4. Suspected liver metastatic lesions inferiorly in the right hepatic lobe. Unreviewed 03/01/17 CT chest: Severe upper lobe predominant centrilobular and paracentral emphysema is seen. 2. There are increased interstitial lung markings with honeycombing at lung bases compatible with pulmonary fibrosis. 3. Since the prior study, there is resolution of confluent markings in the superior segment of right lower lobe. 4. New confluent markings with areas of consolidation to the lingula. This is most compatible with pneumonia. However follow up is recommended to document resolution. 5. Calcified gallstone is again seen. (3) Acute on chronic respiratory failure with hypoxia Problem Text: 05/05/17: Stable, chronic SOB, likely metastatic lung CA 05/04/17: patient feels breathing is back to baseline. Increased O2 need upon admission, likely due to HCAP - see above (4) COPD (chronic obstructive pulmonary disease) Status: Chronic Problem Text: 05/04: now on pred 40 mg daily. Cont to have SOB. Q4H nebs ordered (5) Oxygen dependent Status: Chronic Problem Text: On 2 L/min at home (6) CKD (chronic kidney disease) stage 3, GFR 30-59 ml/min Status: Chronic Response to Treatment: Improving Problem Text: Stable (7) Systolic CHF Status: Chronic Response to Treatment: Stable Problem Text: 05/08/17. BNP negative, so will reduce diuretic intensity. 05/07/17: Fluid overload suspected today. Iv diuretic ordered and he has improved this afternoon compared to status late morning. not not diuretic rx baseline (8) Non-sustained ventricular tachycardia Status: Acute Response to Treatment: Uncontrolled Problem Specific Plan: Monitor Clinically Problem Text: will start low dose metoprolol 12.5 mg po bid (9) Hyponatremia syndrome Status: Resolved Problem Text: 05/13/17: 141. 05/10/17: Na improving slowly, now at 133 05/09/: NA 131 05/08/17: improved at 127 today. Monitor. 05/07/17 Na down to 123. suspect fluid expansion associated with CHF will stop IV fluids start diuretic Rx. 05/06/17: 126 today. 1200 ml fluid restriction. NS @ 50 ml per hour started yesterday. monitor. 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 Sodium prev stable, now dropping. - start NS at 50 mls/hr Plan/VTE VTE Prophylaxis Ordered?: Yes (Heparin) VS, I&O, 24H, Fishbone Vital Signs/I&O Vital Signs Date Time Temp Pulse Resp B/P (MAP) Pulse Ox O2 Delivery O2 Flow Rate FiO2 05/14/17 10:26 Nasal Cannula 6.0 05/14/17 08:17 82 117/58 05/14/17 08:06 96.9 22 93 I&O- Last 24 Hours up to 6 AM 05/14/17 06:00 Intake Total 1440 ml Output Total 500 ml Balance 940 ml Laboratory Data Microbiology Microbiology 05/06/17 Gram Stain - Final, Complete 05/06/17 Sputum Culture - Final, Complete Staph.aureus Methicillin Resis Yeast Like Organism ANNMARIE MCCULLOUGH PA-C May 14, 2017 17:00
[2017-05-15] MEDS: HEPARIN SOD (PORCINE) 5000 UNITS/ML VIAL SQ SCH ×2 (06:06→16:39)
[2017-05-15] MEDS: TIOTROPIUM INHALER/CAPSULE (SPIRIVA) INH SCH (07:22)
[2017-05-15] MEDS: SYMBICORT 160/4.5MCG INHALER 6GM INH SCH ×2 (07:23→19:36)
[2017-05-15] MEDS: IPRATROPIUM 0.5MG/ALBUTEROL 2.5MG INH SOL UD 3ML (DUONEB)(J7620) NEB SCH ×4 (07:23→20:00)
[2017-05-15] MEDS: BUDESONIDE 0.5 MG/2 ML INHALATION SUSPENSION INH SCH ×2 (07:23→18:49)
[2017-05-15] MEDS: METOPROLOL TART 12.5 MG PER 1/2 TAB PO SCH ×2 (09:59→21:36)
[2017-05-15] MEDS: GABAPENTIN 100 MG CAP PO SCH ×3 (10:00→21:36)
[2017-05-15] MEDS: PANTOPRAZOLE 40MG TAB (PROTONIX) PO SCH (10:00)
[2017-05-15] MEDS: predniSONE 20 MG TAB PO SCH (10:01)
[2017-05-15] MEDS: DOCUSATE SODIUM 100 MG CAP PO SCH ×2 (10:01→21:36)
[2017-05-15] MEDS: NORCO, ANEXSIA 5/325MG TABLET (HYDROcodone/ACETAMINOPHEN) PO PRN ×3 (10:01→23:22)
[2017-05-15] MEDS: ASPIRIN 81 MG ENTERIC TAB PO SCH (10:01)
[2017-05-15] MEDS: AUGMENTIN 875 MG TAB PO SCH ×2 (10:01→21:36)
--- NOTE | 2017-05-15 10:36 | IPNPDOC ---
Subjective Date Seen The patient was seen on 05/15/17. Subjective Chief Complaint/HPI The patient is a 76-year-old male admitted with a reason for visit of Acute On Chronic Respiratory Failure With Hypoxia. Events since last encounter Feels SOB currently - last neb given at 7:30 am Constitutional: Denies: Chills, Fever Pulmonary: Reports: Dyspnea, Cough Cardiovascular: Denies: Chest Pain, Palpitations Gastrointestinal: Denies: Nausea, Vomiting, Abdominal Pain, Diarrhea Objective Physical Examination General Exam: Positive: Alert, Mild Distress Chest Exam: Positive: Diminished Heart Exam: Positive: Rate Normal, Regular Rhythm, Normal S1, Normal S2 Abdomen Exam: Positive: Normal bowel sounds, Soft Extremity Exam: Negative: Edema Neuro Exam: Positive: Normal Speech Psych Exam: Positive: Oriented x 3 Assessment /Plan Problems (1) Metastatic carcinoma to liver Problem Specific Plan: Consult Specialist Problem Text: 05/15 - [facility] is in contact with hospice house - may have bed available later this week 05/14 - 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 NO beds available in hospice house comfortable at this time 05/13/17: hospice consult placed. Discussed home with family vs hospice home. D/ w PFS-hospice house is currently not available-recommended to make CITY PLANNING AIDE, PFS would attempt HOME coverage for possible SNF placement-which was done-all meds continued x Augmentin dc Results reviewed with patient. discussed prognosis and medical co-morbidities. patient requests oncology evaluation. Will initiate. spoke with Dr. Todd, will evaluate patient and discuss options including palliative care. Discussion held with Matthew Quesada, patient's grandson and caregiver. Matthew is aware of dx and poor prognosis including concern over co-morbidities and ability to tolerate chemotx. [facility] will review with case management, oncology and patient. (2) Left upper lobe pneumonia Status: Acute Response to Treatment: Stable Problem Text: 05/06/17 SCX moderate MRSA 05/08/17: progressing pneumonia. breathing treatments adjusted by pulmonology, Dr. Morrissey. Augmentin started by Dr. Morrissey. BNP was normal. Will reduce diuretics. Sodium better. 05/07/17: STAT portable CXR, ABG, suction for secretions. Solumedrol 125 mg IV x 1. Patient verbalizes he does not wish to be intubated. Agreeable to CPR. Will notify Pulmonology. Diuretic 40mg IV lasix also ordered. Also has completed 2 weeks of Levaquin and Vanco. will stop. 05/06: vanc/levaquin day 5. MRSA and Klebsiella PNA on cx. Cont to have elevated white count, which may be secondary to neoplastic syndrome. - consider d/c with home health abx 05/05/17: Levaquin 750 mg po q 48 hrs and vancomycin for tx of kleb PNA and MRSA on sputum cx. s/p Pulm consult and bx. Cont to have elevated white count despite tx, which may be secondary to neoplastic syndrome. Cx and sensitivities indicate current regiment should be effective. Prev Bcx with propionibacteria acnes likely skin contaminate and repeat cx negative. - cont vanc/levaquin 05/04/17: Levaquin 750 mg po q 48 hrs and vancomycin for tx of kleb PNA and MRSA on sputum cx. s/p Pulm consult and bx. -Added Q4H duonebs and acapella 05/03/17: Levaquin 750 mg po q 48 hrs. s/p Pulm consult. 05/02 -- restarted antibiotics, and discussed with pulm. (Pulm consult placed.) Maintaining current prednisone dosing, after discussion with Dr. Jon. Worsening leukocytosis secondary to infection or steroids. 05/01 -- finished a week of levaquin and vancomycin. DCed antibiotics. WBCs increasing, though patient is on Solumedrol. Decreased steroids. No change in oxygen needs, and CXR yesterday improved. 04/26 given ? liver mets-check liver US, WBC 13.6 (10.8), add levofloxacin given h /o Pseudomonas and 04/24 SCX c K. pneumonia (if develops rash, change to meropenem ) 04/24 HCAP with recent hospitalization in February for similar symptoms. Sputum culture in February was positive for pseudomonas. 04/24 SCX moderate MRSA/few K. pneumoniae 03/05/17 SCX few P. aeruginosa 04/25 CT chest: 1. Extensive hilar adenopathy with large nodes up to 2.1 cm subcarinal and precarinal region with 18 mm AP window nodes. Other large nodes prevascular space, right paratracheal region and all of these suspicious for malignancy. Some nodes surround the left upper lobe bronchus have occluded since the previous study. Extensive consolidation in the left upper lobe and lingula are related to post obstructive pneumonia. Small effusion and new multiple pleural based and parenchymal nodular densities or nodular infiltrates in the left lower lobe, suspicious for malignancy. 2. Chronic fibrotic changes and honeycombing in the posterior right upper lobe and anterior right upper lobe paramediastinal region stable. 3. No cardiomegaly, pericardial thickening or effusion. 4. Suspected liver metastatic lesions inferiorly in the right hepatic lobe. Unreviewed 03/01/17 CT chest: Severe upper lobe predominant centrilobular and paracentral emphysema is seen. 2. There are increased interstitial lung markings with honeycombing at lung bases compatible with pulmonary fibrosis. 3. Since the prior study, there is resolution of confluent markings in the superior segment of right lower lobe. 4. New confluent markings with areas of consolidation to the lingula. This is most compatible with pneumonia. However follow up is recommended to document resolution. 5. Calcified gallstone is again seen. (3) Acute on chronic respiratory failure with hypoxia Problem Text: 05/05/17: Stable, chronic SOB, likely metastatic lung CA 05/04/17: patient feels breathing is back to baseline. Increased O2 need upon admission, likely due to HCAP - see above (4) COPD (chronic obstructive pulmonary disease) Status: Chronic Problem Text: 05/04: now on pred 40 mg daily. Cont to have SOB. Q4H nebs ordered (5) Oxygen dependent Status: Chronic Problem Text: On 2 L/min at home (6) CKD (chronic kidney disease) stage 3, GFR 30-59 ml/min Status: Chronic Response to Treatment: Improving Problem Text: Stable (7) Systolic CHF Status: Chronic Response to Treatment: Stable Problem Text: 05/08/17. BNP negative, so will reduce diuretic intensity. 05/07/17: Fluid overload suspected today. Iv diuretic ordered and he has improved this afternoon compared to status late morning. not not diuretic rx baseline (8) Non-sustained ventricular tachycardia Status: Acute Response to Treatment: Uncontrolled Problem Specific Plan: Monitor Clinically Problem Text: will start low dose metoprolol 12.5 mg po bid (9) Hyponatremia syndrome Status: Resolved Problem Text: 05/13/17: 141. 05/10/17: Na improving slowly, now at 133 05/09/: NA 131 05/08/17: improved at 127 today. Monitor. 05/07/17 Na down to 123. suspect fluid expansion associated with CHF will stop IV fluids start diuretic Rx. 05/06/17: 126 today. 1200 ml fluid restriction. NS @ 50 ml per hour started yesterday. monitor. 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 Sodium prev stable, now dropping. - start NS at 50 mls/hr Plan/VTE VTE Prophylaxis Ordered?: Yes (Heparin) Plan Family Medicine Attending note: I saw and examined Mr. Baker this afternoon; I discussed his case with CARLITO Merida and I agree with her note above. Patient stated he is comfortable at the time of my exam. I believe [facility], but he now states he would prefer to go to [facility] - I d/w him that I am not certain [facility] would be able to accept him given his comorbidities and high oxygen need. I discussed this with his nurse, who is going to clarify with PFS regarding this. (KES) VS, I&O, 24H, Fishbone Vital Signs/I&O Vital Signs Date Time Temp Pulse Resp B/P (MAP) Pulse Ox O2 Delivery O2 Flow Rate FiO2 05/15/17 10:01 20 05/15/17 09:59 80 104/52 05/14/17 21:00 Nasal Cannula 6.0 05/14/17 08:06 96.9 93 I&O- Last 24 Hours up to 6 AM 05/15/17 06:00 Intake Total 1380 ml Output Total 1100 ml Balance 280 ml Laboratory Data Microbiology Microbiology 05/06/17 Gram Stain - Final, Complete 05/06/17 Sputum Culture - Final, Complete Staph.aureus Methicillin Resis Yeast Like Organism ANNMARIE MCCULLOUGH PA-C May 15, 2017 10:36 CATRACHITO CANO MD May 15, 2017 13:39
[2017-05-16] MEDS: HEPARIN SOD (PORCINE) 5000 UNITS/ML VIAL SQ SCH (06:04)
[2017-05-16] MEDS: BUDESONIDE 0.5 MG/2 ML INHALATION SUSPENSION INH SCH (08:00)
[2017-05-16] MEDS: IPRATROPIUM 0.5MG/ALBUTEROL 2.5MG INH SOL UD 3ML (DUONEB)(J7620) NEB SCH ×4 (08:00→19:41)
[2017-05-16] MEDS: METOPROLOL TART 12.5 MG PER 1/2 TAB PO SCH ×2 (08:56→21:00)
[2017-05-16] MEDS: predniSONE 20 MG TAB PO SCH (08:56)
[2017-05-16] MEDS: PANTOPRAZOLE 40MG TAB (PROTONIX) PO SCH (08:56)
[2017-05-16] MEDS: GABAPENTIN 100 MG CAP PO SCH ×3 (08:57→21:00)
[2017-05-16] MEDS: AUGMENTIN 875 MG TAB PO SCH (08:57)
[2017-05-16] MEDS: DOCUSATE SODIUM 100 MG CAP PO SCH ×2 (08:57→21:00)
[2017-05-16] MEDS: ASPIRIN 81 MG ENTERIC TAB PO SCH (08:57)
[2017-05-16] MEDS: TIOTROPIUM INHALER/CAPSULE (SPIRIVA) INH SCH (09:28)
[2017-05-16] MEDS: SYMBICORT 160/4.5MCG INHALER 6GM INH SCH ×2 (09:28→20:47)
--- NOTE | 2017-05-16 12:05 | IPNPDOC ---
Subjective Date Seen The patient was seen on 05/16/17. Subjective Chief Complaint/HPI The patient is a 76-year-old male admitted with a reason for visit of Acute On Chronic Respiratory Failure With Hypoxia. Events since last encounter Was given Ativan last night. He still feels drowsy from this and does not like how much it sedated him His breathing feels ok today Constitutional: Denies: Chills, Fever Pulmonary: Reports: Dyspnea, Cough Cardiovascular: Denies: Chest Pain Gastrointestinal: Denies: Nausea, Vomiting, Abdominal Pain, Diarrhea, Constipation Objective Physical Examination General Exam: Positive: Alert, Mild Distress Chest Exam: Positive: Diminished Heart Exam: Positive: Rate Normal, Regular Rhythm, Normal S1, Normal S2 Abdomen Exam: Positive: Normal bowel sounds, Soft Extremity Exam: Negative: Edema Neuro Exam: Positive: Normal Speech Psych Exam: Positive: Oriented x 3 Assessment /Plan Problems (1) Metastatic carcinoma to liver Problem Specific Plan: Consult Specialist Problem Text: 05/16 - Hospice house will probably have a bed Tuesday 05/15 - [facility] is in contact with hospice house - may have bed available later this week 05/14 - 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 NO beds available in hospice house comfortable at this time 05/13/17: hospice consult placed. Discussed home with family vs hospice home. D/ w PFS-hospice house is currently not available-recommended to make FOREST FIRE MANAGEMENT OFFICER, PFS would attempt HOME coverage for possible SNF placement-which was done-all meds continued x Augmentin dc Results reviewed with patient. discussed prognosis and medical co-morbidities. patient requests oncology evaluation. Will initiate. spoke with Dr. Todd, will evaluate patient and discuss options including palliative care. Discussion held with Matthew Quesada, patient's grandson and caregiver. Matthew is aware of dx and poor prognosis including concern over co-morbidities and ability to tolerate chemotx. [facility] states will review with case management, oncology and patient. (2) Left upper lobe pneumonia Status: Acute Response to Treatment: Stable Problem Text: 05/06/17 SCX moderate MRSA 05/08/17: progressing pneumonia. breathing treatments adjusted by pulmonology, Dr. Morrissey. Augmentin started by Dr. Morrissey. BNP was normal. Will reduce diuretics. Sodium better. 05/07/17: STAT portable CXR, ABG, suction for secretions. Solumedrol 125 mg IV x 1. Patient verbalizes he does not wish to be intubated. Agreeable to CPR. Will notify Pulmonology. Diuretic 40mg IV lasix also ordered. Also has completed 2 weeks of Levaquin and Vanco. will stop. 05/06: vanc/levaquin day 5. MRSA and Klebsiella PNA on cx. Cont to have elevated white count, which may be secondary to neoplastic syndrome. - consider d/c with home health abx 05/05/17: Levaquin 750 mg po q 48 hrs and vancomycin for tx of kleb PNA and MRSA on sputum cx. s/p Pulm consult and bx. Cont to have elevated white count despite tx, which may be secondary to neoplastic syndrome. Cx and sensitivities indicate current regiment should be effective. Prev Bcx with propionibacteria acnes likely skin contaminate and repeat cx negative. - cont vanc/levaquin 05/04/17: Levaquin 750 mg po q 48 hrs and vancomycin for tx of kleb PNA and MRSA on sputum cx. s/p Pulm consult and bx. -Added Q4H duonebs and acapella 05/03/17: Levaquin 750 mg po q 48 hrs. s/p Pulm consult. 05/02 -- restarted antibiotics, and discussed with pulm. (Pulm consult placed.) Maintaining current prednisone dosing, after discussion with Dr. Jon. Worsening leukocytosis secondary to infection or steroids. 05/01 -- finished a week of levaquin and vancomycin. DCed antibiotics. WBCs increasing, though patient is on Solumedrol. Decreased steroids. No change in oxygen needs, and CXR yesterday improved. 04/26 given ? liver mets-check liver US, WBC 13.6 (10.8), add levofloxacin given h /o Pseudomonas and 04/24 SCX c K. pneumonia (if develops rash, change to meropenem ) 04/24 HCAP with recent hospitalization in February for similar symptoms. Sputum culture in February was positive for pseudomonas. 04/24 SCX moderate MRSA/few K. pneumoniae 03/05/17 SCX few P. aeruginosa 04/25 CT chest: 1. Extensive hilar adenopathy with large nodes up to 2.1 cm subcarinal and precarinal region with 18 mm AP window nodes. Other large nodes prevascular space, right paratracheal region and all of these suspicious for malignancy. Some nodes surround the left upper lobe bronchus have occluded since the previous study. Extensive consolidation in the left upper lobe and lingula are related to post obstructive pneumonia. Small effusion and new multiple pleural based and parenchymal nodular densities or nodular infiltrates in the left lower lobe, suspicious for malignancy. 2. Chronic fibrotic changes and honeycombing in the posterior right upper lobe and anterior right upper lobe paramediastinal region stable. 3. No cardiomegaly, pericardial thickening or effusion. 4. Suspected liver metastatic lesions inferiorly in the right hepatic lobe. Unreviewed 03/01/17 CT chest: Severe upper lobe predominant centrilobular and paracentral emphysema is seen. 2. There are increased interstitial lung markings with honeycombing at lung bases compatible with pulmonary fibrosis. 3. Since the prior study, there is resolution of confluent markings in the superior segment of right lower lobe. 4. New confluent markings with areas of consolidation to the lingula. This is most compatible with pneumonia. However follow up is recommended to document resolution. 5. Calcified gallstone is again seen. (3) Acute on chronic respiratory failure with hypoxia Problem Text: 05/05/17: Stable, chronic SOB, likely metastatic lung CA 05/04/17: patient feels breathing is back to baseline. Increased O2 need upon admission, likely due to HCAP - see above (4) COPD (chronic obstructive pulmonary disease) Status: Chronic Problem Text: 05/16 - Remains on Prednisone 40 mg daily Cont to have SOB. Q4H nebs ordered Continue Symbicort Refusing Budesonide nebs - I will d/c these (5) Oxygen dependent Status: Chronic Problem Text: On 2 L/min at home (6) CKD (chronic kidney disease) stage 3, GFR 30-59 ml/min Status: Chronic Response to Treatment: Improving Problem Text: Stable (7) Systolic CHF Status: Chronic Response to Treatment: Stable Problem Text: 05/08/17. BNP negative, so will reduce diuretic intensity. 05/07/17: Fluid overload suspected today. Iv diuretic ordered and he has improved this afternoon compared to status late morning. not not diuretic rx baseline (8) Non-sustained ventricular tachycardia Status: Acute Response to Treatment: Uncontrolled Problem Specific Plan: Monitor Clinically Problem Text: will start low dose metoprolol 12.5 mg po bid (9) Hyponatremia syndrome Status: Resolved Problem Text: 05/13/17: 141. 05/10/17: Na improving slowly, now at 133 : NA 131 05/08/17: improved at 127 today. Monitor. 05/07/17 Na down to 123. suspect fluid expansion associated with CHF will stop IV fluids start diuretic Rx. 05/06/17: 126 today. 1200 ml fluid restriction. NS @ 50 ml per hour started yesterday. monitor. 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 Sodium prev stable, now dropping. - start NS at 50 mls/hr Plan/VTE VTE Prophylaxis Ordered?: Yes (Heparin) VS, I&O, 24H, Fishbone Vital Signs/I&O Vital Signs Date Time Temp Pulse Resp B/P (MAP) Pulse Ox O2 Delivery O2 Flow Rate FiO2 05/16/17 10:00 Nasal Cannula 6.0 05/16/17 08:56 82 116/70 05/16/17 00:15 20 05/14/17 08:06 96.9 93 I&O- Last 24 Hours up to 6 AM 05/16/17 06:00 Intake Total 1950 ml Output Total 825 ml Balance 1125 ml Laboratory Data Microbiology Microbiology 05/06/17 Gram Stain - Final, Complete 05/06/17 Sputum Culture - Final, Complete Staph.aureus Methicillin Resis Yeast Like Organism ANNMARIE MCCULLOUGH PA-C May 16, 2017 12:05
[2017-05-16] MEDS: NORCO, ANEXSIA 5/325MG TABLET (HYDROcodone/ACETAMINOPHEN) PO PRN ×2 (12:44→21:15)
[2017-05-17] MEDS: SYMBICORT 160/4.5MCG INHALER 6GM INH SCH ×2 (07:41→21:09)
[2017-05-17] MEDS: IPRATROPIUM 0.5MG/ALBUTEROL 2.5MG INH SOL UD 3ML (DUONEB)(J7620) NEB SCH ×4 (08:00→21:09)
[2017-05-17] MEDS: METOPROLOL TART 12.5 MG PER 1/2 TAB PO SCH ×2 (10:22→20:58)
[2017-05-17] MEDS: ASPIRIN 81 MG ENTERIC TAB PO SCH (10:22)
[2017-05-17] MEDS: predniSONE 20 MG TAB PO SCH (10:22)
[2017-05-17] MEDS: DOCUSATE SODIUM 100 MG CAP PO SCH ×2 (10:23→20:36)
[2017-05-17] MEDS: ENOXAPARIN 40 MG/0.4 ML SYRINGE (J1650) SC SCH (10:23)
[2017-05-17] MEDS: PANTOPRAZOLE 40MG TAB (PROTONIX) PO SCH (10:23)
[2017-05-17] MEDS: GABAPENTIN 100 MG CAP PO SCH ×3 (10:23→20:58)
[2017-05-17] MEDS: TIOTROPIUM INHALER/CAPSULE (SPIRIVA) INH SCH (10:27)
[2017-05-17] MEDS: NORCO, ANEXSIA 5/325MG TABLET (HYDROcodone/ACETAMINOPHEN) PO PRN ×2 (15:24→22:20)
[2017-05-18] MEDS: NORCO, ANEXSIA 5/325MG TABLET (HYDROcodone/ACETAMINOPHEN) PO PRN ×3 (04:30→17:26)
[2017-05-18] MEDS: IPRATROPIUM 0.5MG/ALBUTEROL 2.5MG INH SOL UD 3ML (DUONEB)(J7620) NEB SCH ×4 (08:00→20:00)
[2017-05-18] MEDS: TIOTROPIUM INHALER/CAPSULE (SPIRIVA) INH SCH (08:27)
[2017-05-18] MEDS: SYMBICORT 160/4.5MCG INHALER 6GM INH SCH ×2 (08:27→20:04)
[2017-05-18] MEDS: ENOXAPARIN 40 MG/0.4 ML SYRINGE (J1650) SC SCH (09:31)
[2017-05-18] MEDS: PANTOPRAZOLE 40MG TAB (PROTONIX) PO SCH (09:31)
[2017-05-18] MEDS: ASPIRIN 81 MG ENTERIC TAB PO SCH (09:31)
[2017-05-18] MEDS: GABAPENTIN 100 MG CAP PO SCH ×3 (09:31→21:10)
[2017-05-18] MEDS: predniSONE 20 MG TAB PO SCH (09:31)
[2017-05-18] MEDS: ACETAMINOPHEN TAB 650MG DOSE (2X325MG) PO PRN ×2 (09:32→14:46)
[2017-05-18] MEDS: METOPROLOL TART 12.5 MG PER 1/2 TAB PO SCH ×2 (09:33→21:11)
[2017-05-18] MEDS: DOCUSATE SODIUM 100 MG CAP PO SCH ×2 (09:34→20:00)
--- NOTE | 2017-05-18 12:56 | IPNPDOC ---
Subjective Date Seen The patient was seen on 05/18/17. Subjective Chief Complaint/HPI The patient is a 76-year-old male admitted with a reason for visit of Acute On Chronic Respiratory Failure With Hypoxia. Constitutional: Denies: Chills, Fever ENT: Denies: Head Aches Pulmonary: Reports: Cough, Pleuritic Chest Pain Cardiovascular: Denies: Palpitations Gastrointestinal: Denies: Nausea, Abdominal Pain Hematologic: Denies: Bruising, Bleeding Excessively Objective Physical Examination General Exam: Positive: Alert, Mild Distress Chest Exam: Positive: Diminished (minimal rhonchi no wheezes noted.) Heart Exam: Positive: Rate Normal, Regular Rhythm, Normal S1, Normal S2 Abdomen Exam: Positive: Normal bowel sounds, Soft Extremity Exam: Negative: Edema Neuro Exam: Positive: Normal Speech Psych Exam: Positive: Oriented x 3 Assessment /Plan Problems (1) 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 NO beds available in hospice house comfortable at this time 05/13/17: hospice consult placed. Discussed home with family vs hospice home. D/ w PFS-hospice house is currently not available-recommended to make TRANSPORTATION MECHANIC, PFS would attempt HOME coverage for possible SNF placement-which was done-all meds continued x Augmentin dc Results reviewed with patient. discussed prognosis and medical co-morbidities. patient requests oncology evaluation. Will initiate. spoke with Dr. Todd, will evaluate patient and discuss options including palliative care. Discussion held with Matthew Leilanibrad, patient's grandson and caregiver. Matthew is aware of dx and poor prognosis including concern over co-morbidities and ability to tolerate chemotx. [facility] will review with case management, oncology and patient. (2) Left upper lobe pneumonia Status: Acute Response to Treatment: Stable Problem Text: 05/06/17 SCX moderate MRSA 05/08/17: progressing pneumonia. breathing treatments adjusted by pulmonology, Dr. Morrissey. Augmentin started by Dr. Morrissey. BNP was normal. Will reduce diuretics. Sodium better. 05/07/17: STAT portable CXR, ABG, suction for secretions. Solumedrol 125 mg IV x 1. Patient verbalizes he does not wish to be intubated. Agreeable to CPR. Will notify Pulmonology. Diuretic 40mg IV lasix also ordered. Also has completed 2 weeks of Levaquin and Vanco. will stop. 05/06: vanc/levaquin day 5. MRSA and Klebsiella PNA on cx. Cont to have elevated white count, which may be secondary to neoplastic syndrome. - consider d/c with home health abx 05/05/17: Levaquin 750 mg po q 48 hrs and vancomycin for tx of kleb PNA and MRSA on sputum cx. s/p Pulm consult and bx. Cont to have elevated white count despite tx, which may be secondary to neoplastic syndrome. Cx and sensitivities indicate current regiment should be effective. Prev Bcx with propionibacteria acnes likely skin contaminate and repeat cx negative. - cont vanc/levaquin 05/04/17: Levaquin 750 mg po q 48 hrs and vancomycin for tx of kleb PNA and MRSA on sputum cx. s/p Pulm consult and bx. -Added Q4H duonebs and acapella 05/03/17: Levaquin 750 mg po q 48 hrs. s/p Pulm consult. 05/02 -- restarted antibiotics, and discussed with pulm. (Pulm consult placed.) Maintaining current prednisone dosing, after discussion with Dr. Jon. Worsening leukocytosis secondary to infection or steroids. 05/01 -- finished a week of levaquin and vancomycin. DCed antibiotics. WBCs increasing, though patient is on Solumedrol. Decreased steroids. No change in oxygen needs, and CXR yesterday improved. 04/26 given ? liver mets-check liver US, WBC 13.6 (10.8), add levofloxacin given h /o Pseudomonas and 04/24 SCX c K. pneumonia (if develops rash, change to meropenem ) 04/24 HCAP with recent hospitalization in February for similar symptoms. Sputum culture in February was positive for pseudomonas. 04/24 SCX moderate MRSA/few K. pneumoniae 03/05/17 SCX few P. aeruginosa 04/25 CT chest: 1. Extensive hilar adenopathy with large nodes up to 2.1 cm subcarinal and precarinal region with 18 mm AP window nodes. Other large nodes prevascular space, right paratracheal region and all of these suspicious for malignancy. Some nodes surround the left upper lobe bronchus have occluded since the previous study. Extensive consolidation in the left upper lobe and lingula are related to post obstructive pneumonia. Small effusion and new multiple pleural based and parenchymal nodular densities or nodular infiltrates in the left lower lobe, suspicious for malignancy. 2. Chronic fibrotic changes and honeycombing in the posterior right upper lobe and anterior right upper lobe paramediastinal region stable. 3. No cardiomegaly, pericardial thickening or effusion. 4. Suspected liver metastatic lesions inferiorly in the right hepatic lobe. Unreviewed 03/01/17 CT chest: Severe upper lobe predominant centrilobular and paracentral emphysema is seen. 2. There are increased interstitial lung markings with honeycombing at lung bases compatible with pulmonary fibrosis. 3. Since the prior study, there is resolution of confluent markings in the superior segment of right lower lobe. 4. New confluent markings with areas of consolidation to the lingula. This is most compatible with pneumonia. However follow up is recommended to document resolution. 5. Calcified gallstone is again seen. (3) Acute on chronic respiratory failure with hypoxia Problem Text: 05/05/17: Stable, chronic SOB, likely metastatic lung CA 05/04/17: patient feels breathing is back to baseline. Increased O2 need upon admission, likely due to HCAP - see above (4) COPD (chronic obstructive pulmonary disease) Status: Chronic Problem Text: 05/16 - Remains on Prednisone 40 mg daily Cont to have SOB. Q4H nebs ordered Continue Symbicort Refusing Budesonide nebs - I will d/c these (5) Oxygen dependent Status: Chronic Problem Text: On 2 L/min at home (6) CKD (chronic kidney disease) stage 3, GFR 30-59 ml/min Status: Chronic Response to Treatment: Improving Problem Text: Stable (7) Systolic CHF Status: Chronic Response to Treatment: Stable Problem Text: 05/08/17. BNP negative, so will reduce diuretic intensity. 05/07/17: Fluid overload suspected today. Iv diuretic ordered and he has improved this afternoon compared to status late morning. not not diuretic rx baseline (8) Non-sustained ventricular tachycardia Status: Acute Response to Treatment: Stable Problem Specific Plan: Monitor Clinically Problem Text: will start low dose metoprolol 12.5 mg po bid (9) Hyponatremia syndrome Status: Resolved Problem Text: 05/13/17: 141. 05/10/17: Na improving slowly, now at 133 : NA 131 05/08/17: improved at 127 today. Monitor. 05/07/17 Na down to 123. suspect fluid expansion associated with CHF will stop IV fluids start diuretic Rx. 05/06/17: 126 today. 1200 ml fluid restriction. NS @ 50 ml per hour started yesterday. monitor. 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 Sodium prev stable, now dropping. - start NS at 50 mls/hr Plan/VTE VTE Prophylaxis Ordered?: Yes (Heparin) VS, I&O, 24H, Fishbone Vital Signs/I&O Vital Signs Date Time Temp Pulse Resp B/P (MAP) Pulse Ox O2 Delivery O2 Flow Rate FiO2 05/18/17 11:24 20 05/18/17 09:33 84 111/57 05/17/17 21:00 Nasal Cannula 6.0 05/14/17 08:06 96.9 93 I&O- Last 24 Hours up to 6 AM 05/18/17 06:00 Intake Total 820 ml Output Total 300 ml Balance 520 ml Laboratory Data 24H LABS Laboratory Tests 2 05/18/17 11:20: Bedside Glucose (Misc Panel) 111H Shan Gonzalez MD May 18, 2017 12:56
[2017-05-19] MEDS: ALBUTEROL SULFATE 2.5 MG/0.5 ML INH NEB SOLN NEB PRN ×3 (01:12→23:54)
[2017-05-19] MEDS: NORCO, ANEXSIA 5/325MG TABLET (HYDROcodone/ACETAMINOPHEN) PO PRN ×4 (01:59→23:14)
[2017-05-19] MEDS: SYMBICORT 160/4.5MCG INHALER 6GM INH SCH ×2 (07:19→19:51)
[2017-05-19] MEDS: TIOTROPIUM INHALER/CAPSULE (SPIRIVA) INH SCH (07:19)
[2017-05-19] MEDS: IPRATROPIUM 0.5MG/ALBUTEROL 2.5MG INH SOL UD 3ML (DUONEB)(J7620) NEB SCH ×4 (07:19→20:00)
[2017-05-19] MEDS: ENOXAPARIN 40 MG/0.4 ML SYRINGE (J1650) SC SCH (08:07)
[2017-05-19] MEDS: PANTOPRAZOLE 40MG TAB (PROTONIX) PO SCH (08:08)
[2017-05-19] MEDS: predniSONE 20 MG TAB PO SCH (08:08)
[2017-05-19] MEDS: ASPIRIN 81 MG ENTERIC TAB PO SCH (08:08)
[2017-05-19] MEDS: METOPROLOL TART 12.5 MG PER 1/2 TAB PO SCH ×2 (08:08→21:04)
[2017-05-19] MEDS: GABAPENTIN 100 MG CAP PO SCH ×3 (08:08→21:03)
[2017-05-19] MEDS: DOCUSATE SODIUM 100 MG CAP PO SCH ×2 (08:09→21:07)
--- NOTE | 2017-05-19 11:52 | IPNPDOC ---
Subjective Date Seen The patient was seen on 05/19/17. Subjective Chief Complaint/HPI The patient is a 76-year-old male admitted with a reason for visit of Acute On Chronic Respiratory Failure With Hypoxia. Constitutional: Denies: Chills, Fever, Malaise ENT: Denies: Head Aches Pulmonary: Reports: Cough, Pleuritic Chest Pain (cough and intermittent CP continue, stable. pain is mixture of rest pain and pain associated with cough/ deep breathing) Gastrointestinal: Denies: Nausea, Abdominal Pain Hematologic: Denies: Bruising, Petecchia Objective Physical Examination General Exam: Positive: Alert, No Acute Distress Chest Exam: Positive: Wheezing (mild wheezing/rhonchi heard mostly on right ), Diminished (minimal rhonchi no wheezes noted.) Heart Exam: Positive: Rate Normal, Regular Rhythm, Normal S1, Normal S2 Abdomen Exam: Positive: Normal bowel sounds, Soft, Negative: Tenderness Extremity Exam: Negative: Edema Skin Exam: Positive: Nl turgor and temperature, Negative: Rash Neuro Exam: Positive: Normal Speech Psych Exam: Positive: Oriented x 3 Assessment /Plan Problems (1) 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 05/15 - [facility] is in contact with hospice house - may have bed available later this week 05/14 - Patient is [employer] awaiting placement. NO beds available in hospice house comfortable at this time 05/13/17: hospice consult placed. Discussed home with family vs hospice home. D/ w [facility]-hospice house is currently not available-recommended to make [employer], [facility] would attempt [facility] coverage for possible SNF placement-which was done-all meds continued x Augmentin dc Results reviewed with patient. discussed prognosis and medical co-morbidities. patient requests oncology evaluation. Will initiate. spoke with Dr. Todd, will evaluate patient and discuss options including palliative care. Discussion held with Matthew Quesada, patient's grandson and caregiver. Matthew is aware of dx and poor prognosis including concern over co-morbidities and ability to tolerate chemotx. Matthew states will review with case management, oncology and patient. (2) Left upper lobe pneumonia Status: Acute Response to Treatment: Stable Problem Text: 05/06/17 SCX moderate MRSA 05/08/17: progressing pneumonia. breathing treatments adjusted by pulmonology, Dr. Morrissey. Augmentin started by Dr. Morrissey. BNP was normal. Will reduce diuretics. Sodium better. 05/07/17: STAT portable CXR, ABG, suction for secretions. Solumedrol 125 mg IV x 1. Patient verbalizes he does not wish to be intubated. Agreeable to CPR. Will notify Pulmonology. Diuretic 40mg IV lasix also ordered. Also has completed 2 weeks of Levaquin and Vanco. will stop. 05/06: vanc/levaquin day 5. MRSA and Klebsiella PNA on cx. Cont to have elevated white count, which may be secondary to neoplastic syndrome. - consider d/c with home health abx 05/05/17: Levaquin 750 mg po q 48 hrs and vancomycin for tx of kleb PNA and MRSA on sputum cx. s/p Pulm consult and bx. Cont to have elevated white count despite tx, which may be secondary to neoplastic syndrome. Cx and sensitivities indicate current regiment should be effective. Prev Bcx with propionibacteria acnes likely skin contaminate and repeat cx negative. - cont vanc/levaquin 05/04/17: Levaquin 750 mg po q 48 hrs and vancomycin for tx of kleb PNA and MRSA on sputum cx. s/p Pulm consult and bx. -Added Q4H duonebs and acapella 05/03/17: Levaquin 750 mg po q 48 hrs. s/p Pulm consult. 05/02 -- restarted antibiotics, and discussed with pulm. (Pulm consult placed.) Maintaining current prednisone dosing, after discussion with Dr. Jon. Worsening leukocytosis secondary to infection or steroids. 05/01 -- finished a week of levaquin and vancomycin. DCed antibiotics. WBCs increasing, though patient is on Solumedrol. Decreased steroids. No change in oxygen needs, and CXR yesterday improved. 04/26 given ? liver mets-check liver US, WBC 13.6 (10.8), add levofloxacin given h /o Pseudomonas and 04/24 SCX c K. pneumonia (if develops rash, change to meropenem ) 04/24 HCAP with recent hospitalization in February for similar symptoms. Sputum culture in February was positive for pseudomonas. 04/24 SCX moderate MRSA/few K. pneumoniae 03/05/17 SCX few P. aeruginosa 04/25 CT chest: 1. Extensive hilar adenopathy with large nodes up to 2.1 cm subcarinal and precarinal region with 18 mm AP window nodes. Other large nodes prevascular space, right paratracheal region and all of these suspicious for malignancy. Some nodes surround the left upper lobe bronchus have occluded since the previous study. Extensive consolidation in the left upper lobe and lingula are related to post obstructive pneumonia. Small effusion and new multiple pleural based and parenchymal nodular densities or nodular infiltrates in the left lower lobe, suspicious for malignancy. 2. Chronic fibrotic changes and honeycombing in the posterior right upper lobe and anterior right upper lobe paramediastinal region stable. 3. No cardiomegaly, pericardial thickening or effusion. 4. Suspected liver metastatic lesions inferiorly in the right hepatic lobe. Unreviewed 03/01/17 CT chest: Severe upper lobe predominant centrilobular and paracentral emphysema is seen. 2. There are increased interstitial lung markings with honeycombing at lung bases compatible with pulmonary fibrosis. 3. Since the prior study, there is resolution of confluent markings in the superior segment of right lower lobe. 4. New confluent markings with areas of consolidation to the lingula. This is most compatible with pneumonia. However follow up is recommended to document resolution. 5. Calcified gallstone is again seen. (3) Acute on chronic respiratory failure with hypoxia Problem Text: 05/05/17: Stable, chronic SOB, likely metastatic lung CA 05/04/17: patient feels breathing is back to baseline. Increased O2 need upon admission, likely due to HCAP - see above (4) COPD (chronic obstructive pulmonary disease) Status: Chronic Problem Text: 05/16 - Remains on Prednisone 40 mg daily Cont to have SOB. Q4H nebs ordered Continue Symbicort Refusing Budesonide nebs - I will d/c these (5) Oxygen dependent Status: Chronic Problem Text: On 2 L/min at home (6) CKD (chronic kidney disease) stage 3, GFR 30-59 ml/min Status: Chronic Response to Treatment: Improving Problem Text: Stable (7) Systolic CHF Status: Chronic Response to Treatment: Stable Problem Text: 05/08/17. BNP negative, so will reduce diuretic intensity. 05/07/17: Fluid overload suspected today. Iv diuretic ordered and he has improved this afternoon compared to status late morning. not not diuretic rx baseline (8) Non-sustained ventricular tachycardia Status: Acute Response to Treatment: Stable Problem Specific Plan: Monitor Clinically Problem Text: will start low dose metoprolol 12.5 mg po bid (9) Hyponatremia syndrome Status: Resolved Problem Text: 05/13/17: 141. 05/10/17: Na improving slowly, now at 133 : NA 131 05/08/17: improved at 127 today. Monitor. 05/07/17 Na down to 123. suspect fluid expansion associated with CHF will stop IV fluids start diuretic Rx. 05/06/17: 126 today. 1200 ml fluid restriction. NS @ 50 ml per hour started yesterday. monitor. 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 Sodium prev stable, now dropping. - start NS at 50 mls/hr Plan/VTE VTE Prophylaxis Ordered?: Yes (Heparin) Plan Anticipated Discharge: Hospice VS, I&O, 24H, Fishbone Vital Signs/I&O Vital Signs Date Time Temp Pulse Resp B/P (MAP) Pulse Ox O2 Delivery O2 Flow Rate FiO2 05/19/17 08:09 20 05/19/17 08:08 81 135/74 05/19/17 07:21 Nasal Cannula 6.0 05/14/17 08:06 96.9 93 I&O- Last 24 Hours up to 6 AM 05/19/17 06:00 Intake Total 950 ml Output Total 250 ml Balance 700 ml Shan Gonzalez MD May 19, 2017 11:52
[2017-05-20] MEDS: DOCUSATE SODIUM 100 MG CAP PO SCH (07:42)
[2017-05-20] MEDS: predniSONE 20 MG TAB PO SCH (07:45)
[2017-05-20] MEDS: ASPIRIN 81 MG ENTERIC TAB PO SCH (07:45)
[2017-05-20] MEDS: GABAPENTIN 100 MG CAP PO SCH (07:46)
[2017-05-20] MEDS: PANTOPRAZOLE 40MG TAB (PROTONIX) PO SCH (07:46)
[2017-05-20] MEDS: ENOXAPARIN 40 MG/0.4 ML SYRINGE (J1650) SC SCH (07:47)
[2017-05-20 07:48] VITALS: BP 130/73
[2017-05-20] MEDS: METOPROLOL TART 12.5 MG PER 1/2 TAB PO SCH (07:48)
[2017-05-20] MEDS: IPRATROPIUM 0.5MG/ALBUTEROL 2.5MG INH SOL UD 3ML (DUONEB)(J7620) NEB SCH ×2 (08:00→10:58)
[2017-05-20] MEDS: TIOTROPIUM INHALER/CAPSULE (SPIRIVA) INH SCH (08:05)
[2017-05-20] MEDS: SYMBICORT 160/4.5MCG INHALER 6GM INH SCH (08:05)
[2017-05-20] MEDS ORDERED: MAPA325T3 PO (10:23)
[2017-05-20] MEDS ORDERED: METO1TAB87 PO (10:23)
[2017-05-20] MEDS ORDERED: HYOS125TA PO (10:23)
[2017-05-20] MEDS ORDERED: NORCOTAB PO (10:23)
[2017-05-20] MEDS ORDERED: GABA-279 PO (10:23)
[2017-05-20] MEDS ORDERED: LORA1TAB12 PO (10:23)
[2017-05-20] MEDS ORDERED: PRED20TA PO (10:23)
[2017-05-20] MEDS: NORCO, ANEXSIA 5/325MG TABLET (HYDROcodone/ACETAMINOPHEN) PO PRN (11:38)
--- NOTE | 2017-05-20 16:33 | DSES ---
DATE OF ADMISSION: 04/24/2017 DATE OF DISCHARGE: 05/20/2017 PRIMARY CARE PROVIDER: Dr. Frederick Singh ATTENDING TODAY: Dr. Nhan Lyle HISTORY: This is a 76-year-old male patient who presented to [facility] emergency room with increasing shortness of breath. He was found to have acute on chronic respiratory failure with pneumonia. Further evaluation was suggestive of a postobstructive pneumonia, as the patient was found on imaging to have extensive hilar adenopathy, especially in the subcarinal and precarinal region, as well as right paratracheal and prevascular space. He also had some nodes surrounding the left upper bronchus that have occluded since a previous study was obtained. The consolidation was noted to be extensive in his left upper lobe and lingual and felt to be postobstructive secondary to these changes. Also on the CT was noted to have multiple hepatic lesions that were suspicious for metastatic disease. Followup liver ultrasound was obtained, which is suggestive of multiple liver masses. 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 Respiratory status has improved. He met with Dr. Todd from oncology, who recommended comfort care given the patient's multiple comorbidities and poor performance status. The patient was agreeable to this and the plan at this point is that he will be discharged to the hospice house. He has completed a Medical Orders for Life Sustaining Treatment (MOLST) form. He has been anticipating a bed becoming available for him and is eager to be discharged there at this time. DISCHARGE DIAGNOSES: Include: 1. 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 2. Left upper lobe pneumonia secondary to postobstructive disease. 3. Acute on chronic respiratory failure with hypoxemia. 4. Chronic obstructive pulmonary disease (COPD) with chronic oxygen dependency. 5. Chronic kidney disease stage II. 6. Chronic systolic congestive heart failure (CHF). 7. Hyponatremia. 8. Nonsustained ventricular tachycardia. DISCHARGE MEDICATIONS: - Roxanol 20 mg per mL, 1/4 to 1 mL by mouth or sublingual every 2 hours as needed for pain or shortness of breath - lorazepam 1 mg every 4 hours as needed for agitation and anxiety. - hyoscyamine 0.125 mg by mouth or sublingual every 4 hours as needed for terminal secretions - Tylenol 650 mg every 4 hours as needed for mild pain or fever - [place] 5/325 mg one tablet every 6 hours as needed for mild to moderate pain - gabapentin 100 mg by mouth three times a day - metoprolol 12.5 mg by mouth twice a day - prednisone 20 mg daily times five additional days - DuoNeb inhaled every 4 hours as needed for shortness of breath - aspirin 81 mg daily - Colace 100 mg by mouth twice a day - Breo Ellipta one puff daily - Protonix 40 mg daily DISCHARGE PLAN: Followup as needed. He will be discharged to the hospice house. His primary care provider, Dr. Singh, will follow him and will manage his hospice care.
== END 2017-05-20 12:15 | disposition hospice, inpatient (51) | DRG 180 ==
LOC: EDBD 02:37 → M ED 02:37 → M ED INP 05:02 → M MSPAV 06:10 → OBSVTOIN 15:06 → M PCU 05-07 12:35 → M MSPAV 05-12 16:28
PROVIDERS: ADMIT Hospitalist; ATTEND Family Medicine
PROC: 0FB03ZX Excision of Liver, Percutaneous Approach, Diagnostic (ICD-10-PCS; principal; 2017-05-03)
PROC: 0FB03ZX Excision of Liver, Percutaneous Approach, Diagnostic (ICD-10-PCS; 2017-05-08)
DX: C78.02 Secondary malignant neoplasm of left lung (principal); J96.21 Acute and chronic respiratory failure with hypoxia; J18.9 Pneumonia, unspecified organism; J44.0 Chronic obstructive pulmonary disease with (acute) lower respiratory infection; I50.22 Chronic systolic (congestive) heart failure; J44.1 Chronic obstructive pulmonary disease with (acute) exacerbation; E87.1 Hypo-osmolality and hyponatremia; C78.7 Secondary malignant neoplasm of liver and intrahepatic bile duct; I13.0 Hypertensive heart and chronic kidney disease with heart failure and stage 1 through stage 4 chronic kidney disease, or unspecified chronic kidney disease; Z66 Do not resuscitate; Z51.5 Encounter for palliative care; Z79.899 Other long term (current) drug therapy; Z79.82 Long term (current) use of aspirin; Z99.81 Dependence on supplemental oxygen; D50.9 Iron deficiency anemia, unspecified; F41.9 Anxiety disorder, unspecified; E78.5 Hyperlipidemia, unspecified; N18.3 Chronic kidney disease, stage 3 (moderate); F17.210 Nicotine dependence, cigarettes, uncomplicated; K21.9 Gastro-esophageal reflux disease without esophagitis; K59.00 Constipation, unspecified; E55.9 Vitamin D deficiency, unspecified; E53.8 Deficiency of other specified B group vitamins; I69.393 Ataxia following cerebral infarction; I48.91 Unspecified atrial fibrillation; J84.10 Pulmonary fibrosis, unspecified